=== PATIENT | male | born 1990 | race Caucasian/White ===

== ENCOUNTER 2023-04-15 08:55 | Emergency (ER) | payer MEDICAID, SELFPAY ==
[2023-04-15 09:11] VITALS: BP 140/98; PULSE 63; RESP 16; TEMP 36.8; O2SAT 98; BMI 30.6
--- NOTE | 2023-04-15 09:33 | ED_ITS ---
HPI - General Adult General Chief complaint: Neck Pain/Injury Stated complaint: NECK PAIN Time Seen by Provider: 04/15/23 09:32 Source: patient Mode of arrival: walk-in Limitations: no limitations History of Present Illness HPI narrative: Patient is a 32-year-old male who is presenting with acute on chronic left-sided neck, shoulder, cervical radiculopathy To both arms, left greater than right, and also right lower back pain with radiation of some pain into the right leg. This is acute on chronic. Patient has had these symptoms before. Patient has seen a center specialists in the past, approximately 23 years old and they would not do surgery because patient was so young. Patient stated he does not recall any type of heavy lifting twisting and turning at work on Thursday. 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 Thursday morning patient symptoms started. Patient has no headache. She has no neck pain, pain is more to bilateral trapezius muscles with radiation into the left arm to all 5 fingers. 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 No loss of urine or bowels and his pants. No dental pain nausea vomiting. No chest pain shortness of breath, no other acute complaints. . All systems are negative except as noted/marked. All systems reviewed and otherwise negative. . Nurses note and vital signs reviewed and patient is not hypoxic. General: The patient appears well and in no apparent distress. Patient is resting comfortably on cart. Patient is not toxic, lethargic, or listless Skin: Warm, dry, no pallor noted. There is no rash noted. No petechiae, purpura. Patient has multiple piercings and tattoos, no secondary signs of infection. Rash. Head: Normocephalic, atraumatic; Patient has no midline or paracervical tende rness to palpation. Full range of motion of cervical spinal no difficulty. Patient has multiple moderate tenderness to palpation to the bilateral upper trapezius muscles, left greater than right. Patient has symptoms of radiculopathy into his left hand. Patient has no cervical radiculopathy into his right hand. Eye: Normal conjunctiva, no drainage, EOMI. PERRL Ears, Nose, Mouth, and Throat: oral mucosa is moist. Nares patent. Mouth without vesicles. Cardiovascular: Regular Rate and Rhythm, no murmur, gallop, rub Respiratory: Patient is in no distress, no accessory muscle use, lungs are cl ear to auscultation, no wheezing, rales or rhonchi Back: non-tender, Patient has mild to moderate tenderness to palpation to the soft tissue to the right paralumbar area, no midline pain. No tenderness to piriformis muscle. Patient has negative straight leg raising test bilateral. No signs or symptoms of saddle anesthesia or cauda equina.no CVA tenderness bilaterally to percussion. No CT LS midline pain GI: soft, no tenderness to palpation, no masses appreciated. No rebound, guarding, or rigidity noted. No flank pain bilateral, No distention Musculoskeletal: Patient has full range of motion of all of the extremities, no motor, sensory, or focal neurological deficits Neurological: A&O x3, normal speech Psychiatric: Cooperative Related Data Previous Rx's Medication Instructions Recorded cyclobenzaprine 10 mg tablet 10 mg PO Q12H PRN muscle spasm #10 04/15/23 tabs methylprednisolone 4 mg tablets in 4 mg PO DAILY 7 days #21 ea 04/15/23 a dose pack (Medrol (Jean-Paul)) Allergies Allergy/AdvReac Type Severity Reaction Status Date / Time No Known Drug Allergies Allergy Verified 04/15/23 09:14 PFSH PFSH Social History Smoking status: Former smoker Exam Constitutional Vital Signs, click to edit/add: Last Vital Signs Temp 98.3 F 04/15/23 09:11 Pulse 63 04/15/23 09:11 Resp 16 04/15/23 09:11 BP 140/98 H 04/15/23 09:11 Pulse Ox 98 04/15/23 09:11 O2 Del Method Room Air 04/15/23 09:11 Course Vital Signs Vital signs: Vital Signs Temperature 98.3 F 04/15/23 09:11 Pulse Rate 63 04/15/23 09:11 Respiratory Rate 16 04/15/23 09:11 Blood Pressure 140/98 H 04/15/23 09:11 Pulse Oximetry 98 04/15/23 09:11 Oxygen Delivery Method Room Air 04/15/23 09:11 Temperature 98.3 F 04/15/23 09:11 Pulse Rate 63 04/15/23 09:11 Respiratory Rate 16 04/15/23 09:11 Blood Pressure 140/98 H 04/15/23 09:11 Pulse Oximetry 98 08/02/23 09:11 Oxygen Delivery Method Room Air 04/15/23 09:11 Medical Decision Making MDM Narrative Medical decision making narrative: Education was given ice, stretching. Patient will follow-up with PCP, chiropractor if needed. Patient had the follow-up with the spine surgeon again for reevaluation. Patient states the Flexeril has helped him in the past. The 1st few tablets may make him sleepy, but overall it does help and he is requesting that. Patient will be given a Medrol Dosepak as well. Patient will follow-up with PCP. Work note given. 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 Patient has no other questions at this time. Patient did not go to work today. Chief concern work note, also been treating the pain, he has not had the pain for years. Discharge Plan Discharge Chief Complaint: Neck Pain/Injury Clinical Impression: Cervical radiculopathy, Lumbar back pain with radiculopathy affecting left lower extremity, Strain of neck muscle Patient Disposition: Home, Self-Care Prescriptions / Home Meds: New cyclobenzaprine 10 mg tablet 10 mg PO Q12H PRN (Reason: muscle spasm) Qty: 10 0RF methylprednisolone [Medrol (Jean-Paul)] 4 mg tablets,dose pack 4 mg PO DAILY 7 Days Qty: 21 0RF Rx Instructions: as directed Instructions: Cervical Strain (ED), Lumbar Radiculopathy (ED), Cervical Radiculopathy (ED) Additional Instructions: Work note given, use ice 20 minutes on, 20 minutes off. Finish the Medrol Dosepak. Use Flexeril as needed since he views this in the past and has been affected. Alternate Tylenol and Motrin every 4 hours to help with pain. Follow-up with your PCP in follow-up with orthopedic spine surgeon or neurosurgeon Again for reevaluation if needed. Stand Alone Forms: Work/School Release, Portal Instructions Referrals: Physician,Non-Staff, MD [Primary Care Provider] - 1 week
[2023-04-15] MEDS: KETOROLAC TROMETHAMINE 30 MG/ML VIAL 60 MG IM (09:52)
[2023-04-15] MEDS: ORPHENADRINE 60 MG/ 2 ML VIAL IM (09:52)
[2023-04-15 10:08] VITALS: BP 141/98; PULSE 77; RESP 16; O2SAT 99
== END 2023-04-15 10:10 | disposition home or self-care (01) ==
PROVIDERS: Emergency Provider Emergency Medicine
DX: S16.1XXA Strain of muscle, fascia and tendon at neck level, initial encounter (principal); M54.12 Radiculopathy, cervical region; M54.16 Radiculopathy, lumbar region; M54.50 Low back pain, unspecified; Z87.891 Personal history of nicotine dependence; X58.XXXA Exposure to other specified factors, initial encounter
CPT/HCPCS: 96372; 99284

== ENCOUNTER 2023-08-25 17:30 | Emergency (ER) | payer SELFPAY ==
[2023-08-25 17:33] VITALS: BP 158/96; PULSE 97; RESP 18; TEMP 37.3; O2SAT 97; BMI 28.7
[2023-08-25 17:56] LABS: Influenza Virus A Antigen Negative; Influenza Virus B Antigen Negative; Internal Control Within Normal Limits; SARS-CoV-2 Ag NEGATIVE (NEGATIVE)
--- NOTE | 2023-08-25 17:56 | ED.URI1 ---
HPI - URI/Sore Throat General Chief Complaint: Upper Respiratory Infection Stated Complaint: body aches ear ache cough Time Seen by Provider: 08/25/23 17:35 Source: patient Limitations: no limitations History of Present Illness HPI Narrative: Patient is a 32-year-old male who presents to the emergency department for 2-day history of flulike illness. He states 2 days ago he developed diffuse bodyaches, intermittent fevers. He states the fever has improved, but the body aches have returned and he has now developed more nasal congestion, cough. He states he feels pressure in both of his ears. No medications taken prior to arrival today. He has had diarrhea but no vomiting. Related Data Previous Rx's Medication Instructions Recorded amoxicillin 500 mg capsule 500 mg PO TID 10 days #30 caps 08/25/23 mypecnqqntdxggr-rplwcinkzexnihb-YK 10 ml PO Q6H PRN cold symptoms 08/25/23 2 mg-30 mg-10 mg/5 mL oral syrup #200 mL (Bromfed DM) ondansetron 4 mg disintegrating 4 mg PO Q6H PRN nausea and 08/25/23 tablet vomiting #12 tabs Allergies Allergy/AdvReac Type Severity Reaction Status Date / Time No Known Drug Allergies Allergy Verified 08/25/23 17:33 Review of Systems ROS Constitutional Reports: fever and chills Ears, nose, mouth, and throat Reports: throat pain and nasal congestion Cardiovascular Denies: chest pain Respiratory Reports: cough; Denies: shortness of breath Gastrointestinal Reports: diarrhea; Denies: nausea or vomiting Genitourinary Denies: painful urination Musculoskeletal Denies: back pain Integumentary/Breast Denies: rash Neurological Reports: headache PFSH PFSH Social History Smoking status: Former smoker Exam Narrative Exam Narrative: Gen.: Awake, alert, in no distress Head: Normocephalic, atraumatic ENT: Moist mucous membranes, bilateral TMs are clear and fluid-filled. Bilateral tonsils are edematous with exudate. They are symmetric, uvula midline with airway open and patent. No trismus or drooling. No hoarse or muffled voice. Respiratory: No respiratory distress, lungs clear bilaterally Cardio: Regular rate and rhythm Extremities: Moves extremities equally Psych: Normal mood and affect Neuro: No focal neuro deficit Skin: Warm, dry, intact Constitutional Vital Signs, click to edit/add: Last Vital Signs Temp 99.2 F 08/25/23 17:33 Pulse 97 H 08/25/23 17:33 Resp 18 08/25/23 17:33 BP 158/96 H 08/25/23 17:33 Pulse Ox 97 08/25/23 17:33 O2 Del Method Room Air 08/25/23 17:33 Course Vital Signs Vital signs: Vital Signs Temperature 99.2 F 08/25/23 17:33 Pulse Rate 97 H 08/25/23 17:33 Respiratory Rate 18 08/25/23 17:33 Blood Pressure 158/96 H 08/25/23 17:33 Pulse Oximetry 97 08/25/23 17:33 Oxygen Delivery Method Room Air 08/25/23 17:33 Temperature 99.2 F 08/25/23 17:33 Pulse Rate 97 H 08/25/23 17:33 Respiratory Rate 18 08/25/23 17:33 Blood Pressure 158/96 H 08/25/23 17:33 Pulse Oximetry 97 08/25/23 17:33 Oxygen Delivery Method Room Air 08/25/23 17:33 MDM - URI/Sore Throat MDM Narrative Medical decision making narrative: Patient is negative for COVID and influenza. He is positive for strep. He will be started on antibiotics, Bromfed, Zofran for home. He is given Decadron in the ER. Vital signs within normal limits. Return to the ER if symptoms change or worsen Medical Records Attestation: I reviewed the patient's medical records. Lab Data Attestation: I reviewed the patient's lab results. Labs: Lab Results 08/25/23 08/25/23 Range/Units 17:40 17:50 SARS-CoV-2 (PCR) Negative (NEGATIVE) Influenza Type A Ag Negative Influenza Type B Ag Negative Streptococcus Screen Positive A Discharge Plan Discharge Chief Complaint: Upper Respiratory Infection Clinical Impression: Strep pharyngitis Patient Disposition: Home, Self-Care Time of Disposition Decision: 18:10 Condition: Good Prescriptions / Home Meds: New amoxicillin 500 mg capsule 500 mg PO TID 10 Days Qty: 30 0RF bhjiktxskzhqzkr-qadrvidsv-WL [Bromfed DM] 2-30-10 mg/5 mL syrup 10 ml PO Q6H PRN (Reason: cold symptoms) Qty: 200 0RF ondansetron 4 mg tablet,disintegrating 4 mg PO Q6H PRN (Reason: nausea and vomiting) Qty: 12 0RF Instructions: Strep Throat (ED) Stand Alone Forms: Portal Instructions Referrals: Physician,Non-Staff, MD [Primary Care Provider] - 1 week
[2023-08-25 18:07] LABS: Strep A Antigen Screen Positive
[2023-08-25 18:08] LABS: Internal Control Within Normal Limits
[2023-08-25] MEDS: DEXAMETHASONE SOD PHOS 10 MG/ML VIAL PO (18:20)
[2023-08-25 18:22] VITALS: BP 156/83; PULSE 78; RESP 18; O2SAT 98
[2023-08-26 15:42] LABS: SARS-CoV-2 NAA NOT DETECTED (NOT DETECTE)
== END 2023-08-25 18:23 | disposition home or self-care (01) ==
PROVIDERS: Physician Assistant; Emergency Provider Emergency Medicine
DX: J02.0 Streptococcal pharyngitis (principal); Z20.822 Contact with and (suspected) exposure to COVID-19; Z87.891 Personal history of nicotine dependence
CPT/HCPCS: 87635; 87804; 87811; 87880; 99283; J1100

== ENCOUNTER 2023-09-17 18:57 | Emergency (ER) | payer BC, SELFPAY ==
[2023-09-17 19:03] VITALS: BP 140/90; PULSE 91; RESP 16; TEMP 36.5; O2SAT 96; BMI 30.1
--- OUTSIDE RECORDS SUMMARY | 2023-09-17 19:04 | XMS_ITS | CCD ---
Author Name Unknown Address [address] [place] [id number] Organization [facility] Care Team Providers Care [facility] [employer] Name Role Phone Matt Mancera APRN, CNP Primary Care Provider MATT MATOS Primary Care Unavailable NE HANNA Attending Unavailable MIS, DR STEPHENS Attending Unavailable MISC, DR STEPHENS Consulting Unavailable MISC, DR STEPHENS Admitting Unavailable JIMMY Prakash Attending Provider Viv Campos Unavailable Tamar Prakash Unavailable DURGA Campos Attending Provider [phone] Tamar Prakash Attending Unavailable Tamar Prakash Admitting Unavailable Viv Campos Admitting Unavailable Viv Campos Attending Unavailable Allergies Allergy Classification Reported Allergen(s) Allergy Type Date of Onset Reaction(s) Facility (5 sources) [place] Propensity to adverse reactions Unknown [employer] Other Medications Current Medications Medication Drug Class(es) Dates Sig (Normalized) Sig (Original) buPROPion hydrochloride 100 mg oral tablet (1 source) Aminoketone Start: 07-01-2017 take 1 tablet by mouth twice daily buPROPion (WELLBUTRIN) 100 MG tablet Take 1 tablet by mouth 2 times daily 60 tablet 3 07/01/2017 Active cyclobenzaprine hydrochloride 10 mg oral tablet (1 source) Muscle Relaxant Start: 07-01-2017 take 1 tablet by mouth twice daily as needed for muscle spasms cyclobenzaprine (FLEXERIL) 10 MG tablet Take 1 tablet by mouth 2 times daily as needed for Muscle spasms 45 tablet 0 07/01/2017 Active ibuprofen 800 mg oral tablet (1 source) Nonsteroidal Anti-inflammatory Drug Start: 05-04-2017 take 1 tablet by mouth twice daily as needed for pain ibuprofen (ADVIL;MOTRIN) 800 MG tablet Indications: Sprain of right ankle, unspecified ligament, subsequent encounter Take 1 tablet by mouth 2 times daily as needed for Pain 60 tablet 0 05/04/2017 Active Prazosin (5 sources) alpha-Adrenergic Janeth Prazosin HCl Active Completed/Discontinued Medications Medication Drug Class(es) Dates Sig (Normalized) Sig (Original) amoxicillin 875 mg oral tablet (7 sources) Penicillin-class Antibacterial Start: 09-25-2022 take 1 tablet by mouth every twelve hours Amoxicillin 875 MG 1 tablet Orally every 12 hrs for 7 days Sep, Not-Taking Start: 07-28-2022 take 1 capsule by mi ut every eight hours Amoxicillin 500 MG 1 capsule Orally three times a day for 10 day(s) Jul, Not-Taking fluticasone propionate 0.05 mg/actuat metered dose nasal spray (2 sources) Corticosteroid Start: 09-25-2022 take 1 spray(s) nasal route once daily Fluticasone Propionate 50 MCG/ACT 1 spray in each nostril Nasally Once a day for 30 day(s) Sep, Not-Taking hydrocortisone 10 mg/ml / neomycin 3.5 mg/ml / polymyxin b 39149 unt/ml otic suspension (3 sources) Aminoglycoside Antibacterial, Polymyxin-class Antibacterial, Corticosteroid Start: 08-13-2022 Neomycin-Polymyx in-HC 3.5-05932-0 3 drops left ear Three times a day for 7 days Jul, Not-Taking lidocaine-EPINEPHrin e-tetracaine (LET) topical solution 3 mL syringe (1 source) Start: 01-21-2022 End: 01-21-2022 lidocaine-EPINEP Hrine-tetracaine (LET) topical solution 3 mL syringe naproxen sodium 550 mg oral tablet (5 sources) Nonsteroidal Anti-inflammatory Drug Start: 07-17-2022 take 1 tablet by mouth every twelve hours at mealtime as needed Naproxen Sodium 550 MG 1 tablet with food or milk as needed Orally every 12 hrs for 7 days Jul, Not-Taking Problems Active Problems Problem Classification Problem Date Documented Da te Episodic/Chronic Immunizations and screening for infectious disease (7 sources) Encounter for screening for other viral diseases; Translations: [Contact with and (suspected) exposure to other viral communicable diseases] Onset: 05-28-2020 Episodic Open wounds of head; neck; and trunk (1 source) Scalp laceration; Translations: [Laceration without foreign body of scalp, initial encounter] Episodic Other connective tissue disease (1 source) Pain in right hand Episodic Other ear and sense organ disorders (1 source) Unspecified acute noninfective otitis externa, left ear Episodic Other injuries and conditions due to external causes (1 source) Closed injury of head; Translations: [Unspecified injury of head, initial encounter] Episodic Other non-traumatic joint disorders (1 source) Pain in right knee Episodic Other upper respiratory infections (3 sources) Acute laryngitis; Translations: [Acute pharyngitis, unspecified] Onset: 06-06-2020 Episodic Otitis media and related conditions (1 source) Otitis media, unspecified, bilateral Episodic Unclassified (1 source) Pain in right hand; Translations: [Pain in right hand] Onset: 12-03-2022 Unclassified (1 source) Pain in right knee; Translations: [Pain in right knee] Onset: 07-17-2022 Past or Other Problems Problem Classification Problem Date Documented Da te Episodic/Chronic Headache; including migraine (1 source) Other headache syndrome; Translations: [OTHER HEADACHE SYNDROME] Onset: 06-06-2020 Episodic Other screening for suspected conditions (not mental disorders or infectious disease) (1 source) Patient encounter status; Translations: [Encounter for screening for disorder due to exposure to contaminants] Onset: 07-13-2015 Resolved: 06-10-2018 06-10-2018 Episodic Spondylosis; intervertebral disc disorders; other back problems (2 sources) Low back pain; Translations: [Lumbar back pain] Onset: 03-20-2015 03-20-2015 Episodic Results Test Name Value Interpretation Reference Range Facility XR hand RT min 3V*on 023 XR hand RT min 3V* [facility] [place] [address] [place] [address] XRay Report Signed Patient: Mich Rodriguez MR#: [id number] : 1990 Acct:[id number] Age/Sex: 32 / M ADM Date: 12/03/22 Loc: XDUCLY Room: Type: [facility] Attending Dr: Viv Campos LEAD CARGOMAN-C Copies to: DURGA Arango Ordering Provider: DURGA Arango Date of Service: 12/03/22 XR/XR hand RT min 3V*: RIGHT HAND SWELLING/PAIN RIGHT HAND - 3 views CLINICAL DATA: Right hand pain and swelling dorsally over the metacarpals for the past week. No known injury. COMPARISON: None AP, lateral and oblique views were obtained. There is no evidence of fracture or dislocation. No prominent hypertrophy or joint space narrowing is seen. Mild dorsal soft tissue swelling is present. XR/XR hand RT min 3V* IMPRESSION: NO ACUTE BONY FINDINGS. Impression dictated by: Christi Gray M.D.12/03/2022 12:25 PM Dictation Location: [facility] [employer] Transcribed By: [facility] 12/03/22 1225 Dictated By: Christi Gray MD 12/03/22 1223 Signed By: 12/03/22 1225 Normal [facility] XR hand RT min 3V* [facility] [employer] Other XR hand RT min 3V* [facility] [employer] Other XR hand RT min 3V* [address] [place] [address] [employer] Other XR hand RT min 3V* [place] [address] [employer] Other XR hand RT min 3V* XRay Report [employer] Other XR hand RT min 3V* Signed [employer] Other XR hand RT min 3V* Patient: Mich Rodriguez MR#: [id number] [employer] Other XR hand RT min 3V* [facility] [employer] Other XR hand RT min 3V* : 1990 Acct:[id number] [employer] Other XR hand RT min 3V* Age/Sex: 32 / M ADM Date: 12/03/22 [employer] Other XR hand RT min 3V* Loc: XDUCLY Room: Type: REG CLI [employer] Other XR hand RT min 3V* Attending Dr: Viv CALIXTO [employer] Other XR hand RT min 3V* Copies to: DURGA Arango [employer] Other XR hand RT min 3V* Ordering Provider: DURGA Arango [employer] Other XR hand RT min 3V* Date of Service: 12/03/22 [employer] Other XR hand RT min 3V* XR/XR hand RT min 3V*: RIGHT HAND SWELLING/PAIN [employer] Other XR hand RT min 3V* RIGHT HAND - 3 views [employer] Other XR hand RT min 3V* CLINICAL DATA: Right hand pain and swelling dorsally over the metacarpals for the past week. No [employer] Other XR hand RT min 3V* known injury. Nor [employer] Other XR hand RT min 3V* COMPARISON: None [employer] Other XR hand RT min 3V* AP, lateral and oblique views were obtained. There is no evidence of fracture or dislocation. No [employer] Other XR hand RT min 3V* prominent hypertrophy or joint space narrowing is seen. Mild dorsal soft tissue swelling is [employer] Other XR hand RT min 3V* present. [employer] Other XR hand RT min 3V* XR/XR hand RT min 3V* [employer] Other XR hand RT min 3V* IMPRESSION: [employer] Other XR hand RT min 3V* NO ACUTE BONY FINDINGS. [employer] Other XR hand RT min 3V* Impression dictated by: Christi Gray M.D.12/03/2022 12:25 PM [employer] Other XR hand RT min 3V* Dictation Location: [facility] [employer] Other XR hand RT min 3V* Transcribed By: PWS 12/03/22 1225 [place] [employer] Other XR hand RT min 3V* Dictated By: Christi Gray MD 12/03/22 1223 [employer] Other XR hand RT min 3V* Signed By: [employer] Other XR hand RT min 3V* 12/03/22 1225 [facility] [employer] Other COVID + FLU Quick Testingon 09-01-2022 SARS-CoV-2 (COVID-19) RNA ABILIO+probe Ql (Unsp spec) Negative [employer] Other COVID + FLU Quick Testing Negative [employer] Other XR knee RT 4V*on 07-17-2022 XR knee RT 4V* [facility] [place] [address] [place] [address] XRay Report Signed Patient: Mich Rodriguez MR#: [id number] : 1990 Acct:[id number] Age/Sex: 31 / M ADM Date: 07/17/22 Loc: XDUCLY Room: Type: [facility] Attending Dr: Tamar MARQUEZ Copies to: TAMAR PRAKASH Ordering Provider: TAMAR PRAKASH Date of Service: 07/17/22 XR/XR knee RT 4V*: Right anterior knee pain XR knee RT 4V* 07/17/2022 1:02 PM SIGNS AND SYMPTOMS: Right anterior knee pain PROTOCOL: Frontal, lateral, and oblique radiographs of the right knee COMPARISON: None FINDINGS: There is a linear radiopaque foreign body in the lateral soft tissues adjacent to the proximal fibula. The joint spaces are preserved. There is no fracture. No joint effusion. No soft tissue swelling. XR/XR knee RT 4V* IMPRESSION: No acute bony injury or significant degenerative change. There is a linear radiopaque foreign body in the lateral soft tissues adjacent to the proximal fibula. Impression dictated by: Brayan Mccormack M.D.07/17/2022 1:22 PM Dictation Location: [facility]--12 Transcribed By: [facility] 07/17/22 1322 Dictated By: Brayan Mccormack II, MD 07/17/22 1321 Signed By: 07/17/22 132 [facility] XR knee RT 4V* [facility] [employer] Other XR knee RT 4V* [facility] [employer] Other XR knee RT 4V* [address] [place] [address] [employer] Other XR knee RT 4V* [place] [address] No rt [employer] Other XR knee RT 4V* XRay Report [employer] Other XR knee RT 4V* Signed [employer] Other XR knee RT 4V* Patient: Mich Rodriguez MR#: [id number] [employer] Other XR knee RT 4V* 83 [employer] Other XR knee RT 4V* : 1990 Acct:[id number] [employer] Other XR knee RT 4V* Age/Sex: 31 / M ADM Date: 07/17/22 [employer] Other XR knee RT 4V* Loc: XDUCLY Room: Type: REG CLI [employer] Other XR knee RT 4V* Attending [facility]: [facility]ar [facility]rakash [facility] [employer] Other XR knee RT 4V* Copies to: TAMAR PRKAASH [facility] [employer] Other XR knee RT 4V* Ordering Provider: TAMAR PRAKASH [facility] [place] [employer] Other XR knee RT 4V* Date of Service: 07/17/22 [employer] Other XR knee RT 4V* XR/XR knee RT 4V*: Right anterior knee pain [employer] Other XR knee RT 4V* XR knee RT 4V* 07/17/2022 1:02 PM [employer] Other XR knee RT 4V* SIGNS AND SYMPTOMS: Right anterior knee pain [employer] Other XR knee RT 4V* PROTOCOL: Frontal, lateral, and oblique radiographs of the right knee [employer] Other XR knee RT 4V* COMPARISON: None [place] [employer] Other XR knee RT 4V* FINDINGS: [employer] Other XR knee RT 4V* There is a linear radiopaque foreign body in the lateral soft tissues adjacent to the proximal [employer] Other XR knee RT 4V* fibula. The joint spaces are preserved. There is no fracture. No joint effusion. No soft tissue [employer] Other XR knee RT 4V* swelling. [employer] Other XR knee RT 4V* XR/XR knee RT 4V* [employer] Other XR knee RT 4V* IMPRESSION: [employer] Other XR knee RT 4V* No acute bony injury or significant degenerative change. [employer] Other XR knee RT 4V* fibula. [employer] Other XR knee RT 4V* Impression dictated by: Brayan Mccormack M.D.07/17/2022 1:22 PM [employer] Other XR knee RT 4V* Dictation Location: [place] [address] [employer] Other XR knee RT 4V* Transcribed By: PWS 07/17/22 1322 [employer] Other XR knee RT 4V* Dictated By: Brayan Mccormack II, MD 07/17/22 1321 [employer] Other XR knee RT 4V* Signed By: [employer] Other XR knee RT 4V* 07/17/22 [address] [email or web address] [address] CERVICAL SPINE WO CONTRAS Ton 01-21-2022 CT CERVICAL SPINE WO CONTRAST EXAMINATION: CT OF THE CERVICAL SPINE WITHOUT CONTRAST; CT OF THE HEAD WITHOUT CONTRAST 01/21/2022 1:13 pm TECHNIQUE: CT of the cervical spine was performed without the administration of intravenous contrast. Multiplanar reformatted images are provided for review. Automated exposure control, iterative reconstruction, and/or weight based adjustment of the mA/kV was utilized to reduce the radiation dose to as low as reasonably achievable.; CT of the head was performed without the administration of intravenous contrast. Automated exposure control, iterative reconstruction, and/or weight based adjustment of the mA/kV was utilized to reduce the radiation dose to as low as reasonably achievable. 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 Area bandaged. Pt had several piercing. He did remove what he could for the exams. 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 Area bandaged. Pt had several piercing. He did remove what he could for the exams. FINDINGS: CT head: BRAIN/VENTRICLES: There is no acute intracranial hemorrhage, mass effect or midline shift. No abnormal extra-axial fluid collection. The parish-white differentiation is maintained without evidence of an acute infarct. There is no evidence of hydrocephalus. ORBITS: The visualized portion of the orbits demonstrate no acute abnormality. SINUSES: The visualized paranasal sinuses and mastoid air cells demonstrate no acute abnormality. SOFT TISSUES/SKULL: No acute abnormality of the visualized skull or soft tissues. CT CERVICAL SPINE: BONES/ALIGNMENT: There is no evidence of an acute cervical spine fracture. There is normal alignment of the cervical spine. DEGENERATIVE CHANGES: C4-C5 and C5-C6 anterior osteophytes. SOFT TISSUES: There is no prevertebral soft tissue swelling. IMPRESSION: No acute intracranial abnormality. No acute fracture or subluxation of cervical spine. Mild degenerative change C4-C5 and C5-C6. RECOMMENDATIONS: Unavailable Interpreted by: Clark Rhodes MD Signed by: Clark Rhodes MD 01/21/22 Final result Normal [facility] CT HEAD WO CONTRASTon 2021 CT HEAD WO CONTRAST EXAMINATION: CT OF THE CERVICAL SPINE WITHOUT CONTRAST; CT OF THE HEAD WITHOUT CONTRAST 01/21/2022 1:13 pm TECHNIQUE: CT of the cervical spine was performed without the administration of intravenous contrast. Multipl[employer] reformatted images are provided for review. Automated exposure control, iterative reconstruction, and/or weight based adjustment of the mA/kV was utilized to reduce the radiation dose to as low as reasonably achievable.; CT of the head was performed without the administration of intravenous contrast. Automated exposure control, iterative reconstruction, and/or weight based adjustment of the mA/kV was utilized to reduce the radiation dose to as low as reasonably achievable. 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 Area bandaged. Pt had several piercing. He did remove what he could for the exams. 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 Area bandaged. Pt had several piercing. He did remove what he could for the exams. FINDINGS: CT head: BRAIN/VENTRICLES: There is no acute intracranial hemorrhage, mass effect or midline shift. No abnormal extra-axial fluid collection. The parish-white differentiation is maintained without evidence of an acute infarct. There is no evidence of hydrocephalus. ORBITS: The visualized portion of the orbits demonstrate no acute abnormality. SINUSES: The visualized paranasal sinuses and mastoid air cells demonstrate no acute abnormality. SOFT TISSUES/SKULL: No acute abnormality of the visualized skull or soft tissues. CT CERVICAL SPINE: BONES/ALIGNMENT: There is no evidence of an acute cervical spine fracture. There is normal alignment of the cervical spine. DEGENERATIVE CHANGES: C4-C5 and C5-C6 anterior osteophytes. SOFT TISSUES: There is no prevertebral soft tissue swelling. IMPRESSION: No acute intracranial abnormality. No acute fracture or subluxation of cervical spine. Mild degenerative change C4-C5 and C5-C6. RECOMMENDATIONS: Unavailable Interpreted by: Clark Rhodes MD Signed by: Clark Rhodes MD 01/21/22 Final result Normal [facility] No Panel Informationon 01-21 No acute intracranial abnormality. No acute fracture or subluxation of cervical spine. Mild degenerative change C4-C5 and C5-C6. RECOMMENDATIONS: Unavailable [facility] RIS CONSOLIDATED EXAMINATION: CT OF THE CERVICAL SPINE WITHOUT CONTRAST; CT OF THE HEAD WITHOUT CONTRAST 01/21/2022 1:13 pm TECHNIQUE: CT of the cervical spine was performed without the administration of intravenous contrast. Multipl[employer]ar reformatted images are provided for review. Automated exposure control, iterative reconstruction, and/or weight based adjustment of the mA/kV was utilized to reduce the radiation dose to as low as reasonably achievable.; CT of the head was performed without the administration of intravenous contrast. Automated exposure control, iterative reconstruction, and/or weight based adjustment of the mA/kV was utilized to reduce the radiation dose to as low as reasonably achievable. 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 Area bandaged. Pt had several piercing. He did remove what he could for the exams. 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 Area bandaged. Pt had several piercing. He did remove what he could for the exams. FINDINGS: CT head: BRAIN/VENTRICLES: There is no acute intracranial hemorrhage, mass effect or midline shift. No abnormal extra-axial fluid collection. The parish-white differentiation is maintained without evidence of an acute infarct. There is no evidence of hydrocephalus. ORBITS: The visualized portion of the orbits demonstrate no acute abnormality. SINUSES: The visualized paranasal sinuses and mastoid air cells demonstrate no acute abnormality. SOFT TISSUES/SKULL: No acute abnormality of the visualized skull or soft tissues. CT CERVICAL SPINE: BONES/ALIGNMENT: There is no evidence of an acute cervical spine fracture. There is normal alignment of the cervical spine. DEGENERATIVE CHANGES: C4-C5 and C5-C6 anterior osteophytes. SOFT TISSUES: There is no prevertebral soft tissue swelling. [facility] Clark Zafar MD - 01/21/2022 EXAMINATION: CT OF THE CERVICAL SPINE WITHOUT CONTRAST; CT OF THE HEAD WITHOUT CONTRAST 01/21/2022 1:13 pm TECHNIQUE: CT of the cervical spine was performed without the administration of intravenous contrast. [employer] reformatted images are provided for review. Automated exposure control, iterative reconstruction, and/or weight based adjustment of the mA/kV was utilized to reduce the radiation dose to as low as reasonably achievable.; CT of the head was performed without the administration of intravenous contrast. Automated exposure control, iterative reconstruction, and/or weight based adjustment of the mA/kV was utilized to reduce the radiation dose to as low as reasonably achievable. 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 Area bandaged. Pt had several piercing. He did remove what he could for the exams. 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 Area bandaged. Pt had several piercing. He did remove what he could for the exams. FINDINGS: CT head: BRAIN/VENTRICLES: There is no acute intracranial hemorrhage, mass effect or midline shift. No abnormal extra-axial fluid collection. The parish-white differentiation is maintained without evidence of an acute infarct. There is no evidence of hydrocephalus. ORBITS: The visualized portion of the orbits demonstrate no acute abnormality. SINUSES: The visualized paranasal sinuses and mastoid air cells demonstrate no acute abnormality. SOFT TISSUES/SKULL: No acute abnormality of the visualized skull or soft tissues. CT CERVICAL SPINE: BONES/ALIGNMENT: There is no evidence of an acute cervical spine fracture. There is normal alignment of the cervical spine. DEGENERATIVE CHANGES: C4-C5 and C5-C6 anterior osteophytes. SOFT TISSUES: There is no prevertebral soft tissue swelling. IMPRESSION: No acute intracranial abnormality. No acute fracture or subluxation of cervical spine. Mild degenerative change C4-C5 and C5-C6. RECOMMENDATIONS: Unavailable [employer] Work Phone: Radiology Study observation (narrative) [employer] Phone: No Panel InformationOrdered By: Clark Rhodes on 01-21-2022 [employer] Phone: Vital Signs Date Time Vital Sign Value Performing Clinician Ibrahima austin 12-03-2022 12:35-0400 Body height 177.8 cm Viv Beth Other [employer] Other 12-03-2022 12:35-0400 Body mass index (BMI) [Ratio] 30.13 kg/m2 Viv Beth Other [employer] Other 12-03-2022 12:35-0400 Body temperature 100 [degF] Viv Randallmond Other [employer] Other 12-03-2022 12:35-0400 Body weight 95.26 kg Viv Randallmond Other [employer] Other 12-03-2022 12:35-0400 Diastolic blood pressure 89 mm[Hg] Viv Beth Other [employer] Other 12-03-2022 12:35-0400 Respiratory rate 18 /min Viv Beth Other [employer] Other 12-03-2022 12:35-0400 SaO2% (BldA) [Mass fraction] 96 % Viv Beth Other [employer] Other 12-03-2022 12:35-0400 Systolic blood pressure 151 mm[Hg] Viv Beth Other [employer] Other 09-01-2022 12:15-0500 Body height 177.8 cm Viv Beth Other [employer] Other 09-01-2022 12:15-0500 Body mass index (BMI) [Ratio] 30.13 kg/m2 Viv Beth Other [employer] Other 09-01-2022 12:15-0500 Body temperature 97.9 [degF] Viv Beth Other [employer] Other 09-01-2022 12:15-0500 Body weight 95.26 kg Viv Beth Other [employer] Other 09-01-2022 12:15-0500 Diastolic blood pressure 93 mm[Hg] Viv Beth Other [employer] Other 09-01-2022 12:15-0500 Respiratory rate 18 /min Viv Beth Other [employer] Other 09-01-2022 12:15-0500 SaO2% (BldA) [Mass fraction] 100 % Viv Beth Other [employer] Other 09-01-2022 12:15-0500 Systolic blood pressure 157 mm[Hg] Viv Beth Other [employer] Other 08-13-2022 11:35-0500 Body height 177.8 cm Viv Beth Other [employer] Other 08-13-2022 11:35-0500 Body mass index (BMI) [Ratio] 30.13 kg/m2 Viv Beth Other [employer] Other 08-13-2022 11:35-0500 Body temperature 98.1 [degF] Viv Beth Other [employer] Other 08-13-2022 11:35-0500 Body weight 95.26 kg Viv Beth Other [employer] Other 08-13-2022 11:35-0500 Diastolic blood pressure 89 mm[Hg] Viv Beth Other [employer] Other 08-13-2022 11:35-0500 Respiratory rate 16 /min Viv Beth Other [employer] Other 08-13-2022 11:35-0500 SaO2% (BldA) [Mass fraction] 99 % Viv Beth Other [employer] Other 08-13-2022 11:35-0500 Systolic blood pressure 143 mm[Hg] Viv Beth Other [employer] Other 07-28-2022 11:35-0500 Body height 177.8 cm Viv Beth Other [employer] Other 07-28-2022 11:35-0500 Body mass index (BMI) [Ratio] 30.13 kg/m2 Viv Beth Other [employer] Other 07-28-2022 11:35-0500 Body temperature 97.9 [degF] Viv Beth Other [employer] Other 07-28-2022 11:35-0500 Body weight 95.26 kg Viv Beth Other [employer] Other 07-28-2022 11:35-0500 Diastolic blood pressure 83 mm[Hg] Viv Beth Other [employer] Other 07-28-2022 11:35-0500 Respiratory rate 18 /min Viv Campos Other [employer] Other 07-28-2022 11:35-0500 SaO2% (BldA) [Mass fraction] 96 % Viv Campos Other [employer] Other 07-28-2022 11:35-0500 Systolic blood pressure 126 mm[Hg] Viv Campos Other [employer] Other 07-17-2022 14:40-0400 Body height 177.8 cm Tamar Prakash Other [employer] Other 07-17-2022 14:40-0400 Body mass index (BMI) [Ratio] 30.13 kg/m2 Tamar Prakash Other [employer] Other 07-17-2022 14:40-0400 Body temperature 98 [degF] Tamar Prakash Other [employer] Other 07-17-2022 14:40-0400 Body weight 95.26 kg Tamar Zelayaault Other [employer] Other 07-17-2022 14:40-0400 Diastolic blood pressure 81 mm[Hg] Tamar Zelayaault Other [employer] Other 07-17-2022 14:40-0400 Respiratory rate 18 /min Tamar Halyee Other [employer] Other 07-17-2022 14:40-0400 SaO2% (BldA) [Mass fraction] 98 % Tamar Prakash Other [employer] Other 07-17-2022 14:40-0400 Systolic blood pressure 143 mm[Hg] Tamar Prakash Other [employer] Other 01-21-2022 12:29-0400 Body height 177.8 cm Ne Hanna MD [facility] 01-21-2022 12:29-0400 Body mass index (BMI) [Ratio] 30.85 kg/m2 Ne Hanna MD [facility] 01-21-2022 12:29-0400 Body temperature 98.8 [degF] Ne Hanna MD [facility] 01-21-2022 12:29-0400 Body weight 97.52 kg Ne Hanna MD [facility] 01-21-2022 12:29-0400 Diastolic blood pressure 91 mm[Hg] Ne Hanna MD [facility] 01-21-2022 12:29-0400 Heart rate 82 /min Ne Hanna MD [facility] 01-21-2022 12:29-0400 Respiratory rate 18 /min Ne Hanna MD [facility] 01-21-2022 12:29-0400 SaO2% (BldA) [Mass fraction] 98 % Ne Hanna MD [facility] 01-21-2022 12:29-0400 Systolic blood pressure 155 mm[Hg] Ne Hanna MD [facility] Encounters Encounter Date Encounter Type Care Provider Facility Start: 12-03-2022 Office outpatient visit 15 minutes Viv Campos [facility] Start: 12-03-2022 End: 12-03-2022 ambulatory Viv Campos Facility:[facility] Start: 12-03-2022 End: 12-03-2022 ambulatory LEAD CARGOMAN-C Viv Campos Work Phone: [facility] Work Phone: Start: 12-03-2022 End: 12-03-2022 Patient encounter procedure LEAD CARGOMAN-C Viv Beth Work Phone: [facility] Work Phone: Start: 09-01-2022 End: 09-01-2022 ambulatory Viv Beth Other [employer] Other Start: 09-01-2022 Office outpatient visit 15 minutes Viv Beth [facility] Start: 08-13-2022 End: 08-13-2022 ambulatory Viv Beth Other [employer] Other Start: 08-13-2022 Office outpatient visit 15 minutes Viv Beth [facility] Start: 07-28-2022 End: 07-28-2022 ambulatory Viv Beth Other [employer] Other Start: 07-28-2022 Office outpatient visit 15 minutes Viv Beth [facility] Start: 07-17-2022 End: 07-17-2022 ambulatory Tamar Haylee Facility:[facility] Start: 07-17-2022 Office outpatient visit 15 minutes Tamar Haylee [facility] Start: 07-17-2022 End: 07-17-2022 ambulatory ASSOCIATE FINANCIAL ADVISOR-C Tamar Haylee Work Phone: [facility] Work Phone: Start: 07-17-2022 End: 07-17-2022 Patient encounter procedure ASSOCIATE FINANCIAL ADVISOR-C Tamar Haylee Work Phone: [facility] Start: 01-21-2022 End: 01-21-2022 Emergency department patient visit MATT MATOS [facility] Start: 01-21-2022 End: 01-21-2022 Emergency department patient visit Ne Hanna MD [facility] ED Comment on above: Closed head injury, initial encounter (Primary Dx); Laceration of scalp, initial encounter Start: 05-28-2020 End: 05-29-[address] DOCTOR CHAVARRIA Facility:[facility] Procedures Date Procedure Procedure Detail Performing Clinician Start: 12-03-2022 Plain X-ray of right hand LEAD CARGOMAN-C Viv Campos Work Phone: Start: 07-17-2022 X-ray of right knee ASSOCIATE FINANCIAL ADVISOR -C Tamar Prakash Work Phone: Start: 01-21-2022 Ct cervical spine w/ o contrast material Yoni A Romp PA-C Work Phone: Start: 01-21-2022 Ct head/brain w/o contrast material Yoni A Romp PA-C Work Phone: Plan of Treatment Date Care Activity Detail Author Start: 01-22-2032 DTaP/Tdap/Td vaccine (2 - Td or Tdap) DTaP/Tdap/Td vaccine (2 - Td or Tdap) [facility] Start: 05-15-2022 Influenza vaccination Flu vaccine (S anna marie Ended) [facility] Start: 2006 Hepatitis C screening Hepatitis C sc reen [facility] Start: 2003 HIV screening HIV screen [facility] Start: 2000 Depression Screen Depression Screen [facility] Start: 1993 COVID-19 Vaccine (1) COVID-19 Vaccin e (1) [facility] Start: 1989 Varicella vaccine (1 of 2 - 2-dose childhood series) Varicella vaccine (1 of 2 - 2-dose childhood series) [facility] Immunizations Immunization Date Immunization Notes Care Provider Fa cility 01-21-2022 tetanus toxoid, reduced diphtheria toxoid, and acellular pertussis vaccine, adsorbed Ne Hanna MD [facility] Work Phone: Payers Date Payer Category Payer Medicaid [id number] 2. [id number] 2022 Self-pay 2022 Unknown [id number] 2.1 [id number] 2022 Unknown [id number] 2022 Unknown [id number] 1.2.8 [id number] 2021 Unknown [id number] 1. [id number] 1988 Unknown [id number] [id number]. [id number] 1988 Unknown [id number] 1959 Unknown [id number] 1959 Unknown [id number] Unknown [id number] 2.16.8 [id number] Unknown [id number] 2.16.8 [id number] Social History Date Type Detail Facility Start: 03-31-2014 Tobacco smoking status [facility] Ex-smoker [facility] Start: 03-31-2014 Tobacco use and exposure Smokeless tobacco non-user [employer] Phone: Start: 01-21-2022 Alcohol intake Current non-dr edge inker uppers of alcohol (finding) [employer] Phone: Start: 01-21-2022 Alcohol intake [employer] Phone: Start: 03-31-2014 History SDOH Alcohol Comment 1x month [employer] Phone: Start: 1990 Sex Assigned At Not on file M [facility] Phone: Start: 01-11-2022 End: 01-21-2022 Exposure to SARS-CoV-2 (event) Not sure [employer] Phone: Start: 1988 Sex Assigned At Male F [facility] Sex Assigned At Sex Assigned At [place] [employer] Other Evaluation note 12-03-2022 Note Date & Type Note Facility 12-03-2022 Evaluation note Encounter Date Diagnosis Assessment Notes Nov, Right hand pain (ICD-10 - M79.641) Hand pain home care material was printed, Hand pain home care material was printed Wear the Maynor wrap for comfort and compression. Take 2 Aleve every morning and every night for the next 5 to 7 days. Follow-up with your family physician if no improvement in 5 to 7 days. [employer] Other Evaluation note 09-01-2022 Note Date & Type Note Facility 09-01-2022 Evaluation note Encounter Date Diagnosis Assessment Notes Aug, Contact with and (suspected) exposure to other viral communicable diseases (ICD-10 - Z20.828) Aug, Viral upper respiratory infection (ICD-10 - J06.9) Viral upper respiratory infection: adult home care material was printed Drink plenty fluids, get plenty of rest. Take Tylenol or Motrin as needed for aches pains or fevers. Follow-up with your family physician if no improvement in 2 to 3 days. You may return to work tomorrow [employer] Other Evaluation note 08-13-2022 Note Date & Type Note Facility 08-13-2022 Evaluation note Encounter Date Diagnosis Assessment Notes Jul, Acute otitis externa of left ear, unspecified type (ICD-10 - H60.502) Otitis externa home care material was printed Drink plenty fluids, get plenty of rest. Use eardrops as prescribed. Take Tylenol or Motrin as needed for aches pains or fevers. Follow-up with your family physician if no improvement in 2 to 3 days. [employer] Other Evaluation note 07-28-2022 Note Date & Type Note Facility 07-28-2022 Evaluation note Encounter Date Diagnosis Assessment Notes Jul, Bilateral otitis media, unspecified otitis media type (ICD-10 - H66.93) Middle ear infection: adult home care material was printed Drink plenty fluids, get plenty of rest. Take the amoxicillin as prescribed until gone. Take Tylenol or Motrin as needed for aches pains or fevers. Follow-up with your family physician if no improvement in 2 to 3 days [employer] Other Evaluation note 07-17-2022 Note Date & Type Note Facility 07-17-2022 Evaluation note Encounter Date Diagnosis Assessment Notes Jul, Right anterior knee pain (ICD-10 - M25.561) Use RICE therapy as discussed: Rest, Ice Compression, Elevate. Apply ice to affected area 3-4 times daily (Do not place ice source directly on skin, must cover with towel-like material). Take medication as directed. Rest and elevate sore extremity as much as possible. Do not take OTC medication pain relievers if prescription of medication given in office today. Contact office if no improvement of symptoms and we will help you get into a specialist. [employer] Other Hospital Discharge instructions 01-21-2022 InstructionsAttachments Note Date & Type Note Facility 01-21-2022 Hospital Discharg e instructions Yoni Lo PA-C - 01/21/2022 Please have person removing your sutures assess if you require any additional days of healing (sutures in) at the 7 day brayan, as initial injury was a scalp tissue loss and suturing required significant tension to close wound. Use triple-antibiotic ointment (ex. generic, Neosporin, Bacitracin) THINLY APPLIED while sutures are in place, use twice daily. If you have increased redness/swelling/pain or pus from wound then get re-evaluated for possible infection. Suture removal in 7 days with Family Doctor, Urgent Care. A Return to Emergency Dept for this will result in another Emergency Dept visit charge, this is not covered with original visit. The following attachments cannot be sent through Care Everywhere.Lacerations: Stitches (Armenian)documented in this encounter [employer] Phone: Evaluation note Note Date & Type Note Facility Evaluation note Diagnosis Closed head injury, initial encounter- Primary Laceration of scalp, initial encounter documented in this encounter [employer] Phone: Evaluation note Note Date & Type Note Facility Evaluation note No assessment information [facility] Work Phone: History general Narrative - Reported Note Date & Type Note Facility History general Narrative - Reported Type Medical History hypertension Medical History hypercholesterolemia Medical History acid reflux Surgical History shoulder surgery [employer] 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 Scheduled Active and Recently Administ ered Medications (unrecognized section and content) Medication Order 01/19/2022 01/20/2022 01/21/2022 [id number]-yeohwpbrns (LET) topical solution 3 mL syringe (COMPLETED) 3 mL, Topical, ONCE, On Thu01/21/22 at 1245, For 1 dose, Apply to laceration For Topical Use Only. 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 Relationship Specialty Start Date End Date Matt Matos, BOAT OUTFITTER - ENGRAVER BLOCK PCP - General 11/03/18 Team Status: Inactive Member Role Status Dates JIMMY Chandra Attending Provider Active Team Status: Inactive Member Role Status Dates VIRGIL PakC Attending Provider Active (unrecognized sect ion and content) No Status Records FoundNo Status Records FoundNo Status Records Found INFORMATION SOURCE (unrecogn ized section and content) DATE CREATED AUTHOR 01/22/2022 [facility] DATE CREATED AUTHOR AUTHOR'S ORGANIZ ATION 06/20/2022 [facility] DATE CREATED AUTHOR AUTHOR'S ORGANIZ ATION 01/03/2023 [facility] Goals (unrecognized section and content) Goals may be documented in a n alternate sectionNo InformationNo InformationNo InformationNo InformationGoals may be documented in an alternate sectionNo Information FOR RECORDS PERTAINING TO PATIENTS WHO ARE OR HAVE BEEN ENROLLED IN A CHEMICAL DEPENDENCY/SUBSTANCEABUSE PROGRAM, SOME INFORMATION MAY BE OMITTED. This clinical summary was aggregated from multiple sources. Caution should be exercised in using it in the provision of clinical care. This summary normalizes information from multiple sources, and as a consequence, information in this document may materially change the coding, format and clinical context of patient data. In addition, data may be omitted in some cases. CLINICAL DECISIONS SHOULD BE BASED ON THE PRIMARY CLINICAL RECORDS. [facility] [employer] [facility] provides no warranty or guarantee of the accuracy or completeness of information in this document.
--- NOTE | 2023-09-17 19:15 | ED.NAVMDI1 ---
HPI - Nausea/Vomiting/Diarrhea General Chief complaint: Nausea/Vomiting/Diarrhea Stated complaint: vomitting, fever Time Seen by Provider: 09/17/23 19:06 Source: patient Mode of arrival: walk-in Limitations: no limitations History of Present Illness HPI Narrative: This 33-year-old male presents for evaluation of one day of nausea vomiting. He states he has vomited 6 or 7 times today. He is not having any abdominal pain but states he has cramps before and after throwing up. He has not had any diarrhea. He has not had a fever but states he feels hot after vomiting. He denies any chest pain or shortness of breath. He denies any sick contacts. He had a sore throat earlier today but does not complain of a sore throat at this time. He states that approximately 2 weeks ago he did have strep throat. No medications or been taken prior to arrival. Related Data Allergies Allergy/AdvReac Type Severity Reaction Status Date / Time No Known Drug Allergies Allergy Verified 09/17/23 19:05 Review of Systems ROS Status of ROS 10 or more systems reviewed and unremarkable except as noted in history and below [facility] Social History Smoking status: Never smoker Exam Narrative Exam Narrative: Nurses note and vital signs reviewed and patient is not hypoxic. General: The patient appears well and in no apparent distress. Patient is resting comfortably on cart. No active vomiting Skin: Warm, dry, no pallor noted. There is no rash noted. Head: Normocephalic, atraumatic Eye: Normal conjunctiva, no drainage, EOMI. PERRL Ears, Nose, Mouth, and Throat: oral mucosa is moist. There is 3+ toonsillar hypertrophy without exudate. There is no swelling of the tongue, uvula or pharyngeal soft tissues Cardiovascular: Regular Rate and Rhythm S1S2, Pulses are brisk and equal bilaterally Respiratory: Patient is in no distress, no accessory muscle use, lungs are clear to auscultation, no wheezing, rales or rhonchi Back: non-tender, no CVA tenderness bilaterally to percussion. GI: Normal bowel sounds, no tenderness to palpation, no masses appreciated. No rebound, guarding, or rigidity noted. Musculoskeletal: The patient has no evidence of calf tenderness, no pitting edema, symmetrical pulses noted bilaterally Neurological: A&O x4, normal speech Psychiatric: Cooperative Constitutional Vital Signs, click to edit/add: Last Vital Signs Temp 97.7 F 09/17/23 19:03 Pulse 91 H 09/17/23 19:03 Resp 16 09/17/23 19:03 BP 140/90 09/17/23 19:03 Pulse Ox 96 09/17/23 19:03 O2 Del Method Room Air 09/17/23 19:03 Course Vital Signs Vital signs: Vital Signs Temperature 97.7 F 09/17/23 19:03 Pulse Rate 91 H 09/17/23 19:03 Respiratory Rate 16 09/17/23 19:03 Blood Pressure 140/90 09/17/23 19:03 Pulse Oximetry 96 09/17/23 19:03 Oxygen Delivery Method Room Air 09/17/23 19:03 Temperature 97.7 F 09/17/23 19:03 Pulse Rate 91 H 09/17/23 19:03 Respiratory Rate 16 09/17/23 19:03 Blood Pressure 140/90 09/17/23 19:03 Pulse Oximetry 96 09/17/23 19:03 Oxygen Delivery Method Room Air 09/17/23 19:03 MDM - Nausea/Vomiting/Diarrhea MDM Narrative Medical decision making narrative: 33-year-old male presents for evaluation of 6-7 episodes of vomiting today. He had a sore throat earlier today and tested positive for strep throat 2 weeks ago. He states he finished a course of amoxicillin. He has not had a fever. He has no abdominal pain. He has no chest pain or shortness of breath. He declined an IV. He was medicated with oral Zofran and has had no additional episodes of vomiting in emergency department. He tested negative for influenza and Covid 19 a positive for strep. After the Zofran when he was tolerating clear liquids he was medicated with 875 of Augmentin and will be discharged home with a 10 day course of Augmentin and Zofran to use as needed for ongoing nausea or vomiting. He was encouraged to follow a bland diet for the next several days and drink plenty of fluids. He will be given referral for Dr. Jain as this is his 2nd bout of strep throat in the recent past. Lab Data Labs: Lab Results 09/17/23 Range/Units 19:20 SARS-CoV-2 (PCR) Negative (NEGATIVE) Influenza Type A Ag Negative Influenza Type B Ag Negative Streptococcus Screen Positive A Discharge Plan Discharge Chief Complaint: Nausea/Vomiting/Diarrhea Clinical Impression: Gastroenteritis, Strep throat Patient Disposition: Home, Self-Care Time of Disposition Decision: 20:03 Condition: Good Instructions: Strep Throat (ED), Acute Nausea and Vomiting (ED) Stand Alone Forms: Portal Instructions Referrals: Celine Jain MD [Physician] - 1 week Physician,Non-Staff, [Primary Care Provider] - 1 week
[2023-09-17] MEDS: FAMOTIDINE 20 MG TABLET PO (19:23)
[2023-09-17] MEDS: ONDANSETRON 4 MG RAPDIS TABLET SL (19:23)
[2023-09-17 19:38] LABS: Influenza Virus A Antigen Negative; Influenza Virus B Antigen Negative; Internal Control Within Normal Limits; SARS-CoV-2 Ag NEGATIVE (NEGATIVE)
[2023-09-17 19:52] LABS: Internal Control Within Normal Limits; Strep A Antigen Screen Positive
[2023-09-17] MEDS: AMOXICILLIN/POTASSIUM CLAV 1 TAB TABLET PO (20:17)
[2023-09-17 20:21] VITALS: BP 130/80; PULSE 78; RESP 16; O2SAT 98
== END 2023-09-17 20:20 | disposition home or self-care (01) ==
PROVIDERS: Emergency Provider Emergency Medicine
DX: K52.9 Noninfective gastroenteritis and colitis, unspecified (principal); J02.0 Streptococcal pharyngitis; Z20.822 Contact with and (suspected) exposure to COVID-19
CPT/HCPCS: 87635; 87804; 87811; 87880; 99285; Q0162

== ENCOUNTER 2023-09-24 20:43 | Emergency (ER) | payer BC, SELFPAY ==
[2023-09-24 20:50] VITALS: BP 164/95; PULSE 96; RESP 18; TEMP 37.2; O2SAT 98; BMI 30.1
--- OUTSIDE RECORDS SUMMARY | 2023-09-24 20:50 | XMS_ITS | CCD ---
Author Name Unknown Address [address] [place] [address] Organization [employer] Care Team Providers Care Time Checker Name Role Phone Matt Mancera APRN, CNP Primary Care Provider MATT MATOS Primary Care Unavailable NE HANNA Attending Unavailable MIS, DR STEPHENS Attending Unavailable MISC, DR STEPHENS Consulting Unavailable MISC, DR STEPHENS Admitting Unavailable JIMMY Prakash Attending Provider Viv Campos Unavailable Tamar Prakash Unavailable DURGA Campos Attending Provider Tamar Prakash Attending Unavailable Tamar Prakash Admitting Unavailable Viv Campos Admitting Unavailable Viv Campos Attending Unavailable Allergies Allergy Classification Reported Allergen(s) Allergy Type Date of Onset Reaction(s) Facility (5 sources) [place] Propensity to adverse reactions Unknown [facility] Other Medications Current Medications Medication Drug Class(es) [...] Not-Taking Start: 07-28-2022 take 1 capsule by wa ut every eight hours Amoxicillin 500 MG [...] / neomycin 3.5 mg/ml / polymyxin b 26237 unt/ml otic suspension (3 sources) Aminoglycoside Antibacterial, Polymyxin-class Antibacterial, Corticosteroid Start: 08-13-2022 Neomycin-Polymyx in-HC [id number] 3 drops left ear Three times a [...] 3V*on 023 XR hand RT min 3V* [facility] Main [place] [address] [place] [address] XRay Report Signed Patient: Mcih Rodriguez MR#: [id number] : 1990 Acct:[id number] Age/Sex: 32 / M ADM Date: 12/03/22 Loc: XDUCLY Room: Type: [facility] Attending Dr: Viv Campos TELECOMMUNICATIONS LINE MECHANIC-C Copies to: DURGA Arango Ordering Provider: DURGA [...] Christi Gray M.D.12/03/2022 12:25 PM Dictation Location: [facility]--[employer] Transcribed By: [facility] 12/03/22 1225 Dictated By: Christi Gray MD 12/03/22 1223 Signed By: 12/03/22 1225 Normal [facility] XR hand RT min 3V* [facility] [employer] Other XR hand RT min 3V* [facility] Main [facility] [employer] Other XR hand RT min 3V* [address] [place] [address] [facility] Other XR hand RT min 3V* [place] [address] [facility] Other XR hand RT min 3V* XRay Report [facility] Other XR hand RT min 3V* Signed [facility] Other XR hand RT min 3V* Patient: Mich Rodriguez MR#: [id number] [facility] Other XR hand RT min 3V* [facility] Other XR hand RT min 3V* : 1990 Acct:[id number] [facility] Other XR hand RT min 3V* Age/Sex: 32 / M ADM Date: 12/03/22 [facility] Other XR hand RT min 3V* Loc: XDUCLY Room: Type: REG CLI [facility] Other XR hand RT min 3V* Attending Dr: Viv CALIXTO [facility] Other XR hand RT min 3V* Copies to: DURGA Arango [facility] Other XR hand RT min 3V* Ordering Provider: DURGA Arango [facility] Other XR hand RT min 3V* Date of Service: 12/03/22 [facility] Other XR hand RT min 3V* XR/XR hand RT min 3V*: RIGHT HAND SWELLING/PAIN [facility] Other XR hand RT min 3V* RIGHT HAND - 3 views [facility] Other XR hand RT min 3V* CLINICAL DATA: Right hand pain and swelling dorsally over the metacarpals for the past week. No [facility] Other XR hand RT min 3V* known injury. Nor [employer] Other XR hand RT min 3V* COMPARISON: None [facility] Other XR hand RT min 3V* AP, lateral and oblique views were obtained. There is no evidence of fracture or dislocation. No [facility] Other XR hand RT min 3V* prominent hypertrophy or joint space narrowing is seen. Mild dorsal soft tissue swelling is [facility] Other XR hand RT min 3V* present. [facility] Other XR hand RT min 3V* XR/XR hand RT min 3V* [facility] Other XR hand RT min 3V* IMPRESSION: [facility] Other XR hand RT min 3V* NO ACUTE BONY FINDINGS. [facility] Other XR hand RT min 3V* Impression dictated by: Christi Gray M.D.12/03/2022 12:25 PM [facility] Other XR hand RT min 3V* Dictation Location: [facility]--[facility] [employer] Other XR hand RT min 3V* Transcribed By: PWS 12/03/22 1225 [place] [employer] Other XR hand RT min 3V* Dictated By: Christi Gray MD 12/03/22 1223 [facility] Other XR hand RT min 3V* Signed By: [facility] Other XR hand RT min 3V* 12/03/22 1225 [facility] [employer] Other COVID + FLU Quick Testingon 09-01-2022 SARS-CoV-2 (COVID-19) RNA ABILIO+probe Ql (Unsp spec) Negative [facility] Other COVID + FLU Quick Testing Negative [facility] Other XR knee RT 4V*on 07-17-2022 XR knee RT 4V* [facility] Main [place] [address] [place] [address] XRay Report Signed Patient: Mich Rodriguez MR#: [id number] : 1990 Acct:[id number] Age/Sex: 31 / M ADM Date: 07/17/22 Loc: XDUCLY Room: Type[facility] Attending Dr: Tamar MARQUEZ Copies to: TAMAR [...] Brayan Mccormack M.D.07/17/2022 1:22 PM Dictation Location: [facility]--12 Transcribed By: [facility] 07/17/22 1322 Dictated By: Brayan Mccormack II, MD 07/17/22 1321 Signed By: 07/17/22 132 [facility] XR knee RT 4V* [facility] [employer] Other XR knee RT 4V* [facility] [employer] Other XR knee RT 4V* [address] [place] [address] [employer] Other XR knee RT 4V* [place] [address] No rt [employer] Other XR knee RT 4V* XRay Report [employer] Other XR knee RT 4V* Signed [email or web address] Other XR knee RT 4V* Patient: Mich Rodriguez MR#: [id number] [facility] Other XR knee RT 4V* 83 [email or web address] Other XR knee RT 4V* : 1990 Acct:[id number] [facility] Other XR knee RT 4V* Age/Sex: 31 / M ADM Date: 07/17/22 [facility] Other XR knee RT 4V* Loc: XDUCLY Room: Type: REG CLI [facility] Other XR knee RT 4V* Attending Dr: Tamar Prakash [facility] [employer] Other XR knee RT 4V* Copies to: TAMAR PRAKASH [facility] Other XR knee RT 4V* Ordering Provider: TAMAR PRAKASH [facility] [place] [employer] Other XR knee RT 4V* Date of Service: 07/17/22 [facility] Other XR knee RT 4V* XR/XR knee RT 4V*: Right anterior knee pain [facility] Other XR knee RT 4V* XR knee RT 4V* 07/17/2022 1:02 PM [facility] Other XR knee RT 4V* SIGNS AND SYMPTOMS: Right anterior knee pain [facility] Other XR knee RT 4V* PROTOCOL: Frontal, lateral, and oblique radiographs of the right knee [facility] Other XR knee RT 4V* COMPARISON: None [place] [employer] Other XR knee RT 4V* FINDINGS: [email or web address] Other XR knee RT 4V* There is a linear radiopaque foreign body in the lateral soft tissues adjacent to the proximal [facility] Other XR knee RT 4V* fibula. The joint spaces are preserved. There is no fracture. No joint effusion. No soft tissue [facility] Other XR knee RT 4V* swelling. [email or web address] Other XR knee RT 4V* XR/XR knee RT 4V* [facility] Other XR knee RT 4V* IMPRESSION: [employer] Other XR knee RT 4V* No acute bony injury or significant degenerative change. [facility] Other XR knee RT 4V* fibula. [email or web address] Other XR knee RT 4V* Impression dictated by: Brayan Mccormack M.D.07/17/2022 1:22 PM [facility] Other XR knee RT 4V* Dictation Location: [place] [address] [facility] Other XR knee RT 4V* Transcribed By: PWS 07/17/22 1322 [facility] Other XR knee RT 4V* Dictated By: Brayan Mccormack II, MD 07/17/22 1321 [facility] Other XR knee RT 4V* Signed By: [email or web address] Other XR knee RT 4V* 07/17/[address] [employer] [address] CERVICAL SPINE WO CONTRAS Ton [...] Clark Rhodes MD 01/21/22 Final result Normal [facility] CT HEAD WO CONTRASTon 2021 CT [...] Clark Rhodes MD 01/21/22 Final result Normal [facility] No Panel Informationon 01-21 No acute intracranial abnormality. No acute fracture or subluxation of cervical spine. Mild degenerative change C4-C5 and C5-C6. RECOMMENDATIONS: Unavailable [facility] RIS CONSOLIDATED EXAMINATION: CT OF THE CERVICAL [...] There is no prevertebral soft tissue swelling. [facility] Clark Zafar MD - 01/21/2022 EXAMINATION: CT [...] degenerative change C4-C5 and C5-C6. RECOMMENDATIONS: Unavailable [employer] Work Phone: Radiology Study observation (narrative) [employer] Phone: No Panel InformationOrdered By: Clark Rhodes on 01-21-2022 [employer] Phone: Vital Signs Date Time Vital Sign Value Performing Clinician Ibrahima austin 12-03-2022 12:35-0400 Body height 177.8 cm Viv Beth Other [facility] Other 12-03-2022 12:35-0400 Body mass index (BMI) [Ratio] 30.13 kg/m2 Viv Beth Other [facility] Other 12-03-2022 12:35-0400 Body temperature 100 [degF] Viv Randallmond Other [facility] Other 12-03-2022 12:35-0400 Body weight 95.26 kg Viv Randallmond Other [facility] Other 12-03-2022 12:35-0400 Diastolic blood pressure 89 mm[Hg] Viv Beth Other [facility] Other 12-03-2022 12:35-0400 Respiratory rate 18 /min Viv Beth Other [facility] Other 12-03-2022 12:35-0400 SaO2% (BldA) [Mass fraction] 96 % Viv Beth Other [facility] Other 12-03-2022 12:35-0400 Systolic blood pressure 151 mm[Hg] Viv Beth Other [facility] Other 09-01-2022 12:15-0500 Body height 177.8 cm Viv Beth Other [facility] Other 09-01-2022 12:15-0500 Body mass index (BMI) [Ratio] 30.13 kg/m2 Viv Beth Other [facility] Other 09-01-2022 12:15-0500 Body temperature 97.9 [degF] Viv Beth Other [facility] Other 09-01-2022 12:15-0500 Body weight 95.26 kg Viv Beth Other [facility] Other 09-01-2022 12:15-0500 Diastolic blood pressure 93 mm[Hg] Viv Beth Other [facility] Other 09-01-2022 12:15-0500 Respiratory rate 18 /min Viv Beth Other [facility] Other 09-01-2022 12:15-0500 SaO2% (BldA) [Mass fraction] 100 % Viv Beth Other [facility] Other 09-01-2022 12:15-0500 Systolic blood pressure 157 mm[Hg] Viv Beth Other [facility] Other 08-13-2022 11:35-0500 Body height 177.8 cm Viv Beth Other [facility] Other 08-13-2022 11:35-0500 Body mass index (BMI) [Ratio] 30.13 kg/m2 Viv Beth Other [facility] Other 08-13-2022 11:35-0500 Body temperature 98.1 [degF] Viv Beth Other [facility] Other 08-13-2022 11:35-0500 Body weight 95.26 kg Viv Beth Other [facility] Other 08-13-2022 11:35-0500 Diastolic blood pressure 89 mm[Hg] Viv Beth Other [facility] Other 08-13-2022 11:35-0500 Respiratory rate 16 /min Viv Beth Other [facility] Other 08-13-2022 11:35-0500 SaO2% (BldA) [Mass fraction] 99 % Viv Beth Other [facility] Other 08-13-2022 11:35-0500 Systolic blood pressure 143 mm[Hg] Viv Beth Other [facility] Other 07-28-2022 11:35-0500 Body height 177.8 cm Viv Beth Other [facility] Other 07-28-2022 11:35-0500 Body mass index (BMI) [Ratio] 30.13 kg/m2 Viv Beth Other [facility] Other 07-28-2022 11:35-0500 Body temperature 97.9 [degF] Viv Beth Other [facility] Other 07-28-2022 11:35-0500 Body weight 95.26 kg Viv Beth Other [facility] Other 07-28-2022 11:35-0500 Diastolic blood pressure 83 mm[Hg] Viv Beth Other [facility] Other 07-28-2022 11:35-0500 Respiratory rate 18 /min Viv Campos Other [facility] Other 07-28-2022 11:35-0500 SaO2% (BldA) [Mass fraction] 96 % Viv Campos Other [facility] Other 07-28-2022 11:35-0500 Systolic blood pressure 126 mm[Hg] Viv Campos Other [facility] Other 07-17-2022 14:40-0400 Body height 177.8 cm Tamar Prakash Other [facility] Other 07-17-2022 14:40-0400 Body mass index (BMI) [Ratio] 30.13 kg/m2 Tamar Prakash Other [facility] Other 07-17-2022 14:40-0400 Body temperature 98 [degF] Tamar Prakash Other [facility] Other 07-17-2022 14:40-0400 Body weight 95.26 kg Tamar Zelayaault Other [facility] Other 07-17-2022 14:40-0400 Diastolic blood pressure 81 mm[Hg] Tamar Zelayaault Other [facility] Other 07-17-2022 14:40-0400 Respiratory rate 18 /min Tamar Haylee Other [facility] Other 07-17-2022 14:40-0400 SaO2% (BldA) [Mass fraction] 98 % Tamar Prakash Other [facility] Other 07-17-2022 14:40-0400 Systolic blood pressure 143 mm[Hg] Tamar Prakash Other [facility] Other 01-21-2022 12:29-0400 Body height 177.8 cm Ne Hanna MD [facility] 01-21-2022 12:29-0400 Body mass index (BMI) [Ratio] 30.85 kg/m2 Ne Hanna MD [facility] 01-21-2022 12:29-0400 Body temperature 98.8 [degF] Ne Hanna MD [facility] 01-21-2022 12:29-0400 Body weight 97.52 kg Ne Hanna MD [facility] 01-21-2022 12:29-0400 Diastolic blood pressure 91 mm[Hg] Ne Hanna MD [facility] 01-21-2022 12:29-0400 Heart rate 82 /min Ne Hanna MD [facility] 01-21-2022 12:29-0400 Respiratory rate 18 /min Ne Hanna MD [facility] 01-21-2022 12:29-0400 SaO2% (BldA) [Mass fraction] 98 % Ne Hanna MD [facility] 01-21-2022 12:29-0400 Systolic blood pressure 155 mm[Hg] Ne Hanna MD [facility] Encounters Encounter Date Encounter Type Care Provider Facility Start: 12-03-2022 Office outpatient visit 15 minutes Viv Campos [facility] Start: 12-03-2022 End: 12-03-2022 ambulatory Viv Campos Facility:[facility] Start: 12-03-2022 End: 12-03-2022 ambulatory TELECOMMUNICATIONS LINE MECHANIC-C Viv Campos Work Phone: [facility] Work Phone: Start: 12-03-2022 End: 12-03-2022 Patient encounter procedure TELECOMMUNICATIONS LINE MECHANIC-C Viv Beth Work Phone: [facility] Work Phone: Start: 09-01-2022 End: 09-01-2022 ambulatory Viv Beth Other [facility] Other Start: 09-01-2022 Office outpatient visit 15 minutes Viv Beth [facility] Start: 08-13-2022 End: 08-13-2022 ambulatory Viv Beth Other [facility] Other Start: 08-13-2022 Office outpatient visit 15 minutes Viv Beth [facility] Start: 07-28-2022 End: 07-28-2022 ambulatory Viv Beth Other [facility] Other Start: 07-28-2022 Office outpatient visit 15 minutes Viv Beth [facility] Start: 07-17-2022 End: 07-17-2022 ambulatory Tamar Haylee Facility:[facility] Start: 07-17-2022 Office outpatient visit 15 minutes Tamar Haylee [facility] Start: 07-17-2022 End: 07-17-2022 ambulatory PUBLISHER ASSISTANT-C Tamar Haylee Work Phone: [facility] Work Phone: Start: 07-17-2022 End: 07-17-2022 Patient encounter procedure PUBLISHER ASSISTANT-C Tamar Haylee Work Phone: [facility] Start: 01-21-2022 End: 01-21-2022 Emergency department patient visit MATT MATOS [facility] Start: 01-21-2022 End: 01-21-2022 Emergency department patient visit Ne Hanna MD [facility] ED Comment on above: Closed head injury, initial encounter (Primary Dx); Laceration of scalp, initial encounter Start: 05-28-2020 End: 05-29-[address] DOCTOR CHAVARRIA Facility:[facility] Procedures Date Procedure Procedure Detail Performing Clinician Start: 12-03-2022 Plain X-ray of right hand TELECOMMUNICATIONS LINE MECHANIC-C Viv Campos Work Phone: Start: 07-17-2022 X-ray of right knee PUBLISHER ASSISTANT -C Tamar Prakash Work Phone: Start: 01-21-2022 Ct cervical spine w/ o contrast material Yoni A Romp PA-C Work Phone: Start: 01-21-2022 Ct head/brain w/o contrast material Yoni A Romp PA-C Work Phone: Plan of Treatment Date Care Activity Detail Author Start: 01-22-2032 DTaP/Tdap/Td vaccine (2 - Td or Tdap) DTaP/Tdap/Td vaccine (2 - Td or Tdap) [facility] Start: 05-15-2022 Influenza vaccination Flu vaccine (S anna marie Ended) [facility] Start: 2006 Hepatitis C screening Hepatitis C sc reen [facility] Start: 2003 HIV screening HIV screen [facility] Start: 2000 Depression Screen Depression Screen [facility] Start: 1993 COVID-19 Vaccine (1) COVID-19 Vaccin e (1) [facility] Start: 1989 Varicella vaccine (1 of 2 - 2-dose childhood series) Varicella vaccine (1 of 2 - 2-dose childhood series) [facility] Immunizations Immunization Date Immunization Notes Care Provider Fa cility 01-21-2022 tetanus toxoid, reduced diphtheria toxoid, and acellular pertussis vaccine, adsorbed Ne Hanna MD [facility] Work Phone: Payers Date Payer Category Payer Medicaid [id number] 2. [id number] 2022 Self-pay 2022 Unknown [id number] 2.1 [id number] 2022 Unknown [id number] 2022 Unknown [id number] 1.2.8 [id number] 2021 Unknown [id number] 1. [id number] 1988 Unknown [id number] 2.16. 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 [facility] Other Evaluation note 09-01-2022 Note Date & [...] days. You may return to work tomorrow [facility] Other Evaluation note 08-13-2022 Note Date & [...] no improvement in 2 to 3 days. [facility] Other Evaluation note 07-28-2022 Note Date & [...] no improvement in 2 to 3 days [facility] Other Evaluation note 07-17-2022 Note Date & [...] will help you get into a specialist. [facility] Other Hospital Discharge instructions 01-21-2022 InstructionsAttachments Note [...] cannot be sent through Care Everywhere.Lacerations: Stitches (Tajik)documented in this encounter [employer] Phone: Evaluation note Note Date & Type Note Facility Evaluation note Diagnosis Closed head injury, initial encounter- Primary Laceration of scalp, initial encounter documented in this encounter [employer] Phone: Evaluation note Note Date & Type Note Facility Evaluation note No assessment information [facility] Work Phone: History general Narrative - Reported Note Date & Type Note Facility History general Narrative - Reported Type Medical History hypertension Medical History hypercholesterolemia Medical History acid reflux Surgical History shoulder surgery [facility] Other Advance Directives No Advanced Directives Records FoundDocuments on File Type Date Recorded Patient Mental Health Coordinator Expl anation ACP-Advance Directive ACP-Power of Sanforizer Advance Directive Response Recorded Date/ Time Advance [...] and content) Medication Order 01/19/2022 01/20/2022 01/21/2022 [id number] (LET) topical solution 3 mL syringe (COMPLETED) 3 mL, Topical, ONCE, On Thu01/21/22 at 1245, For 1 dose, Apply to laceration For Topical Use Only. 1247 (Given - Provid er: Aileen Wong LPN - Comment: top of head) Care Teams (unrecognized sec tion and content) Time Checker Relationship Specialty Start Date End Date Matt Matos, PASTRY COOK - SENIOR CLINICAL DATA COORDINATOR PCP - General 11/03/18 Team Status: Inactive Member Role Status Dates JIMMY Chandra Attending Provider Active Team Status: Inactive Member Role Status Dates VIRGIL PakC Attending Provider Active (unrecognized sect ion and content) No Status Records FoundNo Status Records FoundNo Status Records Found INFORMATION SOURCE (unrecogn ized section and content) DATE CREATED AUTHOR 01/22/2022 [facility] DATE CREATED AUTHOR AUTHOR'S ORGANIZ ATION 06/20/2022 [facility] DATE CREATED AUTHOR AUTHOR'S ORGANIZ ATION 01/03/2023 [facility] Goals (unrecognized section and content) Goals may [...] BE BASED ON THE PRIMARY CLINICAL RECORDS. [facility] [employer] [facility]. provides no warranty or guarantee of the accuracy or completeness of information in this document.
--- NOTE | 2023-09-24 21:09 | CT_ITS ---
The [address] [address] Patient Name: DILCIA RODRIGUEZ MRN: [id number] date: 1990 Sex: M Assigned Patient Location: ER Current Patient Location: ER Accession/Order Number: [id number] Exam Date: 09/24/2023 21:17 Report Date: 09/24/2023 21:36 At the request of: ERIC NEGRETE Procedure: CT head/brain wo con CT HEAD WITHOUT CONTRAST. INDICATION: Headache. COMPARISON: None available for comparison TECHNIQUE: Axial CT head images from the skull base to the vertex without IV contrast were acquired. Coronal and sagittal reformats were also obtained. FINDINGS: EXTRA-AXIAL SPACE: Age-appropriate ventricles. No acute extra-axial collection. No extra-axial mass. No midline shift. CEREBRUM: No focal abnormality. No CT evidence of acute large territorial cortical infarct, hemorrhage or mass effect. CEREBELLUM: No focal abnormality. No CT evidence of acute infarct, hemorrhage or mass effect. BRAINSTEM: No focal abnormality. No CT evidence of acute infarct, hemorrhage or mass effect. EXTRACRANIAL STRUCTURES. The paranasal sinuses are clear. Mastoid air cells are clear. Orbits are unremarkable. No discrete pituitary mass. Intact calvarium. CT/CT head/brain wo con IMPRESSION: No acute intracranial abnormality. Electronically authenticated by: PADMINI BRAR Date: 09/24/2023 21:36
--- NOTE | 2023-09-24 21:12 | ED_ITS ---
HPI - General Adult General Chief complaint: Headache Stated complaint: migraine Time Seen by Provider: 09/24/23 20:44 Source: patient Mode of arrival: walk-in History of Present Illness HPI narrative: Patient is a 33-year-old male who presents to the emergency department for 3 to 4-day history of headache. He states he has had similar migraines in the past. He states he had surgery on his neck and subsequently occasionally gets heada ches that radiate from the temples to the bilateral occiput and into the paracervical muscles. He has had no fevers, chills, cough, congestion. He was seen in this emergency department for gastroenteritis type symptoms 5 days ago and states that those symptoms have improved significantly. He states he has had similar headaches in the past although he has started to notice occasional blurred vision. No peripheral paresthesias. He took Tylenol tension headache around 2 PM today without significant improvement Related Data Previous Rx's Medication Instructions Recorded ketorolac 10 mg tablet 10 mg PO TID PRN pain #10 tabs 09/24/23 orphenadrine citrate 100 mg 100 mg PO BID PRN muscle pain #14 09/24/23 tablet,extended release tabs Allergies Allergy/AdvReac Type Severity Reaction Status Date / Time No Known Drug Allergies Allergy Verified 09/17/23 19:05 Review of Systems ROS Constitutional Denies: fever or chills Ears, nose, mouth, and throat Reports: neck pain; Denies: throat pain or nasal congestion Cardiovascular Denies: chest pain Respiratory Denies: shortness of breath Gastrointestinal Denies: nausea or vomiting Genitourinary Denies: painful urination Musculoskeletal Reports: neck pain; Denies: back pain, extremity pain, extremity swelling or joint pain Integumentary/Breast Denies: rash Neurological Reports: headache; Denies: numbness in extremities, weakness in extremities or dizziness Endocrine Denies: excessive urination [facility] Social History Smoking status: Never smoker Exam Narrative Exam Narrative: Gen.: Awake, alert, in no distress Head: Normocephalic, atraumatic ENT: Moist mucous membranes; No nuchal rigidity, diffuse tenderness of the paraspinal muscles of the cervical spine Respiratory: No respiratory distress Extremities: Moves extremities equally Psych: Normal mood and affect Neuro: No focal neuro deficit Skin: Warm, dry, intact Constitutional Vital Signs, click to edit/add: Last Vital Signs Temp 98.9 F 09/24/23 20:50 Pulse 96 H 09/24/23 20:50 Resp 18 09/24/23 20:50 BP 164/95 H 09/24/23 20:50 Pulse Ox 98 09/24/23 20:50 O2 Del Method Room Air 09/24/23 20:50 Course Vital Signs Vital signs: Vital Signs Temperature 98.9 F 09/24/23 20:50 Pulse Rate 96 H 09/24/23 20:50 Respiratory Rate 18 09/24/23 20:50 Blood Pressure 164/95 H 09/24/23 20:50 Pulse Oximetry 98 09/24/23 20:50 Oxygen Delivery Method Room Air 09/24/23 20:50 Temperature 98.9 F 09/24/23 20:50 Pulse Rate 96 H 09/24/23 20:50 Respiratory Rate 18 09/24/23 20:50 Blood Pressure 164/95 H 09/24/23 20:50 Pulse Oximetry 98 09/24/23 20:50 Oxygen Delivery Method Room Air 09/24/23 20:50 Medical Decision Making MDM Narrative Medical decision making narrative: CT of the brain with no evidence of acute abnormality. Patient declined an IV and requested intramuscular injections instead. His exam is consistent with a tension headache, similar to previous headaches. He was given Toradol, Norflex, Reglan, Benadryl in the ER and will be discharged home with Norflex, Toradol for home. Follow-up with PCP and return to the ER if symptoms change or worsen. Medical Records Medical records reviewed: Yes I reviewed the patient's medical records Imaging Data CT scan - head: Attestation: I have reviewed the pertinent imaging results. Radiologist's impression: ITS Impressions Head CT 09/24/23 21:09 IMPRESSION: No acute intracranial abnormality. Electronically authenticated by: PADMINI BRAR Date: 09/24/2023 21:36 Discharge Plan Discharge Chief Complaint: Headache Clinical Impression: Migraine, Tension headache Patient Disposition: Home, Self-Care Time of Disposition Decision: 21:42 Condition: Good Prescriptions / Home Meds: New ketorolac 10 mg tablet 10 mg PO TID PRN (Reason: pain) Qty: 10 0RF orphenadrine citrate 100 mg tablet extended release 100 mg PO BID PRN (Reason: muscle pain) Qty: 14 0RF Instructions: Tension Headache (ED), Acute Headache (ED) Stand Alone Forms: Portal Instructions Referrals: Physician,Non-Staff, MD [Primary Care Provider] - 1 week Discharge Date/Time: 09/24/23 22:20
[2023-09-24] MEDS: METOCLOPRAMIDE HCL 10 MG/2 ML VIAL IM (21:37)
[2023-09-24] MEDS: DIPHENHYDRAMINE HCL 50 MG/ML (1ML) VIAL 25 MG IM (21:37)
[2023-09-24] MEDS: KETOROLAC TROMETHAMINE 60 MG/2 ML VIAL IM (21:38)
[2023-09-24] MEDS: ORPHENADRINE 60 MG/ 2 ML VIAL IM (21:38)
== END 2023-09-24 22:20 | disposition home or self-care (01) ==
PROVIDERS: Emergency Provider Emergency Medicine
DX: G43.909 Migraine, unspecified, not intractable, without status migrainosus (principal); G44.209 Tension-type headache, unspecified, not intractable
CPT/HCPCS: 70450; 96372; 99285; J1200; J1885; J2360; J2765

== ENCOUNTER 2023-10-19 17:34 | Emergency (ER) | payer BC, SELFPAY ==
[2023-10-19 17:37] VITALS: BP 154/84; PULSE 92; RESP 20; TEMP 36.6; O2SAT 95; BMI 30.1
--- OUTSIDE RECORDS SUMMARY | 2023-10-19 17:48 | XMS_ITS | CCD ---
Author Name Unknown Address [address] [place] [id number] Organization [employer] Care Team Providers Care Web Editor Name Role Phone Matt Mancera APRN, CNP [...] sources) [place] Propensity to adverse reactions Unknown [address] Other Medications Current Medications Medication Drug Class(es) [...] Not-Taking Start: 07-28-2022 take 1 capsule by nc ut every eight hours Amoxicillin 500 MG [...] / neomycin 3.5 mg/ml / polymyxin b 26950 unt/ml otic suspension (3 sources) Aminoglycoside Antibacterial, Polymyxin-class Antibacterial, Corticosteroid Start: 08-13-2022 Neomycin-Polymyx in-HC [id number] 3 drops left ear Three times a [...] 3V*on 023 XR hand RT min 3V* [facility] [place] [address] [place] [address] XRay Report Signed Patient: Mich Rodriguez MR#: [id number] : 1990 Acct:[id number] Age/Sex: 32 / M ADM Date: 12/03/22 Loc: XDUCLY Room: Type: [facility] Attending Dr: Viv Campos 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 Copies to: DURGA Arango Ordering Provider: DURGA [...] M.D.12/03/2022 12:25 PM Dictation Location: [facility]--[employer] Transcribed By: [facility] 12/03/22 1225 Dictated By: Christi Gray MD 12/03/22 1223 Signed By: 12/03/22 1225 Normal [facility] XR hand RT min 3V* [facility] [employer] Other XR hand RT min 3V* [facility] Main [facility] [employer] Other XR hand RT min 3V* [address] [place] [address] Other XR hand RT min 3V* [place] [address] Other XR hand RT min 3V* XRay Report [address] Other XR hand RT min 3V* Signed [address] Other XR hand RT min 3V* Patient: Mich Rodriguez MR#: [id number] [address] Other XR hand RT min 3V* [facility] [address] Other XR hand RT min 3V* : 1990 Acct:[id number] [address] Other XR hand RT min 3V* Age/Sex: 32 / M ADM Date: 12/03/[address] Other XR hand RT min 3V* Loc: XDUCLY Room: Type: REG CLI [address] Other XR hand RT min 3V* Attending Dr: Viv CALIXTO [address] Other XR hand RT min 3V* Copies to: DURGA Arango [address] Other XR hand RT min 3V* Ordering Provider: DURGA Arango [address] Other XR hand RT min 3V* Date of Service: 12/03/[address] Other XR hand RT min 3V* XR/XR hand RT min 3V*: RIGHT HAND SWELLING/PAIN [address] Other XR hand RT min 3V* RIGHT HAND - [address] Other XR hand RT min 3V* CLINICAL DATA: Right hand pain and swelling dorsally over the metacarpals for the past week. No [address] Other XR hand RT min 3V* known injury. Nor [employer] Other XR hand RT min 3V* COMPARISON: None [address] Other XR hand RT min 3V* AP, lateral and oblique views were obtained. There is no evidence of fracture or dislocation. No [address] Other XR hand RT min 3V* prominent hypertrophy or joint space narrowing is seen. Mild dorsal soft tissue swelling is [address] Other XR hand RT min 3V* present. [address] Other XR hand RT min 3V* XR/XR hand RT min 3V* [address] Other XR hand RT min 3V* IMPRESSION: [address] Other XR hand RT min 3V* NO ACUTE BONY FINDINGS. [address] Other XR hand RT min 3V* Impression dictated by: Christi Gray M.D.12/03/2022 12:[address] Other XR hand RT min 3V* Dictation Location: [facility]--10 [facility] [employer] Other XR hand RT min 3V* Transcribed By: PWS 12/03/22 1225 [place] [employer] Other XR hand RT min 3V* Dictated By: Christi Gray MD 12/03/[address] Other XR hand RT min 3V* Signed By: [address] Other XR hand RT min 3V* 12/03/22 1225 [facility] [employer] Other COVID + FLU Quick Testingon 09-01-2022 SARS-CoV-2 (COVID-19) RNA ABILIO+probe Ql (Unsp spec) Negative [address] Other COVID + FLU Quick Testing Negative [address] Other XR knee RT 4V*on 07-17-2022 XR knee RT 4V* [facility] [place] [address] [place] [address] XRay Report Signed Patient: Mich Rodriguez MR#: [id number] : 1990 Acct:[id number] Age/Sex: 31 / M ADM Date: 07/17/22 Loc: XDUCLY Room: Type: [facility] Attending Dr: Tamar MARQUEZ Copies [...] M.D.07/17/2022 1:22 PM Dictation Location: [facility]--12 Transcribed By: [facility] 07/17/22 1322 Dictated By: Brayan Mccormack II, MD 07/17/22 1321 Signed By: 07/17/[address] [facility] XR knee RT 4V* [facility] [employer] Other XR knee RT 4V* [facility] [employer] Other XR knee RT 4V* [address] [place] [address] [employer] Other XR knee RT 4V* [place] [address] No rt [employer] Other XR knee RT 4V* XRay Report [employer] Other XR knee RT 4V* Signed [employer] Other XR knee RT 4V* Patient: Mich Rodriguez MR#: [id number] [address] Other XR knee RT 4V* 83 [employer] Other XR knee RT 4V* : 1990 Acct:[id number] [address] Other XR knee RT 4V* Age/Sex: 31 / M ADM Date: 07/17/[address] Other XR knee RT 4V* Loc: XDUCLY Room: Type: REG CLI [address] Other XR knee RT 4V* Attending Dr[facility] [employer] Other XR knee RT 4V* Copies to: TAMAR PRAKASH [facility] [address] Other XR knee RT 4V* Ordering Provider: [facility]AR PRAKASH [facility] [place] [employer] Other XR knee RT 4V* Date of Service: 07/17/[address] Other XR knee RT 4V* XR/XR knee RT 4V*: Right anterior knee pain [address] Other XR knee RT 4V* XR knee RT 4V* 07/17/2022 1:[address] Other XR knee RT 4V* SIGNS AND SYMPTOMS: Right anterior knee pain [address] Other XR knee RT 4V* PROTOCOL: Frontal, lateral, and oblique radiographs of the right knee [address] Other XR knee RT 4V* COMPARISON: None [place] [employer] Other XR knee RT 4V* FINDINGS: [employer] Other XR knee RT 4V* There is a linear radiopaque foreign body in the lateral soft tissues adjacent to the proximal [address] Other XR knee RT 4V* fibula. The joint spaces are preserved. There is no fracture. No joint effusion. No soft tissue [address] Other XR knee RT 4V* swelling. [employer] Other XR knee RT 4V* XR/XR knee RT 4V* [address] Other XR knee RT 4V* IMPRESSION: [employer] Other XR knee RT 4V* No acute bony injury or significant degenerative change. [address] Other XR knee RT 4V* fibula. [employer] Other XR knee RT 4V* Impression dictated by: Brayan Mccormack M.D.07/17/2022 1:[address] Other XR knee RT 4V* Dictation Location: [place] [address] Other XR knee RT 4V* Transcribed By: PWS 07/17/[address] Other XR knee RT 4V* Dictated By: Brayan Mccormack II, MD 07/17/[address] Other XR knee RT 4V* Signed By: [employer] Other XR knee RT 4V* 07/17/[address] [place] [address] CERVICAL SPINE WO CONTRAS Ton [...] Clark Rhodes MD 01/21/22 Final result Normal [facility] CT HEAD WO CONTRASTon 2021 CT HEAD [...] Clark Rhodes MD 01/21/22 Final result Normal [facility] No Panel Informationon 01-21 No acute intracranial abnormality. No acute fracture or subluxation of cervical spine. Mild degenerative change C4-C5 and C5-C6. RECOMMENDATIONS: Unavailable [facility] RIS CONSOLIDATED EXAMINATION: CT OF THE [...] There is no prevertebral soft tissue swelling. [facility] Clark Zafar MD - 01/21/2022 EXAMINATION: [...] degenerative change C4-C5 and C5-C6. RECOMMENDATIONS: Unavailable [employer] Work Phone: Radiology Study observation (narrative) [employer] Phone: No Panel InformationOrdered By: Clark Rhodes on 01-21-2022 [employer] Phone: Vital Signs Date Time Vital Sign Value Performing Clinician Ibrahima austin 12-03-2022 12:35-0400 Body height 177.8 cm Viv Beth Other [address] Other 12-03-2022 12:35-0400 Body mass index (BMI) [Ratio] 30.13 kg/m2 Viv Beth Other [address] Other 12-03-2022 12:35-0400 Body temperature 100 [degF] Viv Randallmond Other [address] Other 12-03-2022 12:35-0400 Body weight 95.26 kg Viv Randallmond Other [address] Other 12-03-2022 12:35-0400 Diastolic blood pressure 89 mm[Hg] Viv Beth Other [address] Other 12-03-2022 12:35-0400 Respiratory rate 18 /min Viv Beth Other [address] Other 12-03-2022 12:35-0400 SaO2% (BldA) [Mass fraction] 96 % Viv Beth Other [address] Other 12-03-2022 12:35-0400 Systolic blood pressure 151 mm[Hg] Viv Beth Other [address] Other 09-01-2022 12:15-0500 Body height 177.8 cm Viv Beth Other [address] Other 09-01-2022 12:15-0500 Body mass index (BMI) [Ratio] 30.13 kg/m2 Viv Beth Other [address] Other 09-01-2022 12:15-0500 Body temperature 97.9 [degF] Viv Beth Other [address] Other 09-01-2022 12:15-0500 Body weight 95.26 kg Viv Beth Other [address] Other 09-01-2022 12:15-0500 Diastolic blood pressure 93 mm[Hg] Viv Beth Other [address] Other 09-01-2022 12:15-0500 Respiratory rate 18 /min Viv Beth Other [address] Other 09-01-2022 12:15-0500 SaO2% (BldA) [Mass fraction] 100 % Viv Beth Other [address] Other 09-01-2022 12:15-0500 Systolic blood pressure 157 mm[Hg] Viv Beth Other [address] Other 08-13-2022 11:35-0500 Body height 177.8 cm Viv Beth Other [address] Other 08-13-2022 11:35-0500 Body mass index (BMI) [Ratio] 30.13 kg/m2 Viv Beth Other [address] Other 08-13-2022 11:35-0500 Body temperature 98.1 [degF] Viv Beth Other [address] Other 08-13-2022 11:35-0500 Body weight 95.26 kg Viv Beth Other [address] Other 08-13-2022 11:35-0500 Diastolic blood pressure 89 mm[Hg] Viv Beth Other [address] Other 08-13-2022 11:35-0500 Respiratory rate 16 /min Viv Beth Other [address] Other 08-13-2022 11:35-0500 SaO2% (BldA) [Mass fraction] 99 % Viv Beth Other [address] Other 08-13-2022 11:35-0500 Systolic blood pressure 143 mm[Hg] Viv Beth Other [address] Other 07-28-2022 11:35-0500 Body height 177.8 cm Viv Beth Other [address] Other 07-28-2022 11:35-0500 Body mass index (BMI) [Ratio] 30.13 kg/m2 Viv Beth Other [address] Other 07-28-2022 11:35-0500 Body temperature 97.9 [degF] Viv Beth Other [address] Other 07-28-2022 11:35-0500 Body weight 95.26 kg Viv Beth Other [address] Other 07-28-2022 11:35-0500 Diastolic blood pressure 83 mm[Hg] Viv Beth Other [address] Other 07-28-2022 11:35-0500 Respiratory rate 18 /min Viv Campos Other [address] Other 07-28-2022 11:35-0500 SaO2% (BldA) [Mass fraction] 96 % Viv Campos Other [address] Other 07-28-2022 11:35-0500 Systolic blood pressure 126 mm[Hg] Viv Campos Other [address] Other 07-17-2022 14:40-0400 Body height 177.8 cm Tamar Prakash Other [address] Other 07-17-2022 14:40-0400 Body mass index (BMI) [Ratio] 30.13 kg/m2 Tamar Prakash Other [address] Other 07-17-2022 14:40-0400 Body temperature 98 [degF] Tamar Prakash Other [address] Other 07-17-2022 14:40-0400 Body weight 95.26 kg Tamar Zelayaault Other [address] Other 07-17-2022 14:40-0400 Diastolic blood pressure 81 mm[Hg] Tamar Zelayaault Other [address] Other 07-17-2022 14:40-0400 Respiratory rate 18 /min Tamar Haylee Other [address] Other 07-17-2022 14:40-0400 SaO2% (BldA) [Mass fraction] 98 % Tamar Prakash Other [address] Other 07-17-2022 14:40-0400 Systolic blood pressure 143 mm[Hg] Tamar Prakash Other [address] Other 01-21-2022 12:29-0400 Body height 177.8 cm Ne Hanna MD [facility] 01-21-2022 12:29-0400 Body mass index (BMI) [Ratio] 30.85 kg/m2 Ne Hanna MD [facility] 01-21-2022 12:29-0400 Body temperature 98.8 [degF] Ne Hanna MD [facility] 01-21-2022 12:29-0400 Body weight 97.52 kg Ne Hanna MD [facility] 01-21-2022 12:29-0400 Diastolic blood pressure 91 mm[Hg] Ne Hanna MD [facility] 01-21-2022 12:29-0400 Heart rate 82 /min Ne Hanna MD [facility] 01-21-2022 12:29-0400 Respiratory rate 18 /min Ne Hanna MD [facility] 01-21-2022 12:29-0400 SaO2% (BldA) [Mass fraction] 98 % Ne Hanna MD [facility] 01-21-2022 12:29-0400 Systolic blood pressure 155 mm[Hg] Ne Hanna MD [facility] Encounters Encounter Date Encounter Type Care Provider Facility Start: 12-03-2022 Office outpatient visit 15 minutes Viv Campos [facility] Start: 12-03-2022 End: 12-03-2022 ambulatory Viv Campos Facility:[facility] Start: 12-03-2022 End: 12-03-2022 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 Work Phone: Start: 09-01-2022 End: 09-01-2022 ambulatory Viv Beth Other [address] Other Start: 09-01-2022 Office outpatient visit 15 minutes Viv Beth [facility] Start: 08-13-2022 End: 08-13-2022 ambulatory Viv Beth Other [address] Other Start: 08-13-2022 Office outpatient visit 15 minutes Viv Beth [facility] Start: 07-28-2022 End: 07-28-2022 ambulatory Viv Beth Other [address] Other Start: 07-28-2022 Office outpatient visit 15 minutes Viv Beth [facility] Start: 07-17-2022 End: 07-17-2022 ambulatory Tamar Haylee Facility:[facility] Start: 07-17-2022 Office outpatient visit 15 minutes Tamar Haylee [facility] Start: 07-17-2022 End: 07-17-2022 ambulatory 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 Work Phone: Start: 07-17-2022 End: 07-17-2022 Patient encounter procedure 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 Start: 01-21-2022 End: 01-21-2022 Emergency department patient visit MATT MATOS [facility] Start: 01-21-2022 End: 01-21-2022 Emergency department patient visit Ne Hanna MD 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 Viv Campos Work Phone: Start: 07-17-2022 X-ray of right knee CHICKEN CUTTER -C Tamar Prakash Work Phone: Start: 01-21-2022 Ct cervical spine w/ o contrast material Yoni A Romp PA-C Work Phone: Start: 01-21-2022 Ct head/brain w/o contrast material Yoni A Romp PA-C Work Phone: Plan of Treatment Date Care Activity Detail Author Start: 01-22-2032 DTaP/Tdap/Td vaccine (2 - Td or Tdap) DTaP/Tdap/Td vaccine (2 - Td or Tdap) [facility] Start: 05-15-2022 Influenza vaccination Flu vaccine (S anna marie Ended) [facility] Start: 2006 Hepatitis C screening Hepatitis C sc reen [facility] Start: 2003 HIV screening HIV screen [facility] Start: 2000 Depression Screen Depression Screen [facility] Start: 1993 COVID-19 Vaccine (1) COVID-19 Vaccin e (1) [facility] Start: 1989 Varicella vaccine (1 of 2 - 2-dose childhood series) Varicella vaccine (1 of 2 - 2-dose childhood series) [facility] Immunizations Immunization Date Immunization Notes Care Provider Fa cility 01-21-2022 tetanus toxoid, reduced diphtheria toxoid, and acellular pertussis vaccine, adsorbed Ne Hanna MD [facility] Work Phone: Payers Date Payer Category Payer Medicaid [id number] 2. [id number] 2022 Self-pay 2022 Unknown [id number] 2.1 [id number] 2022 Unknown [id number] 2022 Unknown [id number] 1.2.8 [id number] 2021 Unknown [id number] 1. [id number] 1988 Unknown [id number] 2.16. 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 Other Evaluation note 09-01-2022 Note Date & [...] days. You may return to work tomorrow [address] Other Evaluation note 08-13-2022 Note Date & [...] no improvement in 2 to [address] Other Evaluation note 07-28-2022 Note Date & [...] no improvement in 2 to [address] Other Evaluation note 07-17-2022 Note Date & [...] will help you get into a specialist. [address] Other Hospital Discharge instructions 01-21-2022 InstructionsAttachments Note [...] cannot be sent through Care Everywhere.Lacerations: Stitches (Spanish)documented in this encounter [employer] Phone: Evaluation note Note Date & Type Note Facility Evaluation note Diagnosis Closed head injury, initial encounter- Primary Laceration of scalp, initial encounter documented in this encounter [employer] Phone: Evaluation note Note Date & Type Note Facility Evaluation note No assessment information [facility] Work Phone: History general Narrative - Reported Note Date & Type Note Facility History general Narrative - Reported Type Medical History hypertension Medical History hypercholesterolemia Medical History acid reflux Surgical History shoulder surgery [address] Other Advance Directives No Advanced Directives Records FoundDocuments on File Type Date Recorded 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 1247 (Given - Provid er: Aileen Wong LPN - Comment: top of head) Care Teams (unrecognized sec tion and content) Web Editor Relationship Specialty Start Date End Date Matt Matos, PROFESSOR OF EXERCISE SCIENCE - DOUBLE END TENONER OPERATOR PCP - General 11/03/18 Team Status: Inactive Member Role Status Dates JIMMY Chandra Attending Provider Active Team Status: Inactive Member Role Status Dates VIRIGL PakC Attending Provider Active (unrecognized sect ion and content) No Status Records FoundNo Status Records FoundNo Status Records Found INFORMATION SOURCE (unrecogn ized section and content) DATE CREATED AUTHOR 01/22/2022 [facility] DATE CREATED AUTHOR AUTHOR'S ORGANIZ ATION 06/20/2022 [facility] DATE CREATED AUTHOR AUTHOR'S ORGANIZ ATION 01/03/2023 [facility] Goals (unrecognized section and content) [...] BE BASED ON THE PRIMARY CLINICAL RECORDS. [facility]. provides no warranty or guarantee of the accuracy or completeness of information in this document.
--- NOTE | 2023-10-19 17:50 | ED.GENADUL1 ---
HPI - General Adult General Chief complaint: Headache Stated complaint: HEAD PAIN, NECK PAIN Time Seen by Provider: 10/19/23 17:44 Source: patient Mode of arrival: walk-in Limitations: no limitations History of Present Illness HPI narrative: 33-year-old male presents to the emergency department for pain in the back of his head and neck. This is an ongoing issue for him. He states he had some nerve damage shown by an EMG and he frequently gets these pains. No trauma fever or stiff neck. No localized weakness. He states the medications he got the last time he was here helped a great deal. The pain is moderate to severe and continuous Related Data Previous Rx's Medication Instructions Recorded ketorolac 10 mg tablet 10 mg PO TID PRN pain #10 tabs 09/24/23 orphenadrine citrate 100 mg 100 mg PO BID PRN muscle pain #14 09/24/23 tablet,extended release tabs Allergies Allergy/AdvReac Type Severity Reaction Status Date / Time No Known Drug Allergies Allergy Verified 09/17/23 19:05 Review of Systems ROS Narrative A ten point review of systems is negative except as noted above. PFSH PFSH Social History Smoking status: Former smoker Exam Narrative Exam Narrative: Nurses note and vital signs reviewed and patient is not hypoxic. General: The patient appears well and in no apparent distress. Patient is resting comfortably on cart. Skin: Warm, dry, no pallor noted. There is no rash noted. Head: Normocephalic, atraumatic; neck is supple, no nuchal rigidity, no masses. No erythema or rash Eye: Normal conjunctiva, no drainage Ears, Nose, Mouth, and Throat: oral mucosa is moist. Nares patent. Cardiovascular: Regular Rate and Rhythm Respiratory: Patient is in no distress, no accessory muscle use, lungs are clear to auscultation, no wheezing, rales or rhonchi Back: non-tender GI: Soft and nontender Musculoskeletal: The patient has no evidence of calf tenderness, no pitting edema, symmetrical pulses noted bilaterally Neurological: A&O, normal speech; upper and lower extremity strength 5 out of 5 and symmetric Psychiatric: Cooperative Constitutional Vital Signs, click to edit/add: Last Vital Signs Temp 97.9 F 10/19/23 17:37 Pulse 92 H 10/19/23 17:37 Resp 20 10/19/23 17:37 BP 154/84 H 10/19/23 17:37 Pulse Ox 95 10/19/23 17:37 O2 Del Method Room Air 10/19/23 17:37 Course Vital Signs Vital signs: Vital Signs Temperature 97.9 F 10/19/23 17:37 Pulse Rate 92 H 10/19/23 17:37 Respiratory Rate 20 10/19/23 17:37 Blood Pressure 154/84 H 10/19/23 17:37 Pulse Oximetry 95 10/19/23 17:37 Oxygen Delivery Method Room Air 10/19/23 17:37 Temperature 97.9 F 10/19/23 17:37 Pulse Rate 92 H 10/19/23 17:37 Respiratory Rate 10/19/23 17:37 Blood Pressure 154/84 H 10/19/23 17:37 Pulse Oximetry 95 10/19/23 17:37 Oxygen Delivery Method Room Air 10/19/23 17:37 Medical Decision Making MDM Narrative Medical decision making narrative: The patient was given IM Toradol, Benadryl, Norflex, and Reglan. He wants to be discharged home and he has a ride home. Treatment diagnosis and follow-up were discussed with the patient Differential Diagnosis Differential Diagnosis: Headache, tension headache, muscle strain Discharge Plan Discharge Chief Complaint: Headache Clinical Impression: Headache Patient Disposition: Home, Self-Care Time of Disposition Decision: 17:58 Condition: Good Mode of Transportation: Private Vehicle Prescriptions / Home Meds: No Action ketorolac 10 mg tablet 10 mg PO TID PRN (Reason: pain) Qty: 10 0RF orphenadrine citrate 100 mg tablet extended release 100 mg PO BID PRN (Reason: muscle pain) Qty: 14 0RF Instructions: Acute Headache (ED) Stand Alone Forms: Portal Instructions Referrals: Physician,Non-Staff, MD [Primary Care Provider] - 1 week
[2023-10-19] MEDS: METOCLOPRAMIDE HCL 10 MG/2 ML VIAL IM (17:56)
[2023-10-19] MEDS: DIPHENHYDRAMINE HCL 50 MG/ML (1ML) VIAL 25 MG IM (17:56)
[2023-10-19] MEDS: KETOROLAC TROMETHAMINE 60 MG/2 ML VIAL IM (17:56)
[2023-10-19] MEDS: ORPHENADRINE 60 MG/ 2 ML VIAL IM (17:58)
== END 2023-10-19 18:05 | disposition home or self-care (01) ==
PROVIDERS: Emergency Provider Emergency Medicine
DX: R51.9 Headache, unspecified (principal); Z87.891 Personal history of nicotine dependence
CPT/HCPCS: 96372; 99284; J1200; J1885; J2360; J2765

== ENCOUNTER 2023-12-04 20:01 | Emergency (ER) | payer BC, SELFPAY ==
[2023-12-04 20:07] VITALS: BP 185/100; PULSE 73; RESP 16; TEMP 36.8; O2SAT 96; BMI 30.1
--- OUTSIDE RECORDS SUMMARY | 2023-12-04 20:07 | XMS_ITS | CCD ---
Author Organization [facility] Care Team Providers Care Registered Midwife Name Role Phone Matt Mancera APRN, CNP Primary Care Provider MATT MATOS Primary Care Unavailable NE HANNA Attending Unavailable MIS, DR STEPHENS Attending Unavailable MISC, DR STEPHENS Consulting Unavailable MISC, DR STEPHENS Admitting Unavailable JIMMY Prakash Attending Provider Viv Campos Unavailable Tamar Prakash Unavailable DURGA Campos Attending Provider [phone] Tamar Prakash Attending Unavailable Tamar Prakash Admitting Unavailable Viv Campos Admitting Unavailable Viv Campos Attending Unavailable Johnna Caraballo Primary Care Provi sang JOHNNA BARROSO Attending Unavailable JOHNNA BARROSO Referring Unavailable JOHNNA BARROSO Primary Care Unavailable JOHNNA BARROSO Referring Unavailable JOHNNA BARROSO Primary Care Unavailable JOHNNA BARROSO Referring Unavailable JOHNNA BARROSO Primary Care Unavailable Allergies Allergy Classification Reported Allergen(s) Allergy Type Date of Onset Reaction(s) Facility (7 sources) [place]; Translations: [[place]] Propensity to adverse reactions 2 Unknown [facility] (5 sources) [place] Propensity to adverse reactions to drug 2 [facility] (7 sources) Orphenadrine; Translations: [ORPHENADRINE CITRATE] [facility] Current Medications Medication Drug Class(es) Dates Sig (Normalized) Sig (Original) amLODIPine 10 mg oral tablet (5 sources) Dihydropyridine Calcium Channel Janeth Start: 12-11-2022 take 1 tablet by mouth in the morning amLODIPine (NORVASC) 10 mg tablet Indications: Essential hypertension Take 1 tablet (10 mg total) by mouth in the morning. 90 tablet 1 12/11/2022 Active buPROPion hydrochloride 100 mg oral tablet (1 source) Aminoketone Start: 07-01-2017 take 1 tablet by mouth twice daily buPROPion (WELLBUTRIN) 100 MG tablet Take 1 tablet by mouth 2 times daily 60 tablet 3 07/01/2017 Active clobetasol propionate 0.0005 mg/mg topical ointment (6 sources) Corticosteroid Start: 05-13-2023 End: 11-16-2023 clobetasoL (TEMOVATE) 0.05 % ointment Indications: Infection of eczematous skin Apply 1 Application topically in the morning and 1 Application before bedtime. X 2 weeks then stop, may restart after 2 weeks if needed. 60 g 1 11/17/2023 Active cyclobenzaprine hydrochloride 10 mg oral tablet (7 sources) Muscle Relaxant Start: 02-25-2023 End: 11-02-2023 take 1 tablet by mouth every eight hours as needed for muscle spasms cyclobenzaprine (FLEXERIL) 10 mg tablet Indications: Lumbar back pain , Lumbar radiculopathy Take 1 tablet (10 mg total) by mouth every 8 (eight) hours as needed for muscle spasms. 60 tablet 2 11/02/2023 Active Start: 07-01-2017 take 1 tablet by marcy th twice daily as needed for muscle spasms cyclobenzaprine (FLEXERIL) 10 MG tablet Take 1 tablet by mouth 2 times daily as needed for Muscle spasms 45 tablet 0 07/01/2017 Active ibuprofen 600 mg oral tablet (6 sources) Nonsteroidal Anti-inflammatory Drug Start: 09-10-2022 take 1 tablet by mouth every six hours as needed for pain ibuprofen (MOTRIN) 600 mg tablet Take 1 tablet (600 mg total) by mouth every 6 (six) hours as needed for pain. 30 tablet 0 09/10/2022 Active Start: 05-04-2017 take 1 tablet by marcy th twice daily as needed for pain ibuprofen (ADVIL;MOTRIN) 800 MG tablet Indications: Sprain of right ankle, unspecified ligament, subsequent encounter Take 1 tablet by mouth 2 times daily as needed for Pain 60 tablet 0 05/04/2017 Active naproxen 500 mg oral tablet (10 sources) Nonsteroidal Anti-inflammatory Drug Start: 12-11-2022 take 1 tablet by mouth in the morning, then take 1 tablet by mouth at mealtime naproxen (NAPROSYN) 500 mg tablet Indications: Numbness and tingling in right hand Take 1 tablet (500 mg total) by mouth in the morning and 1 tablet (500 mg total) in the evening. Take with meals. 60 tablet 2 12/11/2022 Active Start: 07-17-2022 take 1 tablet by marcy every twelve hours at mealtime as needed Naproxen Sodium 550 MG 1 tablet with food or milk as needed Orally every 12 hrs for 7 days Jul, Not-Taking prazosin 1 mg oral capsule (10 sources) alpha-Adrenergic Janeth Start: 02-08-2023 take 1 capsule by mouth once daily prazosin (MINIPRESS) 1 mg capsule Indications: Essential hypertension , Psychophysiological insomnia TAKE 1 CAPSULE BY MOUTH NIGHTLY 90 capsule 1 02/08/2023 Active Prazosin HCl Act thompson ubrogepant 100 mg oral tablet (5 sources) Start: 12-11-2022 take 1 tablet by mouth once daily as needed ubrogepant (UBRELVY) 100 mg tablet Indications: Migraine without aura and with status migrainosus, not intractable Take 100 mg by mouth daily as needed (migraine). 12 tablet 1 12/11/2022 Active Completed/Discontinued Medications Medication Drug Class(es) Dates Sig (Normalized) Sig (Original) amoxicillin 875 mg oral tablet (7 sources) Penicillin-class Antibacterial Start: 09-25-2022 take 1 tablet by mouth every twelve hours Amoxicillin 875 MG 1 tablet Orally every 12 hrs for 7 days Sep, Not-Taking Start: 07-28-2022 take 1 capsule by mo [facility] every eight hours Amoxicillin 500 MG 1 [...] / neomycin 3.5 mg/ml / polymyxin b 61943 unt/ml otic suspension (3 sources) Aminoglycoside Antibacterial, Polymyxin-class Antibacterial, Corticosteroid Start: 08-13-2022 Neomycin-Polymyx in-HC 3.5-55166-9 3 drops left ear Three times a day for 7 days Jul, Not-Taking lidocaine-EPINEPHrin e-tetracaine (LET) topical solution 3 mL syringe (1 source) Start: 01-21-2022 End: 01-21-2022 lidocaine-EPINEP Hrine-tetracaine (LET) topical solution 3 mL syringe Problems Active Problems Problem Classification Problem Date Documented Date Episodic/Chronic Anxiety disorders (5 sources) Mixed anxiety and depressive disorder; Translations: [Anxiety disorder, unspecified] Onset: 12-12-2021 12-12-2021 Chronic Conduction disorders (10 sources) Left bundle branch block; Translations: [Left bundle-branch block, unspecified] Onset: 07-23-2020 07-23-2020 Chronic Disorders of lipid metabolism (5 sources) Hypercholesterolemia; Translations: [Pure hypercholesterolemia, unspecified] Onset: 04-04-2019 04-04-2019 Chronic Esophageal disorders (5 sources) Gastro-esophageal reflux disease with esophagitis; Translations: [Gastroesophageal reflux disease with esophagitis] Onset: 03-14-2019 03-14-2019 Chronic Essential hypertension (5 sources) Essential hypertension; Translations: [Essential (primary) hypertension] Onset: 03-14-2019 03-14-2019 Chronic Headache; including migraine (5 sources) Migraine without aura, not refractory ; Translations: [Migraine without aura, not intractable, with status migrainosus] Onset: 10-11-2019 10-11-2019 Chronic Immunizations and screening for infectious disease (7 sources) Encounter for screening for other viral diseases; Translations: [Contact with and (suspected) exposure to other viral communicable diseases] Onset: 05-28-2020 Episodic Lymphadenitis (8 sources) Inguinal lymphadenopathy; Translations: [Localized enlarged lymph nodes] Onset: 11-02-2023 11-02-2023 Episodic Miscellaneous mental health disorders (5 sources) Psychophysiologic insomnia; Translations: [Psychophysiologic insomnia] Onset: 12-12-2021 12-12-2021 Chronic Open wounds of head; neck; and trunk (1 source) Scalp laceration; Translations: [Laceration without foreign body of scalp, initial encounter] Episodic Other connective tissue disease (1 source) Pain in right hand Episodic Other ear and sense organ disorders (1 source) Unspecified acute noninfective otitis externa, left ear Episodic Other inflammatory condition of skin (5 sources) Psoriasis; Translations: [Psoriasis, unspecified] Onset: 10-02-2022 10-02-2022 Chronic Other injuries and conditions due to external causes (1 source) Closed injury of head; Translations: [Unspecified injury of head, initial encounter] Episodic Otitis media and related conditions (1 source) Otitis media, unspecified, bilateral Episodic Unclassified (1 source) Pain in right hand; Translations: [Pain in right hand] Onset: 12-03-2022 Unclassified (1 source) Pain in right knee; Translations: [Pain in right knee] Onset: 07-17-2022 Unclassified (1 source) Low back pain, unspecified; Translations: [Low back pain, unspecified] Onset: 11-27-2021 Past or Other Problems Problem Classification Problem Date Documented Da te Episodic/Chronic Headache; including migraine (6 sources) Other headache syndrome; Translations: [Headache disorder] Onset: 05-28-2020 Resolved: 11-06-2023 05-28-2020 Episodic Mood disorders (5 sources) Mood disorders Onset: 11-02-2023 11-02-2023 Nausea and vomiting (5 sources) Nausea and vomiting; Translations: [Nausea with vomiting, unspecified] Onset: 06-12-2020 06-12-2020 Episodic Nonspecific chest pain (5 sources) Chest discomfort; Translations: [Other chest pain] Onset: 07-02-2020 07-02-2020 Episodic Open wounds of extremities (5 sources) Laceration of right thumb; Translations: [Laceration without foreign body of right thumb without damage to nail, initial encounter] Onset: 04-04-2019 Resolved: 11-06-2023 04-20-2019 Episodic Other aftercare (5 sources) Removal of sutures done; Translations: [Encounter for removal of sutures] Onset: 01-30-2022 Resolved: 11-06-2023 01-30-2022 Episodic Other connective tissue disease (5 sources) Pain in right hand; Translations: [Pain in right hand] Onset: 12-21-2019 12-21-2019 Episodic Other disorders of stomach and duodenum (5 sources) Upset stomach; Translations: [Functional dyspepsia] Onset: 05-28-2020 Resolved: 10-02-2022 10-02-2022 Episodic Other ear and sense organ disorders (5 sources) Pain of ear structure; Translations: [Otalgia, left ear] Onset: 07-23-2020 07-23-2020 Episodic Other ear and sense organ disorders (5 sources) Ear sensations - finding; Translations: [Other specified disorders of ear, bilateral] Onset: 07-10-2021 07-10-2021 Episodic Other gastrointestinal disorders (5 sources) Functional diarrhea; Translations: [Functional diarrhea] Onset: 06-12-2020 06-12-2020 Episodic Other inflammatory condition of skin (6 sources) Infected eczema; Translations: [Infective dermatitis] Onset: 10-02-2022 10-02-2022 Episodic Other lower respiratory disease (5 sources) Snoring; Translations: [Snoring] Onset: 02-25-2022 02-25-2022 Episodic Other nervous system disorders (5 sources) Paresthesia of hand ; Translations: [Anesthesia of skin] Onset: 12-11-2022 12-11-2022 Episodic Other non-traumatic joint disorders (6 sources) Pain in right knee; Translations: [Pain in joint, lower leg] Onset: 12-12-2021 Episodic Other non-traumatic joint disorders (5 sources) Swelling of finger joint; Translations: [Effusion, right hand] Onset: 12-21-2019 Resolved: 11-06-2023 12-21-2019 Episodic Other non-traumatic joint disorders (5 sources) Chronic pain of left upper limb; Translations: [Pain in left shoulder] Onset: 07-02-2020 07-02-2020 Episodic Other screening for suspected conditions (not mental disorders or infectious disease) (6 sources) Patient encounter status; Translations: [Encounter for screening for disorder due to exposure to contaminants] Onset: 07-13-2015 Resolved: 06-10-2018 06-10-2018 Episodic Other upper respiratory infections (13 sources) Acute laryngitis; Translations: [Acute pharyngitis, unspecified] Onset: 05-28-2020 Resolved: 11-06-2023 Episodic Spondylosis; intervertebral disc disorders; other back problems (20 sources) Low back pain; Translations: [Lumbar back pain] Onset: 03-20-2015 03-20-2015 Episodic Results Test Name Value Interpretation Reference Range Facility Flow cytometry specialist re view Brayan (Unsp spec) [Interp]on 11-16-2023 FLOW CYTOMETRY TISSUE/FLUID, NON CSF/NON BAL SEE SEPARATE REPORT, REVIEWED BY PATHOLOGIST Normal [facility] IR BIOPSY LYMPH NODEon 11-15 IR BIOPSY LYMPH NODE IR BIOPSY LYMPH NODE History: Inguinal lymphadenopathy Exam/Technique: ULTRASOUND GUIDED INGUINAL LYMPH NODE BIOPSY An informed consent was obtained from the patient. The abnormal lymph nodes in the left groin, seen on the previous ultrasound of 11/03/2023 were redemonstrated. The usual sterile barrier technique and local anesthesia were employed. The skin was anesthetized, and deeper local anesthetic was instilled all around the largest abnormal lymph node, under direct ultrasound guidance with a sterile probe cover. 7 passes were then made through this lymph node with an 18-gauge core biopsy needle. These yielded 1 intact core of tissue in this fragments Compression was applied to the biopsy site for approximately 10 minutes. The procedure was well tolerated and without evidence of immediate complications. Specimens were placed in formalin , with some inflow cytometry media and sent for to pathology. IMPRESSION: Uneventful ultrasound-guided biopsy of the largest abnormal left inguinal lymph node. 5 Finalized by Delano Cruz MD on 11/16/2023 11:01 AM Normal [facility] Surgical Pathologyon 024 Surgical Pathology Normal [facility] Comment on above: Result Comment: [facility] [address] [place] [address] Surgical Pathology Consultation Patient Name:MICH RODRIGUEZ JR.:1990 (Age: 33)Gender:MTaken:4Reported:11/18/2023hysician(s):Johnna Barroso CNP ([phone])Copy To:Delano Cruz M.D. Rec. #:[id number]: #[id number] Final Pathologic Diagnosis Left groin lymph node, core biopsy: Portions of benign lymph node with mild reactive hyperplasia. No malignancy identified. Report Electronically Signed Out nxk/11/18/2023Ruben Jean MD Flow Cytometry-Surg/BM/NG Date Reported: 11/19/2023 Immunophenotypic analysis of the lymphoid cells demonstrates a mixed population of phenotypically unremarkable T-cells and polyclonal B-cells. No monoclonal lymphoid population is detected. Immunophenotyping antibodies tested: CD3, CD5, CD7, CD10, CD19, CD20, CD23, CD45, [place], and Lambda. Immunophenotyping Comment: Immunophenotyping has been used in this diagnostic evaluation. This test was developed and its performance characteristics determined by the [facility]. It has not been cleared or approved by the U.S. Food and Drug Administration. The FDA has determined that such clearance or approval is not necessary. This test is used for clinical purposes. It should not be regarded as investigational or for research. This laboratory is certified under the Clinical Laboratory Improvement Amendments of 1988 ( CLIA ) as qualified to perform high-complexity clinical testing. Electronically Signed Out Ruben Jean MD Interpretation performed at [facility], [address] [place] [address], License number: [id number]. Clinical History Lymphadenopathy, inguinal R59.0. Gross Description Received in formalin labeled LITTLE, left groin BX are [place], focally erythematous, delicate soft tissue fragments, 0.6 x 0.4 x 0.1 cm in aggregate. The specimen is filtered and entirely submitted in a single cassette. (1, ns, [id number], m1) JG A separate soft tissue core is received in RPMI media and sent to flow cytometry for analysis. [facility]/11/16/2023GR Specimen(s) Received Left groin lymph node Fee Codes(s): 1; 39599, 99214 US EXT NON-VASC LT LIMITEDon 11-05-2023 US EXT NON-VASC LT LIMITED US EXT NON-VASC LT LIMITED Limited nonvascular left lower extremity ultrasound on 11/03/2023 HISTORY: Left inguinal lymphadenopathy COMPARISON: None TECHNIQUE: Grayscale sonographic imaging of the left inguinal region was performed. FINDINGS: Sonographic images demonstrate multiple soft tissue masses. Masses are hypoechoic. The largest measures 2.7 x 1.0 x 2.3 cm and lacks a normal echogenic hilum. Additional hypoechoic lesion packing echogenic hilum measures 1.3 x 1.2 x 1.3 cm. The smallest of the findings is a 1.1 x 0.7 x 0.9 cm hypoechoic lesion with eccentric echogenic hilum. No additional solid or cystic mass. IMPRESSION: * Sonographically abnormal lymph nodes in the right inguinal region concerning for malignancy. Tissue sampling is recommended. 9 Finalized by Hi Stover MD on 11/05/2023 12:42 PM Normal [facility] XR hand RT min 3V*on 023 XR hand RT min 3V* [facility] Main [place] [address] [place] [address] XRay Report Signed Patient: Mich Rodriguez MR#: [id number] : 1990 Acct:[id number] Age/Sex: 32 / M ADM Date: 12/03/22 Loc: XDUCLY Room: Type: [facility] Attending Dr: Viv CALIXTO Copies to: DURGA Arango Ordering Provider: DURGA [...] Christi Gray M.D.12/03/2022 12:25 PM Dictation Location: RADIO-PC-10 Transcribed By: [facility] 12/03/22 1225 Dictated By: Christi Gray MD 12/03/22 1223 Signed By: 12/03/22 1225 Normal [facility] XR hand RT min 3V* [facility] [email or web address] Other XR hand RT min 3V* [facility] [email or web address] Other XR hand RT min 3V* [address] [place] [address] [email or web address] Other XR hand RT min 3V* [place] [address] [employer] Other XR hand RT min 3V* XRay Report [employer] Other XR hand RT min 3V* Signed [employer] Other XR hand RT min 3V* Patient: Mich Rodriguez MR#: [id number] [place] [employer] Other XR hand RT min 3V* 4283 [employer] Other XR hand RT min 3V* : 1990 Acct:[id number] [employer] Other XR hand RT min 3V* Age/Sex: 32 / M ADM Date: 12/03/22 [employer] Other XR hand RT min 3V* Loc: XDUCLY Room: Type: REG CLI [employer] Other XR hand RT min 3V* Attending Dr: Viv CALIXTO [employer] Other XR hand RT min 3V* Copies to: DURGA Arango [employer] Other XR hand RT min 3V* Ordering Provider: DURGA Arango [employer] Other XR hand RT min 3V* Date of Service: 12/03/22 [employer] Other XR hand RT min 3V* XR/XR hand RT min 3V*: RIGHT HAND SWELLING/PAIN [employer] Other XR hand RT min 3V* RIGHT HAND - 3 views [employer] Other XR hand RT min 3V* CLINICAL DATA: Right hand pain and swelling dorsally over the metacarpals for the past week. No [employer] Other XR hand RT min 3V* known injury. [facility] [employer] Other XR hand RT min 3V* COMPARISON: None [employer] Other XR hand RT min 3V* AP, lateral and oblique views were obtained. There is no evidence of fracture or dislocation. No [employer] Other XR hand RT min 3V* prominent hypertrophy or joint space narrowing is seen. Mild dorsal soft tissue swelling is [employer] Other XR hand RT min 3V* present. [employer] Other XR hand RT min 3V* XR/XR hand RT min 3V* [employer] Other XR hand RT min 3V* IMPRESSION: [employer] Other XR hand RT min 3V* NO ACUTE BONY FINDINGS. [employer] Other XR hand RT min 3V* Impression dictated by: Christi Gray M.D.12/03/2022 12:25 PM [employer] Other XR hand RT min 3V* Dictation Location: [place] [address] [employer] Other XR hand RT min 3V* Transcribed By: SARWAT 12/03/22 1225 [employer] Other XR hand RT min 3V* Dictated By: Christi Gray MD 12/03/22 1223 [facility] [email or web address] Other XR hand RT min 3V* Signed By: [place] [employer] Other XR hand RT min 3V* 12/03/22 1225 [facility] [email or web address] Other COVID + FLU Quick Testingon 09-01-2022 SARS-CoV-2 (COVID-19) RNA ABILIO+probe Ql (Unsp spec) Negative [facility] [email or web address] Other COVID + FLU Quick Testing Negative [facility] [email or web address] Other XR knee RT 4V*on 07-17-2022 XR knee RT 4V* [facility] Main [place] [address] [place] [address] XRay Report Signed Patient: Mich Rodriguez MR#: [id number] : 1990 Acct:[id number] Age/Sex: 31 / M ADM Date: 07/17/22 Loc: XDUCLY Room: Type: [facility] Attending Dr: Tamar MARQUEZ Copies to: TAMAR [...] Brayan Mccormack M.D.07/17/2022 1:22 PM Dictation Location: RADIO-PC-12 Transcribed By: SARWAT 07/17/22 1322 Dictated By: Brayan Mccormack II, MD 07/17/22 1321 Signed By: 07/17/22 1322 Normal [facility] XR knee RT 4V* [facility] [email or web address] Other XR knee RT 4V* [facility] Main [facility] [employer] Other XR knee RT 4V* [address] [place] [address] [employer] Other XR knee RT 4V* [place] [address] No rt [employer] Other XR knee RT 4V* XRay Report [employer] Other XR knee RT 4V* Signed [employer] Other XR knee RT 4V* Patient: Mich Rodriguez MR#: [id number] [place] [employer] Other XR knee RT 4V* 83 [employer] Other XR knee RT 4V* : 1990 Acct:[id number] [employer] Other XR knee RT 4V* Age/Sex: 31 / M ADM Date: 07/17/22 [employer] Other XR knee RT 4V* Loc: XDUCLY Room: Type: [facility] [employer] Other XR knee RT 4V* Attending Dr: Tamar MARQUEZ [employer] Other XR knee RT 4V* Copies to: TAMAR PRAKASH NON PROFIT DIRECTOR-C [employer] Other XR knee RT 4V* Ordering Provider: TAMAR PRAKASH [employer] Other XR knee RT 4V* Date of Service: 07/17/22 [employer] Other XR knee RT 4V* XR/XR knee RT 4V*: Right anterior knee pain [employer] Other XR knee RT 4V* XR knee RT 4V* 07/17/2022 1:02 PM [employer] Other XR knee RT 4V* SIGNS AND SYMPTOMS: Right anterior knee pain [employer] Other XR knee RT 4V* PROTOCOL: Frontal, lateral, and oblique radiographs of the right knee [employer] Other XR knee RT 4V* COMPARISON: None [facility] [employer] Other XR knee RT 4V* FINDINGS: [employer] Other XR knee RT 4V* There is a linear radiopaque foreign body in the lateral soft tissues adjacent to the proximal [employer] Other XR knee RT 4V* fibula. The joint spaces are preserved. There is no fracture. No joint effusion. No soft tissue [employer] Other XR knee RT 4V* swelling. [employer] Other XR knee RT 4V* XR/XR knee RT 4V* [employer] Other XR knee RT 4V* IMPRESSION: [employer] Other XR knee RT 4V* No acute bony injury or significant degenerative change. [employer] Other XR knee RT 4V* fibula. [employer] Other XR knee RT 4V* Impression dictated by: Brayan Mccormack M.D.07/17/2022 1:22 PM [employer] Other XR knee RT 4V* Dictation Location: [place] [address] [employer] Other XR knee RT 4V* Transcribed By: SARWAT 07/17/22 1322 [employer] Other XR knee RT 4V* Dictated By: Brayan Mccormack II, MD 07/17/22 1321 [employer] Other XR knee RT 4V* Signed By: Ramírez Haque [employer] Other XR knee RT 4V* 07/17/22 [address] [facility] [employer] Other CT CERVICAL SPINE WO CONTRAS Ton [...] not a suspected or confirmed emergency medical condition->Emergenc y Medical Condition (MA) Reason for Exam: C/o [...] not a suspected or confirmed emergency medical condition->Emergenc y Medical Condition (MA) Reason for Exam: C/o [...] Clark Rhodes MD 01/21/22 Final result Normal [facility] CT HEAD WO CONTRASTon 2021 CT HEAD [...] not a suspected or confirmed emergency medical condition->Emergenc y Medical Condition (MA) Reason for Exam: C/o [...] not a suspected or confirmed emergency medical condition->Emergenc y Medical Condition (MA) Reason for Exam: C/o [...] Clark Rhodes MD 01/21/22 Final result Normal [facility] No Panel Informationon 01-21 No acute intracranial abnormality. No acute fracture or subluxation of cervical spine. Mild degenerative change C4-C5 and C5-C6. RECOMMENDATIONS: Unavailable [facility] RIS CONSOLIDATED EXAMINATION: CT OF THE [...] not a suspected or confirmed emergency medical condition->Emergenc y Medical Condition (MA) Reason for Exam: C/o [...] not a suspected or confirmed emergency medical condition->Emergenc y Medical Condition (MA) Reason for Exam: C/o [...] There is no prevertebral soft tissue swelling. [facility] Clark Redding MD - 01/21/2022 EXAMINATION: CT OF THE [...] not a suspected or confirmed emergency medical condition->Emergenc y Medical Condition (MA) Reason for Exam: C/o [...] not a suspected or confirmed emergency medical condition->Emergenc y Medical Condition (MA) Reason for Exam: C/o [...] degenerative change C4-C5 and C5-C6. RECOMMENDATIONS: Unavailable [employer] Phone: Radiology Study observation (narrative) [employer] Phone: No Panel InformationOrdered By: Clark Rhodes on 01-21-2022 [employer] Phone: Vital Signs Date Time Vital Sign Value Performing Clinician Ibrahima austin 11-02-2023 10:59-0500 Body height 177.8 cm Johnna Barroso [email or web address] Work Phone: [employer] 11-02-2023 10:59-0500 Body mass index (BMI) [Ratio] 28.93 kg/m2 Johnna Barroso [email or web address] Work Phone: [employer] [facility] 11-02-2023 10:59-0500 Body temperature 98.6 [degF] Johnna Barroso PIPE BENDING MACHINE OPERATOR-PROCESS CAMERA OPERATOR Work Phone: [facility] [employer] [facility] 11-02-2023 10:59-0500 Body weight 91.44 kg Johnna Barroso PIPE BENDING MACHINE OPERATOR-PROCESS CAMERA OPERATOR Work Phone: [facility] 11-02-2023 10:59-0500 Diastolic blood pressure 88 mm[Hg] Johnna Barroso PIPE BENDING MACHINE OPERATOR-PROCESS CAMERA OPERATOR Work Phone: [facility] 11-02-2023 10:59-0500 Heart rate 81 /min Johnna Barroso PIPE BENDING MACHINE OPERATOR-PROCESS CAMERA OPERATOR [facility] Phone: [facility] 11-02-2023 10:59-0500 Respiratory rate 20 /min Johnna Soriasler PIPE BENDING MACHINE OPERATOR-PROCESS CAMERA OPERATOR Work Phone: [facility] 11-02-2023 10:59-0500 SaO2% (BldA) [Mass fraction] 98 % Johnna Barroso PIPE BENDING MACHINE OPERATOR-PROCESS CAMERA OPERATOR Work Phone: [facility] 11-02-2023 10:59-0500 Systolic blood pressure 146 mm[Hg] Johnna Barroso PIPE BENDING MACHINE OPERATOR-PROCESS CAMERA OPERATOR Work Phone[facility] 12-03-2022 12:35-0400 Body height 177.8 cm Viv Campos Other [employer] Other 12-03-2022 12:35-0400 Body mass index (BMI) [Ratio] 30.13 kg/m2 Viv Campos Other [employer] Other 12-03-2022 12:35-0400 Body temperature 100 [degF] Viv Campos Other [employer] Other 12-03-2022 12:35-0400 Body weight 95.26 kg Viv Beth Other [employer] Other 12-03-2022 12:35-0400 Diastolic blood pressure 89 mm[Hg] Viv Beth Other [employer] Other 12-03-2022 12:35-0400 Respiratory rate 18 /min Viv Beth Other [employer] Other 12-03-2022 12:35-0400 SaO2% (BldA) [Mass fraction] 96 % Viv Beth Other [employer] Other 12-03-2022 12:35-0400 Systolic blood pressure 151 mm[Hg] Viv Beth Other [employer] Other 09-01-2022 12:15-0500 Body height 177.8 cm Viv Beth Other [employer] Other 09-01-2022 12:15-0500 Body mass index (BMI) [Ratio] 30.13 kg/m2 Viv Beth Other [employer] Other 09-01-2022 12:15-0500 Body temperature 97.9 [degF] Viv Beth Other [employer] Other 09-01-2022 12:15-0500 Body weight 95.26 kg Viv Beth Other [employer] Other 09-01-2022 12:15-0500 Diastolic blood pressure 93 mm[Hg] Viv Beth Other [employer] Other 09-01-2022 12:15-0500 Respiratory rate 18 /min Viv Beth Other [employer] Other 09-01-2022 12:15-0500 SaO2% (BldA) [Mass fraction] 100 % Viv Beth Other [employer] Other 09-01-2022 12:15-0500 Systolic blood pressure 157 mm[Hg] Viv Beth Other [employer] Other 08-13-2022 11:35-0500 Body height 177.8 cm Viv Beth Other [employer] Other 08-13-2022 11:35-0500 Body mass index (BMI) [Ratio] 30.13 kg/m2 Viv Beth Other [employer] Other 08-13-2022 11:35-0500 Body temperature 98.1 [degF] Viv Beth Other [employer] Other 08-13-2022 11:35-0500 Body weight 95.26 kg Viv Beth Other [employer] Other 08-13-2022 11:35-0500 Diastolic blood pressure 89 mm[Hg] Viv Beth Other [employer] Other 08-13-2022 11:35-0500 Respiratory rate 16 /min Viv Beth Other [employer] Other 08-13-2022 11:35-0500 SaO2% (BldA) [Mass fraction] 99 % Viv Beth Other [employer] Other 08-13-2022 11:35-0500 Systolic blood pressure 143 mm[Hg] Viv Campos Other [employer] Other 07-28-2022 11:35-0500 Body height 177.8 cm Viv Randallmond Other [employer] Other 07-28-2022 11:35-0500 Body mass index (BMI) [Ratio] 30.13 kg/m2 Viv Randallmond Other [employer] Other 07-28-2022 11:35-0500 Body temperature 97.9 [degF] Viv Randallmond Other [employer] Other 07-28-2022 11:35-0500 Body weight 95.26 kg Viv Campos Other [employer] Other 07-28-2022 11:35-0500 Diastolic blood pressure 83 mm[Hg] Viv Randallmond Other [employer] Other 07-28-2022 11:35-0500 Respiratory rate 18 /min Viv Randallmond Other [employer] Other 07-28-2022 11:35-0500 SaO2% (BldA) [Mass fraction] 96 % Viv Campos Other [employer] Other 07-28-2022 11:35-0500 Systolic blood pressure 126 mm[Hg] Viv Beth Other [employer] Other 07-17-2022 14:40-0400 Body height 177.8 cm Tamar Prakash Other [employer] Other 07-17-2022 14:40-0400 Body mass index (BMI) [Ratio] 30.13 kg/m2 Tamar Prakash Other [employer] Other 07-17-2022 14:40-0400 Body temperature 98 [degF] Tamar Prakash Other [employer] Other 07-17-2022 14:40-0400 Body weight 95.26 kg Tamar Prakash Other [employer] Other 07-17-2022 14:40-0400 Diastolic blood pressure 81 mm[Hg] Tamar Prakash Other [employer] Other 07-17-2022 14:40-0400 Respiratory rate 18 /min Tamar Prakash Other [employer] Other 07-17-2022 14:40-0400 SaO2% (BldA) [Mass fraction] 98 % Tamar Prakash Other [employer] Other 07-17-2022 14:40-0400 Systolic blood pressure 143 mm[Hg] Tamar Prakash Other [employer] Other 01-21-2022 12:29-0400 Body height 177.8 cm Ne Hanna MD [facility] 01-21-2022 12:29-0400 Body mass index (BMI) [Ratio] 30.85 kg/m2 Ne Hanna MD [facility] 01-21-2022 12:29-0400 Body temperature 98.8 [degF] Ne Hanna MD [facility] 01-21-2022 12:29-0400 Body weight 97.52 kg Ne Hanna MD [facility] 01-21-2022 12:29-0400 Diastolic blood pressure 91 mm[Hg] Ne Hanna MD [facility] 01-21-2022 12:29-0400 Heart rate 82 /min Ne Hanna MD [facility] 01-21-2022 12:29-0400 Respiratory rate 18 /min Ne Hanna MD [facility] 01-21-2022 12:29-0400 SaO2% (BldA) [Mass fraction] 98 % Ne Hanna MD [facility] 01-21-2022 12:29-0400 Systolic blood pressure 155 mm[Hg] Ne Hanna MD [facility] Encounters Encounter Date Encounter Type Care Provider Facility Start: 11-24-2023 Telephone encounter Zulma Pagan MA [facility] Start: 11-16-2023 End: 11-17-2023 Refill Johnna Barroso PIPE BENDING MACHINE OPERATOR-PROCESS CAMERA OPERATOR Work Phone: [facility] Comment on above: Infection of eczemat ous skin Start: 11-06-2023 Orders Only Johnna martin PIPE BENDING MACHINE OPERATOR-PROCESS CAMERA OPERATOR Work Phone: [facility] Comment on above: Lymphadenopathy, ing uinal (Primary Dx) Start: 11-03-2023 End: 11-04-2023 ambulatory [facility] Start: 11-02-2023 End: 11-02-2023 ambulatory [facility] Start: 11-02-2023 End: 11-02-2023 Office outpatient visit 15 minutes Johnna Barroso PIPE BENDING MACHINE OPERATOR-PROCESS CAMERA OPERATOR [facility] Comment on above: Lymphadenopathy, ing uinal (Primary Dx); Lumbar back pain; Lumbar radiculopathy Start: 12-03-2022 Office outpatient vi sit 15 minutes Viv Campos [facility] Start: 12-03-2022 End: 12-03-2022 ambulatory Viv Campos Facility:[facility] Start: 12-03-2022 End: 12-03-2022 ambulatory SERVICE LIAISON REPRESENTATIVE-C Viv Campos Work Phone: [facility] Work Phone: Start: 12-03-2022 End: 12-03-2022 Patient encounter procedure SERVICE LIAISON REPRESENTATIVE-C Viv Beth Work Phone: [facility] Work Phone: Start: 09-01-2022 End: 09-01-2022 ambulatory Viv Beth Other [employer] Other Start: 09-01-2022 Office outpatient vi sit 15 minutes Viv Beth [facility] Start: 08-13-2022 End: 08-13-2022 ambulatory Viv Beth Other [employer] Other Start: 08-13-2022 Office outpatient vi sit 15 minutes Viv Beth [facility] Start: 07-28-2022 End: 07-28-2022 ambulatory Viv Beth Other [employer] Other Start: 07-28-2022 Office outpatient vi sit 15 minutes Viv Beth [facility] Start: 07-17-2022 End: 07-17-2022 ambulatory Tamar Haylee Facility:[facility] Start: 07-17-2022 Office outpatient vi sit 15 minutes Tamar Haylee [facility] Start: 07-17-2022 End: 07-17-2022 ambulatory NON PROFIT DIRECTOR-C Tamar Haylee Work Phone: [facility] Work Phone: Start: 07-17-2022 End: 07-17-2022 Patient encounter procedure NON PROFIT DIRECTOR-C Tamar Haylee Work Phone: [facility] Start: 01-21-2022 End: 01-21-2022 Emergency department patient visit MATT MATOS [facility] Start: 01-21-2022 End: 01-21-2022 Emergency department patient visit Ne Hanna MD [facility] Comment on above: Closed head injury, initial encounter (Primary Dx); Laceration of scalp, initial encounter Start: 05-28-2020 End: 05-29-[address] STEPHENS [facility] Facility: Procedures Date Procedure Procedure Detail Performing Clinician Start: 11-02-2023 Adult depression screening assessment Johnna Barroso PIPE BENDING MACHINE OPERATOR-PROCESS CAMERA OPERATOR Work Phone: Start: 12-03-2022 Plain X-ray of right hand SERVICE LIAISON REPRESENTATIVE-C Viv Campos Work Phone: Start: 07-17-2022 X-ray of right knee NON PROFIT DIRECTOR -C Tamarkevin Prakash Work Phone: Start: 01-21-2022 Ct cervical spine w/ o contrast material Yoni A Romp PA-C Work Phone: Start: 01-21-2022 Ct head/brain w/o contrast material Yoni A Romp PA-C Work Phone: Plan of Treatment Date Care Activity Detail Author Start: 01-22-2032 DTaP,Tdap and Td Vaccines (3 - Td or Tdap) DTaP,Tdap and Td Vaccines (3 - Td or Tdap) [facility] [employer] Start: 01-22-2032 DTaP/Tdap/Td vaccine (2 - Td or Tdap) DTaP/Tdap/Td vaccine (2 - Td or Tdap) [facility] Start: 11-02-2024 Adult BMI Screening Adult BMI Screen ing [facility] [employer] [facility] Start: 11-02-2024 Depression Screening Depression Scre ening [facility] Start: 11-02-2024 Tobacco Screening Tobacco Screening [facility] [employer] [facility] Start: 11-06-2023 End: 11-06-2024 US Guidance for core needle biopsy of Unspecified body region Ultrasound guidance intraoperative with Bx or Asp Imaging Routine Lymphadenopathy, inguinal Expected: 11/06/2023, Expires: 11/06/2024 [employer] Work Phone: Comment on above: Expected: 11/06/2023 , Expires: 11/06/2024 Start: 11-03-2023 Subsequent hospital visit by physician 11/03/2023 2:30 PM EST Hospital Encounter [facility] [address] [place] [address] [facility] Start: 11-02-2023 End: 11-02-2024 US Extremity - left limited Ultrasound extremity non vascular limited left Imaging Routine Lymphadenopathy, inguinal Expected: 11/02/2023, Expires: 11/02/2024 [facility] Work Phone: Comment on above: Expected: 11/02/2023 , Expires: 11/02/2024 Start: 05-15-2023 Influenza vaccination Influenza Vacc ine [facility] Start: 05-15-2022 Influenza vaccination Flu vacc ine (Season Ended) [facility] Start: 2006 Adult BMI Follow Up Plan Adult BMI Follow Up Plan [facility] Start: 2006 Hepatitis C screening Hepatitis C sc reen [facility] Start: 2003 HIV screening HIV screen [facility] Start: 2000 Depression Screen Depression Screen [facility] Start: 1993 COVID-19 Vaccine (1) COVID-19 Vaccin e (1) [facility] Start: 1989 Varicella vaccine (1 of 2 - 2-dose childhood series) Varicella vaccine (1 of 2 - 2-dose childhood series) [facility] Immunizations Immunization Date Immunization Notes Care Provider Avinash walsh 01-21-2022 tetanus toxoid, reduced diphtheria toxoid, and acellular pertussis vaccine, adsorbed Ne Hanna MD [facility] Work Phone: 04-04-2019 tetanus and diphtheria toxoids, adsorbed, preservative free, for adult use (2 Lf of tetanus toxoid and 2 Lf of diphtheria toxoid) Johnna Barroso PIPE BENDING MACHINE OPERATORUniversity of [place] Work Phone: [facility] 09-11-2014 influenza, seasonal, injectable, preservative free Johnna Barroso PIPE BENDING MACHINE [email or web address] CAMERA OPERATOR Work Phone: [facility] 09-11-2014 influenza virus vaccine, unspecified formulation Johnna Barroso PIPE BENDING MACHINE OPERATORUniversity of [place] Work Phone: [facility] NEGATED: Highlighted row has not occurred!11-27-2021 influenza, injectable, quadrivalent, preservative free Johnna Barroso PIPE BENDING MACHINE OPERATOR-PROCESS CAMERA OPERATOR Work Phone: [facility] Comment on above: Deferred: Patient de cision Payers Date Payer Category Payer Unknown BCBS [facility] HMO/PPO/TRUST [id number] 2023-Present [phone] [address] [place] [address] [id number] 2023 Unknown [id number] 2022 Medicaid [id number] 2022 Self-pay 2022 Unknown [id number] 2022 Unknown [id number] 2022 Unknown [id number] 2021 Unknown [id number] 1988 Unknown [id number] 1988 Unknown [id number] 1988 Unknown [id number] 1988 Unknown [id number] 1988 Unknown [id number] 1959 Unknown [id number] 1959 Unknown [id number] Unknown [id number] Unknown [id number] Social History Date Type Detail Facility Start: 03-31-2014 End: 08-20-2022 Tobacco smoking status [facility] Ex-smoker [employer] Start: 03-31-2014 Tobacco use and exposure Smoke less tobacco non-user [employer] Phone: Start: 01-21-2022 Alcohol intake 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 [employer] [facility] Start: 03-31-2014 History SDOH [facility] Start: [facility]: Start: 01-11-2022 End: 01-21-2022 Exposure to SARS-CoV-2 (event) Not sure [employer] Phone: Start: 1988 Sex Assigned At Male F [facility] Start: 11-26-2021 End: 11-02-2023 Sex Assigned At [facility] History of tobacco use Current smoker [facility] Start: 08-20-2022 Tobacco use and exposure Forme r smokeless tobacco user [facility] [employer] [facility] End: 02-12-2018 History of tobacco use Chews Tobacco [facility] Start: 11-02-2023 Alcohol intake Ex-drinker (finding) [facility] How often do you att end orthodoxy or adventism services? Patient declined [facility] Do you belong to any clubs or organizations such as orthodoxy groups, unions, fraternal or athletic groups, or school groups? Yes [facility] Are you now , , , , never or living with a partner? [facility] How often to you hav e a drink containing alcohol? 2-3 time sa week [facility] How many standard dr inks containing alcohol do you have on a typical day? 5 or 6 [facility] How often do you hav e 6 or more drinks on 1 occasion? Monthly [facility] Do you feel stress - tense, restless, nervous, or anxious, or unable to sleep at night because your mind is troubled all the time - these days [OSQ] Rather much [facility] Start: 03-14-2019 Education 21 [facility] Clinical Notes 01-21-2022 to 11-24-2023 Telephone Encounter - Zulma Archer CMA - 11/24/2023 8:50 AM EDTTelephone Encounter - Zulma Archer CMA - 11/24/2023 8:50 AM EDTTelephone Encounter - Zulma Archer CMA - 11/24/2023 8:50 AM EDT Note Date & Type Note Facility 11-24-2023 Miscellaneous Notes Formattin g of this note might be different from the original. ----- Message from SERGE Mitchell sent at 11/24/2023 4:52 AM EDT ----- Biopsy was negative for malignancy, although I do recommend follow up in 6-8 weeks for continued assessment ----- Message ----- From: Interface - Lab Results/Orders In Sent: 11/18/2023 4:33 PM EDT To: SERGE Mitchell Called patient, no answer unable to leave a message Patient called back into the office I did let him know his results documented in this encounter [facility] 11-24-2023 Telephone encount er Note ----- Message from SERGE Mitchell sent at 11/24/2023 4:52 AM EDT ----- Biopsy was negative for malignancy, although I do recommend follow up in 6-8 weeks for continued assessment ----- Message ----- From: Interface - Lab Results/Orders In Sent: 11/18/2023 4:33 PM EDT To: SERGE Mitchell [facility] 11-24-2023 Telephone encount er Note Called patient, no answer unable to leave a message [facility] 11-24-2023 Telephone encount er Note Patient called back into the office I did let him know his results [facility] 11-16-2023 Miscellaneous Notes Formattin g of this note might be different from the original. Patient presenting to front window requesting refill of Clobetasol 0.05% ointment. Pharmacy is [facility] in [place], [place]. documented in this encounter [facility] 11-16-2023 Telephone encount er Note Patient presenting to front window requesting refill of Clobetasol 0.05% ointment. Pharmacy is [facility] in [place], [place]. [facility] 11-06-2023 Miscellaneous Notes Formattin g of this note might be different from the original. ----- Message from SERGE Mitchell sent at 11/06/2023 9:38 AM EST ----- Please let pt know that ultrasound was abnormal, radiology is recommending a biopsy. I will put in order and hospital will call him ----- Message ----- From: Interface - Rad Results/Orders In 1 Sent: 11/05/2023 12:44 PM EST To: SERGE Mitchell Tried to call patient but no answer and could not leave a voicemail. Patient called back and I informed him. He stated understanding. documented in this encounter [facility] 11-06-2023 Telephone encount er Note ----- Message from SERGE Mitchell sent at 11/06/2023 9:38 AM EST ----- Please let pt know that ultrasound was abnormal, radiology is recommending a biopsy. I will put in order and hospital will call him ----- Message ----- From: Interface - Rad Results/Orders In 1 Sent: 11/05/2023 12:44 PM EST To: SERGE Mitchell [facility] 11-06-2023 Telephone encount er Note Tried to call patient but no answer and could not leave a voicemail. [facility] 11-06-2023 Telephone encount er Note Patient called back and I informed him. He stated understanding. [facility] 11-02-2023 History of Presen t illness Narrative Images from the original note were not included. Subjective CC: Mass between hips and groin Patient ID: Mich Rodriguez Jr. is a 33 y.o. male. HPI Mich Rodriguez Jr. Reports to the clinic today with his for a mass between his hips and groin. He reports it showed up 2 weeks ago. He describes the pain as pressure at rest, rating it a 2/10. He describes the pain when it is touched as a shooting sharp pain and rates it a 6/10 on the pain scale. He has not tried anything for treatment. He reports the area is not hot, red, or seemingly inflamed. He desires a refill of his Flexeril. He denies any other concerns at this time. The following portions of the patient's history were reviewed and updated as appropriate: allergies, current medications, past family history, past medical history, past social history, past surgical history, problem list, and medication reconciliation was completed including current medication and post discharge medication. Review of Systems Constitutional: Negative. BMI 28.93 HENT: Negative. Eyes: Negative. Respiratory: Negative. Cardiovascular: Negative. Gastrointestinal: Negative. Endocrine: Negative. Genitourinary: Negative. Musculoskeletal: Negative. Skin: Negative. Lump between left hip and groin Allergic/Immunologic: Negative. Neurological: Negative. Hematological: Positive for adenopathy. Between let hip and groin Pain rated a 2/10 at rest, 6/10 when touched Psychiatric/Behavioral: Negative. Objective Physical Exam Vitals and nursing note reviewed. Exam conducted with a millinery department manager present. Constitutional: Appearance: Normal appearance. HENT: Head: Normocephalic and atraumatic. Right Ear: Tympanic membrane, ear canal and external ear normal. Left Ear: Tympanic membrane, ear canal and external ear normal. Nose: Nose normal. Mouth/Throat: Mouth: Mucous membranes are moist. Pharynx: Oropharynx is clear. Eyes: Extraocular Movements: Extraocular movements intact. Conjunctiva/sclera: Conjunctivae normal. Pupils: Pupils are equal, round, and reactive to light. Cardiovascular: Rate and Rhythm: Normal rate and regular rhythm. Pulses: Normal pulses. Heart sounds: Normal heart sounds. Pulmonary: Effort: Pulmonary effort is normal. Breath sounds: Normal breath sounds. Abdominal: General: Abdomen is flat. Palpations: Abdomen is soft. Musculoskeletal: General: Normal range of motion. Cervical back: Normal range of motion and neck supple. Lymphadenopathy: Lower Body: Left inguinal adenopathy present. Skin: General: Skin is warm and dry. Capillary Refill: Capillary refill takes less than 2 seconds. Comments: Lump in between left hip Neurological: General: No focal deficit present. Mental Status: He is alert and oriented to person, place, and time. Psychiatric: Mood and Affect: Mood normal. Behavior: Behavior normal. Thought Content: Thought content normal. Judgment: Judgment normal. Assessment/Plan Mich Rodriguez Jr. Reports to the clinic today with his for a mass between his hips and groin. He reports it showed up 2 weeks ago. Describes the pain as pressure at rest, rating it a 2/10; Describes the pain when it is touched as a shooting sharp pain and rates it a 6/10 on the pain scale. He has not tried anything for treatment. Desires a refill of his Flexeril. 1.) Flexeril refill sent to patient pharmacy. 2.) Ultrasound of left inguinal region ordered. 3.) Follow-up as needed if symptoms worsen/do not improve. Diagnoses and all orders for this visit: Lymphadenopathy, inguinal - Ultrasound extremity non vascular limited left; Future Lumbar back pain - cyclobenzaprine (FLEXERIL) 10 mg tablet; Take 1 tablet (10 mg total) by mouth every 8 (eight) hours as needed for muscle spasms. Lumbar radiculopathy - cyclobenzaprine (FLEXERIL) 10 mg tablet; Take 1 tablet (10 mg total) by mouth every 8 (eight) hours as needed for muscle spasms. SERGE Mitchell 11/02/23 [id number] documented in this encounter [facility] 12-03-2022 Evaluation note Encounter Date Diagnosis Assessment [...] no improvement in 5 to 7 days. [employer] Other 12-19-2022 Evaluation note* Encounter Date Diagnosis Assessment Notes Treatment Notes Treatment Clinical Notes Aug, Contact with and (suspected) exposure [...] days. You may return to work tomorrow [employer] Other 11-30-2022 Evaluation note* Encounter Date Diagnosis Assessment Notes Treatment Notes Treatment Clinical Notes Jul, Acute otitis externa of left ear, unspecified type (ICD-10 - H60.502) Otitis externa home care material was printed Drink plenty fluids, get plenty of rest. Use eardrops as prescribed. Take Tylenol or Motrin as needed for aches pains or fevers. Follow-up with your family physician if no improvement in 2 to 3 days. [employer] Other 11-14-2022 Evaluation note* Encounter Date Diagnosis Assessment Notes Treatment Notes Treatment Clinical Notes Jul, Bilateral otitis media, unspecified otitis media type (ICD-10 - H66.93) Middle ear infection: adult home care material was printed Drink plenty fluids, get plenty of rest. Take the amoxicillin as prescribed until gone. Take Tylenol or Motrin as needed for aches pains or fevers. Follow-up with your family physician if no improvement in 2 to 3 days [employer] Other 11-03-2022 Evaluation note* Encounter Date Diagnosis Assessment Notes Treatment Notes Treatment Clinical Notes Jul, Right anterior knee pain (ICD-10 [...] will help you get into a specialist. [employer] Other 05-10-2022 Hospital Discharge instructions* Instructions* Yoni Lo PA-C - 01/21/2022 Please have [...] this is not covered with original visit. * Attachments The following attachments cannot be sent through Care Everywhere. * Lacerations: Stitches (Martiniquais) [facility]: [facility] note* Diagnosis Closed head injury, initial encounter- Primary Laceration of scalp, initial encounter documented in this encounter [facility] [employer] Phone: evaluation noteNo assessment information available [facility] Work Phone: Evaluation note* Diagnosis Lymphadenopathy, inguinal- Primary Lumbar back pain Lumbago Lumbar radiculopathy Thoracic or lumbosacral neuritis or radiculitis, unspecified [facility] Diagnosis Lymphadenopathy, inguinal- Primary [facility]* Diagnosis Infection of eczematous skin [facility] Narrative - Reported* Type Description Date Medical History hypertension Medical History hypercholesterolemia Medical History acid reflux Surgical History shoulder surgery [employer] Other Instructions* Attachments The following attachments cannot be sent through Care Everywhere. 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 1247 (Given - Provid er: Aileen Wong LPN - Comment: top of head) Care Teams (unrecognized sec tion and content) Registered Midwife Relationship Specialty Start Date End Date Matt Matos APRN - CNP PCP - General 11/03/18 Team Status: Inactive Member Role Status Dates JIMMY Chandra Attending Provider Active Team Status: Inactive Member Role Status Dates Viv Campos NP-C Attending Provider Active Registered Midwife Relationship Specialty Start Date End Date Johnna Barroso APRN-PROCESS CAMERA OPERATOR [address], [place] [address] PCP - General Family Medicine 11/27/21 Registered Midwife Relationship Specialty Start Date End Date Johnna Barroso APRN-PROCESS CAMERA OPERATOR [address], [place] [facility] [place] [address] PCP - General Family Medicine 11/27/21 Registered Midwife Relationship Specialty Start Date End Date Johnna Barroso APRN-CNP [address] [place] [address] PCP - General Family Medicine 11/27/21 Registered Midwife Relationship Specialty Start Date End Date Johnna Barroso APRN-CNP [address] [place] [address] PCP - General [facility] 11/27/21 (unrecognized sect ion and content) No Status Records FoundNo Status Records FoundNo Status Records FoundNo Status Records FoundNo Status Records Found INFORMATION SOURCE (unrecogn ized section and content) DATE CREATED AUTHOR 01/22/2022 [facility] DATE CREATED AUTHOR AUTHOR'S ORGANIZ ATION 06/20/2022 [facility] DATE CREATED AUTHOR AUTHOR'S ORGANIZ ATION 01/03/2023 [facility] DATE CREATED AUTHOR AUTHOR'S ORGANIZ ATION [facility] DATE CREATED AUTHOR AUTHOR'S ORGANIZ ATION 11/21/2023 [facility] Goals (unrecognized section and content) Goals may be documented in a n alternate sectionNo InformationNo InformationNo InformationNo InformationGoals may be documented in an alternate sectionNo InformationNot on filedocumented as of this encounterNot on filedocumented as of this encounterNot on filedocumented as of this encounterNot on filedocumented as of this encounterNot on filedocumented as of this encounter FOR RECORDS PERTAINING TO PATIENTS WHO ARE [...] BE BASED ON THE PRIMARY CLINICAL RECORDS. [facility] [employer] [facility]. provides no warranty or guarantee of the accuracy or completeness of information in this document.
--- NOTE | 2023-12-04 20:18 | ED_ITS ---
HPI - General Adult General Chief complaint: Headache Stated complaint: MIGRAINE Time Seen by Provider: 12/04/23 20:13 Source: patient Mode of arrival: walk-in Limitations: no limitations History of Present Illness HPI narrative: 33-year-old male presents for 2-day history of his usual migraine type headache. It is mostly in the back of his neck. He states he seen a neurologist before and he had studies done that showed some nerve damage and he states they want to do some nerve burning. He has been reluctant to have that done. No trauma fever or stiff neck and he has no motor weakness. The pain is moderate and continuous. Related Data Home Medications ?Medication ?Instructions ?Recorded ?Confirmed cyclobenzaprine 10 mg tablet 10 mg PO TID 12/04/23 12/04/23 Allergies Allergy/AdvReac Type Severity Reaction Status Date / Time No Known Drug Allergies Allergy Verified 09/17/23 19:05 Review of Systems ROS Narrative A ten point review of systems is negative except as noted above. PFSH PFSH Social History Smoking status: Former smoker Exam Narrative Exam Narrative: Nurses note and vital signs reviewed and patient is not hypoxic. General: The patient appears well and in no apparent distress. Patient is resting comfortably on cart. Skin: Warm, dry, no pallor noted. There is no rash noted. Head: Normocephalic, atraumatic, neck supple, no nuchal rigidity Eye: Normal conjunctiva, no drainage Ears, Nose, Mouth, and Throat: oral mucosa is moist. Nares patent. Cardiovascular: Regular Rate and Rhythm Respiratory: Patient is in no distress, no accessory muscle use, lungs are clear to auscultation, no wheezing, rales or rhonchi Back: non-tender GI: Soft and nontender Musculoskeletal: The patient has no evidence of calf tenderness, no pitting edema, symmetrical pulses noted bilaterally Neurological: A&O, normal speech; upper and lower extremity strength intact and symmetric Psychiatric: Cooperative Constitutional Vital Signs, click to edit/add: Last Vital Signs Temp 98.3 F 12/04/23 20:07 Pulse 73 12/04/23 20:07 Resp 16 12/04/23 20:07 BP 185/100 H 12/04/23 20:07 Pulse Ox 96 12/04/23 20:07 O2 Del Method Room Air 12/04/23 20:07 Course Vital Signs Vital signs: Vital Signs Temperature 98.3 F 12/04/23 20:07 Pulse Rate 73 12/04/23 20:07 Respiratory Rate 16 12/04/23 20:07 Blood Pressure 185/100 H 12/04/23 20:07 Pulse Oximetry 96 12/04/23 20:07 Oxygen Delivery Method Room Air 12/04/23 20:07 Temperature 98.3 F 12/04/23 20:07 Pulse Rate 73 12/04/23 20:07 Respiratory Rate 16 12/04/23 20:07 Blood Pressure 185/100 H 12/04/23 20:07 Pulse Oximetry 96 12/04/23 20:07 Oxygen Delivery Method Room Air 12/04/23 20:07 Medical Decision Making MDM Narrative Medical decision making narrative: He was given IM Toradol, Benadryl, Norflex, and Reglan which typically helps him and he is discharged home. Treatment diagnosis and follow-up were discussed with the patient. Differential Diagnosis Differential Diagnosis: Migraine headache, tension headache Discharge Plan Discharge Stand Alone Forms: Portal Instructions Chief Complaint: Headache Clinical Impression: Migraine Patient Disposition: Home, Self-Care Time of Disposition Decision: 20:18 Condition: Good Mode of Transportation: Private Vehicle Prescriptions / Home Meds: No Action cyclobenzaprine 10 mg tablet 10 mg PO TID Print Language: Trinidadian Instructions: Migraine Headache (ED) Referrals: Physician,Non-Staff, MD [Primary Care Provider] - 1 week
--- NOTE | 2023-12-04 20:21 | PC.NURSE ---
MIGRAINE SINCE THURSDAY, SIMILAR TO PREVIOUS EVENTS. PATIENT TAKES NO RX MIGRAINE MEDS, DID TRY TYLENOL WITH NO RELIEF. ALSO TRIED RX FLEXERIL WITH NO RELIEF. HE STATES THAT THE MEDS HE GOT LAST TIME HE WAS HERE FOR MIGRAINE HELPED
[2023-12-04] MEDS: KETOROLAC TROMETHAMINE 60 MG/2 ML VIAL IM (20:42)
[2023-12-04] MEDS: ORPHENADRINE 60 MG/ 2 ML VIAL IM (20:42)
[2023-12-04] MEDS: METOCLOPRAMIDE HCL 10 MG/2 ML VIAL IM (20:42)
[2023-12-04] MEDS: DIPHENHYDRAMINE HCL 50 MG/ML (1ML) VIAL 25 MG IM (20:42)
== END 2023-12-04 21:03 | disposition home or self-care (01) ==
PROVIDERS: Emergency Provider Emergency Medicine
DX: G43.909 Migraine, unspecified, not intractable, without status migrainosus (principal); Z87.891 Personal history of nicotine dependence; Z79.899 Other long term (current) drug therapy
CPT/HCPCS: 96372; 99284

== ENCOUNTER 2024-01-19 18:24 | Emergency (ER) | payer SELFPAY ==
[2024-01-19] VITALS (13 sets, daily range): BP systolic 135–161; BP diastolic 84–103; PULSE 91; TEMP 37; O2SAT 95–97; BMI 30.1
--- OUTSIDE RECORDS SUMMARY | 2024-01-19 18:38 | XMS_ITS | CCD ---
Author Organization [facility] Care Team Providers Care Hat Conditioner Name Role Phone Matt Mancera APRN, CNP [...] Propensity to adverse reactions to drug 2 [facility] (7 sources) Orphenadrine; Translations: [ORPHENADRINE CITRATE] [facility] Medic[facility] Current Medications Medication Drug Class(es) [...] Start: 07-28-2022 take 1 capsule by mo [facility] every eight hours Amoxicillin 500 MG 1 [...] / neomycin 3.5 mg/ml / polymyxin b 17239 unt/ml otic suspension (3 sources) Aminoglycoside Antibacterial, Polymyxin-class Antibacterial, Corticosteroid Start: 08-13-2022 Neomycin-Polymyx in-HC 3.5-42367-9 3 drops left ear Three times a [...] SEE SEPARATE REPORT, REVIEWED BY PATHOLOGIST Normal [facility] IR BIOPSY LYMPH NODEon 11-15 IR BIOPSY [...] Cruz MD on 11/16/2023 11:01 AM Normal [facility] Surgical Pathologyon 024 Surgical Pathology Normal [facility] Comment on above: Result Comment: [facility] [address] [place] [address] Surgical Pathology Consultation Patient Name:MICH RODRIGUEZ JR.:1990 (Age: 33)Gender:MTaken:4Reported:11/18/2023hysician(s):Johnna Barroso CNP ([phone])Copy To:Delano Cruz M.D. Rec. #:[id number]: #[id number] Final Pathologic Diagnosis Left groin lymph node, [...] CD5, CD7, CD10, CD19, CD20, CD23, CD45, [place], and Lambda. Immunophenotyping Comment: Immunophenotyping has been used in this diagnostic evaluation. This test was developed and its performance characteristics determined by the [facility] Department. It has not [...] Out Ruben Jean MD Interpretation performed at [facility], [address] [place] [address], License number: [id number]. Clinical History Lymphadenopathy, inguinal R59.0. Gross Description Received in formalin labeled LITTLE, left groin BX are [place], focally erythematous, delicate soft tissue fragments, 0.6 x 0.4 x 0.1 cm in aggregate. The specimen is filtered and entirely submitted in a single cassette. (1, ns, [id number], m1) JG A separate soft tissue core is received in RPMI media and sent to flow cytometry for analysis. [facility]/11/16/2023GR Specimen(s) Received Left groin lymph node Fee Codes(s): 1; 21026, 98969 US EXT NON-VASC LT LIMITEDon 11-05-2023 US [...] Stover MD on 11/05/2023 12:42 PM Normal [facility] XR hand RT min 3V*on 023 XR hand RT min 3V* [facility] [place] [address] [place] [address] XRay Report Signed Patient: Mich Rodriguez MR#: [id number] : 1990 Acct:[id number] Age/Sex: 32 / M ADM Date: 12/03/22 Loc: XDUCLY Room: Type: [facility] Attending Dr: Viv CALIXTO Copies to: DURGA [...] 12:25 PM Dictation Location: RADIO-PC-10 Transcribed By: [facility] 12/03/22 1225 Dictated By: Christi Gray MD 12/03/22 1223 Signed By: 12/03/22 1225 Normal [facility] XR hand RT min 3V* [facility] Other XR hand RT min 3V* [facility] 3[facility] Other XR hand RT min 3V* [address] [place] [address] [facility] 3D Other XR hand RT min 3V* [place] [address] [employer] Other XR hand RT min 3V* XRay Report [facility] Other XR hand RT min 3V* Signed [facility] Other XR hand RT min 3V* Patient: Mich Rodriguez MR#: [id number] [employer] Other XR hand RT min 3V* 4283 Lore Other XR hand RT min 3V* : 1990 Acct:[id number] [employer] Other XR hand RT min 3V* Age/Sex: 32 / M ADM Date: 12/03/22 [facility] Other XR hand RT min 3V* Loc: XDUCLY Room: Type: REG CLI [facility] Other XR hand RT min 3V* Attending Dr: Viv CALIXTO [facility] Other XR hand RT min 3V* Copies to: DURGA Arango Lore Other XR hand RT min 3V* Ordering Provider: DURGA Arango Lore Other XR hand RT min 3V* Date of Service: 12/03/22 [facility] Other XR hand RT min 3V* XR/XR hand RT min 3V*: RIGHT HAND SWELLING/PAIN [facility] Other XR hand RT min 3V* RIGHT HAND - 3 views [facility] Other XR hand RT min 3V* CLINICAL DATA: Right hand pain and swelling dorsally over the metacarpals for the past week. No [facility] Other XR hand RT min 3V* known injury. Nor [employer] Other XR hand RT min 3V* COMPARISON: None [facility]ore Other XR hand RT min 3V* AP, lateral and oblique views were obtained. There is no evidence of fracture or dislocation. No [facility] Other XR hand RT min 3V* prominent hypertrophy or joint space narrowing is seen. Mild dorsal soft tissue swelling is [facility] Other XR hand RT min 3V* present. [facility]ore Other XR hand RT min 3V* XR/XR hand RT min 3V* Lore Other XR hand RT min 3V* IMPRESSION: Lore Other XR hand RT min 3V* NO ACUTE BONY FINDINGS. [facility]ore Other XR hand RT min 3V* Impression dictated by: Christi Gray M.D.12/03/2022 12:25 PM Lore Other XR hand RT min 3V* Dictation Location: [place] [address] Lore Other XR hand RT min 3V* Transcribed By: SARWAT 12/03/22 1225 [facility] Other XR hand RT min 3V* Dictated By: Christi Gray MD 12/03/[address] [facility] 3D Other XR hand RT min 3V* Signed By: [place] [employer] Other XR hand RT min 3V* 12/03/22 1225 [facility] 3D Other COVID + FLU Quick Testingon 09-01-2022 SARS-CoV-2 (COVID-19) RNA ABILIO+probe Ql (Unsp spec) Negative [facility] 3D Other COVID + FLU Quick Testing Negative [facility] Other XR knee RT 4V*on 07-17-2022 XR knee RT 4V* [facility] [place] [address] [place] [address] XRay Report Signed Patient: Mich Rodriguez MR#: [id number] : 1990 Acct:[id number] Age/Sex: 31 / M ADM Date: 07/17/22 Loc: XDUCLY Room: Type: [facility] Attending Dr: Tamar MARQUEZ Copies to: [...] 07/17/22 1321 Signed By: 07/17/22 1322 Normal [facility] XR knee RT 4V* [facility] 3[facility] Other XR knee RT 4V* [facility] [employer] Other XR knee RT 4V* [address] [place] [address] [employer] Other XR knee RT 4V* [place] [address] No rt [employer] Other XR knee RT 4V* XRay Report [employer] Other XR knee RT 4V* Signed [employer] Other XR knee RT 4V* Patient: Mich Rodriguez MR#: [id number] [employer] Other XR knee RT 4V* 83 [employer] Other XR knee RT 4V* : 1990 Acct:[id number] L[employer] Other XR knee RT 4V* Age/Sex: 31 / M ADM Date: 07/17/22 Lore Other XR knee RT 4V* Loc: XDUCLY Room: Type: [facility] Lore Other XR knee RT 4V* Attending Dr: Tamar MARQUEZ Lore Other XR knee RT 4V* Copies to: TAMAR PRAKASH HAND SCUDDER-C Lore Other XR knee RT 4V* Ordering Provider: TAMAR PRAKASH Lore Other XR knee RT 4V* Date of Service: 07/17/22 Lore Other XR knee RT 4V* XR/XR knee RT 4V*: Right anterior knee pain L[employer] Other XR knee RT 4V* XR knee RT 4V* 07/17/2022 1:02 PM Lore Other XR knee RT 4V* SIGNS AND SYMPTOMS: Right anterior knee pain Lore Other XR knee RT 4V* PROTOCOL: Frontal, lateral, and oblique radiographs of the right knee [facility] Other XR knee RT 4V* COMPARISON: None [employer] Other XR knee RT 4V* FINDINGS: [employer] Other XR knee RT 4V* There is a linear radiopaque foreign body in the lateral soft tissues adjacent to the proximal [employer] Other XR knee RT 4V* fibula. The joint spaces are preserved. There is no fracture. No joint effusion. No soft tissue [employer] Other XR knee RT 4V* swelling. [employer] Other XR knee RT 4V* XR/XR knee RT 4V* Lore Other XR knee RT 4V* IMPRESSION: [employer] Other XR knee RT 4V* No acute bony injury or significant degenerative change. [facility] Other XR knee RT 4V* fibula. [employer] Other XR knee RT 4V* Impression dictated by: Brayan Mccormack M.D.07/17/2022 1:22 PM Lore Other XR knee RT 4V* Dictation Location: [place] [address] Lore Other XR knee RT 4V* Transcribed By: SARWAT 07/17/22 1322 [facility] Other XR knee RT 4V* Dictated By: Brayan Mccormack II, MD 07/17/22 1321 [employer] Other XR knee RT 4V* Signed By: Ramírez Haque [employer] Other XR knee RT 4V* 07/17/[address] CERVICAL SPINE WO CONTRAS Ton [...] MD 01/21/22 Final result Normal [facility] CT HEAD WO CONTRASTon 2021 CT [...] MD 01/21/22 Final result Normal [facility] No Panel Informationon 01-21 No acute intracranial abnormality. No acute fracture or subluxation of cervical spine. Mild degenerative change C4-C5 and C5-C6. RECOMMENDATIONS: Unavailable [facility] RIS CONSOLIDATED EXAMINATION: CT OF THE CERVICAL [...] There is no prevertebral soft tissue swelling. [facility] Clark Redding MD - 01/21/2022 EXAMINATION: CT [...] degenerative change C4-C5 and C5-C6. RECOMMENDATIONS: Unavailable [facility] Phone: Radiology Study observation (narrative) [facility] Phone: No Panel InformationOrdered By: Clark Rhodes on 01-21-2022 [facility] Phone: Vital Signs Date Time Vital Sign Value Performing Clinician Ibrahima austin 11-02-2023 10:59-0500 Body height 177.8 cm [facility] Work Phone: [id number] 11-02-2023 10:59-0500 Body mass index (BMI) [Ratio] 28.93 kg/m2 [facility] Work Phone: [employer] [facility] 11-02-2023 10:59-0500 Body temperature 98.6 [degF] Johnna Barroso CLINIC CHARGE NURSE-SYSTEM SPECIALIST Work Phone: [facility] 11-02-2023 10:59-0500 Body weight 91.44 kg Johnna Barroso CLINIC CHARGE NURSE-SYSTEM SPECIALIST Work Phone: [facility] 11-02-2023 10:59-0500 Diastolic blood pressure 88 mm[Hg] Johnna Barroso CLINIC CHARGE NURSE-SYSTEM SPECIALIST Work Phone: [facility] 11-02-2023 10:59-0500 Heart rate 81 /min Johnna Barroso CLINIC CHARGE NURSE-SYSTEM SPECIALIST Work Phone: [facility] 11-02-2023 10:59-0500 Respiratory rate 20 /min Johnna Soriasler CLINIC CHARGE NURSE-SYSTEM SPECIALIST Work Phone: [facility] 11-02-2023 10:59-0500 SaO2% (BldA) [Mass fraction] 98 % Johnna Barroso CLINIC CHARGE NURSE-SYSTEM SPECIALIST Work Phone: [facility] 11-02-2023 10:59-0500 Systolic blood pressure 146 mm[Hg] Johnna Barroso CLINIC CHARGE NURSE-SYSTEM SPECIALIST Work Phone: [facility] 12-03-2022 12:35-0400 Body height 177.8 cm Viv Campos Other [facility] Other 12-03-2022 12:35-0400 Body mass index (BMI) [Ratio] 30.13 kg/m2 Viv Campos Other [facility] Other 12-03-2022 12:35-0400 Body temperature 100 [degF] Viv Campos Other [facility] Other 12-03-2022 12:35-0400 Body weight 95.26 kg Viv Beth Other [facility] Other 12-03-2022 12:35-0400 Diastolic blood pressure 89 mm[Hg] Viv Beth Other L[facility] Other 12-03-2022 12:35-0400 Respiratory rate 18 /min Viv Beth Other [facility] Other 12-03-2022 12:35-0400 SaO2% (BldA) [Mass fraction] 96 % Viv Beth Other [facility] Other 12-03-2022 12:35-0400 Systolic blood pressure 151 mm[Hg] Viv Beth Other [facility] Other 09-01-2022 12:15-0500 Body height 177.8 cm Viv Beth Other [facility] Other 09-01-2022 12:15-0500 Body mass index (BMI) [Ratio] 30.13 kg/m2 Viv Beth Other [facility] Other 09-01-2022 12:15-0500 Body temperature 97.9 [degF] Viv Beth Other [facility] Other 09-01-2022 12:15-0500 Body weight 95.26 kg Viv Beth Other [facility] Other 09-01-2022 12:15-0500 Diastolic blood pressure 93 mm[Hg] Viv Beth Other [facility] Other 09-01-2022 12:15-0500 Respiratory rate 18 /min Viv Beth Other [facility] Other 09-01-2022 12:15-0500 SaO2% (BldA) [Mass fraction] 100 % Viv Beth Other [facility] Other 09-01-2022 12:15-0500 Systolic blood pressure 157 mm[Hg] Viv Beth Other [facility] Other 08-13-2022 11:35-0500 Body height 177.8 cm Viv Beth Other [facility] Other 08-13-2022 11:35-0500 Body mass index (BMI) [Ratio] 30.13 kg/m2 Viv Beth Other [facility] Other 08-13-2022 11:35-0500 Body temperature 98.1 [degF] Viv Beth Other [facility] Other 08-13-2022 11:35-0500 Body weight 95.26 kg Viv Beth Other [facility] Other 08-13-2022 11:35-0500 Diastolic blood pressure 89 mm[Hg] Viv Beth Other [facility] Other 08-13-2022 11:35-0500 Respiratory rate 16 /min Viv Beth Other [facility] Other 08-13-2022 11:35-0500 SaO2% (BldA) [Mass fraction] 99 % Viv Beth Other [facility] Other 08-13-2022 11:35-0500 Systolic blood pressure 143 mm[Hg] Viv Campos Other [facility] Other 07-28-2022 11:35-0500 Body height 177.8 cm Viv Randallmond Other L[facility] Other 07-28-2022 11:35-0500 Body mass index (BMI) [Ratio] 30.13 kg/m2 Viv Randallmond Other L[facility] Other 07-28-2022 11:35-0500 Body temperature 97.9 [degF] Viv Randallmond Other [facility] Other 07-28-2022 11:35-0500 Body weight 95.26 kg Viv Campos Other [facility] Other 07-28-2022 11:35-0500 Diastolic blood pressure 83 mm[Hg] Viv Randallmond Other Lore Other 07-28-2022 11:35-0500 Respiratory rate 18 /min Viv Randallmond Other Lore Other 07-28-2022 11:35-0500 SaO2% (BldA) [Mass fraction] 96 % Viv Campos Other [facility] Other 07-28-2022 11:35-0500 Systolic blood pressure 126 mm[Hg] Viv Beth Other [facility] Other 07-17-2022 14:40-0400 Body height 177.8 cm Tamar Prakash Other Lore Other 07-17-2022 14:40-0400 Body mass index (BMI) [Ratio] 30.13 kg/m2 Tamar Prakash Other L[facility] Other 07-17-2022 14:40-0400 Body temperature 98 [degF] Tamar Prakash Other Lore Other 07-17-2022 14:40-0400 Body weight 95.26 kg Tamar Prakash Other Lore Other 07-17-2022 14:40-0400 Diastolic blood pressure 81 mm[Hg] Tamar Prakash Other [facility] Other 07-17-2022 14:40-0400 Respiratory rate 18 /min Tamar Prakash Other [facility] Other 07-17-2022 14:40-0400 SaO2% (BldA) [Mass fraction] 98 % Tamar Prakash Other Lore Other 07-17-2022 14:40-0400 Systolic blood pressure 143 mm[Hg] Tamar Prakash Other Lore Other 01-21-2022 12:29-0400 Body height 177.8 cm Ne Hanna MD [facility] 01-21-2022 12:29-0400 Body mass index (BMI) [Ratio] 30.85 kg/m2 Ne Hanna MD [facility] 01-21-2022 12:29-0400 Body temperature 98.8 [degF] Ne Hanna MD [facility] 01-21-2022 12:29-0400 Body weight 97.52 kg Ne Hanna MD [facility] 01-21-2022 12:29-0400 Diastolic blood pressure 91 mm[Hg] Ne Hanna MD [facility] 01-21-2022 12:29-0400 Heart rate 82 /min Ne Hanna MD [facility] 01-21-2022 12:29-0400 Respiratory rate 18 /min Ne Hanna MD [facility] 01-21-2022 12:29-0400 SaO2% (BldA) [Mass fraction] 98 % Ne Hanna MD [facility] 01-21-2022 12:29-0400 Systolic blood pressure 155 mm[Hg] Ne Hanna MD [facility] Encounters Encounter Date Encounter Type Care Provider Facility Start: 11-24-2023 Telephone encounter Zulma Pagan MA [facility] Start: 11-16-2023 End: 11-17-2023 Refill Johnna Barroso CLINIC CHARGE NURSE-SYSTEM SPECIALIST Work Phone: [facility] Comment on above: Infection of eczemat ous skin Start: 11-06-2023 Orders Only Johnna martin CLINIC CHARGE NURSE-SYSTEM SPECIALIST Work Phone: [facility] Comment on above: Lymphadenopathy, ing uinal (Primary Dx) Start: 11-03-2023 End: 11-04-2023 ambulatory [facility] Start: 11-02-2023 End: 11-02-2023 ambulatory [facility] Start: 11-02-2023 End: 11-02-2023 Office outpatient visit 15 minutes Johnna Barroso CLINIC CHARGE NURSE-SYSTEM SPECIALIST Work Phone: [facility] Comment on above: Lymphadenopathy, ing uinal (Primary Dx); Lumbar back pain; Lumbar radiculopathy Start: 12-03-2022 Office outpatient vi sit 15 minutes Viv Campos [facility] Start: 12-03-2022 End: 12-03-2022 ambulatory Viv Campos Facility:[facility] Start: 12-03-2022 End: 12-03-2022 ambulatory [employer]BORNE AND AIR DELIVERY SPECIALIST-C Viv Campos Work Phone: [facility] Work Phone: Start: 12-03-2022 End: 12-03-2022 Patient encounter procedure AIRBORNE AND AIR DELIVERY SPECIALIST-C Viv Beth Work Phone: [facility] Work Phone: Start: 09-01-2022 End: 09-01-2022 ambulatory Viv Beth Other [facility] Other Start: 09-01-2022 Office outpatient vi sit 15 minutes Viv Beth [facility] Start: 08-13-2022 End: 08-13-2022 ambulatory Viv Beth Other [facility] Other Start: 08-13-2022 Office outpatient vi sit 15 minutes Viv Beth [facility] Start: 07-28-2022 End: 07-28-2022 ambulatory Viv Beth Other Lore Other Start: 07-28-2022 Office outpatient vi sit 15 minutes Viv Beth [facility] Start: 07-17-2022 End: 07-17-2022 ambulatory Tamar Haylee Facility:[facility] Start: 07-17-2022 Office outpatient vi sit 15 minutes Tamar Haylee [facility] Start: 07-17-2022 End: 07-17-2022 ambulatory HAND SCUDDER-C Tamar Haylee Work Phone: [facility] Work Phone: Start: 07-17-2022 End: 07-17-2022 Patient encounter procedure HAND SCUDDER-C Tamar Haylee Work Phone: [facility] Start: 01-21-2022 End: 01-21-2022 Emergency department patient visit MATT MATOS [facility] Start: 01-21-2022 End: 01-21-2022 Emergency department patient visit Ne Hanna MD [facility] ED Comment on above: Closed head injury, initial encounter (Primary Dx); Laceration of scalp, initial encounter Start: 05-28-2020 End: 05-29-[address] [facility] Facility: Procedures Date Procedure Procedure Detail Performing Clinician Start: 11-02-2023 Adult depression screening assessment Johnna Barroso CLINIC CHARGE NURSE-SYSTEM SPECIALIST Work Phone: Start: 12-03-2022 Plain X-ray of right hand [employer]BORNE [employer] AIR DELIVERY SPECIALIST-C Viv Campos Work Phone: Start: 07-17-2022 X-ray of right knee HAND SCUDDER -C Tamarkevin Prakash Work Phone: Start: 01-21-2022 Ct cervical spine w/ o contrast material Yoni A Romp PA-C Work Phone: Start: 01-21-2022 Ct head/brain w/o contrast material Yoni A Romp PA-C Work Phone: Plan of Treatment Date Care Activity Detail Author Start: 01-22-2032 DTaP,Tdap and Td Vaccines (3 - Td or Tdap) DTaP,Tdap and Td Vaccines (3 - Td or Tdap) [facility] Start: 01-22-2032 DTaP/Tdap/Td vaccine (2 - Td or Tdap) DTaP/Tdap/Td vaccine (2 - Td or Tdap) [facility] Start: 11-02-2024 Adult BMI Screening Adult BMI Screen ing [facility] Start: 11-02-2024 Depression Screening Depression Scre ening [facility] Start: 11-02-2024 Tobacco Screening Tobacco Screening [facility] Start: 11-06-2023 End: 11-06-2024 US Guidance for core needle biopsy of Unspecified body region Ultrasound guidance intraoperative with Bx or Asp Imaging Routine Lymphadenopathy, inguinal Expected: 11/06/2023, Expires: 11/06/2024 [employer] Work Phone: Comment on above: Expected: 11/06/2023 , Expires: 11/06/2024 Start: 11-03-2023 Subsequent hospital visit by physician 11/03/2023 2:30 PM EST Hospital Encounter [facility] [address] [place] [address] [facility] Start: 11-02-2023 End: 11-02-2024 US Extremity - left limited Ultrasound extremity non vascular limited left Imaging Routine Lymphadenopathy, inguinal Expected: 11/02/2023, Expires: 11/02/2024 [facility] Work Phone: Comment on above: Expected: 11/02/2023 , Expires: 11/02/2024 Start: 05-15-2023 Influenza vaccination Influenza Vacc ine [facility] Start: 05-15-2022 Influenza vaccination Flu vacc ine (Season Ended) [facility] Start: 2006 Adult BMI Follow Up Plan Adult BMI Follow Up Plan [facility] Start: 2006 Hepatitis C screening Hepatitis C sc reen [facility] Start: 2003 HIV screening HIV screen [facility] Start: 2000 Depression Screen Depression Screen [facility] Start: 1993 COVID-19 Vaccine (1) COVID-19 Vaccin e (1) [facility] Start: 1989 Varicella vaccine (1 of 2 - 2-dose childhood series) Varicella vaccine (1 of 2 - 2-dose childhood series) [facility] Immunizations Immunization Date Immunization Notes Care Provider Avinash walsh 01-21-2022 tetanus toxoid, reduced diphtheria toxoid, and acellular pertussis vaccine, adsorbed Ne Hanna MD [facility] Work Phone: 04-04-2019 tetanus and diphtheria toxoids, adsorbed, preservative free, for adult use (2 Lf of tetanus toxoid and 2 Lf of diphtheria toxoid) Johnna Barroso CLINIC CHARGE NURSEethority Work Phone: [facility] 09-11-2014 influenza, seasonal, injectable, preservative free Johnna Barroso CLINIC CHARGE NURSEManaltoSYSTEM SPECIALIST Work Phone: [facility] 09-11-2014 influenza virus vaccine, unspecified formulation Johnna Barroso CLINIC CHARGE NURSEethority Work Phone: [facility] NEGATED: Highlighted row has not occurred!11-27-2021 influenza, injectable, quadrivalent, preservative free Johnna Barroso CLINIC CHARGE NURSE-SYSTEM SPECIALIST Work Phone: [facility] Comment on above: Deferred: Patient de cision Payers Date Payer Category Payer Unknown BCBS [facility] HMO/PPO/TRUST [id number] 2023-Present [phone] [address] [place] [address] [id number] 2023 Unknown [id number] 2022 Medicaid [id number] 2022 Self-pay 2022 Unknown [id number] 2022 Unknown [id number] 2022 Unknown [id number] 2021 Unknown [id number] 1988 Unknown [id number] 1988 Unknown [id number] 1988 Unknown [id number] 1988 Unknown [id number] 1988 Unknown [id number] 1959 Unknown [id number] 1959 Unknown [id number] Unknown [id number] Unknown [id number] Social History Date Type Detail Facility Start: 03-31-2014 End: 08-20-2022 Tobacco smoking status NJIS Ex-smoker [facility] Start: 03-31-2014 Tobacco use and exposure Smoke less tobacco non-user [facility] Phone: Start: 01-21-2022 Alcohol intake Current non-dr 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 (finding) [facility] Phone: Start: 11-26-2021 End: 01-21-2022 Alcohol intake [facility] Start: 03-31-2014 History SDOH Alcohol [facility] Start: 1990 [facility] Start: 01-11-2022 End: 01-21-2022 Exposure to SARS-CoV-2 (event) Not sure [facility] Phone: Start: 1990 Sex Assigned At Male F [facility] Start: 11-26-2021 End: 11-02-2023 Sex Assigned At [facility] History of tobacco use Current smoker [facility] Start: 08-20-2022 Tobacco use and exposure Forme r smokeless tobacco user [facility] End: 02-12-2018 History of tobacco use Chews Tobacco [facility] Start: 11-02-2023 Alcohol intake Ex-drinker (finding) [facility] How often do you att end sabianist or tenriism services? Patient declined [facility] Do you belong to any clubs or organizations such as sabianist groups, unions, fraternal or athletic groups, or school groups? Yes [facility] Are you now , , , , never or living with a partner? [facility] How often to you hav e a drink containing alcohol? 2-3 time sa week [facility] How many standard dr inks containing alcohol do you have on a typical day? 5 or 6 [facility] How often do you hav e 6 or more drinks on 1 occasion? Monthly [facility] Do you feel stress - tense, restless, nervous, or anxious, or unable to sleep at night because your mind is troubled all the time - these days [OSQ] Rather much [facility] Start: 03-14-2019 Education 21 [facility] Clinical Notes 01-21-2022 to 11-24-2023 Telephone [...] know his results documented in this encounter [facility] 11-24-2023 Telephone encount er Note ----- Message from SERGE Mitchell sent at 11/24/2023 4:52 AM EDT ----- Biopsy was negative for malignancy, although I do recommend follow up in 6-8 weeks for continued assessment ----- Message ----- From: Interface - Lab Results/Orders In Sent: 11/18/2023 4:33 PM EDT To: SER[facility]-24-2023 Telephone encount er Note Called patient, no answer unable to leave a message [facility] 11-24-2023 Telephone encount er Note Patient called back into the office I did let him know his results [facility] 11-16-2023 Miscellaneous Notes Formattin g of this note might be different from the original. Patient presenting to front window requesting refill of Clobetasol 0.05% ointment. Pharmacy is [facility] in [place], [place]. documented in this encounter [facility] 11-16-2023 Telephone encount er Note Patient presenting to front window requesting refill of Clobetasol 0.05% ointment. Pharmacy is [facility] in [place], [place]. [facility] 11-06-2023 Miscellaneous Notes Formattin g of this [...] He stated understanding. documented in this encounter [facility] 11-06-2023 Telephone encount er Note ----- Message from SERGE Mitchell sent at 11/06/2023 9:38 AM EST ----- Please let pt know that ultrasound was abnormal, radiology is recommending a biopsy. I will put in order and hospital will call him ----- Message ----- From: Interface - Rad Results/Orders In 1 Sent: 11/05/2023 12:44 PM EST To: SERGE Mitchell [facility] 11-06-2023 Telephone encount er Note Tried to call patient but no answer and could not leave a voicemail. [facility] 11-06-2023 Telephone encount er Note Patient called back and I informed him. He stated understanding. [facility] 11-02-2023 History of Presen t illness [...] nursing note reviewed. Exam conducted with a glassware selector present. Constitutional: Appearance: Normal appearance. HENT: Head: [...] Mitchell 11/02/23 1153 documented in this encounter [email or web address] 12-03-2022 Evaluation note Encounter Date Diagnosis Assessment [...] no improvement in 5 to 7 days. [facility] 12-19-2022 Evaluation note* Encounter Date Diagnosis [...] days. You may return to work tomorrow [facility] 11-30-2022 Evaluation note* Encounter Date Diagnosis [...] no improvement in 2 to 3 days. [facility] 11-14-2022 Evaluation note* Encounter Date Diagnosis [...] no improvement in 2 to 3 days [facility] 11-03-2022 Evaluation note* Encounter Date Diagnosis [...] will help you get into a specialist. [facility] 05-10-2022 Hospital Discharge instructions* Instructions* Yoni [...] sent through Care Everywhere. * Lacerations: Stitches (Nepali) [facility]* Diagnosis Closed head injury, initial encounter- Primary Laceration of scalp, initial encounter documented in this encounter [facility] Phone: evaluation noteNo assessment information available [facility] Work Phone: Evaluation note* Diagnosis Lymphadenopathy, inguinal- Primary Lumbar back pain Lumbago Lumbar radiculopathy Thoracic or lumbosacral neuritis or radiculitis, unspecified [facility] Diagnosis Lymphadenopathy, inguinal- Primary [facility]* Diagnosis Infection of eczematous skin [facility] Narrative - Reported* Type Description Date Medical History hypertension Medical History hypercholesterolemia Medical History acid reflux Surgical History shoulder surgery [facility] Instructions* Attachments The following attachments cannot be sent through Care Everywhere. * Lymphadenitis (Nepali) [facility]ructionsNot on file documented in this encounterPro[facility] System[facility]ructionsNot on file documented in this encounterProShel[facility] HospitalInstructionsNot on [facility] Advance Directives Documents on File Type Date Recorded Patient Ragman Expl anation ACP-Advance Directive ACP-Power of Wet Process Assistant Head Miller Advance Directive Response Recorded Date/ Time Advance [...] and content) Medication Order 01/19/2022 01/20/2022 01/21/2022 [id number] (LET) topical solution 3 mL syringe (COMPLETED) 3 mL, Topical, ONCE, On Thu01/21/22 at 1245, For 1 dose, Apply to laceration For Topical Use Only. 1247 (Given - Provid er: Aileen Wong LPN - Comment: top of head) Care Teams (unrecognized sec tion and content) Hat Conditioner Relationship Specialty Start Date End Date Matt Matos APRN - CNP PCP - General 11/03/18 Team Status: Inactive Member Role Status Dates JIMMY Chandra Attending Provider Active Team Status: Inactive Member Role Status Dates Viv Campos NP-C Attending Provider Active Hat Conditioner Relationship Specialty Start Date End Date Johnna Barroso APRN-SYSTEM SPECIALIST [address] [place] [address] PCP - General Family Medicine 11/27/21 Hat Conditioner Relationship Specialty Start Date End Date Johnna Barroso APRN-SYSTEM SPECIALIST [address], [place] [address] PCP - General Family Medicine 11/27/21 Hat Conditioner Relationship Specialty Start Date End Date Johnna Barroso APRN-CNP [address], [place] [address] PCP - General Family Medicine 11/27/21 Hat Conditioner Relationship Specialty Start Date End Date Johnna Barroso APRN-CNP [address], [place] [address] PCP - General [facility] 11/27/21 (unrecognized sect ion and content) No Status Records FoundNo Status Records FoundNo Status Records FoundNo Status Records FoundNo Status Records Found INFORMATION SOURCE (unrecogn ized section and content) DATE CREATED AUTHOR 01/22/2022 [facility] DATE CREATED AUTHOR AUTHOR'S ORGANIZ ATION 06/20/2022 [facility] DATE CREATED AUTHOR AUTHOR'S ORGANIZ ATION 01/03/2023 [facility] DATE CREATED AUTHOR AUTHOR'S ORGANIZ ATION [facility]/03/2023 [facility] DATE CREATED AUTHOR AUTHOR'S ORGANIZ ATION 11/21/2023 [facility] Goals (unrecognized section and content) Goals may [...] BE BASED ON THE PRIMARY CLINICAL RECORDS. [facility] [employer] [facility]. provides no warranty or guarantee of the accuracy or completeness of information in this document.
--- NOTE | 2024-01-19 19:31 | CT_ITS ---
The [address] [address] Patient Name: DILCIA RODRIGUEZ MRN: [id number] date: 1990 Sex: M Assigned Patient Location: ER Current Patient Location: Accession/Order Number: [id number] Exam Date: 01/19/2024 20:02 Report Date: 01/19/2024 20:49 At the request of: ERIC NEGRETE Procedure: CT abdomen pelvis w con EXAM: CT abdomen pelvis w con CLINICAL INDICATION: Right upper quadrant pain COMPARISON: None . TECHNIQUE: After the injection of intravenous nonionic iodinated contrast, axial CT of the abdomen, and pelvis was performed from the top of the hemidiaphragms to the inferior osseous pelvis. 2D reformats were obtained. Automatic exposure control radiation dose reduction technology was utilized. FINDINGS: Visualized portion of the lung bases are unremarkable. Diffuse hepatic steatosis. The spleen, kidneys, adrenal glands and pancreas are within normal limits. Gallbladder is without calcified stones. No abdominal aortic aneurysm. No enlarged lymph nodes, free fluid, or free air. Diverticulosis coli without evidence for diverticulitis. Normal appendix. The bowel is without evidence of obstruction or adjacent inflammatory changes. Bladder unremarkable. Grossly no suspicious osseous lesions are identified. CT/CT abdomen pelvis w con IMPRESSION: 1. No significant acute abnormality identified in the abdomen or pelvis, as described above. Electronically authenticated by: KIA GILL Date: 01/19/2024 20:49
--- NOTE | 2024-01-19 19:33 | ED.GENADUL1 ---
HPI HPI - General Adult General Chief complaint: Abdominal Pain Stated complaint: Nausea/Vomiting/Diarrhea Time Seen by Provider: 01/19/24 19:27 Source: patient Mode of arrival: walk-in Limitations: no limitations History of Present Illness HPI narrative: Patient is a 33-year-old male who presents to the emergency department for 2-day history of right upper quadrant pain. Patient denies chest pain, shortness of breath, fevers, chills. Today he had nausea, 1 episode of vomiting and diarrhea. He denies any blood in his stool. He has had no previous abdominal surgeries. Pain is not worse with movement. He denies urinary symptoms. No flank or back pain. No medications taken prior to arrival. Related Data Home Medications ?Medication ?Instructions ?Recorded ?Confirmed No Known Home Medications 01/19/24 01/19/24 Previous Rx's ?Medication ?Instructions ?Recorded hyoscyamine sulfate 0.125 mg 0.125 mg PO Q6H PRN abdominal pain 01/19/24 tablet (Levsin) #12 tabs ondansetron 4 mg disintegrating 4 mg PO Q6H PRN nausea and 01/19/24 tablet vomiting #12 tabs Allergies Allergy/AdvReac Type Severity Reaction Status Date / Time tree nut Allergy Intermediate Rash Verified 01/19/24 18:35 Opioid HPI Opioid Management Most Recent Opioid Data: Last Pain Scale 4 01/19/24 18:41 Last ED Pain Assessment 01/19/24 20:18 Review of Systems ROS Constitutional Denies: fever or chills Ears, nose, mouth, and throat Denies: throat pain or nasal congestion Respiratory Denies: shortness of breath Gastrointestinal Reports: abdominal pain, nausea, vomiting and diarrhea Genitourinary Denies: painful urination Musculoskeletal Denies: back pain Integumentary/Breast Denies: rash Neurological Denies: headache PFSH PFSH Social History Smoking status: Former smoker Exam Narrative Exam Narrative: Gen.: Awake, alert, in no distress Head: Normocephalic, atraumatic ENT: Moist mucous membranes Respiratory: No respiratory distress, lungs clear bilaterally Cardio: Regular rate and rhythm Gastrointestinal: Abdomen is soft, nondistended and Tender to palpation in the right upper quadrant with no guarding or rebound Extremities: Moves extremities equally Psych: Normal mood and affect Neuro: No focal neuro deficit Skin: Warm, dry, intact Constitutional Vital Signs, click to edit/add: Last Vital Signs Temp 98.6 F 01/19/24 18:35 Pulse 91 H 01/19/24 18:35 Resp 16 01/19/24 18:35 BP 145/91 H 01/19/24 20:30 Pulse Ox 97 01/19/24 20:40 O2 Del Method Room Air 01/19/24 19:19 Course Vital Signs Vital signs: Vital Signs Temperature 98.6 F 01/19/24 18:35 Pulse Rate 91 H 01/19/24 18:35 Respiratory Rate 16 01/19/24 18:35 Blood Pressure 161/103 H 01/19/24 18:35 Pulse Oximetry 97 01/19/24 18:35 Oxygen Delivery Method Room Air 01/19/24 18:35 Temperature 98.6 F 01/19/24 18:35 Pulse Rate 91 H 01/19/24 18:35 Respiratory Rate 16 01/19/24 18:35 Blood Pressure 145/91 H 01/19/24 20:30 Pulse Oximetry 97 01/19/24 20:40 Oxygen Delivery Method Room Air 01/19/24 19:19 Medical Decision Making MDM Narrative Medical decision making narrative: Patient treated with IV fluids, Levsin, Zofran. He had no episodes of emesis or diarrhea in the ER. His lab studies are stable. He was noted to have mildly elevated blood sugar. He was instructed to have this rechecked with his PCP after the course of this illness. Lab studies are unremarkable otherwise, CT shows no evidence of acute process in the abdomen. Patient discharged with stable vital signs to follow-up with PCP. Return to the ER if symptoms change or worsen. Work note provided. Medical Records Medical records reviewed: Yes I reviewed the patient's medical records Lab Data Lab results reviewed: Yes I reviewed the patient's lab results Labs: Lab Results 01/19/24 01/19/24 Range/Units 19:40 19:57 WBC 8.2 (4.0-11.0) 10^3/uL RBC 5.34 (4.70-6.10) 10^6/uL Hgb 14.6 (14.0-18.0) g/dL Hct 44.1 (42.0-54.0) % MCV 82.6 (80.0-94.0) fL MCH 27.3 (25.9-34.0) pg MCHC 33.1 (29.9-35.2) g/dL RDW 12.4 (11.0-15.0) % Plt Count 236 (150-450) 10^3/uL MPV 10.0 (9.5-13.5) fL Neut % (Auto) 54.0 (43.0-75.0) % Lymph % (Auto) 32.2 (20.5-60.0) % [place] % (Auto) 9.6 (1.7-12.0) % Eos % (Auto) 3.6 (0.9-7.0) % Baso % (Auto) 0.4 (0.2-2.0) % Neut # (Auto) 4.4 (1.4-6.5) 10^3/uL Lymph # (Auto) 2.7 (1.2-3.8) 10^3/uL [place] # (Auto) 0.8 (0.3-0.8) 10^3/uL Eos # (Auto) 0.3 (0.0-0.7) 10^3/uL Baso # (Auto) 0.0 (0.0-0.1) 10^3/uL Abs Immat Gran (auto) 0.02 (0.00-0.03) 10^3/uL Imm/Tot Granulo (auto) 0.2 (0.0-0.5) % Sodium 138 (136-145) mmol/L Potassium 3.2 L (3.5-5.1) mmol/L Chloride 103 (98-107) mmol/L Carbon Dioxide 26.4 (21.0-32.0) mmol/L Anion Gap 11.8 BUN 12.0 (7.0-18.0) mg/dL Creatinine 0.89 (0.70-1.30) mg/dL Est GFR ( Amer) >60 (>=60) Est GFR (Non-Af Amer) >60 (>=60) BUN/Creatinine Ratio 13.5 Glucose 218 H (74-106) mg/dL Lactate 1.6 (0.4-2.0) mmol/L Calcium 8.8 (8.5-10.1) mg/dL Total Bilirubin 0.6 (0.2-1.0) mg/dL AST 15 (15-37) U/L ALT 38 (16-63) U/L Alkaline Phosphatase 80 (46-116) U/L Total Protein 7.2 (6.4-8.2) g/dL Albumin 3.4 (3.4-5.0) g/dL Globulin 3.8 g/dL Albumin/Globulin Ratio 0.9 Lipase 19.0 (16.0-77.0) U/L Urine Color Yellow (YELLOW) Urine Clarity Clear (CLEAR) Urine pH 6.0 (5.0-9.0) Ur Specific [place] 1.025 (1.005-1.025) Urine Protein Negative (NEG/TRACE) mg/dL Urine Glucose (UA) 500 A (NEGATIVE) mg/dL Urine Ketones Trace A (NEGATIVE) mg/dL Urine Occult Blood Negative (NEGATIVE) Urine Nitrite Negative (NEGATIVE) Urine Bilirubin Negative (NEGATIVE) Urine Urobilinogen 0.2 (0.2-1.0) EU/dL Ur Leukocyte Esterase Negative (NEGATIVE) Imaging Data CT scan - abdomen: Attestation: I have reviewed the pertinent imaging results. Radiologist's impression: ITS Impressions Abdomen/Pelvis CT 01/19/24 19:31 IMPRESSION: 1. No significant acute abnormality identified in the abdomen or pelvis, as described above. Electronically authenticated by: KIA GILL Date: 01/19/2024 20:49 Discharge Plan Discharge Stand Alone Forms: Portal Instructions Chief Complaint: Abdominal Pain Clinical Impression: Abdominal pain, vomiting, and diarrhea Patient Disposition: Home, Self-Care Time of Disposition Decision: 21:05 Condition: Good Prescriptions / Home Meds: New hyoscyamine sulfate [Levsin] 0.125 mg tablet 0.125 mg PO Q6H PRN (Reason: abdominal pain) Qty: 12 0RF ondansetron 4 mg tablet,disintegrating 4 mg PO Q6H PRN (Reason: nausea and vomiting) Qty: 12 0RF No Action No Known Home Medications Print Language: Estonian Instructions: Acute Nausea and Vomiting (ED), Acute Diarrhea (ED) Referrals: Physician,Non-Staff, MD [Primary Care Provider] - 1 week
[2024-01-19] MEDS: 0.9 % SODIUM CHLORIDE 1,000 ML 999 ML IV (19:44)
[2024-01-19] MEDS: HYOSCYAMINE SULFATE 0.125 MG TAB.SUBL SL (19:45)
[2024-01-19] MEDS: ONDANSETRON PF 4 MG/2 ML VIAL IV (19:45)
[2024-01-19] MEDS: KETOROLAC TROMETHAMINE 30 MG/ML VIAL IVP (19:45)
[2024-01-19 19:47] LABS: Basophils Percent Auto 0.4 % (0.2-2.0); Eosinophils Absolute Auto 0.3 10^3/uL (0.0-0.7); Eosinophils Percent Auto 3.6 % (0.9-7.0); Hematocrit 44.1 % (42.0-54.0); Hemoglobin 14.6 g/dL (14.0-18.0); Immature Granulocytes Abs Auto 0.02 10^3/uL (0.00-0.03); Immature Granulocytes Pct Auto 0.2 % (0.0-0.5); Lymphocytes Absolute Auto 2.7 10^3/uL (1.2-3.8); Lymphocytes Percent Auto 32.2 % (20.5-60.0); Mean Corpuscular HGB Conc 33.1 g/dL (29.9-35.2); Mean Corpuscular Hemoglobin 27.3 pg (25.9-34.0); Mean Corpuscular Volume 82.6 fL (80.0-94.0); Monocytes Absolute Auto 0.8 10^3/uL (0.3-0.8); Monocytes Percent Auto 9.6 % (1.7-12.0); Neutrophils Absolute Auto 4.4 10^3/uL (1.4-6.5); Platelet Count 236 10^3/uL (150-450); Red Blood Count 5.34 10^6/uL (4.70-6.10); Red Cell Distribution Width 12.4 % (11.0-15.0); White Blood Count 8.2 10^3/uL (4.0-11.0)
[2024-01-19 20:04] LABS: Alanine Aminotransferase 38 U/L (16-63); Albumin Globulin Ratio 0.9; Albumin Level 3.4 g/dL (3.4-5.0); Alkaline Phosphatase 80 U/L (46-116); Anion Gap 11.8; Aspartate Amino Transferase 15 U/L (15-37); BUN Creatinine Ratio 13.5; Bilirubin Total 0.6 mg/dL (0.2-1.0); Calcium 8.8 mg/dL (8.5-10.1); Carbon Dioxide 26.4 mmol/L (21.0-32.0); Chloride 103 mmol/L (98-107); Estimated GFR (African America >60 (>=60); Estimated GFR (Non-African Ame >60 (>=60); Globulin 3.8 g/dL; Glucose 218 mg/dL (74-106); Potassium 3.2 mmol/L (3.5-5.1); Sodium 138 mmol/L (136-145); Total Protein 7.2 g/dL (6.4-8.2)
[2024-01-19 20:07] LABS: Lactate/Lactic Acid 1.6 mmol/L (0.4-2.0)
[2024-01-19 20:13] LABS: Bilirubin Urine NEGATIVE (NEGATIVE); Blood Urine NEGATIVE (NEGATIVE); Clarity Urine CLEAR (CLEAR); Color Urine YELLOW (YELLOW); Glucose Urine UA 500 mg/dL (NEGATIVE); Ketones Urine TRACE mg/dL (NEGATIVE); Leukocyte Esterase Urine NEGATIVE (NEGATIVE); Nitrite Urine NEGATIVE (NEGATIVE); Protein Urine NEGATIVE (NEG/TRACE); Specific Gravity Urine 1.025 (1.005-1.025); Urobilinogen Urine 0.2 EU/dL (0.2-1.0)
[2024-01-19 20:15] LABS: Urine Microscopic Indicated NO
[2024-01-19] MEDS: POTASSIUM CHLORIDE 10 MEQ ER TABLET 40 MEQ PO (20:28)
== END 2024-01-19 21:17 | disposition home or self-care (01) ==
PROVIDERS: Physician Assistant; Emergency Provider Emergency Medicine
DX: R10.11 Right upper quadrant pain (principal); R19.7 Diarrhea, unspecified; R11.10 Vomiting, unspecified; Z87.891 Personal history of nicotine dependence
CPT/HCPCS: 36415; 74177; 80053; 81003; 83605; 83690; 85025; 96361; 96374; 96375; 99284; Q9967

== ENCOUNTER 2024-02-07 05:09 | Emergency (ER) | payer SELFPAY ==
[2024-02-07 05:13] VITALS: BP 160/88; PULSE 90; TEMP 36.9; O2SAT 98; BMI 29.0
--- OUTSIDE RECORDS SUMMARY | 2024-02-07 05:13 | XMS_ITS | CCD ---
Author Organization [facility] Care Team Providers Care Repeater Chief Name Role Phone Matt Mancera APRN, CNP Primary Care Provider MATT MATOS Primary Care Unavailable NE HANNA Attending Unavailable MISC, DR STEPHENS Attending Unavailable MISC, DR STEPHENS Consulting Unavailable MISC, DR STEPHENS Admitting Unavailable JIMMY Prakash Attending Provider Viv Campos Unavailable Tamar Prakash Unavailable MARY Campos-Latasha Nam Attending Provider Tamar Prakash Attending Unavailable Tamar Prakash Admitting Unavailable Viv Campos Admitting Unavailable Viv Campos Attending Unavailable Johnna Caraballo Primary Care Provi sang JOHNNA BARROSO Attending Unavailable JOHNNA BARROSO Referring Unavailable JOHNNA BARROSO Primary Care Unavailable JOHNNA BARROSO Referring Unavailable YAN BARROSOITH Kimberly Primary Care Unavailable JOHNNA BARROSO Referring Unavailable JOHNNA BARROSO Primary Care Unavailable Allergies Allergy Classification Reported Allergen(s) Allergy Type Date of Onset Reaction(s) Facility (7 sources) [place]; Translations: [[facility]] Propensity to adverse reactions 2 Unknown [facility] (5 sources) [place] Propensity to adverse reactions to drug 2 [facility] (7 sources) Orphenadrine; Translations: [ORPHENADRINE CITRATE] Drug Allergy 0 [facility] Medications Current Medications Medication Drug Class(es) [...] Start: 07-28-2022 take 1 capsule by mo [facility] every eight hours Amoxicillin 500 MG 1 [...] / neomycin 3.5 mg/ml / polymyxin b 58036 unt/ml otic suspension (3 sources) Aminoglycoside Antibacterial, Polymyxin-class Antibacterial, Corticosteroid Start: 08-13-2022 Neomycin-Polymyx in-HC 3.5-19783-6 3 drops left ear Three times a [...] SEE SEPARATE REPORT, REVIEWED BY PATHOLOGIST Normal [facility] IR BIOPSY LYMPH NODEon 11-15 IR BIOPSY [...] Cruz MD on 11/16/2023 11:01 AM Normal [facility] Surgical Pathologyon 024 Surgical Pathology Normal [facility] Comment on above: Result Comment: [facility] [employer] [facility] [address] [place] [address] Surgical Pathology Consultation Patient Name:MICH RODRIGUEZ JR.:1990 (Age: 33)Gender:MTaken:4Reported:11/18/2023hysician(s):Johnna Barroso CNP ([phone])Copy To:Delano Cruz M.D. Rec. #:[id number]: #[id number] Final Pathologic Diagnosis Left groin lymph node, [...] CD5, CD7, CD10, CD19, CD20, CD23, CD45, [place], and L[place]. Immunophenotyping Comment: Immunophenotyping has been used in this diagnostic evaluation. This test was developed and its performance characteristics determined by the [facility] Department. It has not been [...] Out Ruben Jean MD [place] [address], License number: [id number]. Clinical History Lymphadenopathy, inguinal R59.0. Gross Description Received in formalin labeled LITTLE, left groin BX are [place], focally erythematous, delicate soft tissue fragments, 0.6 x 0.4 x 0.1 cm in aggregate. The specimen is filtered and entirely submitted in a single cassette. (1, ns, [id number], m1) JG A separate soft tissue core is received in RPMI media and sent to flow cytometry for analysis. [facility]/11/16/2023GR Specimen(s) Received Left groin lymph node Fee Codes(s): 1; 55473, 23358 US EXT NON-VASC LT LIMITEDon 11-05-2023 US [...] Hi Stover MD on 11/05/2023 12:42 PM [facility] XR hand RT min 3V*on 023 XR hand RT min 3V* [facility] [place] [address] [place] [address] XRay Report Signed Patient: Mich Rodriguez MR#: [id number] : 1990 Acct:[id number] Age/Sex: 32 / M ADM Date: 12/03/22 Loc: XDUCLY Room: Type: [facility] Attending Dr: Viv CALIXTO Copies to: [...] Dictation Location: RADIO-PC-10 Transcribed By: [facility] 12/03/22 1225 Dictated By: Christi Gray MD 12/03/22 1223 Signed By: 12/03/22 1225 [facility] XR hand RT min 3V* [facility] [employer] Other XR hand RT min 3V* [facility] [employer] Other XR hand RT min 3V* [address] [place] [address] [employer] Other XR hand RT min 3V* [place] [address] [employer] Other XR hand RT min 3V* XRay Report [employer] Other XR hand RT min 3V* Signed [employer] Other XR hand RT min 3V* Patient: Mich Rodriguez MR#: [id number] [employer] Other XR hand RT min 3V* 4283 [employer] Other XR hand RT min 3V* : 1990 Acct:[id number] [employer] Other XR hand RT min 3V* Age/Sex: 32 / M ADM Date: 12/03/22 [employer] Other XR hand RT min 3V* Loc: XDUCLY Room: [facility] [employer] Other XR hand RT min 3V* Attending Dr: Viv CALIXTO [employer] Other XR hand RT min 3V* Copies to: DURGA Arango [employer] Other XR hand RT min 3V* Ordering Provider: DURGA Arango [employer] Other XR hand RT min 3V* Date of Service: 12/03/22 [employer] Other XR hand RT min 3V* XR/XR hand RT min 3V*: RIGHT HAND SWELLING/PAIN [employer] Other XR hand RT min 3V* RIGHT HAND - 3 views [employer] Other XR hand RT min 3V* CLINICAL DATA: Right hand pain and swelling dorsally over the metacarpals for the past week. No [employer] Other XR hand RT min 3V* known injury. [facility] Other XR hand RT min 3V* COMPARISON: None [employer] Other XR hand RT min 3V* AP, lateral and oblique views were obtained. There is no evidence of fracture or dislocation. No [employer] Other XR hand RT min 3V* prominent hypertrophy or joint space narrowing is seen. Mild dorsal soft tissue swelling is [employer] Other XR hand RT min 3V* present. [employer] Other XR hand RT min 3V* XR/XR hand RT min 3V* [employer] Other XR hand RT min 3V* IMPRESSION: [employer] Other XR hand RT min 3V* NO ACUTE BONY FINDINGS. [employer] Other XR hand RT min 3V* Impression dictated by: Christi Gray M.D.12/03/2022 12:25 PM [employer] Other XR hand RT min 3V* Dictation Location: [place] [address] [employer] Other XR hand RT min 3V* Transcribed By: SARWAT 12/03/22 1225 [employer] Other XR hand RT min 3V* Dictated By: Christi Gray MD 12/03/[address] [facility] [employer] Other XR hand RT min 3V* Signed By: [employer] Other XR hand RT min 3V* 12/03/22 1225 [facility] [employer] Other COVID + FLU Quick Testingon 09-01-2022 SARS-CoV-2 (COVID-19) RNA ABILIO+probe Ql (Unsp spec) Negative [facility] [employer] Other COVID + FLU Quick Testing Negative [facility] [employer] Other XR knee RT 4V*on 07-17-2022 XR knee RT 4V* [facility] [place] [address] [place] [address] XRay Report Signed Patient: Mich Rodriguez MR#: [id number] : 1990 Acct:[id number] Age/Sex: 31 / M ADM Date: 07/17/22 [facility]: [facility] Attending Dr: Tamar MARQUEZ Copies to: [...] Brayan Mccormack M.D.07/17/2022 1:22 PM Dictation Location: [place] [address] Transcribed By: SARWAT 07/17/22 1322 Dictated By: Brayan Mccormack II, MD 07/17/22 1321 Signed By: 07/17/22 1322 [facility] XR knee RT 4V* [facility] Other XR knee RT 4V* [facility] Other XR knee RT 4V* [address] [place] [address] [facility] Other XR knee RT 4V* [place] [address] [facility] Other XR knee RT 4V* XRay Report [employer] Other XR knee RT 4V* Signed [employer] Other XR knee RT 4V* Patient: Mich Rodriguez MR#: [id number] [employer] Other XR knee RT 4V* 83 [employer] Other XR knee RT 4V* : 1990 Acct:[id number] [employer] Other XR knee RT 4V* Age/Sex: 31 / M ADM Date: 07/17/22 [employer] Other XR knee RT 4V* Loc: XDUCLY Room: Type: [facility] CLI [employer] Other XR knee RT 4V* Attending Dr: Tamar MARQUEZ [employer] Other XR knee RT 4V* Copies to: TAMAR PRAKASH [employer] Other XR knee RT 4V* Ordering Provider: TAMAR PRAKASH [employer] Other XR knee RT 4V* Date of Service: 07/17/22 [employer] Other XR knee RT 4V* XR/XR knee RT 4V*: Right anterior knee pain [employer] Other XR knee RT 4V* XR knee RT 4V* 07/17/2022 1:02 PM [employer] Other XR knee RT 4V* SIGNS AND SYMPTOMS: Right anterior knee pain [employer] Other XR knee RT 4V* PROTOCOL: Frontal, lateral, and oblique radiographs of the right knee [employer] Other XR knee RT 4V* COMPARISON: None [employer] Other XR knee RT 4V* FINDINGS: [employer] Other XR knee RT 4V* There is a linear radiopaque foreign body in the lateral soft tissues adjacent to the proximal [employer] Other XR knee RT 4V* fibula. The joint spaces are preserved. There is no fracture. No joint effusion. No soft tissue [employer] Other XR knee RT 4V* swelling. [employer] Other XR knee RT 4V* XR/XR knee RT 4V* [employer] Other XR knee RT 4V* IMPRESSION: [employer] Other XR knee RT 4V* No acute bony injury or significant degenerative change. [employer] Other XR knee RT 4V* fibula. [employer] Other XR knee RT 4V* Impression dictated by: Brayan Mccormack M.D.07/17/2022 1:22 PM [employer] Other XR knee RT 4V* Dictation Location: [place] [address] [employer] Other XR knee RT 4V* Transcribed By: PWS 07/17/22 1322 [employer] Other XR knee RT 4V* Dictated By: Brayan Mccormack II, MD 07/17/22 1321 [employer] Other XR knee RT 4V* Signed By: [employer] Other XR knee RT 4V* 07/17/22 [address] [employer] [address] CERVICAL SPINE WO CONTRAS Ton [...] Clark Rhodes MD 01/21/22 Final result Normal [facility] CT HEAD WO CONTRASTon 2021 CT HEAD [...] Clark Rhodes MD 01/21/22 Final result Normal [facility] No Panel Informationon 01-21 No acute intracranial abnormality. No acute fracture or subluxation of cervical spine. Mild degenerative change C4-C5 and C5-C6. RECOMMENDATIONS: Unavailable [facility] RIS CONSOLIDATED EXAMINATION: CT OF THE CERVICAL [...] There is no prevertebral soft tissue swelling. [facility] Clark Redding MD - 01/21/2022 EXAMINATION: [...] degenerative change C4-C5 and C5-C6. RECOMMENDATIONS: Unavailable [employer] Phone: Radiology Study observation (narrative) [employer] Phone: No Panel InformationOrdered By: Clark Rhodes on 01-21-2022 [employer] Phone: Vital Signs Date Time Vital Sign Value Performing Clinician Ibrahima austin 11-02-2023 10:59-0500 Body height 177.8 cm Johnna Barroso APRNFusion Sheep Work Phone[facility] 11-02-2023 10:59-0500 Body mass index (BMI) [Ratio] 28.93 kg/m2 Johnna Barroso APRNFusion She[employer] [facility] 11-02-2023 10:59-0500 Body temperature 98.6 [degF] Johnna Barroso VICTIMS ADVOCATE CLERK/SPECIALIST-LICENSED PHYSICAL THERAPIST ASSISTANT Work Phone: [facility] [employer] 11-02-2023 10:59-0500 Body weight 91.44 kg Johnna Barroso VICTIMS ADVOCATE CLERK/SPECIALIST-LICENSED PHYSICAL THERAPIST ASSISTANT Work Phone: [facility] 11-02-2023 10:59-0500 Diastolic blood pressure 88 mm[Hg] Johnna Barroso VICTIMS ADVOCATE CLERK/SPECIALIST-LICENSED PHYSICAL THERAPIST ASSISTANT Work Phone: [facility] 11-02-2023 10:59-0500 Heart rate 81 /min Johnna Barroso VICTIMS ADVOCATE CLERK/SPECIALIST-LICENSED PHYSICAL THERAPIST ASSISTANT Work Phone: [facility] 11-02-2023 10:59-0500 Respiratory rate 20 /min Johnna Barroso VICTIMS ADVOCATE CLERK/SPECIALIST-LICENSED PHYSICAL THERAPIST ASSISTANT Work Phone: [facility] 11-02-2023 10:59-0500 SaO2% (BldA) [Mass fraction] 98 % Johnna Barroso VICTIMS ADVOCATE CLERK/SPECIALIST-LICENSED PHYSICAL THERAPIST ASSISTANT Work Phone: [facility] 11-02-2023 10:59-0500 Systolic blood pressure 146 mm[Hg] Johnna Barroso VICTIMS ADVOCATE CLERK/SPECIALIST-LICENSED PHYSICAL THERAPIST ASSISTANT Work Phone: [employer] 12-03-2022 12:35-0400 Body height 177.8 cm Viv Campos Other [employer] Other 12-03-2022 12:35-0400 Body mass index (BMI) [Ratio] 30.13 kg/m2 Viv Campos Other [employer] Other 12-03-2022 12:35-0400 Body temperature 100 [degF] Viv Campos Other [employer] Other 12-03-2022 12:35-0400 Body weight 95.26 kg Viv Randallmond Other [employer] Other 12-03-2022 12:35-0400 Diastolic blood pressure 89 mm[Hg] Viv Beth Other [employer] Other 12-03-2022 12:35-0400 Respiratory rate 18 /min Viv Beth Other [employer] Other 12-03-2022 12:35-0400 SaO2% (BldA) [Mass fraction] 96 % Viv Beth Other [employer] Other 12-03-2022 12:35-0400 Systolic blood pressure 151 mm[Hg] Viv Beth Other [employer] Other 09-01-2022 12:15-0500 Body height 177.8 cm Viv Randallmond Other [employer] Other 09-01-2022 12:15-0500 Body mass index (BMI) [Ratio] 30.13 kg/m2 Viv Beth Other [employer] Other 09-01-2022 12:15-0500 Body temperature 97.9 [degF] Viv Beth Other [employer] Other 09-01-2022 12:15-0500 Body weight 95.26 kg Viv Beth Other [employer] Other 09-01-2022 12:15-0500 Diastolic blood pressure 93 mm[Hg] Viv Beth Other [employer] Other 09-01-2022 12:15-0500 Respiratory rate 18 /min Viv Beth Other [employer] Other 09-01-2022 12:15-0500 SaO2% (BldA) [Mass fraction] 100 % Viv Beth Other [employer] Other 09-01-2022 12:15-0500 Systolic blood pressure 157 mm[Hg] Viv Beth Other [employer] Other 08-13-2022 11:35-0500 Body height 177.8 cm Viv Beth Other [employer] Other 08-13-2022 11:35-0500 Body mass index (BMI) [Ratio] 30.13 kg/m2 Viv Beth Other [employer] Other 08-13-2022 11:35-0500 Body temperature 98.1 [degF] Viv Beth Other [employer] Other 08-13-2022 11:35-0500 Body weight 95.26 kg Viv Beth Other [employer] Other 08-13-2022 11:35-0500 Diastolic blood pressure 89 mm[Hg] Viv Beth Other [employer] Other 08-13-2022 11:35-0500 Respiratory rate 16 /min Viv Beth Other [employer] Other 08-13-2022 11:35-0500 SaO2% (BldA) [Mass fraction] 99 % Viv Beth Other [employer] Other 08-13-2022 11:35-0500 Systolic blood pressure 143 mm[Hg] Viv Beth Other [employer] Other 07-28-2022 11:35-0500 Body height 177.8 cm Viv Beth Other [employer] Other 07-28-2022 11:35-0500 Body mass index (BMI) [Ratio] 30.13 kg/m2 Viv Beth Other [employer] Other 07-28-2022 11:35-0500 Body temperature 97.9 [degF] Viv Beth Other [employer] Other 07-28-2022 11:35-0500 Body weight 95.26 kg Viv Randallmond Other [employer] Other 07-28-2022 11:35-0500 Diastolic blood pressure 83 mm[Hg] Viv Beth Other [employer] Other 07-28-2022 11:35-0500 Respiratory rate 18 /min Viv Beth Other [employer] Other 07-28-2022 11:35-0500 SaO2% (BldA) [Mass fraction] 96 % Viv Beth Other [employer] Other 07-28-2022 11:35-0500 Systolic blood pressure 126 mm[Hg] Viv Beth Other [employer] Other 07-17-2022 14:40-0400 Body height 177.8 cm Tamar Prakash Other [employer] Other 07-17-2022 14:40-0400 Body mass index (BMI) [Ratio] 30.13 kg/m2 Tamar Prakash Other [employer] Other 07-17-2022 14:40-0400 Body temperature 98 [degF] Tamar Prakash Other [employer] Other 07-17-2022 14:40-0400 Body weight 95.26 kg Tamar Prakash Other [employer] Other 07-17-2022 14:40-0400 Diastolic blood pressure 81 mm[Hg] Tamar Prakash Other [employer] Other 07-17-2022 14:40-0400 Respiratory rate 18 /min Tamar Prakash Other [employer] Other 07-17-2022 14:40-0400 SaO2% (BldA) [Mass fraction] 98 % Tamar Prakash Other [employer] Other 07-17-2022 14:40-0400 Systolic blood pressure 143 mm[Hg] Tamar Prakash Other [employer] Other 01-21-2022 12:29-0400 Body height 177.8 cm Ne Hanna MD [facility] 01-21-2022 12:29-0400 Body mass index (BMI) [Ratio] 30.85 kg/m2 Ne Hanna MD [facility] 01-21-2022 12:29-0400 Body temperature 98.8 [degF] Ne Hanna MD [facility] 01-21-2022 12:29-0400 Body weight 97.52 kg Ne Hanna MD [facility] 01-21-2022 12:29-0400 Diastolic blood pressure 91 mm[Hg] Ne Hanna MD [facility] 01-21-2022 12:29-0400 Heart rate 82 /min Ne Hanna MD [facility] 01-21-2022 12:29-0400 Respiratory rate 18 /min Ne Hanna MD [facility] 01-21-2022 12:29-0400 SaO2% (BldA) [Mass fraction] 98 % Ne Hanna MD [facility] 01-21-2022 12:29-0400 Systolic blood pressure 155 mm[Hg] Ne Hanna MD [facility] Encounters Encounter Date Encounter Type Care Provider Facility Start: 11-24-2023 Telephone encounter Zulma Pagan MA [facility] Start: 11-16-2023 End: 11-17-2023 Refill Johnna Barroso VICTIMS ADVOCATE CLERK/SPECIALIST-LICENSED PHYSICAL THERAPIST ASSISTANT Work Phone: [facility] Comment on above: Infection of eczemat ous skin Start: 11-06-2023 Orders Only Johnna martin VICTIMS ADVOCATE CLERK/SPECIALIST-LICENSED PHYSICAL THERAPIST ASSISTANT Work Phone: [facility] Comment on above: Lymphadenopathy, ing uinal (Primary Dx) Start: 11-03-2023 End: 11-04-2023 [facility] Start: 11-02-2023 End: 11-02-2023 ambulatory [facility] Start: 11-02-2023 End: 11-02-2023 Office outpatient visit 15 minutes Johnna Barroso VICTIMS ADVOCATE CLERK/SPECIALIST-LICENSED PHYSICAL THERAPIST ASSISTANT Work Phone: [facility] Comment on above: Lymphadenopathy, ing uinal (Primary Dx); Lumbar back pain; Lumbar radiculopathy Start: 12-03-2022 Office outpatient vi sit 15 minutes [facility] Start: 12-03-2022 End: 12-03-2022 ambulatory Viv Campos Facility:[facility] Start: 12-03-2022 End: 12-03-2022 ambulatory MANAGER [employer] SAL[employer]-C Viv Campos Work Phone: [facility] Work Phone: Start: 12-03-2022 End: 12-03-2022 Patient encounter procedure MANAGER [employer] SALES-C Viv Beth Work Phone: [facility] Work Phone: Start: 09-01-2022 End: 09-01-2022 ambulatory Viv Beth Other [employer] Other Start: 09-01-2022 Office outpatient vi sit 15 minutes Viv Beth [facility] Start: 08-13-2022 End: 08-13-2022 ambulatory Viv Beth Other [employer] Other Start: 08-13-2022 Office outpatient vi sit 15 minutes Viv Beth [facility] Start: 07-28-2022 End: 07-28-2022 ambulatory Viv Beth Other [employer] Other Start: 07-28-2022 Office outpatient vi sit 15 minutes Viv Beth [facility] Start: 07-17-2022 End: 07-17-2022 ambulatory Tamar Haylee Facility:[facility] Start: 07-17-2022 Office outpatient vi sit 15 minutes Tamar Haylee [facility] Start: 07-17-2022 End: 07-17-2022 ambulatory WEB MARKETING MANAGER-C Tamar Haylee Work Phone: [facility] Work Phone: Start: 07-17-2022 End: 07-17-2022 Patient encounter procedure WEB MARKETING MANAGER-C Tamar Haylee Work Phone: [facility] Start: 01-21-2022 End: 01-21-2022 Emergency department patient visit MATT MATOS [facility] Start: 01-21-2022 End: 01-21-2022 Emergency department patient [facility] Comment on above: Closed head injury, initial encounter (Primary Dx); Laceration of scalp, initial encounter Start: 05-28-2020 End: 05-29-[address] DOCTOR PIZARRO Facility:[facility] Procedures Date Procedure Procedure Detail Performing Clinician Start: 11-02-2023 Adult depression screening assessment Johnna Wadeler VICTIMS ADVOCATE CLERK/SPECIALIST-LICENSED PHYSICAL THERAPIST ASSISTANT Work Phone: Start: 12-03-2022 Plain X-ray of right hand MANAGER [employer] SAL[employer]-C Viv Campos Work Phone: Start: 07-17-2022 X-ray of right knee WEB MARKETING MANAGER -C Tamar Prakash Work Phone: Start: 01-21-2022 Ct cervical spine w/ o contrast material Yoni A Romp PA-C Work Phone: Start: 01-21-2022 Ct head/brain w/o contrast material Yoni A Romp PA-C Work Phone: Plan of Treatment Date Care Activity Detail Author Start: 01-22-2032 DTaP,Tdap and Td Vaccines (3 - Td or Tdap) DTaP,Tdap and Td Vaccines (3 - Td or Tdap) [facility] Start: 01-22-2032 DTaP/Tdap/Td vaccine (2 - Td or Tdap) DTaP/Tdap/Td vaccine (2 - Td or Tdap) [facility] Start: 11-02-2024 Adult BMI Screening Adult BMI Screen ing [facility] Start: 11-02-2024 Depression Screening Depression Scre ening [facility] Start: 11-02-2024 Tobacco Screening Tobacco Screening [facility] Start: 11-06-2023 End: 11-06-2024 US Guidance for core needle biopsy of Unspecified body region Ultrasound guidance intraoperative with Bx or Asp Imaging Routine Lymphadenopathy, inguinal Expected: 11/06/2023, Expires: 11/06/2024 [facility]: Comment on above: Expected: 11/06/2023 , Expires: 11/06/2024 Start: 11-03-2023 Subsequent hospital visit by physician 11/03/2023 2:30 PM EST Hospital Encounter [facility] - Ul[facility]ound [address] [place] [address] [facility] Start: 11-02-2023 End: 11-02-2024 US Extremity - left limited Ultrasound extremity non vascular limited left Imaging Routine Lymphadenopathy, inguinal Expected: 11/02/2023, Expires: 11/02/2024 [facility] Work Phone: Comment on above: Expected: 11/02/2023 , Expires: 11/02/2024 Start: 05-15-2023 Influenza vaccination Influenza Vacc ine [facility] Start: 05-15-2022 Influenza vaccination Flu vacc ine (Season Ended) [facility] Start: 2006 Adult BMI Follow Up Plan Adult BMI Follow Up Plan [facility] Start: 2006 Hepatitis C screening Hepatitis C sc reen [facility] Start: 2003 HIV screening HIV screen [facility] Start: 2000 Depression Screen Depression Screen [facility] Start: 1993 COVID-19 Vaccine (1) COVID-19 Vaccin e (1) [facility] Start: 1989 Varicella vaccine (1 of 2 - 2-dose childhood series) Varicella vaccine (1 of 2 - 2-dose childhood series) [facility] Immunizations Immunization Date Immunization Notes Care Provider Fa cili 01-21-2022 tetanus toxoid, reduced diphtheria toxoid, and acellular pertussis vaccine, adsorbed Ne Hanna MD [facility] Work Phone: 04-04-2019 tetanus and diphtheria toxoids, adsorbed, preservative free, for adult use (2 Lf of tetanus toxoid and 2 Lf of diphtheria toxoid) Johnna Barroso VICTIMS ADVOCATE CLERK/SPE[employer]ISTFusion Sheep Work Phone: [facility] 09-11-2014 influenza, seasonal, injectable, preservative free Johnna Barroso VICTIMS ADVOCATE CLERK/[employer]ISTF[employer]ep Work Phone: [facility] 09-11-2014 influenza virus vaccine, unspecified formulation Johnna Barroso VICTIMS ADVOCATE CLERK/SPECIALIST-LICENSED PHYSICAL THERAPIST ASSISTANT Work Phone: [employer] NEGATED: Highlighted row has not occurred!11-27-2021 influenza, injectable, quadrivalent, preservative free Johnna Barroso VICTIMS ADVOCATE CLERK/SPECIALIST-LICENSED PHYSICAL THERAPIST ASSISTANT Work Phone: [employer] Comment on above: Deferred: Patient de cision Payers Date Payer Category Payer Unknown BCBS [facility] H[facility]/PPO/TRUST [id number] 2023-Present [phone] [address] [place] [address] [id number] 2023 Unknown [id number] 2022 Medicaid [id number] 2022 Self-pay 2022 Unknown [id number] 2022 Unknown [id number] 2022 Unknown [id number] 2021 Unknown [id number] 1988 Unknown [id number] 1988 Unknown [id number] 1988 Unknown [id number] 1990 Unknown [id number] 1990 Unknown [id number] 1959 Unknown [id number] 1959 Unknown [id number] Unknown [id number] Unknown [id number] Social History Date Type Detail Facility Start: 03-31-2014 End: 08-20-2022 Tobacco smoking status WIIS Ex-smoker [facility] Start: 03-31-2014 Tobacco use and exposure Smoke less tobacco non-user [employer] Phone: Start: 01-21-2022 Alcohol intake 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 Start: 03-31-2014 History SDOH Alcohol Comment 1x month [facility] Phone: Start: 1990 [facility] Start: 01-11-2022 End: 01-21-2022 Exposure to SARS-CoV-2 (event) Not sure [facility] Phone: Start: 1990 Sex Assigned At Male [facility] Start: 11-26-2021 End: 11-02-2023 Sex Assigned At [facility] History of tobacco use Current smoker [facility] Start: 08-20-2022 Tobacco use and exposure Forme r smokeless tobacco user [facility] End: 02-12-2018 History of tobacco use Chews Tobacco [facility] Start: 11-02-2023 Alcohol intake Ex-drinker (finding) [facility] How often do you att end latter-day or jainism services? Patient declined [facility] Do you belong to any clubs or organizations such as latter-day groups, unions, fraternal or athletic groups, or school groups? Yes [facility] Are you now , , , , never or living with a partner? [facility] How often to you hav e a drink containing alcohol? 2-3 time sa week [facility] How many standard dr inks containing alcohol do you have on a typical day? 5 or 6 [facility] How often do you hav e 6 or more drinks on 1 occasion? Monthly [facility] Do you feel stress - tense, restless, nervous, or anxious, or unable to sleep at night because your mind is troubled all the time - these days [OSQ] Rather much [facility] Start: 03-14-2019 Education 21 [facility] Clinical Notes 01-21-2022 to 11-24-2023 Telephone [...] know his results documented in this encounter [facility] 11-24-2023 Telephone encount er Note ----- Message from SERGE Mitchell sent at 11/24/2023 4:52 AM EDT ----- Biopsy was negative for malignancy, although I do recommend follow up in 6-8 weeks for continued assessment ----- Message ----- From: Interface - Lab Results/Orders In Sent: 11/18/2023 4:33 PM EDT To: SERGE Mitchell [facility] 11-24-2023 Telephone encount er Note Called patient, no answer unable to leave a message [facility] 11-24-2023 Telephone encount er Note Patient called back into the office I did let him know his results [facility] 11-16-2023 Miscellaneous Notes Formattin g of this note might be different from the original. Patient presenting to front window requesting refill of Clobetasol 0.05% ointment. Pharmacy is [facility] in [place], [place]. documented in this encounter [facility] 11-16-2023 Telephone encount er Note Patient presenting to front window requesting refill of Clobetasol 0.05% ointment. Pharmacy is [facility] in [place], [place]. [facility] 11-06-2023 Miscellaneous Notes Formattin g of this [...] He stated understanding. documented in this encounter [facility] 11-06-2023 Telephone encount er Note ----- Message from SERGE Mitchell sent at 11/06/2023 9:38 AM EST ----- Please let pt know that ultrasound was abnormal, radiology is recommending a biopsy. I will put in order and hospital will call him ----- Message ----- From: Interface - Rad Results/Orders In 1 Sent: 11/05/2023 12:44 PM EST To: SERGE Mitchell [facility] 11-06-2023 Telephone encount er Note Tried to call patient but no answer and could not leave a voicemail. [facility] 11-06-2023 Telephone encount er Note Patient called back and I informed him. He stated understanding. [facility] 11-02-2023 History of Presen t illness Narrative Images from the original note were not included. Subjective CC: Mass between hips and groin Patient ID: Mich Rodriguez Jr. is a 33 y.o. male. [facility] Mich Rodriguez Jr. Reports to the clinic [...] nursing note reviewed. Exam conducted with a dean of girls present. Constitutional: Appearance: Normal appearance. HENT: Head: [...] Mitchell 11/02/23 1153 documented in this encounter [employer] 12-03-2022 Evaluation note Encounter Date Diagnosis Assessment [...] no improvement in 5 to 7 days. [email or web address] Other 12-19-2022 Evaluation note* Encounter Date Diagnosis [...] days. You may return to work tomorrow [email or web address] Other 11-30-2022 Evaluation note* Encounter Date Diagnosis [...] no improvement in 2 to 3 days. [email or web address] Other 11-14-2022 Evaluation note* Encounter Date Diagnosis [...] no improvement in 2 to 3 days [email or web address] Other 11-03-2022 Evaluation note* Encounter Date Diagnosis [...] will help you get into a specialist. [email or web address] Other 05-10-2022 Hospital Discharge instructions* Instructions* Yoni [...] sent through Care Everywhere. * Lacerations: Stitches (German) [facility] note* Diagnosis Closed head injury, initial encounter- Primary Laceration of scalp, initial encounter documented in this encounter [facility] [employer] Phone: evaluation noteNo assessment information available [facility] Work Phone: Evaluation note* Diagnosis Lymphadenopathy, inguinal- Primary Lumbar back pain Lumbago Lumbar radiculopathy Thoracic or lumbosacral neuritis or radiculitis, unspecified [facility] this [facility]* Diagnosis Lymphadenopathy, inguinal- Primary [facility]* Diagnosis Infection of eczematous skin documented in this encounter [employer] general Narrative - Reported* Type Description Date Medical History hypertension Medical History hypercholesterolemia Medical History acid reflux Surgical History shoulder surgery [email or web address] Other Instructions* Attachments The following attachments cannot be sent through Care Everywhere. 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 1247 (Given - Provid er: Aileen Wong LPN - Comment: top of head) Care Teams (unrecognized sec tion and content) Repeater Chief Relationship Specialty Start Date End Date Matt Matos APRN - CNP PCP - General 11/03/18 Team Status: Inactive Member Role Status Dates JMIMY Chandra Attending Provider Active Team Status: Inactive Member Role Status Dates VIRGIL PakC Attending Provider Active Repeater Chief Relationship Specialty Start Date End Date Johnna Barroso APRN-LICENSED PHYSICAL THERAPIST ASSISTANT [address], [place] [facility] [place] [address] PCP - General Family Medicine 11/27/21 Repeater Chief Relationship Specialty Start Date End Date Johnna Barroso APRN-LICENSED PHYSICAL THERAPIST ASSISTANT [address], [place] [address] PCP - General Family Medicine 11/27/21 Repeater Chief Relationship Specialty Start Date End Date DominickJohnna camacho APRN-CNP [address] [place]iane, [place] [address] PCP - General Family Medicine 11/27/21 Repeater Chief Relationship Specialty Start Date End Date Johnna Barroso APRN-LICENSED PHYSICAL THERAPIST ASSISTANT [address], [place] [address] PCP - [facility] 11/27/21 (unrecognized sect ion and content) No Status Records FoundNo Status Records FoundNo Status Records FoundNo Status Records FoundNo Status Records Found INFORMATION SOURCE (unrecogn ized section and content) DATE CREATED AUTHOR 01/22/2022 [facility] DATE CREATED AUTHOR AUTHOR'S ORGANIZ ATION 06/20/2022 [facility] DATE CREATED AUTHOR AUTHOR'S ORGANIZ ATION 01/03/2023 [facility] DATE CREATED AUTHOR AUTHOR'S ORGANIZ ATION 11/03/2023 [facility] DATE CREATED AUTHOR AUTHOR'S ORGANIZ ATION 11/21/2023 [facility] Goals (unrecognized [...] BE BASED ON THE PRIMARY CLINICAL RECORDS. [facility]. provides no warranty or guarantee of the accuracy or completeness of information in this document.
--- NOTE | 2024-02-07 05:14 | XR_ITS ---
The [address] [address] Patient Name: DILCIA RODRIGUEZ MRN: [id number] date: 1990 Sex: M Assigned Patient Location: ED.MAIN Current Patient Location: Accession/Order Number: [id number] Exam Date: 02/07/2024 05:20 Report Date: 02/07/2024 05:56 At the request of: KRISH SMITH Procedure: XR wrist LT min 3V PROCEDURE: XR wrist LT min 3V HISTORY: INJURY COMPARISON: None. FINDINGS: BONES:No fracture, acute abnormality, or significant arthropathy. SOFT TISSUES:No visible soft tissue swelling. EFFUSION:None visible. OTHER: Negative. XR/XR wrist LT min 3V IMPRESSION: 1. No acute bone abnormality. Electronically authenticated by: ALBA JONES Date: 02/07/2024 05:56
--- NOTE | 2024-02-07 05:21 | ED_ITS ---
HPI HPI - Extremity Injury (Upper) General Chief Complaint: Extremity Injury, Upper Stated Complaint: Upper Injury Time Seen by Provider: 02/07/24 05:19 Source: patient Mode of arrival: walk-in Limitations: no limitations History of Present Illness HPI narrative: 33 male presents to the emergency department for left wrist pain. About 15 hours ago he accidentally hit that wrist on the dorsum with a 3 pound hammer while working on his car. He is right-handed. No other injury was sustained. The pain is moderate and worse when he moves it. Related Data Home Medications ?Medication ?Instructions ?Recorded ?Confirmed No Known Home Medications 01/19/24 01/19/24 Previous Rx's ?Medication ?Instructions ?Recorded hyoscyamine sulfate 0.125 mg 0.125 mg PO Q6H PRN abdominal pain 01/19/24 tablet (Levsin) #12 tabs ondansetron 4 mg disintegrating 4 mg PO Q6H PRN nausea and 01/19/24 tablet vomiting #12 tabs Allergies Allergy/AdvReac Type Severity Reaction Status Date / Time tree nut Allergy Intermediate Rash Verified 02/07/24 05:20 Opioid HPI Opioid Management Most Recent Pain and Opioid Data: Last Pain Scale 8 02/07/24 05:23 Last ED Pain Assessment 02/07/24 05:23 Review of Systems ROS Narrative A ten point review of systems is negative except as noted above. PFSH PFSH Social History Smoking status: Former smoker Exam Narrative Exam Narrative: Nurses note and vital signs reviewed and patient is not hypoxic. General: The patient appears well and in no apparent distress. Patient is resting comfortably on cart. Skin: Warm, dry, no pallor noted. There is no rash noted. Head: Normocephalic, atraumatic Eye: Normal conjunctiva, no drainage Ears, Nose, Mouth, and Throat: oral mucosa is moist. Nares patent. Cardiovascular: Regular Rate and Rhythm Respiratory: Patient is in no distress, no accessory muscle use, lungs are clear to auscultation, no wheezing, rales or rhonchi Back: non-tender GI: Soft and nontender Musculoskeletal: He has tenderness of the dorsum of his wrist. Skin intact. Fingers have good range of motion as does the wrist. Neurological: A&O, normal speech Psychiatric: Cooperative Constitutional Vital Signs, click to edit/add: Last Vital Signs Temp 98.5 F 02/07/24 05:13 Pulse 90 02/07/24 05:13 Resp 16 02/07/24 05:13 BP 160/88 H 02/07/24 05:13 Pulse Ox 98 02/07/24 05:13 O2 Del Method Room Air 02/07/24 05:13 Course Vital Signs Vital signs: Vital Signs Temperature 98.5 F 02/07/24 05:13 Pulse Rate 90 02/07/24 05:13 Respiratory Rate 16 02/07/24 05:13 Blood Pressure 160/88 H 02/07/24 05:13 Pulse Oximetry 98 02/07/24 05:13 Oxygen Delivery Method Room Air 02/07/24 05:13 Temperature 98.5 F 02/07/24 05:13 Pulse Rate 90 02/07/24 05:13 Respiratory Rate 16 02/07/24 05:13 Blood Pressure 160/88 H 02/07/24 05:13 Pulse Oximetry 98 02/07/24 05:13 Oxygen Delivery Method Room Air 02/07/24 05:13 MDM - Extremity Injury (Upper) [facility] Narrative Medical decision making narrative: X-ray of the wrist on my interpretation shows no acute findings. Velcro wrist splint applied, application checked by me and found to be appropriate, he is neurovascularly intact. My clinical impression is that he has a contusion. Treatment diagnosis and follow-up were discussed with the patient. Differential Diagnosis Differential diagnosis: Likely other (Wrist contusion, wrist fracture) Imaging Data Left wrist x-ray: Attestation: I personally reviewed and interpreted this imaging study as follows: My impression: No acute findings Discharge Plan Discharge Stand Alone Forms: Portal Instructions Chief Complaint: Extremity Injury, Upper Clinical Impression: Contusion of left wrist Patient Disposition: Home, Self-Care Time of Disposition Decision: 05:29 Condition: Good Mode of Transportation: Private Vehicle Prescriptions / Home Meds: No Action No Known Home Medications hyoscyamine sulfate [Levsin] 0.125 mg tablet 0.125 mg PO Q6H PRN (Reason: abdominal pain) Qty: 12 0RF ondansetron 4 mg tablet,disintegrating 4 mg PO Q6H PRN (Reason: nausea and vomiting) Qty: 12 0RF Print Language: Bhutanese Instructions: Contusion in Adults (ED) Referrals: Physician,Non-Staff, MD [Physician] - 1 week
== END 2024-02-07 05:45 | disposition home or self-care (01) ==
PROVIDERS: Emergency Provider Emergency Medicine; PCP Nurse Practitioner
DX: S60.212A Contusion of left wrist, initial encounter (principal); W22.8XXA Striking against or struck by other objects, initial encounter
CPT/HCPCS: 73110; 99283

== ENCOUNTER 2024-02-16 13:24 | Emergency (ER) | payer OTHER, SELFPAY ==
[2024-02-16 13:28] VITALS: BP 150/102; PULSE 84; TEMP 36.9; O2SAT 98; BMI 29.1
--- NOTE | 2024-02-16 13:33 | XR_ITS ---
The [address] [address] Patient Name: DILCIA RODRIGUEZ MRN: [id number] date: 1990 Sex: M Assigned Patient Location: ER Current Patient Location: ED.MAIN Accession/Order Number: [id number] Exam Date: 02/16/2024 14:10 Report Date: 02/16/2024 15:18 At the request of: ERIC NEGRETE Procedure: XR lumbar spine 2-3V EXAM: XR lumbar spine 2-3V HISTORY: Low back pain COMPARISON: 01/19/2024 TECHNIQUE: 2 views lumbar spine. FINDINGS: Bones: No radiographic evidence of fracture. Normal vertebral body heights. No aggressive appearing lesion. Alignment: No pathologic listhesis or scoliotic curvature. Degenerative findings: No radiographic evidence of degenerative findings. Additional findings: None. XR/XR lumbar spine 2-3V IMPRESSION: No acute bony abnormality. Electronically authenticated by: DIXIE LOVETT Date: 02/16/2024 15:18
--- NOTE | 2024-02-16 15:06 | ED.BACK1 ---
HPI HPI - Back Pain/Injury General Chief Complaint: Back Pain/Injury Stated Complaint: BACK PAIN Time Seen by Provider: 02/16/24 13:29 Source: patient Mode of arrival: walk-in History of Present Illness HPI Narrative: Patient is a 33-year-old male with a history of lumbar radiculopathy who presents to the emergency department for an increase in right low back pain after working on his car 2 days ago. He states he felt a pop in his right low back. He complains of pain over the paraspinal muscles of the right low back with no new or different paresthesia. He is ambulatory, drove himself to the ER and has no complaints of numbness to the medial thighs. No urinary or bowel incontinence. He denies any falls or direct injury to the back. No medications taken prior to arrival although he had a leftover Flexeril that he tried without improvement. Related Data Home Medications ?Medication ?Instructions ?Recorded ?Confirmed cyclobenzaprine 10 mg tablet 10 mg PO Q8H PRN muscle spasm 02/16/24 02/16/24 Previous Rx's ?Medication ?Instructions ?Recorded ketorolac 10 mg tablet 10 mg PO TID PRN pain #10 tabs 02/16/24 orphenadrine citrate 100 mg 100 mg PO BID PRN muscle pain #14 02/16/24 tablet,extended release tabs Allergies Allergy/AdvReac Type Severity Reaction Status Date / Time tree nut Allergy Intermediate Rash Verified 02/07/24 05:20 Opioid HPI Opioid Management Most Recent Opioid Data: Last Pain Scale 8 02/16/24 14:57 Review of Systems ROS Constitutional Denies: fever or chills Ears, nose, mouth, and throat Denies: throat pain or nasal congestion Respiratory Denies: shortness of breath Gastrointestinal Denies: nausea or vomiting Musculoskeletal Reports: back pain; Denies: neck pain, extremity pain or extremity swelling Neurological Reports: numbness in extremities; Denies: weakness in extremities Hematologic/Lymphatic Denies: easy bruising or easy bleeding PFSH PFSH Social History Smoking status: Former smoker Exam Narrative Exam Narrative: Gen.: Awake, alert, in no distress Head: Normocephalic, atraumatic ENT: Moist mucous membranes Respiratory: No respiratory distress, lungs clear bilaterally Cardio: Regular rate and rhythm Back: No bony point tenderness of the T-spine or L-spine with diffuse tenderness of the paraspinal muscles of the lumbar spine. No obvious deformity or step-off. Extremities: Moves extremities equally, no injuries noted; Patient with full range of motion to extend and flex his legs, normal hip flexion bilaterally. No decrease in sensation to the medial thighs. Normal dorsiflexion and plantarflexion. Psych: Normal mood and affect Neuro: No focal neuro deficit Skin: Warm, dry, intact Constitutional Vital Signs, click to edit/add: Last Vital Signs Temp 98.4 F 02/16/24 13:28 Pulse 84 02/16/24 13:28 Resp 18 02/16/24 13:28 BP 150/102 H 02/16/24 13:28 Pulse Ox 98 02/16/24 13:28 O2 Del Method Room Air 02/16/24 13:28 Course Vital Signs Vital signs: Vital Signs Temperature 98.4 F 02/16/24 13:28 Pulse Rate 84 02/16/24 13:28 Respiratory Rate 18 02/16/24 13:28 Blood Pressure 150/102 H 02/16/24 13:28 Pulse Oximetry 98 02/16/24 13:28 Oxygen Delivery Method Room Air 02/16/24 13:28 Temperature 98.4 F 02/16/24 13:28 Pulse Rate 84 02/16/24 13:28 Respiratory Rate 18 02/16/24 13:28 Blood Pressure 150/102 H 02/16/24 13:28 Pulse Oximetry 98 02/16/24 13:28 Oxygen Delivery Method Room Air 02/16/24 13:28 MDM - Back Pain/Injury MDM Narrative Medical decision making narrative: Patient with unremarkable lumbar spine x-rays, no bony point tenderness over the midline posterior cervical, thoracic or lumbar spine. He has no focal neurodeficits on exam. Exam is consistent with acute on chronic lumbar radiculopathy, lumbosacral strain. Patient placed on NSAIDs and muscle relaxants for home. He requests a work note for yesterday and today. Rest, ice, gentle stretching. Follow-up with PCP and return to the ER if symptoms change or worsen Medical Records Attestation: I reviewed the patient's medical records. Discharge Plan Discharge Stand Alone Forms: Portal Instructions Chief Complaint: Back Pain/Injury Clinical Impression: Lumbosacral strain Patient Disposition: Home, Self-Care Time of Disposition Decision: 15:03 Condition: Good Prescriptions / Home Meds: New ketorolac 10 mg tablet 10 mg PO TID PRN (Reason: pain) Qty: 10 0RF orphenadrine citrate 100 mg tablet extended release 100 mg PO BID PRN (Reason: muscle pain) Qty: 14 0RF No Action cyclobenzaprine 10 mg tablet 10 mg PO Q8H PRN (Reason: muscle spasm) Print Language: [place] Instructions: Low Back Strain (ED) Referrals: Johnna Barroso KEYBOARD ACTION ASSEMBLER [Primary Care Provider] - 1 week
[2024-02-16] MEDS: KETOROLAC TROMETHAMINE 10 MG TABLET PO (15:17)
[2024-02-16 15:18] VITALS: BP 163/78; PULSE 90; O2SAT 96
== END 2024-02-16 15:21 | disposition home or self-care (01) ==
PROVIDERS: Emergency Provider Emergency Medicine; PCP Nurse Practitioner
DX: S39.012A Strain of muscle, fascia and tendon of lower back, initial encounter (principal); X58.XXXA Exposure to other specified factors, initial encounter; Z87.891 Personal history of nicotine dependence
CPT/HCPCS: 72100; 99283

== ENCOUNTER 2024-04-01 20:58 | Emergency (ER) | payer SELFPAY ==
[2024-04-01 21:04] VITALS: BP 150/90; PULSE 78; TEMP 36.8; O2SAT 98; BMI 28.0
--- OUTSIDE RECORDS SUMMARY | 2024-04-01 21:10 | XMS_ITS | CCD ---
Author Organization [facility] Care Team Providers Care Casing Cleaner Name Role Phone Matt Mancera APRN, CNP Primary Care Provider MATT MATOS Primary Care Unavailable NE HANNA Attending Unavailable MISC, DR STEPHENS Attending Unavailable MISC, DR STEPHENS Consulting Unavailable MISC, DR STEPHENS Admitting Unavailable JIMMY Prakash Attending Provider Viv Campos Unavailable Tamar Prakash Unavailable DURGA Campos Attending Provider [phone] Tamar Prakash Attending Unavailable Tamar Prakash Admitting [...] Propensity to adverse reactions to drug 2 [facility] (7 sources) Orphenadrine; Translations: [ORPHENADRINE CITRATE] Drug Allergy 0 [facility] Medications Current Medications Medication Drug Class(es) [...] 07-28-2022 take 1 capsule by mo [facility] every eight hours Amoxicillin 500 MG 1 [...] / neomycin 3.5 mg/ml / polymyxin b 56451 unt/ml otic suspension (3 sources) Aminoglycoside Antibacterial, Polymyxin-class Antibacterial, Corticosteroid Start: 08-13-2022 Neomycin-Polymyx in-HC 3.5-13183-8 3 drops left ear Three times a [...] Translations: [Acute pharyngitis, unspecified] Onset: 05-28-2020 Resolved: 02-23-2024 Episodic Spondylosis; intervertebral disc disorders; other back problems (20 sources) Low back pain; Translations: [Lumbar back pain] Onset: 03-20-2015 03-20-2015 Episodic Results Test Name Value Interpretation Reference Range Facility Flow cytometry specialist re view Brayan (Unsp spec) [Interp]on 11-16-2023 FLOW CYTOMETRY TISSUE/FLUID, NON CSF/NON BAL SEE SEPARATE REPORT, REVIEWED BY PATHOLOGIST Normal [facility] IR BIOPSY LYMPH NODEon 11-15 IR [...] Cruz MD on 11/16/2023 11:01 AM Normal [facility] Surgical Pathologyon 024 Surgical Pathology Normal [facility] Comment on above: Result Comment: [facility] [employer] [facility] [address] [place] [address] Surgical Pathology Consultation Patient Name:MICH RODRIGUEZ JR.:1990 (Age: 33)Gender:MTaken:4Reported:11/18/2023hysician(s):Johnna Barroso CNP ([phone])Copy To:eDlano Cruz M.D. Rec. #:[id number]: #[id number] Final Pathologic Diagnosis Left groin lymph node, [...] CD5, CD7, CD10, CD19, CD20, CD23, CD45, [place], and Lambda. Immunophenotyping Comment: Immunophenotyping has been used in this diagnostic evaluation. This test was developed and its performance characteristics determined by the [employer] Department. It has not been [...] Out Ruben Jean MD Interpretation performed at [facility], [address] [place] [address], License number: [id number]. Clinical History Lymphadenopathy, inguinal R59.0. Gross Description Received in formalin labeled LITTLE, left groin BX are [place], focally erythematous, delicate soft tissue fragments, 0.6 x 0.4 x 0.1 cm in aggregate. The specimen is filtered and entirely submitted in a single cassette. (1, ns, [id number], m1) JG A separate soft tissue core is received in RPMI media and sent to flow cytometry for analysis. [facility]/11/16/2023 Specimen(s) Received Left groin lymph node Fee Codes(s): 1; 62661, 59266 US EXT NON-VASC LT LIMITEDon 11-05-2023 US [...] Hi Stover MD on 11/05/2023 12:[address] [facility] XR hand RT min 3V*on 023 XR hand RT min 3V* [facility] [place] [address] [place] [address] XRay Report Signed Patient: Mich Rodriguez MR#: [id number] : 1990 Acct:[id number] Age/Sex: 32 / M ADM Date: 12/03/22 [facility] Type: [facility] Attending Dr: Viv CALIXTO Copies to: [...] 12:25 PM Dictation Location: RADIO-PC-10 Transcribed By: SARWAT 12/03/22 1225 Dictated By: Christi Gray MD 12/03/22 1223 Signed By: 12/03/22 1225 Normal [facility] XR hand RT min 3V* [facility] [employer] Other XR hand RT min 3V* [facility] Other XR hand RT min 3V* [address] [place] [address] [employer] Other XR hand RT min 3V* [place] [address] [employer] Other XR hand RT min 3V* XRay Report [employer] Other XR hand RT min 3V* Signed [employer] Other XR hand RT min 3V* Patient: Mich Rodriguez MR#: [id number] [employer] Other XR hand RT min 3V* 4283 [employer] Other XR hand RT min 3V* : 1990 Acct:[id number] [employer] Other XR hand RT min 3V* Age/Sex: 32 / M ADM Date: 12/03/22 [employer] Other XR hand RT min 3V* Loc: X[facility]CLY Room: Type: REG [facility] [employer] Other XR hand RT min 3V* Attending Dr: Viv CALIXTO [employer] Other XR hand RT min 3V* Copies to: DURGA Arango [employer] Other XR hand RT min 3V* Ordering Provider: DURGA Arango [employer] Other XR hand RT min 3V* Date of Service: 12/03/22 [employer] Other XR hand RT min 3V* XR/XR hand RT min 3V*: RIGHT HAND SWELLING/PAIN [employer] Other XR hand RT min 3V* RIGHT HAND - 3 views [employer] Other XR hand RT min 3V* CLINICAL DATA: Right hand pain and swelling dorsally over the metacarpals for the past week. No [employer] Other XR hand RT min 3V* known injury. Nor [employer] Other XR hand RT min 3V* COMPARISON: None [employer] Other XR hand RT min 3V* AP, lateral and oblique views were obtained. There is no evidence of fracture or dislocation. No [employer] Other XR hand RT min 3V* prominent hypertrophy or joint space narrowing is seen. Mild dorsal soft tissue swelling is [employer] Other XR hand RT min 3V* present. [employer] Other XR hand RT min 3V* XR/XR hand RT min 3V* [employer] Other XR hand RT min 3V* IMPRESSION: [employer] Other XR hand RT min 3V* NO ACUTE BONY FINDINGS. [employer] Other XR hand RT min 3V* Impression dictated by: Christi Gray M.D.12/03/2022 12:25 PM [employer] Other XR hand RT min 3V* Dictation Location: [place] [address] [employer] Other XR hand RT min 3V* Transcribed By: SARWAT 12/03/22 1225 [employer] Other XR hand RT min 3V* Dictated By: Christi Gray MD 12/03/22 1223 [facility] Other XR hand RT min 3V* Signed By: [facility] Other XR hand RT min 3V* 12/03/[address] [facility] Other COVID + FLU Quick Testingon 09-01-2022 SARS-CoV-2 (COVID-19) RNA ABILIO+probe Ql (Unsp spec) Negative [facility] Other COVID + FLU Quick Testing Negative [facility] Other XR knee RT 4V*on 07-17-2022 XR knee RT 4V* [facility] [place] [address] [place] [address] XRay Report Signed Patient: Mich Rodriguez MR#: [id number] : 1990 Acct:[id number] Age/Sex: 31 / M ADM Date: 07/17/22 Loc: [facility] Room: Type: [facility] Attending Dr: Tamar MARUQEZ Copies to: TAMAR PRAKASH Ordering Provider: TAMAR [...] Brayan Mccormack M.D.07/17/2022 1:22 PM Dictation Location: [place] [address] Transcribed By: SARWAT 07/17/22 1322 Dictated By: Brayan Mccormack II, MD 07/17/22 1321 Signed By: 07/17/22 1322 Normal [facility] XR knee RT 4V* [facility] Other XR knee RT 4V* [facility] [employer] Other XR knee RT 4V* [address] [place] [address] [employer] Other XR knee RT 4V* [place] [address] No rt [employer] Other XR knee RT 4V* XRay Report [employer] Other XR knee RT 4V* Signed [employer] Other XR knee RT 4V* Patient: Mich Rodriguez MR#: [id number] [place] [employer] Other XR knee RT 4V* 83 [employer] Other XR knee RT 4V* : 1990 Acct:[id number] [employer] Other XR knee RT 4V* Age/Sex: 31 / M ADM Date: 07/17/22 [employer] Other XR knee RT 4V* Loc: X[facility]CLY Room: Type: [facility] [employer] Other XR knee RT 4V* Attending Dr: Tamar Prakash [facility] [employer] Other XR knee RT 4V* Copies to: TAMAR PRAKASH [facility] [employer] Other XR knee RT 4V* Ordering Provider: TAMAR PRAKASH WAFER FAB TECHNICIAN-C [employer] Other XR knee RT 4V* Date of Service: 07/17/22 [employer] Other XR knee RT 4V* XR/XR knee RT 4V*: Right anterior knee pain [employer] Other XR knee RT 4V* XR knee RT 4V* 07/17/2022 1:02 PM [employer] Other XR knee RT 4V* SIGNS AND SYMPTOMS: Right anterior knee pain [employer] Other XR knee RT 4V* PROTOCOL: Frontal, lateral, and oblique radiographs of the right knee [employer] Other XR knee RT 4V* COMPARISON: None [employer] Other XR knee RT 4V* FINDINGS: [employer] Other XR knee RT 4V* There is a linear radiopaque foreign body in the lateral soft tissues adjacent to the proximal [employer] Other XR knee RT 4V* fibula. The joint spaces are preserved. There is no fracture. No joint effusion. No soft tissue [employer] Other XR knee RT 4V* swelling. [employer] Other XR knee RT 4V* XR/XR knee RT 4V* [employer] Other XR knee RT 4V* IMPRESSION: [employer] Other XR knee RT 4V* No acute bony injury or significant degenerative change. [employer] Other XR knee RT 4V* fibula. [employer] Other XR knee RT 4V* Impression dictated by: Brayan Mccormack M.D.07/17/2022 1:22 PM [employer] Other XR knee RT 4V* Dictation Location: [place] [address] [employer] Other XR knee RT 4V* Transcribed By: SARWAT 07/17/22 1322 [employer] Other XR knee RT 4V* Dictated By: Brayan Mccormack II, MD 07/17/22 1321 [employer] Other XR knee RT 4V* Signed By: Ramírez allen [employer] Other XR knee RT 4V* 07/17/[address] [employer] [address] CERVICAL SPINE WO CONTRAS Ton [...] Clark Rhodes MD 01/21/22 Final result Normal [facility] CT HEAD WO CONTRASTon 2021 CT HEAD [...] Clark Rhodes MD 01/21/22 Final result Normal [facility] No Panel Informationon 01-21 No acute intracranial abnormality. No acute fracture or subluxation of cervical spine. Mild degenerative change C4-C5 and C5-C6. RECOMMENDATIONS: Unavailable [facility] RIS CONSOLIDATED EXAMINATION: CT OF THE [...] There is no prevertebral soft tissue swelling. [facility] Clark Zafar MD - 01/21/2022 EXAMINATION: CT [...] PROVIDED HISTORY: head injury, object fell from ' Decision Support Exception - unselect if not [...] degenerative change C4-C5 and C5-C6. RECOMMENDATIONS: Unavailable [facility] Phone: Radiology Study observation (narrative) [facility] Phone: No Panel InformationOrdered By: Clark Rhodes on 01-21-2022 [facility] Phone: Vital Signs Date Time Vital Sign Value Performing Clinician Faci norman 11-02-2023 10:59-0500 Body height 177.8 cm Johnna Barroso APRN-PULP HOUSE SUPERVISOR Work Phone: [facility] 11-02-2023 10:59-0500 Body mass index (BMI) [Ratio] 28.93 kg/m2 Johnna Barroso APRN-PULP HOUSE SUPERVISOR Work Phone: [facility] 11-02-2023 10:59-0500 Body temperature 98.6 [degF] Johnna Barroso WIRE TINNER-PULP HOUSE SUPERVISOR Work Phone: [facility] Richard Pauer - 3P [facility] 11-02-2023 10:59-0500 Body weight 91.44 kg Johnna Barroso WIRE TINNER-PULP HOUSE SUPERVISOR [facility] 11-02-2023 10:59-0500 Diastolic blood pressure 88 mm[Hg] Johnna Barroso WIRE TINNER-PULP HOUSE SUPERVISOR [facility] 11-02-2023 10:59-0500 Heart rate 81 /min Johnna Barroso WIRE TINNER-PULP HOUSE SUPERVISOR [facility] 11-02-2023 10:59-0500 Respiratory rate 20 /min Johnna Barroso WIRE TINNER-PULP HOUSE SUPERVISOR [facility] 11-02-2023 10:59-0500 SaO2% (BldA) [Mass fraction] 98 % Johnna Barroso WIRE TINNER-PULP HOUSE SUPERVISOR [facility] 11-02-2023 10:59-0500 Systolic blood pressure 146 mm[Hg] Johnna Barroso WIRE TINNER-PULP HOUSE SUPERVISOR [facility] 12-03-2022 12:35-0400 Body height 177.8 cm Viv Campos Other [employer] Other 12-03-2022 12:35-0400 Body mass index (BMI) [Ratio] 30.13 kg/m2 Viv Campos Other [employer] Other 12-03-2022 12:35-0400 Body temperature 100 [degF] Viv Campos Other [employer] Other 12-03-2022 12:35-0400 Body weight 95.26 kg Viv Beth Other [employer] Other 12-03-2022 12:35-0400 Diastolic blood pressure 89 mm[Hg] Viv Beth Other [employer] Other 12-03-2022 12:35-0400 Respiratory rate 18 /min Viv Beth Other [employer] Other 12-03-2022 12:35-0400 SaO2% (BldA) [Mass fraction] 96 % Viv Beth Other [employer] Other 12-03-2022 12:35-0400 Systolic blood pressure 151 mm[Hg] Viv Beth Other [employer] Other 09-01-2022 12:15-0500 Body height 177.8 cm Viv Beth Other [employer] Other 09-01-2022 12:15-0500 Body mass index (BMI) [Ratio] 30.13 kg/m2 Viv Beth Other [employer] Other 09-01-2022 12:15-0500 Body temperature 97.9 [degF] Viv Beth Other [employer] Other 09-01-2022 12:15-0500 Body weight 95.26 kg Viv Beth Other [employer] Other 09-01-2022 12:15-0500 Diastolic blood pressure 93 mm[Hg] Viv Beth Other [employer] Other 09-01-2022 12:15-0500 Respiratory rate 18 /min Viv Beth Other [employer] Other 09-01-2022 12:15-0500 SaO2% (BldA) [Mass fraction] 100 % Viv Beth Other [employer] Other 09-01-2022 12:15-0500 Systolic blood pressure 157 mm[Hg] Viv Beth Other [employer] Other 08-13-2022 11:35-0500 Body height 177.8 cm Viv Beth Other [employer] Other 08-13-2022 11:35-0500 Body mass index (BMI) [Ratio] 30.13 kg/m2 Viv Beth Other [employer] Other 08-13-2022 11:35-0500 Body temperature 98.1 [degF] Viv Beth Other [employer] Other 08-13-2022 11:35-0500 Body weight 95.26 kg Viv Beth Other [employer] Other 08-13-2022 11:35-0500 Diastolic blood pressure 89 mm[Hg] Viv Beth Other [employer] Other 08-13-2022 11:35-0500 Respiratory rate 16 /min Viv Beth Other [employer] Other 08-13-2022 11:35-0500 SaO2% (BldA) [Mass fraction] 99 % Viv Beth Other [employer] Other 08-13-2022 11:35-0500 Systolic blood pressure 143 mm[Hg] Viv Campos Other [employer] Other 07-28-2022 11:35-0500 Body height 177.8 cm Viv Campos Other [employer] Other 07-28-2022 11:35-0500 Body mass index (BMI) [Ratio] 30.13 kg/m2 Viv Randallmond Other [employer] Other 07-28-2022 11:35-0500 Body temperature 97.9 [degF] Viv Campos Other [employer] Other 07-28-2022 11:35-0500 Body weight 95.26 kg Viv Campos Other [employer] Other 07-28-2022 11:35-0500 Diastolic blood pressure 83 mm[Hg] Viv Campos Other [employer] Other 07-28-2022 11:35-0500 Respiratory rate 18 /min Viv Campos Other [employer] Other 07-28-2022 11:35-0500 SaO2% (BldA) [Mass fraction] 96 % Viv Campos Other [employer] Other 07-28-2022 11:35-0500 Systolic blood pressure 126 mm[Hg] Viv Beth Other [employer] Other 07-17-2022 14:40-0400 Body height 177.8 cm Tamar Prakash Other [employer] Other 07-17-2022 14:40-0400 Body mass index (BMI) [Ratio] 30.13 kg/m2 Tamar Prakash Other [employer] Other 07-17-2022 14:40-0400 Body temperature 98 [degF] Tamar Prakash Other [employer] Other 07-17-2022 14:40-0400 Body weight 95.26 kg Tamar Prakash Other [employer] Other 07-17-2022 14:40-0400 Diastolic blood pressure 81 mm[Hg] Tamar Prakash Other [employer] Other 07-17-2022 14:40-0400 Respiratory rate 18 /min Tamar Prakash Other [employer] Other 07-17-2022 14:40-0400 SaO2% (BldA) [Mass fraction] 98 % Tamar Prakash Other [employer] Other 07-17-2022 14:40-0400 Systolic blood pressure 143 mm[Hg] Tamar Prakash Other [employer] Other 01-21-2022 12:29-0400 Body height 177.8 cm Ne Hanna MD [facility] 01-21-2022 12:29-0400 Body mass index (BMI) [Ratio] 30.85 kg/m2 Ne Hanna MD [facility] 01-21-2022 12:29-0400 Body temperature 98.8 [degF] Ne Hanna MD [facility] 01-21-2022 12:29-0400 Body weight 97.52 kg Ne Hanna MD [facility] 01-21-2022 12:29-0400 Diastolic blood pressure 91 mm[Hg] Ne Hanna MD [facility] 01-21-2022 12:29-0400 Heart rate 82 /min Ne Hanna MD [facility] 01-21-2022 12:29-0400 Respiratory rate 18 /min Ne Hanna MD [facility] 01-21-2022 12:29-0400 SaO2% (BldA) [Mass fraction] 98 % Ne Hanna MD [facility] 01-21-2022 12:29-0400 Systolic blood pressure 155 mm[Hg] Ne Hanna MD [facility] Encounters Encounter Date Encounter Type Care Provider Facility Start: 11-24-2023 Telephone encounter Zulma Pagan MA [facility] Start: 11-16-2023 End: 11-17-2023 Refill Johnna Barroso WIRE TINNER-PULP HOUSE SUPERVISOR Work Phone: [facility] Comment on above: Infection of eczemat ous skin Start: 11-06-2023 Orders Only Johnna martin WIRE TINNER-PULP HOUSE SUPERVISOR Work Phone: [facility] Comment on above: Lymphadenopathy, ing uinal (Primary Dx) Start: 11-03-2023 End: 11-04-2023 ambulatory [facility] Start: 11-02-2023 End: 11-02-2023 ambulatory [facility] Start: 11-02-2023 End: 11-02-2023 Office outpatient visit 15 minutes Johnna Barroso WIRE TINNER-PULP HOUSE SUPERVISOR Work Phone: [facility] Comment on above: Lymphadenopathy, ing uinal (Primary Dx); Lumbar back pain; Lumbar radiculopathy Start: 12-03-2022 Office outpatient vi sit 15 minutes Viv Campos [facility] Start: 12-03-2022 End: 12-03-2022 ambulatory Viv Campos Facility:[facility] Start: 12-03-2022 End: 12-03-2022 ambulatory ORE PUNCHER-C Viv Campos Work Phone: [facility] Work Phone: Start: 12-03-2022 End: 12-03-2022 Patient encounter procedure ORE PUNCHER-C Viv Beth Work Phone: [facility] Work Phone: Start: 09-01-2022 End: 09-01-2022 ambulatory Viv Beth Other [employer] Other Start: 09-01-2022 Office outpatient vi sit 15 minutes Viv Beth [facility] Start: 08-13-2022 End: 08-13-2022 ambulatory Viv Beth Other [employer] Other Start: 08-13-2022 Office outpatient vi sit 15 minutes Viv Beth [facility] Start: 07-28-2022 End: 07-28-2022 ambulatory Viv Beth Other [employer] Other Start: 07-28-2022 Office outpatient vi sit 15 minutes Viv Beth [facility] Start: 07-17-2022 End: 07-17-2022 ambulatory Tamar Haylee Facility:[facility] Start: 07-17-2022 Office outpatient vi sit 15 minutes Tamar Haylee [facility] Start: 07-17-2022 End: 07-17-2022 ambulatory WAFER FAB TECHNICIAN-C Tamar Haylee Work Phone: [facility] Work Phone: Start: 07-17-2022 End: 07-17-2022 Patient encounter procedure WAFER FAB TECHNICIAN-C Tamar Haylee Work Phone: [facility] Start: 01-21-2022 End: 01-21-2022 Emergency department patient visit MATT MATOS [facility] Start: 01-21-2022 End: 01-21-2022 Emergency department patient visit Ne Hanna MD [facility] Comment on above: Closed head injury, initial encounter (Primary Dx); Laceration of scalp, initial encounter Start: 05-28-2020 End: 05-29-[address] STEPHENS [facility] Facility: Procedures Date Procedure Procedure Detail Performing Clinician Start: 11-02-2023 Adult depression screening assessment Johnna Soriasler WIRE TINNER-PULP HOUSE SUPERVISOR Work Phone: Start: 12-03-2022 Plain X-ray of right hand ORE PUNCHER-C Viv Campos Work Phone: Start: 07-17-2022 X-ray of right knee WAFER FAB TECHNICIAN -C Tamar Zelayaault Work Phone: Start: 01-21-2022 Ct cervical spine w/ o contrast material Yoni A Romp PA-C Work Phone: Start: 01-21-2022 Ct head/brain w/o contrast material Yoni A Romp PA-C Work Phone: Plan of Treatment Date Care Activity Detail Author Start: 01-22-2032 DTaP,Tdap and Td Vaccines (3 - Td or Tdap) DTaP,Tdap and Td Vaccines (3 - Td or Tdap) [facility] Start: 01-22-2032 DTaP/Tdap/Td vaccine (2 - Td or Tdap) DTaP/Tdap/Td vaccine (2 - Td or Tdap) [facility] Start: 11-02-2024 Adult BMI Screening Adult BMI Screen ing [facility] Start: 11-02-2024 Depression Screening Depression Scre ening [facility] Start: 11-02-2024 Tobacco Screening Tobacco Screening [facility] Start: 11-06-2023 End: 11-06-2024 US Guidance for core needle biopsy of Unspecified body region Ultrasound guidance intraoperative with Bx or Asp Imaging Routine Lymphadenopathy, inguinal Expected: 11/06/2023, Expires: 11/06/2024 [facility] Work Phone: Comment on above: Expected: 11/06/2023 , Expires: 11/06/2024 Start: 11-03-2023 Subsequent hospital visit by physician 11/03/2023 2:30 PM EST Hospital Encounter [facility] [address] [place] [id number] [facility] Start: 11-02-2023 End: 11-02-2024 US Extremity - left limited Ultrasound extremity non vascular limited left Imaging Routine Lymphadenopathy, inguinal Expected: 11/02/2023, Expires: 11/02/2024 [facility] Work Phone: Comment on above: Expected: 11/02/2023 , Expires: 11/02/2024 Start: 05-15-2023 Influenza vaccination Influenza Vacc ine [facility] Start: 05-15-2022 Influenza vaccination Flu vacc ine (Season Ended) [facility] Start: 2006 Adult BMI Follow Up Plan Adult BMI Follow Up Plan [facility] Start: 2006 Hepatitis C screening Hepatitis C sc reen [facility] Start: 2003 HIV screening HIV screen [facility] Start: 2000 Depression Screen Depression Screen [facility] Start: 1993 COVID-19 Vaccine (1) COVID-19 Vaccin e (1) [facility] Start: 1989 Varicella vaccine (1 of 2 - 2-dose childhood series) Varicella vaccine (1 of 2 - 2-dose childhood series) [facility] Immunizations Immunization Date Immunization Notes Care Provider Avinash walsh 01-21-2022 tetanus toxoid, reduced diphtheria toxoid, and acellular pertussis vaccine, adsorbed Ne Hanna MD [facility] Work Phone: 04-04-2019 tetanus and diphtheria toxoids, adsorbed, preservative free, for adult use (2 Lf of tetanus toxoid and 2 Lf of diphtheria toxoid) Johnna Barroso WIRE TINNERStepsss Work Phone: [facility] 09-11-2014 influenza, seasonal, injectable, preservative free Johnna Barroso [employer] TINNERStepsss Work Phone: [facility] 09-11-2014 influenza virus vaccine, unspecified formulation Johnna Barroso W[employer] TINNERStepsss Work Phone: [facility] NEGATED: Highlighted row has not occurred!11-27-2021 influenza, injectable, quadrivalent, preservative free Johnna Barroso WIRE TINNER-PULP HOUSE SUPERVISOR Work Phone: [facility] Comment on above: Deferred: Patient de cision Payers Date Payer Category Payer Unknown BCBS [facility] HMO/PPO/TRUST [id number] 2023-Present [phone] [place] [address] [id number] 2023 Unknown [id number] 2022 Medicaid [id number] 2022 Self-pay 2022 Unknown [id number] 2022 Unknown [id number] 2022 Unknown [id number] 2021 Unknown [id number] 1988 Unknown [id number] 1988 Unknown [id number] 1988 Unknown [id number] 1988 Unknown [id number] 1988 Unknown [id number] 1959 Unknown [id number] 1959 Unknown [id number] Unknown [id number] Unknown [id number] Social History Date Type Detail Facility Start: 03-31-2014 End: 08-20-2022 Tobacco smoking status [facility]IS Ex-smoker [facility] Start: 03-31-2014 Tobacco use and exposure Smoke less tobacco non-user [facility] Phone: Start: 01-21-2022 Alcohol intake Current 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-dr 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 of alcohol (finding) [facility] Phone: Start: 11-26-2021 End: 01-21-2022 Alcohol intake [facility] Start: 03-31-2014 History SDOH [facility] Start: 1990 [facility] Start: 01-11-2022 End: 01-21-2022 Exposure to SARS-CoV-2 (event) Not sure [facility] Phone: Start: 1990 Sex Assigned At Male F [facility] Start: 11-26-2021 End: 11-02-2023 Sex Assigned At [facility] History of tobacco use [facility] Start: 08-20-2022 Tobacco use and exposure Forme r smokeless tobacco user [facility] End: 02-12-2018 History of tobacco use Chews Tobacco [facility] Start: 11-02-2023 Alcohol intake Ex-drinker (finding) [facility] How often do you att end yazidi or taoist services? Patient declined [facility] Do you belong to any clubs or organizations such as yazidi groups, unions, fraternal or athletic groups, or school groups? Yes [facility] Are you now , , , , never or living with a partner? [facility] How often to you hav e a drink containing alcohol? 2-3 time sa week [facility] How many standard dr inks containing alcohol do you have on a typical day? 5 or 6 [facility] How often do you hav e 6 or more drinks on 1 occasion? Monthly [facility] Do you feel stress - tense, restless, nervous, or anxious, or unable to sleep at night because your mind is troubled all the time - these days [OSQ] Rather much [facility] Start: 03-14-2019 Education 21 [facility] Clinical Notes 01-21-2022 to 11-24-2023 Telephone [...] know his results documented in this encounter [facility] 11-24-2023 Telephone encount er Note ----- Message from SERGE Mitchell sent at 11/24/2023 4:52 AM EDT ----- Biopsy was negative for malignancy, although I do recommend follow up in 6-8 weeks for continued assessment ----- Message ----- From: Interface - Lab Results/Orders In Sent: 11/18/2023 4:33 PM EDT To: [facility] 11-24-2023 Telephone encount er Note Called patient, no answer unable to leave a message [facility]23 Telephone encount er Note Patient called back into the office I did let him know his results [facility] 11-16-2023 Miscellaneous Notes Formattin g of this note might be different from the original. Patient presenting to front window requesting refill of Clobetasol 0.05% ointment. Pharmacy is [facility] in [place], [place]. documented in this encounter [facility]-16-2023 Telephone encount er Note Patient presenting to front window requesting refill of Clobetasol 0.05% ointment. Pharmacy is [facility] in [place], [place]. [facility] 11-06-2023 Miscellaneous Notes Formattin g of this [...] He stated understanding. documented in this encounter [facility] Richard Pauer - 3P [facility] 11-06-2023 Telephone encount er Note ----- Message from SERGE Mitchell sent at 11/06/2023 9:38 AM EST ----- Please let pt know that ultrasound was abnormal, radiology is recommending a biopsy. I will put in order and hospital will call him ----- Message ----- From: Interface - Rad Results/Orders In 1 Sent: 11/05/2023 12:44 PM EST To: SERGE Mitchell [facility] 11-06-2023 Telephone encount er Note Tried to call patient but no answer and could not leave a voicemail. [facility] Richard Pauer - 3P [facility] 11-06-2023 Telephone encount er Note Patient called back and I informed him. He stated understanding. [facility] 11-02-2023 History of Presen t illness [...] nursing note reviewed. Exam conducted with a tax collection coordinator present. Constitutional: Appearance: Normal appearance. HENT: Head: [...] Mitchell 11/02/23 1153 documented in this encounter [facility] 12-03-2022 Evaluation note Encounter Date Diagnosis Assessment [...] no improvement in 5 to 7 days. [facility] Other 12-19-2022 Evaluation note* Encounter Date Diagnosis [...] days. You may return to work tomorrow [facility] Other 11-30-2022 Evaluation note* Encounter Date Diagnosis [...] no improvement in 2 to 3 days. [facility] Other 11-14-2022 Evaluation note* Encounter Date Diagnosis [...] no improvement in 2 to 3 days [facility] Other 11-03-2022 Evaluation note* Encounter Date Diagnosis [...] will help you get into a specialist. [facility] Other 05-10-2022 Hospital Discharge instructions* Instructions* Yoni [...] sent through Care Everywhere. * Lacerations: Stitches (Thai) [facility] note* Diagnosis Closed head injury, initial encounter- Primary Laceration of scalp, initial encounter documented in this encounter [facility] [employer] Phone: evaluation noteNo assessment information available [facility] Work Phone: Evaluation note* Diagnosis Lymphadenopathy, inguinal- Primary Lumbar back pain Lumbago Lumbar radiculopathy Thoracic or lumbosacral neuritis or radiculitis, unspecified [facility]* Diagnosis Lymphadenopathy, inguinal- Primary [facility]* Diagnosis Infection of eczematous skin [facility] SystemHistory general Narrative - Reported* Type Description Date Medical History hypertension Medical History hypercholesterolemia Medical History acid reflux Surgical History shoulder surgery [facility] Other Instructions* Attachments The following attachments cannot be sent through Care Everywhere. 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 1247 (Given - Provid er: Aileen Wong LPN - Comment: top of head) Care Teams (unrecognized sec tion and content) Casing Cleaner Relationship Specialty Start Date End Date Matt Matos APRN - CNP PCP - General 11/03/18 Team Status: Inactive Member Role Status Dates JIMMY Chandra Attending Provider Active Team Status: Inactive Member Role Status Dates VIRGIL PakC Attending Provider Active Casing Cleaner Relationship Specialty Start Date End Date Johnna Barroso APRN-PIERRE [address], [place] [address] PCP - General Family Medicine 11/27/21 Casing Cleaner Relationship Specialty Start Date End Date Johnna Barroso APRN-PULP HOUSE SUPERVISOR [address], [place] [address] PCP - General Family Medicine 11/27/21 Casing Cleaner Relationship Specialty Start Date End Date DharmeshJohnna arshad KimberlySERGE [address], [place] [address] PCP - General Family Medicine 11/27/21 Casing Cleaner Relationship Specialty Start Date End Date DharmeshJohnna camacho APRN-CNP [address], [place] [address] PCP - General Family [facility] 11/27/21 (unrecognized sect ion and content) No Status Records FoundNo Status Records FoundNo Status Records FoundNo Status Records FoundNo Status Records Found INFORMATION SOURCE (unrecogn ized section and content) DATE CREATED AUTHOR 01/22/2022 [facility] DATE CREATED AUTHOR AUTHOR'S ORGANIZ ATION 06/20/2022 [facility] DATE CREATED AUTHOR AUTHOR'S ORGANIZ ATION 01/03/2023 [facility] DATE CREATED AUTHOR AUTHOR'S ORGANIZ ATION 11/03/2023 [facility] DATE CREATED AUTHOR AUTHOR'S ORGANIZ ATION 11/21/2023 [facility] Goals (unrecognized section and content) Goals may [...] BE BASED ON THE PRIMARY CLINICAL RECORDS. [facility] [employer] [facility]. provides no warranty or guarantee of the accuracy or completeness of information in this document.
--- NOTE | 2024-04-01 21:23 | ED_ITS ---
HPI HPI - General Adult General Chief complaint: Headache Stated complaint: HEADACHE Time Seen by Provider: 04/01/24 21:18 Source: patient Mode of arrival: walk-in Limitations: no limitations History of Present Illness HPI narrative: patient presents complaining of migraine headache. States typically will experience migraine once per month. Tries to sleep them off. Headache started today and is not resolving. No fever. Neck is sore as in the past. no ext. numbness or weakness. No nausea or vomiting. same headache as in the past Related Data Home Medications ?Medication ?Instructions ?Recorded ?Confirmed cyclobenzaprine 10 mg tablet 10 mg PO Q8H PRN muscle spasm 02/16/24 02/16/24 Previous Rx's ?Medication ?Instructions ?Recorded ketorolac 10 mg tablet 10 mg PO TID PRN pain #10 tabs 02/16/24 orphenadrine citrate 100 mg 100 mg PO BID PRN muscle pain #14 02/16/24 tablet,extended release tabs Allergies Allergy/AdvReac Type Severity Reaction Status Date / Time tree nut Allergy Intermediate Rash Verified 04/01/24 21:07 Opioid HPI Opioid Management Most Recent Opioid Data: Last Pain Scale 4 04/01/24 22:11 Review of Systems ROS Status of ROS 10 or more systems reviewed and unremark able except as noted in history and below PFSH PFS Social History Smoking status: Former smoker Exam Constitutional Vital Signs, click to edit/add: Last Vital Signs Temp 98.3 F 04/01/24 21:04 Pulse 80 04/01/24 22:15 Resp 18 04/01/24 22:15 BP 156/97 H 04/01/24 22:15 Pulse Ox 94 L 04/01/24 22:15 O2 Del Method Room Air 04/01/24 22:15 Common normals: no apparent distress, average body habitus, oriented x3, no limitations, healthy appearing, alert and well nourished [facility] Common normals: normocephalic and head/scalp atraumatic Eye Common normals: EOMs intact bilaterally, conjunctivae normal and no scleral icterus Respiratory Common normals: normal respiratory effort, no retractions, no use of accessory muscles and clear to auscultation bilaterally Cardio Common normals: regular rate, regular rhythm, S1 normal heart sound and S2 normal heart sound GI Common normals: Normal to inspection, nondistended, normoactive bowel sounds present, soft to palpation and non-tender Extremity Common normals: normal to inspection and full ROM Neuro Common normals: oriented x3, CN's II-XII intact bilaterally, moves all extremities and no focal motor deficits Psych Appearance: grossly normal Course Vital Signs Vital signs: Vital Signs Temperature 98.3 F 04/01/24 21:04 Pulse Rate 78 04/01/24 21:04 Respiratory Rate 16 04/01/24 21:04 Blood Pressure 150/90 H 04/01/24 21:04 Pulse Oximetry 98 04/01/24 21:04 Oxygen Delivery Method Room Air 04/01/24 21:04 Temperature 98.3 F 04/01/24 21:04 Pulse Rate 80 04/01/24 22:15 Respiratory Rate 18 04/01/24 22:15 Blood Pressure 156/97 H 04/01/24 22:15 Pulse Oximetry 94 L 04/01/24 22:15 Oxygen Delivery Method Room Air 04/01/24 22:15 Medical Decision Making MDM Narrative Medical decision making narrative: patient presents with his typical migraine. medicated in the department with R eglan, Toradol, norflex and benadryl. Is now feeling better and requesting to be discharged Discharge Plan Discharge Stand Alone Forms: Portal Instructions Chief Complaint: Headache Clinical Impression: Migraine Patient Disposition: Home, Self-Care Condition: Good Mode of Transportation: Private Vehicle Prescriptions / Home Meds: No Action cyclobenzaprine 10 mg tablet 10 mg PO Q8H PRN (Reason: muscle spasm) ketorolac 10 mg tablet 10 mg PO TID PRN (Reason: pain) Qty: 10 0RF orphenadrine citrate 100 mg tablet extended release 100 mg PO BID PRN (Reason: muscle pain) Qty: 14 0RF Print Language: Spanish Instructions: Migraine Headache (ED) Referrals: Johnna Barroso NP [Primary Care Provider] - 1 week Discharge Date/Time: 04/01/24 22:18
[2024-04-01] MEDS: METOCLOPRAMIDE HCL 10 MG TABLET PO (21:41)
[2024-04-01] MEDS: KETOROLAC TROMETHAMINE 60 MG/2 ML VIAL IM (21:41)
[2024-04-01] MEDS: ORPHENADRINE 60 MG/ 2 ML VIAL IM (21:42)
[2024-04-01] MEDS: DIPHENHYDRAMINE HCL 50 MG/ML VIAL IM (21:42)
[2024-04-01 22:15] VITALS: BP 156/97; PULSE 80; O2SAT 94
== END 2024-04-01 22:18 | disposition home or self-care (01) ==
PROVIDERS: Emergency Provider Internal Medicine; PCP Nurse Practitioner
DX: G43.909 Migraine, unspecified, not intractable, without status migrainosus (principal); Z87.891 Personal history of nicotine dependence
CPT/HCPCS: 96372; 99284; J1200; J1885; J2360

== ENCOUNTER 2024-04-12 15:54 | Emergency (ER) | payer SELFPAY ==
[2024-04-12 16:01] VITALS: BP 149/109; PULSE 70; TEMP 36.7; O2SAT 96; BMI 29.3
--- OUTSIDE RECORDS SUMMARY | 2024-04-12 16:03 | XMS_ITS | CCD ---
Author Organization [facility] Care Team Providers Care Clinical Laboratory Aide Name Role Phone Matt Mancera APRN, CNP [...] Campos Admitting Unavailable Viv Campos Attending Unavailable Johnan Caraballo Primary Care Provi sang JOHNNA BARROSO [...] Propensity to adverse reactions to drug 2 [facility] (7 sources) Orphenadrine; Translations: [ORPHENADRINE CITRATE] Drug Allergy 0 [facility] Medications Current Medications Medication [...] Start: 07-28-2022 take 1 capsule by mo [facility] every eight hours Amoxicillin 500 MG [...] / neomycin 3.5 mg/ml / polymyxin b 83229 unt/ml otic suspension (3 sources) Aminoglycoside Antibacterial, Polymyxin-class Antibacterial, Corticosteroid Start: 08-13-2022 Neomycin-Polymyx in-HC 3.5-54229-3 3 drops left ear Three times a [...] SEE SEPARATE REPORT, REVIEWED BY PATHOLOGIST Normal [facility] IR BIOPSY LYMPH NODEon 11-15 IR [...] Cruz MD on 11/16/2023 11:01 AM Normal [facility] Surgical Pathologyon 024 Surgical Pathology Normal [facility] Comment on above: Result Comment: [facility] [address] [place] [address] Surgical Pathology Consultation Patient Name:MICH RODRIGUEZ JR.:1990 (Age: 33)Gender:MTaken:4Reported:11/18/2023hysician(s):Johnna Barroso CNP ([phone])Copy To:Delano Cruz M.D. Rec. #:[id number]: #[id number] Final Pathologic Diagnosis Left groin lymph node, [...] CD5, CD7, CD10, CD19, CD20, CD23, CD45, [place], and Lambda. Immunophenotyping Comment: Immunophenotyping has been used in this diagnostic evaluation. This test was developed and its performance characteristics determined by the [facility] [facility] Department. It has not [...] Out Ruben Jean MD Interpretation performed at [facility], [address] [place] [address], License number: [id number]. Clinical History Lymphadenopathy, inguinal R59.0. Gross Description Received in formalin labeled LITTLE, left groin BX are parish-tur[place], focally erythematous, delicate soft tissue fragments, 0.6 x 0.4 x 0.1 cm in aggregate. The specimen is filtered and entirely submitted in a single cassette. (1, ns, [id number], m1) JG A separate soft tissue core is received in RPMI media and sent to flow cytometry for analysis. [facility]/11/16/2023 Specimen(s) Received Left groin lymph node Fee Codes(s): 1; 79334, 46562 US EXT NON-VASC LT LIMITEDon 11-05-2023 US [...] Hi Stover MD on 11/05/2023 12:42 PM [facility] XR hand RT min 3V*on 023 XR hand RT min 3V* [facility] Main [place] [address] [place] [address] XRay Report Signed Patient: Mich Rodriguez MR#: [id number] : 1990 Acct:[id number] Age/Sex: 32 / M ADM Date: 12/03/22 [facility] Attending Dr: Viv CALIXTO Copies to: DURGA [...] 12/03/22 1223 Signed By: 12/03/22 1225 Normal [facility] XR hand RT min 3V* [facility] [employer] Other XR hand RT min 3V* [facility] [employer] Other XR hand RT min 3V* [address] [place] [address] [employer] Other XR hand RT min 3V* [place] [address] [employer] Other XR hand RT min 3V* XRay Report [employer] Other XR hand RT min 3V* Signed [employer] Other XR hand RT min 3V* Patient: Mich Rodriguez MR#: [id number] [employer] Other XR hand RT min 3V* 4283 [employer] Other XR hand RT min 3V* : 1990 Acct:[id number] [employer] Other XR hand RT min 3V* Age/Sex: 32 / M ADM Date: 12/03/22 [employer] Other XR hand RT min 3V* Loc: XDUCLY Room: Type: REG CLI [employer] Other XR hand RT min 3V* Attending Dr: Viv CALIXTO [employer] Other XR hand RT min 3V* Copies to: DURGA Arango [employer] Other XR hand RT min 3V* Ordering Provider: DURGA Arango [employer] Other XR hand RT min 3V* Date of Service: 12/03/22 [employer] Other XR hand RT min 3V* XR/XR hand RT min 3V*: RIGHT HAND SWELLING/PAIN [employer] Other XR hand RT min 3V* RIGHT HAND - 3 views [employer] Other XR hand RT min 3V* CLINICAL DATA: Right hand pain and swelling dorsally over the metacarpals for the past week. No [employer] Other XR hand RT min 3V* known injury. Nor [employer] Other XR hand RT min 3V* COMPARISON: None [employer] Other XR hand RT min 3V* AP, lateral and oblique views were obtained. There is no evidence of fracture or dislocation. No [employer] Other XR hand RT min 3V* prominent hypertrophy or joint space narrowing is seen. Mild dorsal soft tissue swelling is [employer] Other XR hand RT min 3V* present. [employer] Other XR hand RT min 3V* XR/XR hand RT min 3V* [employer] Other XR hand RT min 3V* IMPRESSION: [employer] Other XR hand RT min 3V* NO ACUTE BONY FINDINGS. [employer] Other XR hand RT min 3V* Impression dictated by: Christi Gray M.D.12/03/2022 12:25 PM [employer] Other XR hand RT min 3V* Dictation Location: [place] [address] [employer] Other XR hand RT min 3V* Transcribed By: SARWAT 12/03/22 1225 [employer] Other XR hand RT min 3V* Dictated By: Christi Gray MD 12/03/22 1223 [facility] [employer] Other XR hand RT min 3V* Signed By: [facility] [employer] Other XR hand RT min 3V* 12/03/22 1225 [facility] [employer] Other COVID + FLU Quick Testingon 09-01-2022 SARS-CoV-2 (COVID-19) RNA ABILIO+probe Ql (Unsp spec) Negative [facility] [employer] Other COVID + FLU Quick Testing Negative [facility] [employer] Other XR knee RT 4V*on 07-17-2022 XR knee RT 4V* [facility] Main [place] [address] [place] [address] XRay Report Signed Patient: Mich Rodriguez MR#: [id number] : 1990 Acct:[id number] Age/Sex: 31 / M ADM Date: 07/17/22 Loc: XDUCLY Room: Type: [facility] Attending Dr: Tamar MARQUEZ Copies to: [...] Brayan Mccormack M.D.07/17/2022 1:22 PM Dictation Location: [place] [address] Transcribed By: SARWAT 07/17/22 1322 Dictated By: Brayan Mccormack II, MD 07/17/22 1321 Signed By: 07/17/22 1322 Normal [facility] XR knee RT 4V* [facility] [employer] Other XR knee RT 4V* [facility] [employer] Other XR knee RT 4V* [address] [place] [address] [employer] Other XR knee RT 4V* [place] [address] No rt [employer] Other XR knee RT 4V* XRay Report [employer] Other XR knee RT 4V* Signed [employer] Other XR knee RT 4V* Patient: Mich Rodriguez MR#: [id number] [place] [employer] Other XR knee RT 4V* 83 [employer] Other XR knee RT 4V* : 1990 Acct:[id number] [employer] Other XR knee RT 4V* Age/Sex: 31 / M ADM Date: 07/17/22 [employer] Other XR knee RT 4V* Loc: X[facility]CLY Room: Type: [facility] [employer] Other XR knee RT 4V* [facility]ash [facility] [employer] Other XR knee RT 4V* Copies to: TAMAR PRAKASH [facility] [employer] Other XR knee RT 4V* Ordering Provider: TAMAR PRAKASH ELECTRONIC PAGINATION SYSTEM OPERATOR-C [employer] Other XR knee RT 4V* Date of Service: 07/17/22 [employer] Other XR knee RT 4V* XR/XR knee RT 4V*: Right anterior knee pain [employer] Other XR knee RT 4V* XR knee RT 4V* 07/17/2022 1:02 PM [employer] Other XR knee RT 4V* SIGNS AND SYMPTOMS: Right anterior knee pain [employer] Other XR knee RT 4V* PROTOCOL: Frontal, lateral, and oblique radiographs of the right knee [employer] Other XR knee RT 4V* COMPARISON: None [employer] Other XR knee RT 4V* FINDINGS: [employer] Other XR knee RT 4V* There is a linear radiopaque foreign body in the lateral soft tissues adjacent to the proximal [employer] Other XR knee RT 4V* fibula. The joint spaces are preserved. There is no fracture. No joint effusion. No soft tissue [employer] Other XR knee RT 4V* swelling. [employer] Other XR knee RT 4V* XR/XR knee RT 4V* [employer] Other XR knee RT 4V* IMPRESSION: [employer] Other XR knee RT 4V* No acute bony injury or significant degenerative change. [employer] Other XR knee RT 4V* fibula. [employer] Other XR knee RT 4V* Impression dictated by: Brayan Mccormack M.D.07/17/2022 1:22 PM [employer] Other XR knee RT 4V* Dictation Location: [place] [address] [employer] Other XR knee RT 4V* Transcribed By: SARWAT 07/17/22 1322 [employer] Other XR knee RT 4V* Dictated By: Brayan Mccormack II, MD 07/17/22 1321 [employer] Other XR knee RT 4V* Signed By: Ramírez allen [employer] Other XR knee RT 4V* 07/17/[address] [employer] [address] CERVICAL SPINE WO CONTRAS Ton [...] Clark Rhodes MD 01/21/22 Final result Normal [facility] CT HEAD WO CONTRASTon 2021 CT [...] C4-C5 and C5-C6. RECOMMENDATIONS: Unavailable Interpreted by: Calrk Rhodes MD Signed by: Clark Rhodes MD 01/21/22 Final result Normal [facility] No Panel Informationon 01-21 No acute intracranial abnormality. No acute fracture or subluxation of cervical spine. Mild degenerative change C4-C5 and C5-C6. RECOMMENDATIONS: Unavailable [facility] RIS CONSOLIDATED [...] There is no prevertebral soft tissue swelling. [facility] Clark Zafar MD - 01/21/2022 EXAMINATION: CT [...] degenerative change C4-C5 and C5-C6. RECOMMENDATIONS: Unavailable [employer] Phone: Radiology Study observation (narrative) [facility] Phone: No Panel InformationOrdered By: Clark Rhodes on 01-21-2022 [employer] Phone: Vital Signs Date Time Vital Sign Value Performing Clinician [facility]i [facility] 11-02-2023 10:59-0500 Body height 177.8 cm Johnna Barroso APRN-LINE PATROLLER Work Phone: [employer] 11-02-2023 10:59-0500 Body mass index (BMI) [Ratio] 28.93 kg/m2 Johnna Barroso APRN-LINE PATROLLER Work Phone: [employer] 11-02-2023 10:59-0500 Body temperature 98.6 [degF] Johnna Barroso FOOD SERVICE STEWARD-LINE PATROLLER Work Phone: [facility] 11-02-2023 10:59-0500 Body weight 91.44 kg Johnna Barroso FOOD SERVICE STEWARD-LINE PATROLLER [facility] Phone[facility] 11-02-2023 10:59-0500 Diastolic blood pressure 88 mm[Hg] Johnna Barroso FOOD SERVICE STEWARD-LINE PATROLLER [facility] 11-02-2023 10:59-0500 Heart rate 81 /min Johnna Barroso FOOD SERVICE STEWARD-LINE PATROLLER [facility] 11-02-2023 10:59-0500 Respiratory rate 20 /min Johnna Barroso FOOD SERVICE STEWARD-LINE PATROLLER Work Phone[facility] 11-02-2023 10:59-0500 SaO2% (BldA) [Mass fraction] 98 % Johnna Barroso FOOD SERVICE STEWARD-LINE PATROLLER Work Phone: [facility] 11-02-2023 10:59-0500 Systolic blood pressure 146 mm[Hg] Johnna Barroso FOOD SERVICE STEWARD-LINE PATROLLER Work Phone: [facility] 12-03-2022 12:35-0400 Body height 177.8 cm Viv Campos Other [employer] Other 12-03-2022 12:35-0400 Body mass index (BMI) [Ratio] 30.13 kg/m2 Viv Campos Other [employer] Other 12-03-2022 12:35-0400 Body temperature 100 [degF] Viv Campos Other [employer] Other 12-03-2022 12:35-0400 Body weight 95.26 kg Viv Beth Other [employer] Other 12-03-2022 12:35-0400 Diastolic blood pressure 89 mm[Hg] Viv Beth Other [employer] Other 12-03-2022 12:35-0400 Respiratory rate 18 /min Viv Beth Other [employer] Other 12-03-2022 12:35-0400 SaO2% (BldA) [Mass fraction] 96 % Viv Beth Other [employer] Other 12-03-2022 12:35-0400 Systolic blood pressure 151 mm[Hg] Viv Beth Other [employer] Other 09-01-2022 12:15-0500 Body height 177.8 cm Viv Beth Other [employer] Other 09-01-2022 12:15-0500 Body mass index (BMI) [Ratio] 30.13 kg/m2 Viv Beth Other [employer] Other 09-01-2022 12:15-0500 Body temperature 97.9 [degF] Viv Beth Other [employer] Other 09-01-2022 12:15-0500 Body weight 95.26 kg Viv Beth Other [employer] Other 09-01-2022 12:15-0500 Diastolic blood pressure 93 mm[Hg] Viv Beth Other [employer] Other 09-01-2022 12:15-0500 Respiratory rate 18 /min Viv Beth Other [employer] Other 09-01-2022 12:15-0500 SaO2% (BldA) [Mass fraction] 100 % Viv Beth Other [employer] Other 09-01-2022 12:15-0500 Systolic blood pressure 157 mm[Hg] Viv Beth Other [employer] Other 08-13-2022 11:35-0500 Body height 177.8 cm Viv Beth Other [employer] Other 08-13-2022 11:35-0500 Body mass index (BMI) [Ratio] 30.13 kg/m2 Viv Beth Other [employer] Other 08-13-2022 11:35-0500 Body temperature 98.1 [degF] Viv Beth Other [employer] Other 08-13-2022 11:35-0500 Body weight 95.26 kg Viv Beth Other [employer] Other 08-13-2022 11:35-0500 Diastolic blood pressure 89 mm[Hg] Viv Beth Other [employer] Other 08-13-2022 11:35-0500 Respiratory rate 16 /min Viv Beth Other [employer] Other 08-13-2022 11:35-0500 SaO2% (BldA) [Mass fraction] 99 % Viv Beth Other [employer] Other 08-13-2022 11:35-0500 Systolic blood pressure 143 mm[Hg] Viv Campos Other [employer] Other 07-28-2022 11:35-0500 Body height 177.8 cm Viv Campos Other [employer] Other 07-28-2022 11:35-0500 Body mass index (BMI) [Ratio] 30.13 kg/m2 Viv Randallmond Other [employer] Other 07-28-2022 11:35-0500 Body temperature 97.9 [degF] Viv Campos Other [employer] Other 07-28-2022 11:35-0500 Body weight 95.26 kg Viv Campos Other [employer] Other 07-28-2022 11:35-0500 Diastolic blood pressure 83 mm[Hg] Viv Campos Other [employer] Other 07-28-2022 11:35-0500 Respiratory rate 18 /min Viv Campos Other [employer] Other 07-28-2022 11:35-0500 SaO2% (BldA) [Mass fraction] 96 % Viv Campos Other [employer] Other 07-28-2022 11:35-0500 Systolic blood pressure 126 mm[Hg] Viv Beth Other [employer] Other 07-17-2022 14:40-0400 Body height 177.8 cm Tamar Prakash Other [employer] Other 07-17-2022 14:40-0400 Body mass index (BMI) [Ratio] 30.13 kg/m2 Tamar Prakash Other [employer] Other 07-17-2022 14:40-0400 Body temperature 98 [degF] Tamar Prakash Other [employer] Other 07-17-2022 14:40-0400 Body weight 95.26 kg Tamar Prakash Other [employer] Other 07-17-2022 14:40-0400 Diastolic blood pressure 81 mm[Hg] Tamar Prakash Other [employer] Other 07-17-2022 14:40-0400 Respiratory rate 18 /min Tamar Prakash Other [employer] Other 07-17-2022 14:40-0400 SaO2% (BldA) [Mass fraction] 98 % Tamar Prakash Other [employer] Other 07-17-2022 14:40-0400 Systolic blood pressure 143 mm[Hg] Tamar Prakash Other [employer] Other 01-21-2022 12:29-0400 Body height 177.8 cm Ne Hanna MD [facility] 01-21-2022 12:29-0400 Body mass index (BMI) [Ratio] 30.85 kg/m2 Ne Hanna MD [facility] 01-21-2022 12:29-0400 Body temperature 98.8 [degF] Ne Hanna MD [facility] 01-21-2022 12:29-0400 Body weight 97.52 kg Ne Hanna MD [facility] 01-21-2022 12:29-0400 Diastolic blood pressure 91 mm[Hg] [...] Start: 11-16-2023 End: 11-17-2023 Refill Johnna Barroso FOOD SERVICE STEWARD-LINE PATROLLER Work Phone: [facility] Comment on above: Infection of eczemat ous skin Start: 11-06-2023 Orders Only Johnna martin FOOD SERVICE STEWARD-LINE PATROLLER Work Phone: [facility] Comment on above: Lymphadenopathy, ing uinal (Primary Dx) Start: 11-03-2023 End: 11-04-2023 ambulatory [facility] Start: 11-02-2023 End: 11-02-2023 ambulatory [facility] Start: 11-02-2023 End: 11-02-2023 Office outpatient visit 15 minutes Johnna Barroso FOOD SERVICE STEWARD-LINE PATROLLER Work Phone: [facility] Comment on above: Lymphadenopathy, ing uinal (Primary Dx); Lumbar back pain; Lumbar radiculopathy Start: 12-03-2022 Office outpatient vi sit 15 minutes Viv Campos [facility] Start: 12-03-2022 End: 12-03-2022 ambulatory Viv Campos Facility:[facility] Start: 12-03-2022 End: 12-03-2022 ambulatory IT PROJECT COORDINATOR-C Viv Campos Work Phone: [facility] Work Phone: Start: 12-03-2022 End: 12-03-2022 Patient encounter procedure IT PROJECT COORDINATOR-C Viv Beth Work Phone: [facility] Work Phone: Start: 09-01-2022 End: 09-01-2022 ambulatory Viv Beth Other [employer] Other Start: 09-01-2022 Office outpatient vi sit 15 minutes Viv Beth [facility] Start: 08-13-2022 End: 08-13-2022 ambulatory Viv Beth Other [employer] Other Start: 08-13-2022 Office outpatient vi sit 15 minutes Viv Beth [facility] Start: 07-28-2022 End: 07-28-2022 ambulatory Viv Beth Other [employer] Other Start: 07-28-2022 Office outpatient vi sit 15 minutes Viv Beth [facility] Start: 07-17-2022 End: 07-17-2022 ambulatory Tamar Haylee Facility:[facility] Start: 07-17-2022 Office outpatient vi sit 15 minutes Tamar Haylee [facility] Start: 07-17-2022 End: 07-17-2022 ambulatory ELECTRONIC PAGINATION SYSTEM OPERATOR-C Tamar Haylee Work Phone: [facility] Work Phone: Start: 07-17-2022 End: 07-17-2022 Patient encounter procedure ELECTRONIC PAGINATION SYSTEM OPERATOR-C Tamar Haylee Work Phone: [facility] Start: 01-21-2022 End: 01-21-2022 Emergency department patient visit MATT MATOS [facility] Start: 01-21-2022 End: 01-21-2022 Emergency department patient visit Ne Hanna [facility] Comment on above: Closed head injury, initial encounter (Primary Dx); Laceration of scalp, initial encounter Start: 05-28-2020 End: 05-29-[address] [facility] Facility: Procedures Date Procedure Procedure Detail Performing Clinician Start: 11-02-2023 Adult depression screening assessment Johnna Soriasler FOOD SERVICE STEWARD-LINE PATROLLER Work Phone: Start: 12-03-2022 Plain X-ray of right hand IT PROJECT COORDINATOR-C Viv Campos Work Phone: Start: 07-17-2022 X-ray of right knee ELECTRONIC PAGINATION SYSTEM OPERATOR -C Tamar Zelayaault Work Phone: Start: 01-21-2022 Ct cervical spine w/ o contrast material Yoni A Romp PA-C Work Phone: Start: 01-21-2022 Ct head/brain w/o contrast material Yoni A Romp PA-C Work Phone: Plan of Treatment Date Care Activity Detail Author Start: 01-22-2032 DTaP,Tdap and Td Vaccines (3 - Td or Tdap) DTaP,Tdap and Td Vaccines (3 - Td or Tdap) [facility] Start: 01-22-2032 DTaP/Tdap/Td vaccine (2 - Td or Tdap) DTaP/Tdap/Td vaccine (2 - Td or Tdap) [facility] Start: 11-02-2024 Adult BMI Screening Adult BMI Screen ing [facility] Start: 11-02-2024 Depression Screening Depression Scre ening [facility] Start: 11-02-2024 Tobacco Screening Tobacco Screening [facility] Start: 11-06-2023 End: 11-06-2024 US Guidance for core needle biopsy of Unspecified body region Ultrasound guidance intraoperative with Bx or Asp Imaging Routine Lymphadenopathy, inguinal Expected: 11/06/2023, Expires: 11/06/2024 [facility] Work Phone: Comment on above: Expected: 11/06/2023 , Expires: 11/06/2024 Start: 11-03-2023 Subsequent hospital visit by physician 11/03/2023 2:30 PM EST Hospital Encounter [facility] [address] [place] [id number] [facility] Start: 11-02-2023 End: 11-02-2024 US Extremity - left limited Ultrasound extremity non vascular limited left Imaging Routine Lymphadenopathy, inguinal Expected: 11/02/2023, Expires: 11/02/2024 [facility] Work Phone: Comment on above: Expected: 11/02/2023 , Expires: 11/02/2024 Start: 05-15-2023 Influenza vaccination Influenza Vacc ine [facility] Start: 05-15-2022 Influenza vaccination Flu vacc ine (Season Ended) [facility] Start: 2006 Adult BMI Follow Up Plan Adult BMI Follow Up Plan [facility] Start: 2006 Hepatitis C screening Hepatitis C sc reen [facility] Start: 2003 HIV screening HIV screen [facility] Start: 2000 Depression Screen Depression Screen [facility] [...] Ne Hanna MD [facility] Work Phone: 04-04-2019 tetanus and diphtheria toxoids, adsorbed, preservative free, for adult use (2 Lf of tetanus toxoid and 2 Lf of diphtheria toxoid) Johnna Barroso FOOD SERVICE STEWARDVidiowiki Work Phone: [facility] 09-11-2014 influenza, seasonal, injectable, preservative free Johnna Barroso [employer] SERVICE [employer]ARD[employer]owiki Work Phone: [facility] 09-11-2014 influenza virus vaccine, unspecified formulation Johnna Barroso FOOD SERVICE [employer]ARD[employer]owiki Work Phone: [facility] NEGATED: Highlighted row has not occurred!11-27-2021 influenza, injectable, quadrivalent, preservative free Johnna Barroso FOOD SERVICE STEWARD-LINE PATROLLER Work Phone: [facility] Comment on above: Deferred: Patient de cision Payers Date Payer Category Payer Unknown [facility] HMO/PPO/TRUST [id number] 2023-Present [phone] [address] [place] [address] [id number] 2023 Unknown [id number] 2022 Medicaid [id number] 2022 Self-pay 2022 Unknown [id number] 2022 Unknown [id number] 2022 Unknown [id number] 2021 Unknown [id number] 1988 Unknown [id number] 1988 Unknown [id number] 1988 Unknown [id number] 1988 Unknown [id number] 1988 Unknown [id number] 1959 Unknown [id number] 1959 Unknown [id number] Unknown [id number] Unknown [id number] Social History Date Type Detail Facility Start: 03-31-2014 End: 08-20-2022 Tobacco smoking status NHIS Ex-smoker [facility] Start: 03-31-2014 Tobacco use and exposure Smoke less tobacco non-user [employer] Phone: Start: 01-21-2022 Alcohol intake Current non-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 Start: 08-20-2022 Tobacco use and exposure Forme r smokeless tobacco user [facility] End: 02-12-2018 History of tobacco use Chews Tobacco [facility] Start: 11-02-2023 Alcohol intake Ex-drinker (finding) [facility] How often do you att end restorationism or congregational services? Patient declined [facility] Do you belong to any clubs or organizations such as restorationism groups, unions, fraternal or athletic groups, or school groups? Yes [facility] Are you now , , , , never or living with a partner? [facility] How often to you hav e a drink containing alcohol? 2-3 time sa week [facility] How many standard dr inks containing alcohol do you have on a typical day? 5 or 6 [facility] How often do you hav e 6 or more drinks on 1 occasion? Monthly [facility] Do you feel stress - tense, restless, nervous, or anxious, or unable to sleep at night because your mind is troubled all the time - these days [OSQ] Rather much [facility] Start: 03-14-2019 Education 21 [facility] Clinical Notes 01-21-2022 to 11-24-2023 Telephone [...] know his results documented in this encounter [facility] 11-24-2023 Telephone encount er Note ----- Message from SERGE Mitchell sent at 11/24/2023 4:52 AM EDT ----- Biopsy was negative for malignancy, although I do recommend follow up in 6-8 weeks for continued assessment ----- Message ----- From: Interface - Lab Results/Orders In Sent: 11/18/2023 4:33 PM EDT To: SERGE Mitchell [facility] 11-24-2023 Telephone encount er Note Called patient, no answer unable to leave a message [facility] 11-24-2023 Telephone encount er Note Patient called back into the office I did let him know his results [facility] 11-16-2023 Miscellaneous Notes Formattin g of this note might be different from the original. Patient presenting to front window requesting refill of Clobetasol 0.05% ointment. Pharmacy is [facility] in [place], [place]. documented in this encounter [facility] 11-16-2023 Telephone encount er Note Patient presenting to front window requesting refill of Clobetasol 0.05% ointment. Pharmacy is [facility] in [place], [place]. [facility] 11-06-2023 Miscellaneous Notes Formattin g of this [...] He stated understanding. documented in this encounter [facility] 11-06-2023 Telephone encount er Note ----- Message from SERGE Mitchell sent at 11/06/2023 9:38 AM EST ----- Please let pt know that ultrasound was abnormal, radiology is recommending a biopsy. I will put in order and hospital will call him ----- Message ----- From: Interface - Rad Results/Orders In 1 Sent: 11/05/2023 12:44 PM EST To: SERGE Mitchell [facility] 11-06-2023 Telephone encount er Note Tried to call patient but no answer and could not leave a voicemail. [facility] 11-06-2023 Telephone encount er Note Patient called back and I informed him. He stated understanding. [facility] 11-02-2023 History of Presen t illness [...] nursing note reviewed. Exam conducted with a nutrition internship present. Constitutional: Appearance: Normal appearance. HENT: Head: [...] Mitchell 11/02/23 1153 documented in this encounter [facility] 12-03-2022 Evaluation note Encounter Date Diagnosis Assessment [...] no improvement in 5 to 7 days. [facility] 12-19-2022 Evaluation note* Encounter Date Diagnosis [...] days. You may return to work tomorrow [facility] 11-30-2022 Evaluation note* Encounter Date Diagnosis [...] no improvement in 2 to 3 days. [facility] 11-14-2022 Evaluation note* Encounter Date Diagnosis [...] no improvement in 2 to 3 days [facility] 11-03-2022 Evaluation note* Encounter Date Diagnosis [...] will help you get into a specialist. [facility] 05-10-2022 Hospital Discharge instructions* Instructions* Yoni [...] * Lacerations: Stitches (Thai) [facility]* Diagnosis Closed head injury, initial encounter- Primary Laceration of scalp, initial encounter documented in this encounter [facility] Phone: evaluation noteNo assessment information available [facility] Work Phone: Evaluation note* Diagnosis Lymphadenopathy, inguinal- Primary Lumbar back pain Lumbago Lumbar radiculopathy Thoracic or lumbosacral neuritis or radiculitis, unspecified [facility] Diagnosis Lymphadenopathy, inguinal- Primary documented in this encounter [facility] Diagnosis Infection of eczematous skin documented in this encounter [facility] general Narrative - Reported* Type Description Date Medical History hypertension Medical History hypercholesterolemia Medical History acid reflux Surgical History shoulder surgery [facility] Other Instructions* Attachments The following attachments cannot be sent through Care Everywhere. 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 1247 (Given - Provid er: Aileen Wong LPN - Comment: top of head) Care Teams (unrecognized sec tion and content) Clinical Laboratory Aide Relationship Specialty Start Date End Date Matt Matos APRN - CNP PCP - General 11/03/18 Team Status: Inactive Member Role Status Dates JIMMY Chandra Attending Provider Active Team Status: Inactive Member Role Status Dates VIRGIL PakC Attending Provider Active Clinical Laboratory Aide Relationship Specialty Start Date End Date Johnna Barroso APRN-PIERRE [address], [place] [address] PCP - General Family Medicine 11/27/21 Clinical Laboratory Aide Relationship Specialty Start Date End Date Johnna Barroso APRN-LINE PATROLLER [address], [place] [address] PCP - General Family Medicine 11/27/21 Clinical Laboratory Aide Relationship Specialty Start Date End Date DharmeshJohnna arshad KimberlySERGE [address], [place] [address] PCP - General Family Medicine 11/27/21 Clinical Laboratory Aide Relationship Specialty Start Date End Date DharmeshJohnna camacho APRN-CNP [address], [place] [address] PCP - General Family [facility] 11/27/21 (unrecognized sect ion and content) No Status Records FoundNo Status Records FoundNo Status Records FoundNo Status Records FoundNo Status Records Found INFORMATION SOURCE (unrecogn ized section and content) DATE CREATED AUTHOR 01/22/2022 [facility] DATE CREATED AUTHOR AUTHOR'S ORGANIZ ATION 06/20/2022 [facility] DATE CREATED AUTHOR AUTHOR'S ORGANIZ ATION 01/03/2023 [facility] DATE CREATED AUTHOR AUTHOR'S ORGANIZ ATION 11/03/2023 [facility] DATE CREATED AUTHOR AUTHOR'S ORGANIZ ATION 11/21/2023 [facility] Goals (unrecognized section and content) Goals [...] BE BASED ON THE PRIMARY CLINICAL RECORDS. [facility]. provides no warranty or guarantee of the accuracy or completeness of information in this document.
--- NOTE | 2024-04-12 16:30 | ED_ITS ---
HPI - Ear Problem General Chief complaint: Ear Stated complaint: EARACHE Time Seen by Provider: 04/12/24 16:23 Source: patient Mode of arrival: walk-in Limitations: no limitations History of Present Illness HPI Narrative: 33-year-old male presents with chief complaint of right ear pain. He states he has had ear pain is worsening over the last 2 to 3 days. He has no external ear pain or pain behind the ear. Denies fevers or chills. He states he was taking leftover antibiotic but he continues to have pain. Denies any other ailment. Denies recent swimming. Related Data Home Medications ?Medication ?Instructions ?Recorded ?Confirmed cyclobenzaprine 10 mg tablet 10 mg PO Q8H PRN muscle spasm 02/16/24 02/16/24 Previous Rx's ?Medication ?Instructions ?Recorded ketorolac 10 mg tablet 10 mg PO TID PRN pain #10 tabs 02/16/24 orphenadrine citrate 100 mg 100 mg PO BID PRN muscle pain #14 02/16/24 tablet,extended release tabs amoxicillin 500 mg-potassium 1 tab PO BID #20 tabs 04/12/24 clavulanate 125 mg tablet (Augmentin) Allergies Allergy/AdvReac Type Severity Reaction Status Date / Time tree nut Allergy Intermediate Rash Verified 04/12/24 16:05 Review of Systems ROS Narrative All Systems are negative except as noted/marked.All systems reviewed and otherwise negative [facility] Social History Smoking status: Former smoker Exam Narrative Exam Narrative: Nurses note and vital signs reviewed and patient is not hypoxic. General: The patient appears well and in no apparent distress. Patient is resting comfortably on cart. Skin: Warm, dry, no pallor noted. There is no rash noted. Head: Normocephalic, atraumatic Eye: Normal conjunctiva, no drainage, EOMI. PERRL Ears, Nose, Mouth, and Throat: oral mucosa is moist. Nares patent. Mouth without vesicles. Ear canals patent. Tm's show mild erythema. pt has mild tenderness with manipulation of jaw as well consistent with TMJ Musculoskeletal: The patient has no evidence of calf tenderness, no pitting edema, symmetrical pulses noted bilaterally Neurological: A&O x4, normal speech Psychiatric: Cooperative Constitutional Vital Signs, click to edit/add: Last Vital Signs Temp 98.1 F 04/12/24 16:01 Pulse 70 04/12/24 16:01 Resp 18 04/12/24 16:01 BP 149/109 H 04/12/24 16:01 Pulse Ox 96 04/12/24 16:01 O2 Del Method Room Air 04/12/24 16:01 Course Vital Signs Vital signs: Vital Signs Temperature 98.1 F 04/12/24 16:01 Pulse Rate 70 04/12/24 16:01 Respiratory Rate 18 04/12/24 16:01 Blood Pressure 149/109 H 04/12/24 16:01 Pulse Oximetry 96 04/12/24 16:01 Oxygen Delivery Method Room Air 04/12/24 16:01 Temperature 98.1 F 04/12/24 16:01 Pulse Rate 70 04/12/24 16:01 Respiratory Rate 18 04/12/24 16:01 Blood Pressure 149/109 H 04/12/24 16:01 Pulse Oximetry 96 04/12/24 16:01 Oxygen Delivery Method Room Air 04/12/24 16:01 Medical Decision Making [facility] Narrative Medical decision making narrative: 33-year-old male who presented with emergency room chief complaint of right ear pain mild erythema noted to on the right no significant examination conclusion on the left for ear pain. He does have pain with manipulation of the jaw consistent with probable TMJ. Patient be discharged home with a prescription for antibiotics to continue and told use Aleve daily warm heat compress to the jaw. Follow-up with primary care physician or dentist. Patient agrees with plan of care peer Differential Diagnosis Differential Diagnosis: Otitis media, otitis externa, TMJ Medical Records Medical records reviewed: Yes I reviewed the patient's medical records Lab Data Lab results reviewed: Yes I reviewed the patient's lab results Discharge Plan Discharge Stand Alone Forms: Portal Instructions Chief Complaint: Ear Clinical Impression: Otitis media, TMJ arthralgia Patient Disposition: Home, Self-Care Time of Disposition Decision: 16:29 Condition: Good Prescriptions / Home Meds: New amoxicillin-pot clavulanate [Augmentin] 500-125 mg tablet 1 tab PO BID Qty: 20 0RF No Action cyclobenzaprine 10 mg tablet 10 mg PO Q8H PRN (Reason: muscle spasm) ketorolac 10 mg tablet 10 mg PO TID PRN (Reason: pain) Qty: 10 0RF orphenadrine citrate 100 mg tablet extended release 100 mg PO BID PRN (Reason: muscle pain) Qty: 14 0RF Print Language: Serbian Instructions: Ear Infection (ED) Referrals: Johnna Barroso REGISTERED MIDWIFE [Primary Care Provider] - 1 week
== END 2024-04-12 16:52 | disposition home or self-care (01) ==
PROVIDERS: Emergency Provider Emergency Medicine Emergency Medical Services; PCP Nurse Practitioner
DX: H66.91 Otitis media, unspecified, right ear (principal); M26.629 Arthralgia of temporomandibular joint, unspecified side; Z87.891 Personal history of nicotine dependence
CPT/HCPCS: 99283

== ENCOUNTER 2024-04-30 20:19 | Emergency (ER) | payer SELFPAY ==
--- OUTSIDE RECORDS SUMMARY | 2024-04-30 20:24 | XMS_ITS | CCD ---
Author Organization [facility] Care Team Providers Care Retail Operations Manager Name Role Phone Matt Mancera APRN, CNP Primary Care Provider MATT MATOS Primary Care Unavailable NE HANNA Attending Unavailable MISC, DR STEPHENS Attending Unavailable MISC, DR STEPHENS Consulting Unavailable MISC, DR STEPHENS Admitting Unavailable JIMMY Prakash Attending Provider Viv Campos Unavailable Tamar Prakash Unavailable DURGA Campos Attending Provider [phone] Tamar Prakash Attending Unavailable Tamar Prakash Admitting [...] Propensity to adverse reactions to drug 2 [facility] (7 sources) Orphenadrine; Translations: [ORPHENADRINE CITRATE] Drug Allergy 0 [facility] Medications Current Medications Medication Drug [...] / neomycin 3.5 mg/ml / polymyxin b 70507 unt/ml otic suspension (3 sources) Aminoglycoside Antibacterial, Polymyxin-class Antibacterial, Corticosteroid Start: 08-13-2022 Neomycin-Polymyx in-HC 3.5-62973-1 3 drops left ear Three times a [...] SEE SEPARATE REPORT, REVIEWED BY PATHOLOGIST Normal [facility] IR BIOPSY LYMPH NODEon 11-15 IR [...] Cruz MD on 11/16/2023 11:01 AM Normal [facility] Surgical Pathologyon 024 Surgical Pathology Normal [facility] Comment on above: Result Comment: [facility] [address] [place] [address] Surgical Pathology Consultation Patient Name:MICH RODRIGUEZ JR.:1990 (Age: 33)Gender:MTaken:4Reported:11/18/2023hysician(s):Johnna Barroso CNP ([phone])Copy To:Delano Cruz M.D. Rec. #:[id number]: #[id number] Final Pathologic Diagnosis Left groin lymph node, [...] CD5, CD7, CD10, CD19, CD20, CD23, CD45, [place], and Lambda. Immunophenotyping Comment: Immunophenotyping has been used in this diagnostic evaluation. This test was developed and its performance characteristics determined by the [facility] Department. It has not been [...] Out Ruben Jean MD Interpretation performed at [facility], [address] [place] [address], License number: [id number]. Clinical History Lymphadenopathy, inguinal R59.0. Gross Description Received in formalin labeled LITTLE, left groin BX are parish-tur[place], focally erythematous, delicate soft tissue fragments, 0.6 x 0.4 x 0.1 cm in aggregate. The specimen is filtered and entirely submitted in a single cassette. (1, ns, [id number], m1) JG A separate soft tissue core is received in RPMI media and sent to flow cytometry for analysis. [facility] [place]/11/16/2023 Specimen(s) Received Left groin lymph node Fee Codes(s): 1; 51811, 71216 US EXT NON-VASC LT LIMITEDon 11-05-2023 US [...] Hi Stover MD on 11/05/2023 12:42 PM [facility] XR hand RT min 3V*on 023 XR hand RT min 3V* [facility] [place] [address] [place] [address] XRay Report Signed Patient: Mich Rodriguez MR#: [id number] : 1990 Acct:[id number] Age/Sex: 32 / M ADM Date: 12/03/22 [facility] Type: [facility] Attending Dr: Viv CALIXTO Copies to: DURGA [...] 12/03/22 1223 Signed By: 12/03/22 1225 Normal [facility] XR hand RT min 3V* [facility] Other XR hand RT min 3V* [facility] Other XR hand RT min 3V* [address] [place] [address] [facility] Other XR hand RT min 3V* [place] [address] [facility] Other XR hand RT min 3V* XRay Report [facility] Other XR hand RT min 3V* Signed [facility] Other XR hand RT min 3V* Patient: Mich Rodriguez MR#: [id number] [facility] Other XR hand RT min 3V* 4283 [facility] Other XR hand RT min 3V* : 1990 Acct:[id number] [facility] Other XR hand RT min 3V* Age/Sex: 32 / M ADM Date: 12/03/22 [facility] Other XR hand RT min 3V* Loc: [facility] Room: Type: REG CLI [facility] Other XR hand RT min 3V* Attending Dr: Viv CALIXTO [facility] Other XR hand RT min 3V* Copies to: DURGA Arango [facility] Other XR hand RT min 3V* Ordering Provider: DURGA Arango [facility] Other XR hand RT min 3V* Date of Service: 12/03/22 [facility] Other XR hand RT min 3V* XR/XR hand RT min 3V*: RIGHT HAND SWELLING/PAIN [facility] Other XR hand RT min 3V* RIGHT HAND - 3 views [facility] Other XR hand RT min 3V* CLINICAL DATA: Right hand pain and swelling dorsally over the metacarpals for the past week. No [facility] Other XR hand RT min 3V* known injury. Nor [facility] Other XR hand RT min 3V* COMPARISON: None [facility] Other XR hand RT min 3V* AP, lateral and oblique views were obtained. There is no evidence of fracture or dislocation. No [facility] Other XR hand RT min 3V* prominent hypertrophy or joint space narrowing is seen. Mild dorsal soft tissue swelling is [facility] Other XR hand RT min 3V* present. [facility] Other XR hand RT min 3V* XR/XR hand RT min 3V* [facility] Other XR hand RT min 3V* IMPRESSION: [facility] Other XR hand RT min 3V* NO ACUTE BONY FINDINGS. [facility] Other XR hand RT min 3V* Impression dictated by: Christi Gray M.D.12/03/2022 12:25 PM [facility] Other XR hand RT min 3V* Dictation Location: [place] [address] [facility] Other XR hand RT min 3V* Transcribed By: SARWAT 12/03/22 1225 [facility] Other XR hand RT min 3V* Dictated By: Christi Gray MD 12/03/22 1223 [facility] Other XR hand RT min 3V* Signed By: [facility] Other XR hand RT min 3V* 12/03/22 1225 [facility] Other COVID + FLU Quick Testingon 09-01-2022 SARS-CoV-2 (COVID-19) RNA ABILIO+probe Ql (Unsp spec) Negative [facility] Other COVID + FLU Quick Testing Negative [facility] Other XR knee RT 4V*on 07-17-2022 XR knee RT 4V* [facility] [place] [address] [place] [address] XRay Report Signed Patient: Mich Rodriguez MR#: [id number] : 1990 Acct:[id number] Age/Sex: 31 / M ADM Date: 07/17/22 Loc: [facility] Room: Type: [facility] Attending Dr: Tamar MARQUEZ Copies to: TAMAR [...] Brayan Mccormack M.D.07/17/2022 1:22 PM Dictation Location: [place] [address] Transcribed By: SARWAT 07/17/22 1322 Dictated By: Brayan Mccormack II, MD 07/17/22 1321 Signed By: 07/17/22 1322 Normal [facility] XR knee RT 4V* [facility] Other XR knee RT 4V* [facility] [employer] Other XR knee RT 4V* [address] [place] [address] [employer] Other XR knee RT 4V* [place] [address] No rt [facility] Other XR knee RT 4V* XRay Report [facility] Other XR knee RT 4V* Signed [employer] Other XR knee RT 4V* Patient: Mich Rodriguez MR#: [id number] [place] [employer] Other XR knee RT 4V* 83 [employer] Other XR knee RT 4V* : 1990 Acct:[id number] [facility] Other XR knee RT 4V* Age/Sex: 31 / M ADM Date: 07/17/22 [facility] Other XR knee RT 4V* Loc: [facility] Room: Type: [facility] Other XR knee RT 4V* Attending Dr: Tamar Prakash [facility] Other XR knee RT 4V* Copies to: TAMAR PRAKASH [facility] Other XR knee RT 4V* Ordering Provider: TAMAR PRAKASH BARREL BURNER-C [facility] Other XR knee RT 4V* Date of Service: 07/17/22 [facility] Other XR knee RT 4V* XR/XR knee RT 4V*: Right anterior knee pain [facility] Other XR knee RT 4V* XR knee RT 4V* 07/17/2022 1:02 PM [facility] Other XR knee RT 4V* SIGNS AND SYMPTOMS: Right anterior knee pain [facility] Other XR knee RT 4V* PROTOCOL: Frontal, lateral, and oblique radiographs of the right knee [facility] Other XR knee RT 4V* COMPARISON: None [facility] Other XR knee RT 4V* FINDINGS: [employer] Other XR knee RT 4V* There is a linear radiopaque foreign body in the lateral soft tissues adjacent to the proximal [facility] Other XR knee RT 4V* fibula. The joint spaces are preserved. There is no fracture. No joint effusion. No soft tissue [facility] Other XR knee RT 4V* swelling. [employer] Other XR knee RT 4V* XR/XR knee RT 4V* [facility] Other XR knee RT 4V* IMPRESSION: [employer] Other XR knee RT 4V* No acute bony injury or significant degenerative change. [facility] Other XR knee RT 4V* fibula. [employer] Other XR knee RT 4V* Impression dictated by: Brayan Mccormack M.D.07/17/2022 1:22 PM [facility] Other XR knee RT 4V* Dictation Location: [place] [address] [facility] Other XR knee RT 4V* Transcribed By: SARWAT 07/17/22 1322 [facility] Other XR knee RT 4V* Dictated By: Brayan Mccormack II, MD 07/17/22 1321 [facility] Other XR knee RT 4V* Signed By: Ramírez allen [facility] Other XR knee RT 4V* 07/17/[address] [facility] [address] CERVICAL SPINE WO CONTRAS Ton [...] Clark Rhodes MD 01/21/22 Final result Normal [facility] CT HEAD WO CONTRASTon 2021 CT HEAD [...] Clark Rhodes MD 01/21/22 Final result Normal [facility] No Panel Informationon 01-21 No acute intracranial abnormality. No acute fracture or subluxation of cervical spine. Mild degenerative change C4-C5 and C5-C6. RECOMMENDATIONS: Unavailable [facility] RIS CONSOLIDATED EXAMINATION: CT OF THE [...] There is no prevertebral soft tissue swelling. [facility] Clark Zafar MD - 01/21/2022 EXAMINATION: [...] degenerative change C4-C5 and C5-C6. RECOMMENDATIONS: Unavailable [employer] Phone: Radiology Study observation (narrative) [employer] Phone: No Panel InformationOrdered By: Clark Rhodes on 01-21-2022 [employer] Phone: Vital Signs Date Time Vital Sign Value Performing Clinician [facility]i [facility] 11-02-2023 10:59-0500 Body height 177.8 cm Johnna Barroso APRN-THERMAL SURFACING MACHINE OPERATOR Work Phone: [employer] 11-02-2023 10:59-0500 Body mass index (BMI) [Ratio] 28.93 kg/m2 Johnna Barroso APRN-THERMAL SURFACING MACHINE OPERATOR Work Phone: [employer] 11-02-2023 10:59-0500 Body temperature 98.6 [degF] Johnna Barroso PLASTICS HEAT WELDER-THERMAL SURFACING MACHINE OPERATOR Work Phone: [facility] 11-02-2023 10:59-0500 Body weight 91.44 kg Johnna Barroso PLASTICS HEAT WELDER-THERMAL SURFACING MACHINE OPERATOR [facility] 11-02-2023 10:59-0500 Diastolic blood pressure 88 mm[Hg] Johnna Barroso PLASTICS HEAT WELDER-THERMAL SURFACING MACHINE OPERATOR [facility] 11-02-2023 10:59-0500 Heart rate 81 /min Johnna Barroso PLASTICS HEAT WELDER-THERMAL SURFACING MACHINE OPERATOR [facility] 11-02-2023 10:59-0500 Respiratory rate 20 /min Johnna Barroso PLASTICS HEAT WELDER-THERMAL SURFACING MACHINE OPERATOR [facility] 11-02-2023 10:59-0500 SaO2% (BldA) [Mass fraction] 98 % Johnna Barroso PLASTICS HEAT WELDER-THERMAL SURFACING MACHINE OPERATOR [facility] 11-02-2023 10:59-0500 Systolic blood pressure 146 mm[Hg] Johnna Barroso PLASTICS HEAT WELDER-THERMAL SURFACING MACHINE OPERATOR Work [facility] 12-03-2022 12:35-0400 Body height 177.8 cm Viv Campos Other [facility] Other 12-03-2022 12:35-0400 Body mass index (BMI) [Ratio] 30.13 kg/m2 Viv Campos Other [facility] Other 12-03-2022 12:35-0400 Body temperature 100 [degF] Viv Campos Other [facility] Other 12-03-2022 12:35-0400 Body weight 95.26 kg Viv Beth Other [facility] Other 12-03-2022 12:35-0400 Diastolic blood pressure 89 mm[Hg] Viv Beth Other [facility] Other 12-03-2022 12:35-0400 Respiratory rate 18 /min Viv Beth Other [facility] Other 12-03-2022 12:35-0400 SaO2% (BldA) [Mass fraction] 96 % Viv Beth Other [facility] Other 12-03-2022 12:35-0400 Systolic blood pressure 151 mm[Hg] Viv Beth Other [facility] Other 09-01-2022 12:15-0500 Body height 177.8 cm Viv Beth Other [facility] Other 09-01-2022 12:15-0500 Body mass index (BMI) [Ratio] 30.13 kg/m2 Viv Beth Other [facility] Other 09-01-2022 12:15-0500 Body temperature 97.9 [degF] Viv Beth Other [facility] Other 09-01-2022 12:15-0500 Body weight 95.26 kg Viv Beth Other [facility] Other 09-01-2022 12:15-0500 Diastolic blood pressure 93 mm[Hg] Viv Beth Other [facility] Other 09-01-2022 12:15-0500 Respiratory rate 18 /min Viv Beth Other [facility] Other 09-01-2022 12:15-0500 SaO2% (BldA) [Mass fraction] 100 % Viv Beth Other [facility] Other 09-01-2022 12:15-0500 Systolic blood pressure 157 mm[Hg] Viv Beth Other [facility] Other 08-13-2022 11:35-0500 Body height 177.8 cm Viv Beth Other [facility] Other 08-13-2022 11:35-0500 Body mass index (BMI) [Ratio] 30.13 kg/m2 Viv Beth Other [facility] Other 08-13-2022 11:35-0500 Body temperature 98.1 [degF] Viv Beth Other [facility] Other 08-13-2022 11:35-0500 Body weight 95.26 kg Viv Beth Other [facility] Other 08-13-2022 11:35-0500 Diastolic blood pressure 89 mm[Hg] Viv Beth Other [facility] Other 08-13-2022 11:35-0500 Respiratory rate 16 /min Viv Beth Other [facility] Other 08-13-2022 11:35-0500 SaO2% (BldA) [Mass fraction] 99 % Viv Beth Other [facility] Other 08-13-2022 11:35-0500 Systolic blood pressure 143 mm[Hg] Viv Campos Other [facility] Other 07-28-2022 11:35-0500 Body height 177.8 cm Viv Campos Other [facility] Other 07-28-2022 11:35-0500 Body mass index (BMI) [Ratio] 30.13 kg/m2 Viv Randallmond Other [facility] Other 07-28-2022 11:35-0500 Body temperature 97.9 [degF] Viv Campos Other [facility] Other 07-28-2022 11:35-0500 Body weight 95.26 kg Viv Campos Other [facility] Other 07-28-2022 11:35-0500 Diastolic blood pressure 83 mm[Hg] Viv Campos Other [facility] Other 07-28-2022 11:35-0500 Respiratory rate 18 /min Viv Campos Other [facility] Other 07-28-2022 11:35-0500 SaO2% (BldA) [Mass fraction] 96 % Viv Campos Other [facility] Other 07-28-2022 11:35-0500 Systolic blood pressure 126 mm[Hg] Viv Beth Other [facility] Other 07-17-2022 14:40-0400 Body height 177.8 cm Tamar Prakash Other [facility] Other 07-17-2022 14:40-0400 Body mass index (BMI) [Ratio] 30.13 kg/m2 Tamar Prakash Other [facility] Other 07-17-2022 14:40-0400 Body temperature 98 [degF] Tamar Prakash Other [facility] Other 07-17-2022 14:40-0400 Body weight 95.26 kg Tamar Prakash Other [facility] Other 07-17-2022 14:40-0400 Diastolic blood pressure 81 mm[Hg] Tamar Prakash Other [facility] Other 07-17-2022 14:40-0400 Respiratory rate 18 /min Tamar Prakash Other [facility] Other 07-17-2022 14:40-0400 SaO2% (BldA) [Mass fraction] 98 % Tamar Prakash Other [facility] Other 07-17-2022 14:40-0400 Systolic blood pressure 143 mm[Hg] Tamar Prakash Other [facility] Other 01-21-2022 12:29-0400 Body height 177.8 cm Ne Hanna MD [facility] 01-21-2022 12:29-0400 Body mass index (BMI) [Ratio] 30.85 kg/m2 Ne Hanna MD [place] 01-21-2022 12:29-0400 Body temperature 98.8 [degF] Ne Hanna MD [facility] 01-21-2022 12:29-0400 Body weight 97.52 kg Ne Hanna MD [place] 01-21-2022 12:29-0400 Diastolic blood pressure 91 mm[Hg] Ne Hanna MD [facility] 01-21-2022 12:29-0400 Heart rate 82 /min Ne Hanna MD [facility] 01-21-2022 12:29-0400 Respiratory rate 18 /min Ne Hanna MD [facility] 01-21-2022 12:29-0400 SaO2% (BldA) [Mass fraction] 98 % Ne Hanna MD [facility] 01-21-2022 12:29-0400 Systolic blood pressure 155 mm[Hg] Ne Hanna MD [facility] Encounters Encounter Date Encounter Type Care Provider Facility Start: 11-24-2023 Telephone encounter Zulma Pagan MA [facility] Start: 11-16-2023 End: 11-17-2023 Refill Johnna Barroso PLASTICS HEAT WELDER-THERMAL SURFACING MACHINE OPERATOR Work Phone: [facility] Comment on above: Infection of eczemat ous skin Start: 11-06-2023 Orders Only Johnna martin PLASTICS HEAT WELDER-THERMAL SURFACING MACHINE OPERATOR Work Phone: [facility] Comment on above: Lymphadenopathy, ing uinal (Primary Dx) Start: 11-03-2023 End: 11-04-2023 ambulatory [facility] Start: 11-02-2023 End: 11-02-2023 ambulatory [facility] Start: 11-02-2023 End: 11-02-2023 Office outpatient visit 15 minutes Johnna Barroso PLASTICS HEAT WELDER-THERMAL SURFACING MACHINE OPERATOR Work Phone: [facility] Comment on above: Lymphadenopathy, ing uinal (Primary Dx); Lumbar back pain; Lumbar radiculopathy Start: 12-03-2022 Office outpatient vi sit 15 minutes Viv Campos [facility] Start: 12-03-2022 End: 12-03-2022 ambulatory Viv Campos Facility:[facility] Start: 12-03-2022 End: 12-03-2022 ambulatory SKI MOLDER-C Viv Campos Work Phone: [facility] Work Phone: Start: 12-03-2022 End: 12-03-2022 Patient encounter procedure SKI MOLDER-C Viv Beth Work Phone: [facility] Work Phone: Start: 09-01-2022 End: 09-01-2022 ambulatory Viv Beth Other [facility] Other Start: 09-01-2022 Office outpatient vi sit 15 minutes Viv Beth [facility] Start: 08-13-2022 End: 08-13-2022 ambulatory Viv Beth Other [facility] Other Start: 08-13-2022 Office outpatient vi sit 15 minutes Viv Beth [facility] Start: 07-28-2022 End: 07-28-2022 ambulatory Viv Beth Other [facility] Other Start: 07-28-2022 Office outpatient vi sit 15 minutes Viv Beth [facility] Start: 07-17-2022 End: 07-17-2022 ambulatory Tamar Haylee Facility:[facility] Start: 07-17-2022 Office outpatient vi sit 15 minutes Tamar Haylee [facility] Start: 07-17-2022 End: 07-17-2022 ambulatory BARREL BURNER-C Tamar Haylee Work Phone: [facility] Work Phone: Start: 07-17-2022 End: 07-17-2022 Patient encounter procedure BARREL BURNER-C Tamar Haylee Work Phone: [facility] Start: 01-21-2022 End: 01-21-2022 Emergency department patient visit MATT MATOS [facility] Start: 01-21-2022 End: 01-21-2022 Emergency department patient visit [facility] Comment on above: Closed head injury, initial encounter (Primary Dx); Laceration of scalp, initial encounter Start: 05-28-2020 End: 05-29-[address] STEPHENS [facility] Facility: Procedures Date Procedure Procedure Detail Performing Clinician Start: 11-02-2023 Adult depression screening assessment Johnna Soriasler PLASTICS HEAT WELDER-THERMAL SURFACING MACHINE OPERATOR Work Phone: Start: 12-03-2022 Plain X-ray of right hand SKI MOLDER-C Viv Campos Work Phone: Start: 07-17-2022 X-ray of right knee BARREL BURNER -C Tamar Zelayaault Work Phone: Start: 01-21-2022 Ct cervical spine w/ o contrast material Yoni A Romp PA-C Work Phone: Start: 01-21-2022 Ct head/brain w/o contrast material Yoni A Romp PA-C Work Phone: Plan of Treatment Date Care Activity Detail Author Start: 01-22-2032 DTaP,Tdap and Td Vaccines (3 - Td or Tdap) DTaP,Tdap and Td Vaccines (3 - Td or Tdap) [facility] Start: 01-22-2032 DTaP/Tdap/Td vaccine (2 - Td or Tdap) DTaP/Tdap/Td vaccine (2 - Td or Tdap) [facility] Start: 11-02-2024 Adult BMI Screening Adult BMI Screen ing [facility] Start: 11-02-2024 Depression Screening Depression Scre ening [facility] Start: 11-02-2024 Tobacco Screening Tobacco Screening [facility] Start: 11-06-2023 End: 11-06-2024 US Guidance for core needle biopsy of Unspecified body region Ultrasound guidance intraoperative with Bx or Asp Imaging Routine Lymphadenopathy, inguinal Expected: 11/06/2023, Expires: 11/06/2024 [facility] Work Phone: Comment on above: Expected: 11/06/2023 , Expires: 11/06/2024 Start: 11-03-2023 Subsequent hospital visit by physician 11/03/2023 2:30 PM EST Hospital Encounter [facility] - Ultrasound [address] [place] [id number] [facility] - [facility]trasound Start: 11-02-2023 End: 11-02-2024 US Extremity - left limited Ultrasound extremity non vascular limited left Imaging Routine Lymphadenopathy, inguinal Expected: 11/02/2023, Expires: 11/02/2024 [facility] Work Phone: Comment on above: Expected: 11/02/2023 , Expires: 11/02/2024 Start: 05-15-2023 Influenza vaccination Influenza Vacc ine [facility] Start: 05-15-2022 Influenza vaccination Flu vacc ine (Season Ended) [facility] Start: 2006 Adult BMI Follow Up Plan Adult BMI Follow Up Plan [facility] Start: 2006 Hepatitis C screening Hepatitis C sc reen [facility] Start: 2003 HIV screening HIV screen [facility] Start: 2000 Depression Screen Depression Screen [facility] Start: 1993 COVID-19 Vaccine (1) COVID-19 Vaccin e (1) [facility] Start: 1989 Varicella vaccine (1 of 2 - 2-dose childhood series) Varicella vaccine (1 of 2 - 2-dose childhood series) [facility] Immunizations Immunization Date Immunization Notes Care Provider Avinash walsh 01-21-2022 tetanus toxoid, reduced diphtheria toxoid, and acellular pertussis vaccine, adsorbed Ne Hanna MD [facility] Work Phone: 04-04-2019 tetanus and diphtheria toxoids, adsorbed, preservative free, for adult use (2 Lf of tetanus toxoid and 2 Lf of diphtheria toxoid) Johnna Barroso [employer] Work Phone: [facility] 09-11-2014 influenza, seasonal, injectable, preservative free Johnna Barroso [employer] Work Phone: [facility] 09-11-2014 influenza virus vaccine, unspecified formulation Johnna Barroso [employer] Work Phone: [facility] NEGATED: Highlighted row has not occurred!11-27-2021 influenza, injectable, quadrivalent, preservative free Johnna Barroso PLASTICS HEAT WELDER-THERMAL SURFACING MACHINE OPERATOR Work Phone: [facility] Comment on above: Deferred: Patient de cision Payers Date Payer Category Payer Unknown BCBS [facility] HMO/PPO/TRUST [id number] 2023-Present [phone] [address] [place] [address] [id number] 2023 Unknown [id number] 2022 Medicaid [id number] 2022 Self-pay 2022 Unknown [id number] 2022 Unknown [id number] 2022 Unknown [id number] 2021 Unknown [id number] 1988 Unknown [id number] 1988 Unknown [id number] 1990 Unknown [id number] 1988 Unknown [id number] 1988 Unknown [id number] 1959 Unknown [id number] 1961 Unknown [id number] Unknown [id number] Unknown [id number] Social History Date Type Detail Facility Start: 03-31-2014 End: 08-20-2022 Tobacco smoking status NHIS Ex-smoker [facility] Start: 03-31-2014 Tobacco use and exposure Smoke less tobacco non-user [employer] Phone: Start: 01-21-2022 Alcohol intake 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 (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) [employer] Phone: Start: 11-26-2021 End: 01-21-2022 Alcohol intake [facility] Start: 03-31-2014 History SDOH [facility] Start: 1990 [facility]igned [facility] file [facility] Start: 01-11-2022 End: 01-21-2022 Exposure to SARS-CoV-2 (event) Not sure [employer] Phone: Start: 1990 Sex Assigned At Male F [facility] Start: 11-26-2021 End: 11-02-2023 Sex Assigned At [facility] History of tobacco use Current smoker [facility] Start: 08-20-2022 Tobacco use and exposure Forme r smokeless tobacco user [facility] End: 02-12-2018 History of tobacco use Chews Tobacco [facility] Start: 11-02-2023 Alcohol intake Ex-drinker (finding) [facility] How often do you att end muslim or orthodox services? Patient declined [facility] Do you belong to any clubs or organizations such as muslim groups, unions, fraternal or athletic groups, or school groups? Yes [facility] Are you now , , , , never or living with a partner? [facility] How often to you hav e a drink containing alcohol? 2-3 time sa week [facility] How many standard dr inks containing alcohol do you have on a typical day? 5 or 6 [facility] How often do you hav e 6 or more drinks on 1 occasion? Monthly [facility] Do you feel stress - tense, restless, nervous, or anxious, or unable to sleep at night because your mind is troubled all the time - these days [OSQ] Rather much [facility] Start: 03-14-2019 Education 21 [facility] Clinical Notes 01-21-2022 to 11-24-2023 Telephone [...] know his results documented in this encounter [facility] 11-24-2023 Telephone encount er Note ----- Message from SERGE Mitchell sent at 11/24/2023 4:52 AM EDT ----- Biopsy was negative for malignancy, although I do recommend follow up in 6-8 weeks for continued assessment ----- Message ----- From: Interface - Lab Results/Orders In Sent: 11/18/2023 4:33 PM EDT [facility]: [facility] 11-24-2023 Telephone encount er Note Called patient, no answer unable to leave a message [facility]23 Telephone encount er Note Patient called back into the office I did let him know his results [facility] 11-16-2023 Miscellaneous Notes Formattin g of this note might be different from the original. Patient presenting to front window requesting refill of Clobetasol 0.05% ointment. Pharmacy is [facility] in [place], [place]. documented [facility] this encounter [facility]23 Telephone encount er Note Patient presenting to front window requesting refill of Clobetasol 0.05% ointment. Pharmacy is [facility] in [place], [place]. [facility] 11-06-2023 Miscellaneous Notes Formattin g of this [...] He stated understanding. documented in this encounter [facility] 11-06-2023 Telephone encount er Note ----- Message from SERGE Mitchell sent at 11/06/2023 9:38 AM EST ----- Please let pt know that ultrasound was abnormal, radiology is recommending a biopsy. I will put in order and hospital will call him ----- Message ----- From: Interface - Rad Results/Orders In 1 Sent: 11/05/2023 12:44 PM EST To: SERGE Mitchell [facility] 11-06-2023 Telephone encount er Note Tried to call patient but no answer and could not leave a voicemail. [facility] 11-06-2023 Telephone encount er Note Patient called back and I informed him. He stated understanding. [facility] 11-02-2023 History of Presen t illness [...] nursing note reviewed. Exam conducted with a contract preparer present. Constitutional: Appearance: Normal appearance. HENT: Head: [...] Mitchell 11/02/23 1153 documented in this encounter [employer] 12-03-2022 Evaluation note Encounter Date Diagnosis Assessment [...] no improvement in 5 to 7 days. [facility] Other 12-19-2022 Evaluation note* Encounter Date Diagnosis [...] days. You may return to work tomorrow [facility] Other 11-30-2022 Evaluation note* Encounter Date Diagnosis [...] no improvement in 2 to 3 days. [facility] Other 11-14-2022 Evaluation note* Encounter Date Diagnosis [...] no improvement in 2 to 3 days [facility] Other 11-03-2022 Evaluation note* Encounter Date Diagnosis [...] will help you get into a specialist. [facility] Other 05-10-2022 Hospital Discharge instructions* Instructions* Yoni [...] sent through Care Everywhere. * Lacerations: Stitches (Irish) [facility]* Diagnosis Closed head injury, initial encounter- Primary Laceration of scalp, initial encounter documented in this encounter [facility] [employer] Phone: evaluation noteNo assessment information available [facility] Work Phone: Evaluation note* Diagnosis Lymphadenopathy, inguinal- Primary Lumbar back pain Lumbago Lumbar radiculopathy Thoracic or lumbosacral neuritis or radiculitis, unspecified [facility] Diagnosis Lymphadenopathy, inguinal- Primary [facility] Diagnosis Infection of eczematous skin [facility] Narrative - Reported* Type Description Date Medical History hypertension Medical History hypercholesterolemia Medical History acid reflux Surgical History shoulder surgery [facility] Other Instructions* Attachments The following attachments cannot be sent through Care Everywhere. * Lymphadenitis (Irish) [facility] System[facility]ructionsNot on file documented in [facility] System[facility]ructionsNot on file documented [facility] Advance Directives Documents on File Type Date Recorded Patient [employer] Expl anation ACP-Advance Directive ACP-Power of Concrete Hopper Operator Advance Directive Response Recorded Date/ Time [...] and content) Medication Order 01/19/2022 01/20/2022 01/21/2022 [id number] (LET) topical solution 3 mL syringe (COMPLETED) 3 mL, Topical, ONCE, On Thu01/21/22 at 1245, For 1 dose, Apply to laceration For Topical Use Only. 1247 (Given - Provid er: Aileen Wong LPN - Comment: top of head) Care Teams (unrecognized sec tion and content) Retail Operations Manager Relationship Specialty Start Date End Date Matt Matos APRN - CNP PCP - General 11/03/18 Team Status: Inactive Member Role Status Dates JIMMY Chandra Attending Provider Active Team Status: Inactive Member Role Status Dates VIRGIL PakC Attending Provider Active Retail Operations Manager Relationship Specialty Start Date End Date Johnna Barroso APRN-PIERRE [address], [place] [address] PCP - General Family Medicine 11/27/21 Retail Operations Manager Relationship Specialty Start Date End Date Johnna Barroso APRN-THERMAL SURFACING MACHINE OPERATOR [address], [place] [address] PCP - General Family Medicine 11/27/21 Retail Operations Manager Relationship Specialty Start Date End Date DharmeshJohnna arshad KimberlySERGE [address], [place] [address] PCP - General Family Medicine 11/27/21 Retail Operations Manager Relationship Specialty Start Date End Date DharmeshJohnna camacho APRN-CNP [address], [place] [address] PCP - General Family [facility] 11/27/21 (unrecognized sect ion and content) No Status Records FoundNo Status Records FoundNo Status Records FoundNo Status Records FoundNo Status Records Found INFORMATION SOURCE (unrecogn ized section and content) DATE CREATED AUTHOR 01/22/2022 [facility] DATE CREATED AUTHOR AUTHOR'S ORGANIZ ATION 06/20/2022 [facility] DATE CREATED AUTHOR AUTHOR'S ORGANIZ ATION 01/03/2023 [facility] DATE CREATED AUTHOR AUTHOR'S ORGANIZ ATION 11/03/2023 [facility] DATE CREATED AUTHOR AUTHOR'S ORGANIZ ATION 11/21/2023 [facility] Goals (unrecognized section and content) Goals [...] BE BASED ON THE PRIMARY CLINICAL RECORDS. [facility]. provides no warranty or guarantee of the accuracy or completeness of information in this document.
[2024-04-30 20:38] VITALS: BP 155/114; PULSE 96; TEMP 36.9; O2SAT 97; BMI 28.8
--- NOTE | 2024-04-30 20:47 | ED_ITS ---
Documented by User: MANE Canales 04/30/24 21:20 HPI HPI - General Adult General Chief complaint: Headache Stated complaint: MIGRAINE Time Seen by Provider: 04/30/24 20:35 Source: patient Mode of arrival: walk-in Limitations: no limitations History of Present Illness HPI narrative: Patient is a 33-year-old male who presents to the emergency department for headache worsening throughout the day today. He has a history of similar headaches. 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 He does have pain in the sides of the neck with radiation to the bilateral temples. He states his vision does get blurry and all of the symptoms are typical of his regular migraines. He denies any loss of vision, double vision, fevers or upper respiratory symptoms. He denies any new numbness or tingling to the extremities. He denies any trauma or falls. No medications taken prior to arrival Related Data Home Medications ?Medication ?Instructions ?Recorded ?Confirmed cyclobenzaprine 10 mg tablet 10 mg PO Q8H PRN muscle spasm 02/16/24 02/16/24 Previous Rx's ?Medication ?Instructions ?Recorded ketorolac 10 mg tablet 10 mg PO TID PRN pain #10 tabs 02/16/24 orphenadrine citrate 100 mg 100 mg PO BID PRN muscle pain #14 02/16/24 tablet,extended release tabs amoxicillin 500 mg-potassium 1 tab PO BID #20 tabs 04/12/24 clavulanate 125 mg tablet (Augmentin) Allergies Allergy/AdvReac Type Severity Reaction Status Date / Time tree nut Allergy Intermediate Rash Verified 04/30/24 20:42 Opioid HPI Opioid Management Most Recent Opioid Data: Last Pain Scale 7 04/30/24 20:46 Last ED Pain Assessment 04/30/24 20:46 Review of Systems ROS Constitutional Denies: fever or chills Eyes Reports: blurry vision Ears, nose, mouth, and throat Reports: neck pain; Denies: throat pain or nasal congestion Cardiovascular Denies: chest pain Respiratory Denies: shortness of breath or cough Gastrointestinal Denies: nausea or vomiting Musculoskeletal Reports: neck pain; Denies: back pain, extremity pain, extremity swelling or limited range of motion Integumentary/Breast Denies: rash Neurological Reports: headache; Denies: numbness in extremities or weakness in extremities Hematologic/Lymphatic Denies: easy bruising or easy bleeding PFSH [facility] Social History Smoking status: Former smoker Exam Narrative Exam Narrative: Gen.: Awake, alert, in no distress, sitting upright, speaking easily Head: Normocephalic, atraumatic ENT: Moist mucous membranes, no nuchal rigidity with diffuse minimal tenderness of the paraspinal muscles of the cervical spine. Pain with range of motion to lateral agcv-tq-[id number] motion. 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 Psych: Normal mood and affect Neuro: No focal neuro deficit Skin: Warm, dry, intact Constitutional Vital Signs, click to edit/add: Last Vital Signs Temp 98.5 F 04/30/24 20:38 Pulse 96 H 04/30/24 20:38 Resp 16 04/30/24 20:38 BP 150/93 H 04/30/24 21:21 Pulse Ox 97 04/30/24 20:38 O2 Del Method Room Air 04/30/24 20:38 Course Vital Signs Vital signs: Vital Signs Temperature 98.5 F 04/30/24 20:38 Pulse Rate 96 H 04/30/24 20:38 Respiratory Rate 16 04/30/24 20:38 Blood Pressure 155/114 H 04/30/24 20:38 Pulse Oximetry 97 04/30/24 20:38 Oxygen Delivery Method Room Air 04/30/24 20:38 Temperature 98.5 F 04/30/24 20:38 Pulse Rate 96 H 04/30/24 20:38 Respiratory Rate 16 04/30/24 20:38 Blood Pressure 150/93 H 04/30/24 21:21 Pulse Oximetry 97 04/30/24 20:38 Oxygen Delivery Method Room Air 04/30/24 20:38 Medical Decision Making [facility] Narrative Medical decision making narrative: 2119: Patient requested intramuscular injections over IV and medications. Norflex is unavailable so the patient was treated with Ativan as intramuscular Valium is apparently also unavailable. He was given Toradol, Reglan, Benadryl, Ativan intramuscular in the ER. Reevaluation pending by attending physician, case is turned over at this time Medical Records Medical records reviewed: Yes I reviewed the patient's medical records Discharge Plan Discharge Stand Alone Forms: Portal Instructions Chief Complaint: Headache Clinical Impression: Migraine, Tension headache Patient Disposition: Home, Self-Care Time of Disposition Decision: 21:25 Condition: Good Mode of Transportation: Private Vehicle Prescriptions / Home Meds: No Action amoxicillin-pot clavulanate [Augmentin] 500-125 mg tablet 1 tab PO BID Qty: 20 0RF cyclobenzaprine 10 mg tablet 10 mg PO Q8H PRN (Reason: muscle spasm) ketorolac 10 mg tablet 10 mg PO TID PRN (Reason: pain) Qty: 10 0RF orphenadrine citrate 100 mg tablet extended release 100 mg PO BID PRN (Reason: muscle pain) Qty: 14 0RF Print Language: Maltese Instructions: Migraine Headache (ED), Tension Headache (ED) Referrals: Johnna Barroso DOUBLE HEAD MACHINE OPERATOR [Primary Care Provider] - 1 week Documented by User: Kaz Duran MD 04/30/24 21:26 HPI HPI - General Adult General Chief complaint: Headache Stated complaint: MIGRAINE Time Seen by Provider: 04/30/24 20:35 Related Data Home Medications ?Medication ?Instructions ?Recorded ?Confirmed cyclobenzaprine 10 mg tablet 10 mg PO Q8H PRN muscle spasm 02/16/24 02/16/24 Previous Rx's ?Medication ?Instructions ?Recorded ketorolac 10 mg tablet 10 mg PO TID PRN pain #10 tabs 02/16/24 orphenadrine citrate 100 mg 100 mg PO BID PRN muscle pain #14 02/16/24 tablet,extended release tabs amoxicillin 500 mg-potassium 1 tab PO BID #20 tabs 04/12/24 clavulanate 125 mg tablet (Augmentin) Allergies Allergy/AdvReac Type Severity Reaction Status Date / Time tree nut Allergy Intermediate Rash Verified 04/30/24 20:42 Opioid HPI Opioid Management Most Recent Opioid Data: Last Pain Scale 7 04/30/24 20:46 Last ED Pain Assessment 04/30/24 20:46 PFSH PFSH Social History Smoking status: Former smoker Exam Constitutional Vital Signs, click to edit/add: Last Vital Signs Temp 98.5 F 04/30/24 20:38 Pulse 96 H 04/30/24 20:38 Resp 16 04/30/24 20:38 BP 150/93 H 04/30/24 21:21 Pulse Ox 97 04/30/24 20:38 O2 Del Method Room Air 04/30/24 20:38 Course Vital Signs Vital signs: Vital Signs Temperature 98.5 F 04/30/24 20:38 Pulse Rate 96 H 04/30/24 20:38 Respiratory Rate 16 04/30/24 20:38 Blood Pressure 155/114 H 04/30/24 20:38 Pulse Oximetry 97 04/30/24 20:38 Oxygen Delivery Method Room Air 04/30/24 20:38 Temperature 98.5 F 04/30/24 20:38 Pulse Rate 96 H 04/30/24 20:38 Respiratory Rate 16 04/30/24 20:38 Blood Pressure 150/93 H 04/30/24 21:21 Pulse Oximetry 97 04/30/24 20:38 Oxygen Delivery Method Room Air 04/30/24 20:38 Medical Decision Making MDM Narrative Medical decision making narrative: 2119: Patient requested intramuscular injections over IV and medications. Norflex is unavailable so the patient was treated with Ativan as intramuscular Valium is apparently also unavailable. He was given Toradol, Reglan, Benadryl, Ativan intramuscular in the ER. Reevaluation pending by attending physician, case is turned over at this time. JK 9:30pm the improved and blood pressure is improved and she is able to be discharged home. Differential Diagnosis Differential Diagnosis: Migraine headache, tension head Discharge Plan Discharge Stand Alone Forms: Portal Instructions Chief Complaint: Headache Clinical Impression: Migraine, Tension headache Patient Disposition: Home, Self-Care Time of Disposition Decision: 21:25 Condition: Good Mode of Transportation: Private Vehicle Prescriptions / Home Meds: No Action amoxicillin-pot clavulanate [Augmentin] 500-125 mg tablet 1 tab PO BID Qty: 20 0RF cyclobenzaprine 10 mg tablet 10 mg PO Q8H PRN (Reason: muscle spasm) ketorolac 10 mg tablet 10 mg PO TID PRN (Reason: pain) Qty: 10 0RF orphenadrine citrate 100 mg tablet extended release 100 mg PO BID PRN (Reason: muscle pain) Qty: 14 0RF Print Language: Maltese Instructions: Migraine Headache (ED), Tension Headache (ED) Referrals: Johnna Barroso DOUBLE HEAD MACHINE OPERATOR [Primary Care Provider] - 1 week
[2024-04-30] MEDS: METOCLOPRAMIDE HCL 10 MG/2 ML VIAL IM (20:54)
[2024-04-30] MEDS: LORAZEPAM 2 MG/ML VIAL 1 MG IM (20:54)
[2024-04-30] MEDS: KETOROLAC TROMETHAMINE 60 MG/2 ML VIAL IM (20:54)
[2024-04-30] MEDS: DIPHENHYDRAMINE HCL 50 MG/ML VIAL 25 MG IM (20:55)
[2024-04-30 21:21] VITALS: BP 150/93
== END 2024-04-30 21:53 | disposition home or self-care (01) ==
PROVIDERS: Emergency Provider Emergency Medicine; PCP Nurse Practitioner
DX: G43.909 Migraine, unspecified, not intractable, without status migrainosus (principal); G44.209 Tension-type headache, unspecified, not intractable; Z87.891 Personal history of nicotine dependence
CPT/HCPCS: 96372; 99284; J1200; J1885; J2060; J2765

== ENCOUNTER 2024-05-02 18:06 | Emergency (ER) | payer SELFPAY ==
[2024-05-02 18:10] VITALS: BP 183/98; PULSE 95; TEMP 36.9; O2SAT 99; BMI 28.8
--- OUTSIDE RECORDS SUMMARY | 2024-05-02 18:17 | XMS_ITS | CCD ---
Author Organization [facility] Care Team Providers Care [place] Name Role Phone Matt Mancera APRN, CNP Primary Care Provider MATT MATOS Primary Care Unavailable NE HANNA Attending Unavailable MISC, DR STEPHENS Attending Unavailable MISC, DR STEPHENS Consulting Unavailable MISC, DR STEPHENS Admitting Unavailable JIMMY Prakash Attending Provider [phone] Viv Campos Unavailable Tamar Prakash Unavailable DURGA Campos Attending Provider [phone] Tamar Prakash Attending Unavailable Tamar Prakash Admitting [...] Propensity to adverse reactions to drug 2 [facility] (7 sources) Orphenadrine; Translations: [ORPHENADRINE CITRATE] Drug Allergy 0 [facility] Medications Current Medications Medication Drug [...] Start: 07-28-2022 take 1 capsule by mo [facility] every eight hours Amoxicillin 500 MG 1 [...] / neomycin 3.5 mg/ml / polymyxin b 71988 unt/ml otic suspension (3 sources) Aminoglycoside Antibacterial, Polymyxin-class Antibacterial, Corticosteroid Start: 08-13-2022 Neomycin-Polymyx in-HC 3.5-62542-5 3 drops left ear Three times a [...] REPORT, REVIEWED BY PATHOLOGIST Normal [facility] IR BIOPSY LYMPH NODEon 11-15 IR [...] on 11/16/2023 11:01 AM Normal [facility] Surgical Pathologyon 024 Surgical Pathology Normal [facility] Comment on above: Result Comment: [facility] [address] [place] [address] Surgical Pathology Consultation Patient Name:MICH RODRIGUEZ JR.:1990 (Age: 33)Gender:MTaken:4Reported:11/18/2023hysician(s):Johnna Barroso CNP ([phone])Copy To:Delano Cruz M.D. Rec. #:[id number]: #[id number] Final Pathologic Diagnosis Left groin lymph node, [...] CD5, CD7, CD10, CD19, CD20, CD23, CD45, [place], and Lambda. Immunophenotyping Comment: Immunophenotyping has been used in this diagnostic evaluation. This test was developed and its performance characteristics determined by the [facility] Department. It has not been [...] Out Ruben Jean MD Interpretation performed at [facility], [address] [place] [address], License number: [id number]. Clinical History Lymphadenopathy, inguinal R59.0. Gross Description Received in formalin labeled LITTLE, left groin BX are [place], focally erythematous, delicate soft tissue fragments, 0.6 x 0.4 x 0.1 cm in aggregate. The specimen is filtered and entirely submitted in a single cassette. (1, ns, [id number], m1) JG A separate soft tissue core is received in RPMI media and sent to flow cytometry for analysis. [facility]/11/16/2023 Specimen(s) Received Left groin lymph node Fee Codes(s): 1; 90756, 69387 US EXT NON-VASC LT LIMITEDon 11-05-2023 US [...] Hi Stover MD on 11/05/2023 12:42 PM [facility] XR hand RT min 3V*on 023 XR hand RT min 3V* [facility] Main [place] [address] [place] [address] XRay Report Signed Patient: Mich Rodriguez MR#: [id number] : 1990 Acct:[id number] Age/Sex: 32 / M ADM Date: 12/03/22 [facility] Room: Type: [facility] Attending Dr: Viv CALIXTO Copies to: DURGA [...] 12/03/22 1223 Signed By: 12/03/22 1225 Normal [facility] XR hand RT min 3V* [facility] [employer] Other XR hand RT min 3V* [facility] [employer] Other XR hand RT min 3V* [address] [place] [address] [employer] Other XR hand RT min 3V* [place] [address] [employer] Other XR hand RT min 3V* XRay Report [employer] Other XR hand RT min 3V* Signed [employer] Other XR hand RT min 3V* Patient: Mich Rodriguez MR#: [id number] [employer] Other XR hand RT min 3V* 4283 [employer] Other XR hand RT min 3V* : 1990 Acct:[id number] [employer] Other XR hand RT min 3V* Age/Sex: 32 / M ADM Date: 12/03/22 [employer] Other XR hand RT min 3V* Loc: XDUCLY Room: Type: REG CLI [employer] Other XR hand RT min 3V* Attending Dr: Viv CALIXTO [employer] Other XR hand RT min 3V* Copies to: DURGA Arango [employer] Other XR hand RT min 3V* Ordering Provider: DURGA Arango [employer] Other XR hand RT min 3V* Date of Service: 12/03/22 [employer] Other XR hand RT min 3V* XR/XR hand RT min 3V*: RIGHT HAND SWELLING/PAIN [employer] Other XR hand RT min 3V* RIGHT HAND - 3 views [employer] Other XR hand RT min 3V* CLINICAL DATA: Right hand pain and swelling dorsally over the metacarpals for the past week. No [facility] Other XR hand RT min 3V* known injury. Nor [employer] Other XR hand RT min 3V* COMPARISON: None [employer] Other XR hand RT min 3V* AP, lateral and oblique views were obtained. There is no evidence of fracture or dislocation. No [employer] Other XR hand RT min 3V* prominent hypertrophy or joint space narrowing is seen. Mild dorsal soft tissue swelling is [employer] Other XR hand RT min 3V* present. [facility] Other XR hand RT min 3V* XR/XR hand RT min 3V* [employer] Other XR hand RT min 3V* IMPRESSION: [facility] Other XR hand RT min 3V* NO ACUTE BONY FINDINGS. [facility] Other XR hand RT min 3V* Impression dictated by: Christi Gray M.D.12/03/2022 12:25 PM [employer] Other XR hand RT min 3V* Dictation Location: [place] [address] [employer] Other XR hand RT min 3V* Transcribed By: SARWAT 12/03/22 1225 [employer] Other XR hand RT min 3V* Dictated By: Christi Gray MD 12/03/22 1223 [facility] [employer] Other XR hand RT min 3V* Signed By: [facility] [employer] Other XR hand RT min 3V* 12/03/22 1225 [facility] [employer] Other COVID + FLU Quick Testingon 09-01-2022 SARS-CoV-2 (COVID-19) RNA ABILIO+probe Ql (Unsp spec) Negative [facility] [employer] Other COVID + FLU Quick Testing Negative [facility] [employer] Other XR knee RT 4V*on 07-17-2022 XR knee RT 4V* [facility] [place] [address] [place] [address] XRay Report Signed Patient: Mich Rodriguez MR#: [id number] : 1990 Acct:[id number] Age/Sex: 31 / M ADM Date: 07/17/22 Loc: [facility]CL[facility] Room: Type: [facility] Attending Dr: Tamar MARQUEZ Copies to: TAMAR [...] Brayan Mccormack M.D.07/17/2022 1:22 PM Dictation Location: [place] [address] Transcribed By: SARWAT 07/17/22 1322 Dictated By: Brayan Mccormack II, MD 07/17/22 1321 Signed By: 07/17/22 1322 Normal [facility] XR knee RT 4V* [facility] [employer] Other XR knee RT 4V* [facility] [employer] Other XR knee RT 4V* [address] [place] [address] [employer] Other XR knee RT 4V* [place] [address] No rt [employer] Other XR knee RT 4V* XRay Report [employer] Other XR knee RT 4V* Signed [employer] Other XR knee RT 4V* Patient: Mich Rodriguez MR#: [id number] [place] [employer] Other XR knee RT 4V* 83 [employer] Other XR knee RT 4V* : 1990 Acct:[id number] [employer] Other XR knee RT 4V* Age/Sex: 31 / M ADM Date: 07/17/22 [employer] Other XR knee RT 4V* Loc: XDUCLY Room: Type: [facility] [employer] Other XR knee RT 4V* Attending Dr: [facility]rakash [facility] Other XR knee RT 4V* Copies to: TAMAR PRAKASH [facility] Other XR knee RT 4V* Ordering Provider: TAMAR PRAKASH BAKERY MACHINE MECHANIC-C [employer] Other XR knee RT 4V* Date of Service: 07/17/22 [employer] Other XR knee RT 4V* XR/XR knee RT 4V*: Right anterior knee pain [employer] Other XR knee RT 4V* XR knee RT 4V* 07/17/2022 1:02 PM [employer] Other XR knee RT 4V* SIGNS AND SYMPTOMS: Right anterior knee pain [employer] Other XR knee RT 4V* PROTOCOL: Frontal, lateral, and oblique radiographs of the right knee [employer] Other XR knee RT 4V* COMPARISON: None [employer] Other XR knee RT 4V* FINDINGS: [employer] Other XR knee RT 4V* There is a linear radiopaque foreign body in the lateral soft tissues adjacent to the proximal [employer] Other XR knee RT 4V* fibula. The joint spaces are preserved. There is no fracture. No joint effusion. No soft tissue [employer] Other XR knee RT 4V* swelling. [employer] Other XR knee RT 4V* XR/XR knee RT 4V* [employer] Other XR knee RT 4V* IMPRESSION: [employer] Other XR knee RT 4V* No acute bony injury or significant degenerative change. [employer] Other XR knee RT 4V* fibula. [employer] Other XR knee RT 4V* Impression dictated by: Brayan Mccormack M.D.07/17/2022 1:22 PM [employer] Other XR knee RT 4V* Dictation Location: [place] [address] [employer] Other XR knee RT 4V* Transcribed By: SARWAT 07/17/22 1322 [employer] Other XR knee RT 4V* Dictated By: Brayan Mccormack II, MD 07/17/22 1321 [employer] Other XR knee RT 4V* Signed By: Ramírez allen [employer] Other XR knee RT 4V* 07/17/[address] CERVICAL SPINE WO CONTRAS Ton [...] Clark Rhodes MD 01/21/22 Final result Normal [facility] CT HEAD WO CONTRASTon 2021 CT [...] Clark Rhodes MD 01/21/22 Final result Normal [facility] No Panel Informationon 01-21 No acute [...] degenerative change C4-C5 and C5-C6. RECOMMENDATIONS: Unavailable [employer] Phone: Radiology Study observation (narrative) [employer] Phone: No Panel InformationOrdered By: Clark Rhodes on 01-21-2022 [employer] Phone: Vital Signs Date Time Vital Sign Value Performing Clinician Faci [facility] 11-02-2023 10:59-0500 Body height 177.8 cm Johnna Barroso APRN-DIRECTOR [employer] Work Phone: [facility] 11-02-2023 10:59-0500 Body mass index (BMI) [Ratio] 28.93 kg/m2 Johnna Barroso APRN-DIRECTOR [employer] Work Phone: [facility] 11-02-2023 10:59-0500 Body temperature 98.6 [degF] Johnna Barroso [employer] ATTENDANT-DIRECTOR [employer] Work Phone: [facility] 11-02-2023 10:59-0500 Body weight 91.44 kg Johnna Barroso [employer] ATTENDANT-DIRECTOR [employer] [facility] 11-02-2023 10:59-0500 Diastolic blood pressure 88 mm[Hg] Johnna Barroso A[employer] ATTENDANT-DIRECTOR [employer]PAR[employer] Work Phone: [facility] 11-02-2023 10:59-0500 Heart rate 81 /min Johnna Barroso [employer] ATTENDANT-DIRECTOR [employer] Work Phone: [facility] 11-02-2023 10:59-0500 Respiratory rate 20 /min Johnna Barroso [employer] ATTENDANT-DIRECTOR [employer] Work Phone: [facility] 11-02-2023 10:59-0500 SaO2% (BldA) [Mass fraction] 98 % Johnna Barroso [employer] ATTENDANT-DIRECTOR [employer] Work Phone: [facility] 11-02-2023 10:59-0500 Systolic blood pressure 146 mm[Hg] Johnna Barroso [employer] ATTENDANT-DIRECTOR [employer] Work Phone: [facility] [place] 12-03-2022 12:35-0400 Body height 177.8 cm Viv Campos Other [employer] Other 12-03-2022 12:35-0400 Body mass index (BMI) [Ratio] 30.13 kg/m2 Viv Campos Other [employer] Other 12-03-2022 12:35-0400 Body temperature 100 [degF] Viv Campos Other [employer] Other 12-03-2022 12:35-0400 Body weight 95.26 kg Viv Beth Other [employer] Other 12-03-2022 12:35-0400 Diastolic blood pressure 89 mm[Hg] Viv Beth Other [employer] Other 12-03-2022 12:35-0400 Respiratory rate 18 /min Viv Beth Other [employer] Other 12-03-2022 12:35-0400 SaO2% (BldA) [Mass fraction] 96 % Viv Beth Other [employer] Other 12-03-2022 12:35-0400 Systolic blood pressure 151 mm[Hg] Viv Beth Other [employer] Other 09-01-2022 12:15-0500 Body height 177.8 cm Viv Beth Other [employer] Other 09-01-2022 12:15-0500 Body mass index (BMI) [Ratio] 30.13 kg/m2 Viv Beth Other [employer] Other 09-01-2022 12:15-0500 Body temperature 97.9 [degF] Viv Beth Other [employer] Other 09-01-2022 12:15-0500 Body weight 95.26 kg Viv Beth Other [employer] Other 09-01-2022 12:15-0500 Diastolic blood pressure 93 mm[Hg] Viv Beth Other [employer] Other 09-01-2022 12:15-0500 Respiratory rate 18 /min Viv Beth Other [employer] Other 09-01-2022 12:15-0500 SaO2% (BldA) [Mass fraction] 100 % Viv Beth Other [employer] Other 09-01-2022 12:15-0500 Systolic blood pressure 157 mm[Hg] Viv Beth Other [employer] Other 08-13-2022 11:35-0500 Body height 177.8 cm Viv Beth Other [employer] Other 08-13-2022 11:35-0500 Body mass index (BMI) [Ratio] 30.13 kg/m2 Viv Beth Other [employer] Other 08-13-2022 11:35-0500 Body temperature 98.1 [degF] Viv Beth Other [employer] Other 08-13-2022 11:35-0500 Body weight 95.26 kg Viv Beth Other [employer] Other 08-13-2022 11:35-0500 Diastolic blood pressure 89 mm[Hg] Viv Beth Other [employer] Other 08-13-2022 11:35-0500 Respiratory rate 16 /min Viv Beth Other [employer] Other 08-13-2022 11:35-0500 SaO2% (BldA) [Mass fraction] 99 % Viv Beth Other [employer] Other 08-13-2022 11:35-0500 Systolic blood pressure 143 mm[Hg] Viv Campos Other [employer] Other 07-28-2022 11:35-0500 Body height 177.8 cm Viv Campos Other [employer] Other 07-28-2022 11:35-0500 Body mass index (BMI) [Ratio] 30.13 kg/m2 Viv Randallmond Other [employer] Other 07-28-2022 11:35-0500 Body temperature 97.9 [degF] Viv Campos Other [employer] Other 07-28-2022 11:35-0500 Body weight 95.26 kg Viv Campos Other [employer] Other 07-28-2022 11:35-0500 Diastolic blood pressure 83 mm[Hg] Viv Campos Other [employer] Other 07-28-2022 11:35-0500 Respiratory rate 18 /min Viv Campos Other [employer] Other 07-28-2022 11:35-0500 SaO2% (BldA) [Mass fraction] 96 % Viv Campos Other [employer] Other 07-28-2022 11:35-0500 Systolic blood pressure 126 mm[Hg] Viv Beth Other [employer] Other 07-17-2022 14:40-0400 Body height 177.8 cm Tamar Prakash Other [employer] Other 07-17-2022 14:40-0400 Body mass index (BMI) [Ratio] 30.13 kg/m2 Tamar Prakash Other [employer] Other 07-17-2022 14:40-0400 Body temperature 98 [degF] Tamar Prakash Other [employer] Other 07-17-2022 14:40-0400 Body weight 95.26 kg Tamar Prakash Other [employer] Other 07-17-2022 14:40-0400 Diastolic blood pressure 81 mm[Hg] Tamar Prakash Other [employer] Other 07-17-2022 14:40-0400 Respiratory rate 18 /min Tamar Prakash Other [employer] Other 07-17-2022 14:40-0400 SaO2% (BldA) [Mass fraction] 98 % Tamar Prakash Other [employer] Other 07-17-2022 14:40-0400 Systolic blood pressure 143 mm[Hg] Tamar Prakash Other [employer] Other 01-21-2022 12:29-0400 Body height 177.8 cm Ne Hanna MD [facility] 01-21-2022 12:29-0400 Body mass index (BMI) [Ratio] 30.85 kg/m2 Ne Hanna MD [facility] 01-21-2022 12:29-0400 Body temperature 98.8 [degF] Ne Hanna MD [facility] 01-21-2022 12:29-0400 Body weight 97.52 kg Ne Hanna MD [facility] 01-21-2022 12:29-0400 Diastolic blood pressure 91 mm[Hg] Ne Hanna MD [facility] 01-21-2022 12:29-0400 Heart rate 82 /min Ne Hanna MD [facility] 01-21-2022 12:29-0400 Respiratory rate 18 /min Ne Hanna MD [facility] 01-21-2022 12:29-0400 SaO2% (BldA) [Mass fraction] 98 % Ne Hanna MD [facility] 01-21-2022 12:29-0400 Systolic blood pressure 155 mm[Hg] Ne Hanna MD [facility] Encounters Encounter Date Encounter Type Care Provider Facility Start: 11-24-2023 Telephone encounter Zulma Pagan MA [facility] Start: 11-16-2023 End: 11-17-2023 Refill Johnna Barroso [employer] ATTENDANT-DIRECTOR [employer] Work Phone: [facility] Comment on above: Infection of eczemat ous skin Start: 11-06-2023 Orders Only Johnna martin [employer] ATTENDANT-DIRECTOR [employer] Work Phone: [facility] Comment on above: Lymphadenopathy, ing uinal (Primary Dx) Start: 11-03-2023 End: 11-04-2023 ambulatory [facility] Start: 11-02-2023 End: 11-02-2023 ambulatory [facility] Start: 11-02-2023 End: 11-02-2023 Office outpatient visit 15 minutes Johnna Barroso [employer] ATTENDANT-DIRECTOR [employer] Work Phone: [facility] Comment on above: Lymphadenopathy, ing uinal (Primary Dx); Lumbar back pain; Lumbar radiculopathy Start: 12-03-2022 Office outpatient vi sit 15 minutes Viv Campos [facility] Start: 12-03-2022 End: 12-03-2022 ambulatory Viv Campos Facility:[facility] Start: 12-03-2022 End: 12-03-2022 ambulatory STRIP CATCHER-C Viv Campos Work Phone: [facility] Work Phone: Start: 12-03-2022 End: 12-03-2022 Patient encounter procedure STRIP CATCHER-C Viv Beth Work Phone: [facility] Work Phone: Start: 09-01-2022 End: 09-01-2022 ambulatory Viv Beth Other [facility] Other Start: 09-01-2022 Office outpatient vi sit 15 minutes Viv Beth [facility] Start: 08-13-2022 End: 08-13-2022 ambulatory Viv Beth Other [facility] Other Start: 08-13-2022 Office outpatient vi sit 15 minutes Viv Beth [facility] Start: 07-28-2022 End: 07-28-2022 ambulatory Viv Beth Other [facility] Other Start: 07-28-2022 Office outpatient vi sit 15 minutes Viv Beth [facility] Start: 07-17-2022 End: 07-17-2022 ambulatory Tamar Haylee Facility:[facility] Start: 07-17-2022 Office outpatient vi sit 15 minutes Tamar Haylee [facility] Start: 07-17-2022 End: 07-17-2022 ambulatory BAKERY MACHINE MECHANIC-C Tamar Haylee Work Phone: [facility] Work Phone: Start: 07-17-2022 End: 07-17-2022 Patient encounter procedure BAKERY MACHINE MECHANIC-C Tamar Haylee Work Phone: [facility] Start: 01-21-2022 End: 01-21-2022 Emergency department patient visit MATT MATOS [facility] Start: 01-21-2022 End: 01-21-2022 Emergency department patient visit Ne Hanna [facility] Comment on above: Closed head injury, initial encounter (Primary Dx); Laceration of scalp, initial encounter Start: 05-28-2020 End: 05-29-[address] [facility]PHENS [facility] Facility: Procedures Date Procedure Procedure Detail Performing Clinician Start: 11-02-2023 Adult depression screening assessment Johnna Soriasler [employer] ATTENDANT-DIRECTOR [employer] Work Phone: Start: 12-03-2022 Plain X-ray of right hand STRIP CATCHER-C Viv Campos Work Phone: Start: 07-17-2022 X-ray of right knee BAKERY MACHINE MECHANIC -C Tamar Zelayaault Work Phone: Start: 01-21-2022 Ct cervical spine w/ o contrast material Yoni A Romp PA-C Work Phone: Start: 01-21-2022 Ct head/brain w/o contrast material Yoni A Romp PA-C Work Phone: Plan of Treatment Date Care Activity Detail Author Start: 01-22-2032 DTaP,Tdap and Td Vaccines (3 - Td or Tdap) DTaP,Tdap and Td Vaccines (3 - Td or Tdap) [facility] Start: 01-22-2032 DTaP/Tdap/Td vaccine (2 - Td or Tdap) DTaP/Tdap/Td vaccine (2 - Td or Tdap) [facility] Start: 11-02-2024 Adult BMI Screening Adult BMI Screen ing [facility] Start: 11-02-2024 Depression Screening Depression Scre ening [facility] Start: 11-02-2024 Tobacco Screening Tobacco Screening [facility] Start: 11-06-2023 End: 11-06-2024 US Guidance for core needle biopsy of Unspecified body region Ultrasound guidance intraoperative with Bx or Asp Imaging Routine Lymphadenopathy, inguinal Expected: 11/06/2023, Expires: 11/06/2024 [facility] Work Phone: Comment on above: Expected: 11/06/2023 , Expires: 11/06/2024 Start: 11-03-2023 Subsequent hospital visit by physician 11/03/2023 2:30 PM EST Hospital Encounter [facility] - Ultrasound [address] [place] [id number] [facility] - Ultrasound Start: 11-02-2023 End: 11-02-2024 US Extremity - left limited Ultrasound extremity non vascular limited left Imaging Routine Lymphadenopathy, inguinal Expected: 11/02/2023, Expires: 11/02/2024 [facility] Work Phone: Comment on above: Expected: 11/02/2023 , Expires: 11/02/2024 Start: 05-15-2023 Influenza vaccination Influenza Vacc ine [facility] Start: 05-15-2022 Influenza vaccination Flu vacc ine (Season Ended) [facility] Start: 2006 Adult BMI Follow Up Plan Adult BMI Follow Up Plan [facility] Start: 2006 Hepatitis C screening Hepatitis C sc reen [facility] Start: 2003 HIV screening HIV screen [facility] Start: 2000 Depression Screen Depression Screen [facility] Start: 1993 COVID-19 Vaccine (1) COVID-19 Vaccin e (1) [facility] Start: 1989 Varicella vaccine (1 of 2 - 2-dose childhood series) Varicella vaccine (1 of 2 - 2-dose childhood series) [facility] Immunizations Immunization Date Immunization Notes Care Provider Avinash walsh 01-21-2022 tetanus toxoid, reduced diphtheria toxoid, and acellular pertussis vaccine, adsorbed Ne Hanna MD [facility] Work Phone: 04-04-2019 tetanus and diphtheria toxoids, adsorbed, preservative free, for adult use (2 Lf of tetanus toxoid and 2 Lf of diphtheria toxoid) Johnna Barroso [employer]ARIUM TANK ATTENDANTParagon [employer] Work Phone: [facility] 09-11-2014 influenza, seasonal, injectable, preservative free Johnna Barroso [employer]QUARIUM TANK ATTENDANTParagon [employer] Work Phone: [facility] 09-11-2014 influenza virus vaccine, unspecified formulation Johnna Barroso [employer]QUARIUM TANK ATTENDANTPar[employer] Work Phone: [facility] NEGATED: Highlighted row has not occurred!11-27-2021 influenza, injectable, quadrivalent, preservative free Johnna Barroso [employer] ATTENDANT-DIRECTOR [employer] Work Phone: [facility] Comment on above: Deferred: Patient de cision Payers Date Payer Category Payer Unknown BCBS [facility] HMO/PPO/TRUST [id number] 2023-Present [phone] [address] [place] [address] [id number] 2023 Unknown [id number] 2022 Medicaid [id number] 2022 Self-pay 2022 Unknown [id number] 2022 Unknown [id number] 2022 Unknown [id number] 2021 Unknown [id number] 1988 Unknown [id number] 1988 Unknown [id number] 1988 Unknown [id number] 1988 Unknown [id number] 1988 Unknown [id number] 1959 Unknown [id number] 1959 Unknown [id number] Unknown [id number] Unknown [id number] Social History Date Type Detail Facility Start: 03-31-2014 End: 08-20-2022 Tobacco smoking status NHIS Ex-smoker [facility] Start: 03-31-2014 Tobacco use and exposure Smoke less tobacco non-user [employer] Phone: Start: 01-21-2022 Alcohol intake Current non-dr dipper and baker of alcohol (finding) [employer] Phone: Start: 11-26-2021 End: 01-21-2022 Alcohol intake [facility] [employer] [facility] Start: 03-31-2014 History SDOH Alcohol Comment [facility]x [facility] Start: 1990 Sex Assigned At Not on file [facility]: Start: 01-11-2022 End: 01-21-2022 Exposure to SARS-CoV-2 (event) Not sure [employer] Phone: Start: 1990 Sex Assigned At Male F [facility] Start: 11-26-2021 End: 11-02-2023 Sex Assigned At [facility] History of tobacco use [facility] Start: 08-20-2022 Tobacco use and exposure Forme r smokeless tobacco user [facility] End: 02-12-2018 History of tobacco use Chews Tobacco [facility] Start: 11-02-2023 Alcohol intake Ex-drinker (finding) [facility] How often do you att end nondenominational or jainism services? Patient declined [facility] Do you belong to any clubs or organizations such as nondenominational groups, unions, fraternal or athletic groups, or school groups? Yes [facility] Are you now , , , , never or living with a partner? [facility] How often to you hav e a drink containing alcohol? 2-3 time sa week [facility] How many standard dr inks containing alcohol do you have on a typical day? 5 or 6 [facility] How often do you hav e 6 or more drinks on 1 occasion? Monthly [facility] Do you feel stress - tense, restless, nervous, or anxious, or unable to sleep at night because your mind is troubled all the time - these days [OSQ] Rather much [facility] Start: 03-14-2019 Education 21 [facility] Clinical Notes 01-21-2022 to 11-24-2023 Telephone [...] know his results documented in this encounter [facility] 11-24-2023 Telephone encount er Note ----- Message from SERGE Mitchell sent at 11/24/2023 4:52 AM EDT ----- Biopsy was negative for malignancy, although I do recommend follow up in 6-8 weeks for continued assessment ----- Message ----- From: Interface - Lab Results/Orders In Sent: 11/18/2023 4:33 PM EDT To: SERGE [facility] 11-24-2023 Telephone encount er Note Called patient, no answer unable to leave a message [facility]-24-2023 Telephone encount er Note Patient called back into the office I did let him know his results [facility] 11-16-2023 Miscellaneous Notes Formattin g of this note might be different from the original. Patient presenting to front window requesting refill of Clobetasol 0.05% ointment. Pharmacy is [facility] in [place], [place]. documented in this encounter [facility]-16-2023 Telephone encount er Note Patient presenting to front window requesting refill of Clobetasol 0.05% ointment. Pharmacy is [facility] in [place], [place]. [facility] 11-06-2023 Miscellaneous Notes Formattin g of this [...] He stated understanding. documented in this encounter [facility] 11-06-2023 Telephone encount er Note ----- Message from SERGE Mitchell sent at 11/06/2023 9:38 AM EST ----- Please let pt know that ultrasound was abnormal, radiology is recommending a biopsy. I will put in order and hospital will call him ----- Message ----- From: Interface - Rad Results/Orders In 1 Sent: 11/05/2023 12:44 PM EST To: SERGE Mitchell [facility] 11-06-2023 Telephone encount er Note Tried to call patient but no answer and could not leave a voicemail. [facility] 11-06-2023 Telephone encount er Note Patient called back and I informed him. He stated understanding. [facility] 11-02-2023 History of Presen t illness [...] nursing note reviewed. 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 Constitutional: Appearance: Normal appearance. HENT: Head: [...] Mitchell 11/02/23 1153 documented in this encounter [facility] 12-03-2022 Evaluation note Encounter Date Diagnosis Assessment [...] no improvement in 5 to 7 days. [facility] Other 12-19-2022 Evaluation note* Encounter Date Diagnosis [...] days. You may return to work tomorrow [facility] Other 11-30-2022 Evaluation note* Encounter Date Diagnosis [...] no improvement in 2 to 3 days. [facility] Other 11-14-2022 Evaluation note* Encounter Date Diagnosis [...] no improvement in 2 to 3 days [facility] Other 11-03-2022 Evaluation note* Encounter Date Diagnosis [...] will help you get into a specialist. [facility] Other 05-10-2022 Hospital Discharge instructions* Instructions* Yoni [...] sent through Care Everywhere. * Lacerations: Stitches (Kyrgyz) [facility] Phone: evaluation note* Diagnosis Closed head injury, initial encounter- Primary Laceration of scalp, initial encounter documented in this encounter [facility] Phone: evaluation noteNo assessment information available [facility] Work Phone: Evaluation note* Diagnosis Lymphadenopathy, inguinal- Primary Lumbar back pain Lumbago Lumbar radiculopathy Thoracic or lumbosacral neuritis or radiculitis, unspecified documented in this encounter [facility]* Diagnosis Lymphadenopathy, inguinal- Primary [facility]* Diagnosis Infection of eczematous skin documented in this encounter [facility] System[facility] general Narrative - Reported* Type Description Date Medical History hypertension Medical History hypercholesterolemia Medical History acid reflux Surgical History shoulder surgery [facility] Other Instructions* Attachments The following attachments cannot be sent through Care Everywhere. * Lymphadenitis (Kyrgyz) [facility] this [facility] SystemInstructionsNot on file documented in this encounterProMer[facility] Health St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 1247 (Given - Provid er: Aileen Wong LPN - Comment: top of head) Care Teams (unrecognized sec tion and content) Jackaroo Relationship Specialty Start Date End Date Matt Matos APRN - CNP PCP - General 11/03/18 Team Status: Inactive Member Role Status Dates JIMMY Chandra Attending Provider Active Team Status: Inactive Member Role Status Dates VIRGIL PakC Attending Provider Active [facility]aroo Relationship Specialty Start Date End Date Johnna Barroso APRN-PIERRE [address], [place] [address] PCP - General Family Medicine 11/27/21 Jackaroo Relationship Specialty Start Date End Date Johnna Barroso APRN-DIRECTOR APPAREL [address], [place] [address] PCP - General Family Medicine 11/27/21 Jackaroo Relationship Specialty Start Date End Date DharmeshJohnna arshad KimberlySERGE [address], [place] [address] PCP - General Family Medicine 11/27/21 Jackaroo Relationship Specialty Start Date End Date DharmeshJohnna camacho APRN-CNP [address], [place] [address] PCP - General Family [facility] 11/27/21 (unrecognized sect ion and content) No Status Records FoundNo Status Records FoundNo Status Records FoundNo Status Records FoundNo Status Records Found INFORMATION SOURCE (unrecogn ized section and content) DATE CREATED AUTHOR 01/22/2022 [facility] DATE CREATED AUTHOR AUTHOR'S ORGANIZ ATION 06/20/2022 [facility] DATE CREATED AUTHOR AUTHOR'S ORGANIZ ATION 01/03/2023 [facility] DATE CREATED AUTHOR AUTHOR'S ORGANIZ ATION 11/03/2023 [facility] DATE CREATED AUTHOR AUTHOR'S ORGANIZ ATION 11/21/2023 [facility] Goals (unrecognized section and content) [...] ON THE PRIMARY CLINICAL RECORDS. [facility]. provides no warranty or guarantee of the accuracy or completeness of information in this document.
[2024-05-02 19:19] VITALS: BP 165/89
--- NOTE | 2024-05-02 19:48 | ED_ITS ---
HPI HPI - General Adult General Chief complaint: Headache Stated complaint: Headache Time Seen by Provider: 05/02/24 19:43 Source: patient Mode of arrival: walk-in Limitations: no limitations History of Present Illness HPI narrative: Patient is a 33-year-old male who returns to the emergency department for headache that worsened today. He was seen in this emergency department 2 days ago for the same symptoms. He received intramuscular injections and documentation states that the patient was feeling better although he states today that he was not feeling any better when he left the hospital. He was not discharged with any prescriptions. He states he took Tylenol today. He states the headache is worse today. He continues to have intermittent blurred vision. 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 He denies any new symptoms that are different today, he states the headache is just worse than it was. He reports feeling nauseous with no vomiting. No fevers or upper respiratory symptoms. He denies any new paresthesias. Related Data Home Medications ?Medication ?Instructions ?Recorded ?Confirmed cyclobenzaprine 10 mg tablet 10 mg PO Q8H PRN muscle spasm 02/16/24 02/16/24 Previous Rx's ?Medication ?Instructions ?Recorded ketorolac 10 mg tablet 10 mg PO TID PRN pain #10 tabs 02/16/24 orphenadrine citrate 100 mg 100 mg PO BID PRN muscle pain #14 02/16/24 tablet,extended release tabs amoxicillin 500 mg-potassium 1 tab PO BID #20 tabs 04/12/24 clavulanate 125 mg tablet (Augmentin) ketorolac 10 mg tablet 10 mg PO TID PRN pain #10 tabs 05/02/24 methocarbamol 750 mg tablet 750 mg PO TID PRN pain #20 tabs 05/02/24 metoclopramide HCl 10 mg tablet 10 mg PO Q6H PRN nausea and 05/02/24 (Reglan) vomiting #12 tabs Allergies Allergy/AdvReac Type Severity Reaction Status Date / Time tree nut Allergy Intermediate Rash Verified 04/30/24 20:42 Opioid HPI Opioid Management Most Recent Opioid Data: Last Pain Scale 6 05/02/24 20:30 Last ED Pain Assessment 04/30/24 20:46 Review of Systems ROS Constitutional Denies: fever or chills Ears, nose, mouth, and throat Reports: neck pain; Denies: throat pain or nasal congestion Cardiovascular Denies: chest pain Respiratory Denies: shortness of breath or cough Gastrointestinal Reports: nausea; Denies: vomiting Musculoskeletal Reports: neck pain; Denies: back pain or extremity pain Integumentary/Breast Denies: rash Neurological Reports: headache; Denies: numbness in extremities, weakness in extremities or dizziness Hematologic/Lymphatic Denies: easy bruising or easy bleeding PFSH PFSH Social History Smoking status: Former smoker Exam Narrative Exam Narrative: Gen.: Awake, alert, in no distress; sitting comfortably in no distress Head: Normocephalic, atraumatic ENT: Moist mucous membranes, no nuchal rigidity Respiratory: No respiratory distress Extremities: Moves extremities equally, no injuries noted Psych: Normal mood and affect Neuro: No focal neuro deficit; alert and oriented Skin: Warm, dry, intact Constitutional Vital Signs, click to edit/add: Last Vital Signs Temp 98.5 F 05/02/24 18:10 Pulse 87 05/02/24 20:34 Resp 16 05/02/24 20:34 BP 160/101 H 05/02/24 20:34 Pulse Ox 99 05/02/24 20:34 O2 Del Method Room Air 05/02/24 18:10 Course Vital Signs Vital signs: Vital Signs Temperature 98.5 F 05/02/24 18:10 Pulse Rate 95 H 05/02/24 18:10 Respiratory Rate 18 05/02/24 18:10 Blood Pressure 183/98 H 05/02/24 18:10 Pulse Oximetry 99 05/02/24 18:10 Oxygen Delivery Method Room Air 05/02/24 18:10 Temperature 98.5 F 05/02/24 18:10 Pulse Rate 87 05/02/24 20:34 Respiratory Rate 16 05/02/24 20:34 Blood Pressure 160/101 H 05/02/24 20:34 Pulse Oximetry 99 05/02/24 20:34 Oxygen Delivery Method Room Air 05/02/24 18:10 Medical Decision Making MDM Narrative Medical decision making narrative: CT of the head and cervical spine are unremarkable, laboratory studies reviewed and noted within normal limits. Patient with no focal medical complaints. He was reassessed by attending physician after medication administration. Patient states he feels much better, he was sleeping on attending physician entering the room. His blood pressure was rechecked prior to discharge. He is discharged home with prescriptions for Reglan, Toradol, Robaxin. Follow-up with PCP and return to the emergency department if symptoms change or worsen SHARED APC VISIT, PHYSICIAN ATTESTATION: [id number] I performed a substantive part of the MDM during the patient?s E/M visit. I personally evaluated and examined the patient. I personally made or approved the documented management plan and acknowledge its risk of complications. Medical Records Medical records reviewed: Yes I reviewed the patient's medical records Lab Data Lab results reviewed: Yes I reviewed the patient's lab results Labs: Lab Results 05/02/24 Range/Units 19:54 WBC 8.5 (4.0-11.0) 10^3/uL RBC 5.64 (4.70-6.10) 10^6/uL Hgb 15.8 (14.0-18.0) g/dL Hct 47.2 (42.0-54.0) % MCV 83.7 (80.0-94.0) fL MCH 28.0 (25.9-34.0) pg MCHC 33.5 (29.9-35.2) g/dL RDW 12.2 (11.0-15.0) % Plt Count 293 (150-450) 10^3/uL MPV 10.6 (9.5-13.5) fL Neut % (Auto) 58.8 (43.0-75.0) % Lymph % (Auto) 30.7 (20.5-60.0) % Kerr % (Auto) 7.0 (1.7-12.0) % Eos % (Auto) 2.4 (0.9-7.0) % Baso % (Auto) 0.6 (0.2-2.0) % Neut # (Auto) 5.0 (1.4-6.5) 10^3/uL Lymph # (Auto) 2.6 (1.2-3.8) 10^3/uL Kerr # (Auto) 0.6 (0.3-0.8) 10^3/uL Eos # (Auto) 0.2 (0.0-0.7) 10^3/uL Baso # (Auto) 0.1 (0.0-0.1) 10^3/uL Abs Immat Gran (auto) 0.04 H (0.00-0.03) 10^3/uL Imm/Tot Granulo (auto) 0.5 (0.0-0.5) % ESR 23 H (<=15) mm/hr Sodium 137 (136-145) mmol/L Potassium 3.8 (3.5-5.1) mmol/L Chloride 99 (98-107) mmol/L Carbon Dioxide 32.0 (21.0-32.0) mmol/L Anion Gap 9.8 BUN 13.0 (7.0-18.0) mg/dL Creatinine 0.84 (0.70-1.30) mg/dL Est GFR ( Amer) >60 (>=60) Est GFR (Non-Af Amer) >60 (>=60) BUN/Creatinine Ratio 15.5 Glucose 233 H (74-106) mg/dL Calcium 9.6 (8.5-10.1) mg/dL Total Bilirubin 0.4 (0.2-1.0) mg/dL AST 28 (15-37) U/L ALT 67 H (16-63) U/L Alkaline Phosphatase 84 (46-116) U/L C-Reactive Protein <0.50 (<=0.50) mg/dL Total Protein 7.6 (6.4-8.2) g/dL Albumin 3.8 (3.4-5.0) g/dL Globulin 3.8 g/dL Albumin/Globulin Ratio 1.[address] scan - head: Attestation: I have reviewed the pertinent imaging results. Radiologist's impression: ITS Impressions Head CT 05/02/24 19:48 IMPRESSION: 1. No evidence of acute intracranial hemorrhage or mass effect. 2. No acute fracture or subluxation in the cervical spine. Electronically authenticated by: MARILYNN MANTILLA Date: 05/02/2024 21:[address] 05/02/24 19:49 IMPRESSION: 1. No evidence of acute intracranial hemorrhage or mass effect. 2. No acute fracture or subluxation in the cervical spine. Electronically authenticated by: MARILYNN MANTILLA Date: 05/02/2024 21:12 Discharge Plan Discharge Stand Alone Forms: Portal Instructions Chief Complaint: Headache Clinical Impression: Headache Patient Disposition: Home, Self-Care Time of Disposition Decision: 21:27 Condition: Good Prescriptions / Home Meds: New ketorolac 10 mg tablet 10 mg PO TID PRN (Reason: pain) Qty: 10 0RF methocarbamol 750 mg tablet 750 mg PO TID PRN (Reason: pain) Qty: 20 0RF metoclopramide HCl [Reglan] 10 mg tablet 10 mg PO Q6H PRN (Reason: nausea and vomiting) Qty: 12 0RF No Action amoxicillin-pot clavulanate [Augmentin] 500-125 mg tablet 1 tab PO BID Qty: 20 0RF cyclobenzaprine 10 mg tablet 10 mg PO Q8H PRN (Reason: muscle spasm) ketorolac 10 mg tablet 10 mg PO TID PRN (Reason: pain) Qty: 10 0RF orphenadrine citrate 100 mg tablet extended release 100 mg PO BID PRN (Reason: muscle pain) Qty: 14 0RF Print Language: Bulgarian Instructions: Acute Headache (ED) Referrals: Johnna Barroso PRODUCT MANAGEMENT ANALYST [Primary Care Provider] - 1 week
--- NOTE | 2024-05-02 19:48 | CT_ITS ---
The [address] [address] Patient Name: DILCIA RODRIGUEZ MRN: [id number] date: 1990 Sex: M Assigned Patient Location: ER Current Patient Location: ER Accession/Order Number: [id number] Exam Date: 05/02/2024 20:06 Report Date: 05/02/2024 21:12 At the request of: ERIC NEGRETE Procedure: CT head/brain wo con CT head/brain wo con, CT cervical spine wo con HISTORY: Trauma TECHNIQUE: CT of the head and cervical spine performed without contrast. Coronal and sagittal images were generated and reviewed. Automated exposure control was utilized. COMPARISON: 09/24/2023 FINDINGS: CT HEAD: Brain and CSF spaces: There is no evidence of acute intracranial hemorrhage of mass effect. The ventricles and basal cisterns are patent. The brain parenchymal volume is within normal limits. There is no significant hemispheric white matter disease. Orbits and mastoid air cells: The orbits and mastoid air cells are unremarkable. Paranasal sinuses: The paranasal sinuses are unremarkable. Calvarium: There is no evidence of acute calvarial fracture. Soft tissues of the scalp: The extracranial soft tissues are unremarkable. FINDINGS: CT CERVICAL SPINE: Osseous structures:There is no evidence of acute fracture or subluxation in the cervical spine.Mild degenerative changes. Soft tissue structures:There is no mass or abnormal fluid collection in the soft tissues of the neck. CT/CT head/brain wo con IMPRESSION: 1. No evidence of acute intracranial hemorrhage or mass effect. 2. No acute fracture or subluxation in the cervical spine. Electronically authenticated by: MARILYNN MANTILLA Date: 05/02/2024 21:12
--- NOTE | 2024-05-02 19:49 | CT_ITS ---
The [address] [address] Patient Name: DILCIA RODRIGUEZ MRN: [id number] date: 1990 Sex: M Assigned Patient Location: ER Current Patient Location: ER Accession/Order Number: [id number] Exam Date: 05/02/2024 20:06 Report Date: 05/02/2024 21:12 At the request of: ERIC NEGRETE Procedure: CT cervical spine wo con CT head/brain wo con, CT cervical spine wo con HISTORY: Trauma TECHNIQUE: CT of the head and cervical spine performed without contrast. Coronal and sagittal images were generated and reviewed. Automated exposure control was utilized. COMPARISON: 09/24/2023 FINDINGS: CT HEAD: Brain and CSF spaces: There is no evidence of acute intracranial hemorrhage of mass effect. The ventricles and basal cisterns are patent. The brain parenchymal volume is within normal limits. There is no significant hemispheric white matter disease. Orbits and mastoid air cells: The orbits and mastoid air cells are unremarkable. Paranasal sinuses: The paranasal sinuses are unremarkable. Calvarium: There is no evidence of acute calvarial fracture. Soft tissues of the scalp: The extracranial soft tissues are unremarkable. FINDINGS: CT CERVICAL SPINE: Osseous structures:There is no evidence of acute fracture or subluxation in the cervical spine.Mild degenerative changes. Soft tissue structures:There is no mass or abnormal fluid collection in the soft tissues of the neck. CT/CT cervical spine wo con IMPRESSION: 1. No evidence of acute intracranial hemorrhage or mass effect. 2. No acute fracture or subluxation in the cervical spine. Electronically authenticated by: MARILYNN MANTILLA Date: 05/02/2024 21:12
[2024-05-02 20:03] LABS: Basophils Absolute Auto 0.1 10^3/uL (0.0-0.1); Basophils Percent Auto 0.6 % (0.2-2.0); Eosinophils Absolute Auto 0.2 10^3/uL (0.0-0.7); Eosinophils Percent Auto 2.4 % (0.9-7.0); Hematocrit 47.2 % (42.0-54.0); Hemoglobin 15.8 g/dL (14.0-18.0); Immature Granulocytes Abs Auto 0.04 10^3/uL (0.00-0.03); Immature Granulocytes Pct Auto 0.5 % (0.0-0.5); Lymphocytes Absolute Auto 2.6 10^3/uL (1.2-3.8); Lymphocytes Percent Auto 30.7 % (20.5-60.0); Mean Corpuscular HGB Conc 33.5 g/dL (29.9-35.2); Mean Corpuscular Volume 83.7 fL (80.0-94.0); Mean Platelet Volume 10.6 fL (9.5-13.5); Monocytes Absolute Auto 0.6 10^3/uL (0.3-0.8); Neutrophils Percent Auto 58.8 % (43.0-75.0); Platelet Count 293 10^3/uL (150-450); Red Blood Count 5.64 10^6/uL (4.70-6.10); Red Cell Distribution Width 12.2 % (11.0-15.0); White Blood Count 8.5 10^3/uL (4.0-11.0)
[2024-05-02 20:09] LABS: Erythrocyte Sedimentation Rate 23 mm/hr (<=15)
[2024-05-02 20:19] LABS: Alanine Aminotransferase 67 U/L (16-63); Albumin Level 3.8 g/dL (3.4-5.0); Alkaline Phosphatase 84 U/L (46-116); Anion Gap 9.8; Aspartate Amino Transferase 28 U/L (15-37); BUN Creatinine Ratio 15.5; Bilirubin Total 0.4 mg/dL (0.2-1.0); C Reactive Protein <0.50 mg/dL (<=0.50); Calcium 9.6 mg/dL (8.5-10.1); Chloride 99 mmol/L (98-107); Estimated GFR (African America >60 (>=60); Estimated GFR (Non-African Ame >60 (>=60); Globulin 3.8 g/dL; Glucose 233 mg/dL (74-106); Potassium 3.8 mmol/L (3.5-5.1); Sodium 137 mmol/L (136-145); Total Protein 7.6 g/dL (6.4-8.2)
[2024-05-02] MEDS: METHYLPREDNISOLONE SOD SUCC PF 125 MG/2 ML VIAL IVP (20:28)
[2024-05-02] MEDS: DIPHENHYDRAMINE HCL 50 MG/ML VIAL 25 MG IV (20:28)
[2024-05-02] MEDS: 0.9 % SODIUM CHLORIDE 1,000 ML 999 ML IV (20:28)
[2024-05-02] MEDS: KETOROLAC TROMETHAMINE 30 MG/ML VIAL IVP (20:30)
[2024-05-02] MEDS: METOCLOPRAMIDE HCL 10 MG/2 ML VIAL IVP (20:30)
[2024-05-02 20:34] VITALS: BP 160/101; PULSE 87; O2SAT 99
[2024-05-02 21:50] VITALS: BP 148/93; PULSE 78; O2SAT 98
== END 2024-05-02 21:52 | disposition home or self-care (01) ==
PROVIDERS: Physician Assistant; Emergency Provider Emergency Medicine; PCP Nurse Practitioner
DX: R51.9 Headache, unspecified (principal); Z87.891 Personal history of nicotine dependence
CPT/HCPCS: 36415; 70450; 72125; 80053; 85025; 85652; 86140; 96374; 96375; 99285; J1200; J1885; J2765; J2919

== ENCOUNTER 2024-06-18 17:57 | Emergency (ER) | payer SELFPAY ==
[2024-06-18] VITALS (15 sets, daily range): BP systolic 147–178; BP diastolic 93–108; PULSE 63–78; TEMP 36.6; O2SAT 95–98; BMI 30.1
--- NOTE | 2024-06-18 18:12 | XR_ITS ---
The [address] [address] Patient Name: DILCIA RODRIGUEZ MRN: [id number] date: 1990 Sex: M Assigned Patient Location: ED.MAIN Current Patient Location: ER Accession/Order Number: [id number] Exam Date: 06/18/2024 18:20 Report Date: 06/18/2024 19:18 At the request of: SAMUEL DEUTSCH Procedure: XR chest 2V EXAM: XR chest 2V HISTORY: pain COMPARISON: 07/11/2016 TECHNIQUE: Upright PA and lateral chest x-ray FINDINGS: The heart is not enlarged and the vasculature is not distended. No acute infiltrate, effusion or pneumothorax is identified. The osseous structures are grossly intact. XR/XR chest 2V IMPRESSION: No acute infiltrate or evidence of cardiac decompensation. The overall appearance of the chest is essentially unchanged. Electronically authenticated by: SEAN KWOK Date: 06/18/2024 19:18
--- NOTE | 2024-06-18 18:12 | ECG_ITS ---
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
--- OUTSIDE RECORDS SUMMARY | 2024-06-18 18:20 | XMS_ITS | CCD ---
Author Organization [facility] Care Team Providers Care Set Decorator Name Role Phone Matt Mancera APRN, CNP Primary Care Provider MATT MATOS Primary Care Unavailable NE HANNA Attending Unavailable MISC, DR STEPHENS Attending Unavailable MISC, DR STEPHENS Consulting Unavailable MISC, DR STEPHENS Admitting Unavailable JIMMY Prakash Attending Provider Viv Campos Unavailable Tamar Prakash Unavailable DURGA Campos Attending Provider [phone] Tamar Prakash Attending Unavailable Tamar Prakash Admitting [...] Propensity to adverse reactions to drug 2 [facility] (7 sources) Orphenadrine; Translations: [ORPHENADRINE CITRATE] Drug Allergy 0 [facility] Medications Current Medications Medication Drug [...] Start: 07-28-2022 take 1 capsule by mo [facility] every eight hours Amoxicillin 500 [...] / neomycin 3.5 mg/ml / polymyxin b 69467 unt/ml otic suspension (3 sources) Aminoglycoside Antibacterial, Polymyxin-class Antibacterial, Corticosteroid Start: 08-13-2022 Neomycin-Polymyx in-HC 3.5-20123-0 3 drops left ear Three times a [...] SEE SEPARATE REPORT, REVIEWED BY PATHOLOGIST Normal [facility] IR BIOPSY LYMPH NODEon 11-15 IR BIOPSY [...] Cruz MD on 11/16/2023 11:01 AM Normal [facility] Surgical Pathologyon 024 Surgical Pathology Normal [facility] Comment on above: Result Comment: [facility] [employer] [facility] [address] [place] [address] Surgical Pathology Consultation Patient Name:MICH RODRIGUEZ JR.:1990 (Age: 33)Gender:MTaken:4Reported:11/18/2023hysician(s):Johnna Barroso CNP ([phone])Copy To:Delano Cruz M.D. Rec. #:[id number]: #[id number] Final Pathologic Diagnosis Left groin lymph node, [...] CD5, CD7, CD10, CD19, CD20, CD23, CD45, [place], and Lambda. Immunophenotyping Comment: Immunophenotyping has been used in this diagnostic evaluation. This test was developed and its performance characteristics determined by the [facility] Department. It has not been [...] Out Ruben Jean MD Interpretation performed at [employer], [address] [place] [address], License number: [id number]. Clinical History Lymphadenopathy, inguinal R59.0. Gross Description Received in formalin labeled LITTLE, left groin BX are [place], focally erythematous, delicate soft tissue fragments, 0.6 x 0.4 x 0.1 cm in aggregate. The specimen is filtered and entirely submitted in a single cassette. (1, ns, [id number], m1) JG A separate soft tissue core is received in RPMI media and sent to flow cytometry for analysis. [facility]/11/16/2023 Specimen(s) Received Left groin lymph node Fee Codes(s): 1; 60065, 43052 US EXT NON-VASC LT LIMITEDon 11-05-2023 US [...] Hi Stover MD on 11/05/2023 12:42 PM [facility] XR hand RT min 3V*on 023 XR hand RT min 3V* [facility] [address] [place] [address] XRay Report Signed Patient: Mich Rodriguez MR#: [id number] : 1990 Acct:[id number] Age/Sex: 32 / M ADM Date: 12/03/22 [facility]: Type: [facility] Attending Dr: Viv CALIXTO Copies to: DURGA [...] 12/03/22 1223 Signed By: 12/03/22 1225 Normal [facility] XR hand RT min 3V* [facility] [employer] Other XR hand RT min 3V* [facility] bright [employer] Other XR hand RT min 3V* [address] [place] [address] bright box Other XR hand RT min 3V* [place] [address] [employer] Other XR hand RT min 3V* XRay Report [employer] Other XR hand RT min 3V* Signed [employer] Other XR hand RT min 3V* Patient: Mich Rodriguez MR#: [id number] [employer] Other XR hand RT min 3V* 4283 [employer] Other XR hand RT min 3V* : 1990 Acct:[id number] [employer] Other XR hand RT min 3V* Age/Sex: 32 / M ADM Date: 12/03/22 [employer] Other XR hand RT min 3V* Loc: XDUCLY Room: Type: REG CLI [employer] Other XR hand RT min 3V* Attending Dr: Viv CALIXTO [employer] Other XR hand RT min 3V* Copies to: DURGA Arango [employer] Other XR hand RT min 3V* Ordering Provider: DURGA Arango [employer] Other XR hand RT min 3V* Date of Service: 12/03/22 [employer] Other XR hand RT min 3V* XR/XR hand RT min 3V*: RIGHT HAND SWELLING/PAIN [employer] Other XR hand RT min 3V* RIGHT HAND - 3 views [employer] Other XR hand RT min 3V* CLINICAL DATA: Right hand pain and swelling dorsally over the metacarpals for the past week. No [employer] Other XR hand RT min 3V* known injury. Nor [employer] Other XR hand RT min 3V* COMPARISON: None [employer] Other XR hand RT min 3V* AP, lateral and oblique views were obtained. There is no evidence of fracture or dislocation. No [employer] Other XR hand RT min 3V* prominent hypertrophy or joint space narrowing is seen. Mild dorsal soft tissue swelling is [employer] Other XR hand RT min 3V* present. [employer] Other XR hand RT min 3V* XR/XR hand RT min 3V* [employer] Other XR hand RT min 3V* IMPRESSION: [employer] Other XR hand RT min 3V* NO ACUTE BONY FINDINGS. [employer] Other XR hand RT min 3V* Impression dictated by: Christi Gray M.D.12/03/2022 12:25 PM [employer] Other XR hand RT min 3V* Dictation Location: [place] [address] [employer] Other XR hand RT min 3V* Transcribed By: SARWAT 12/03/22 1225 [employer] Other XR hand RT min 3V* Dictated By: Christi Gray MD 12/03/22 1223 [facility] bright [employer] Other XR hand RT min 3V* Signed By: [facility] bright [employer] Other XR hand RT min 3V* 12/03/22 1225 [facility] bright box Other COVID + FLU Quick Testingon 09-01-2022 SARS-CoV-2 (COVID-19) RNA ABILIO+probe Ql (Unsp spec) Negative [facility] [employer] Other COVID + FLU Quick Testing Negative [facility] [employer] Other XR knee RT 4V*on 07-17-2022 XR knee RT 4V* [facility] [address] [place] [address] XRay Report Signed Patient: Mich Rodriguez MR#: [id number] : 1990 Acct:[id number] Age/Sex: 31 / M ADM Date: 07/17/22 Loc: XDUCLY Room: Type: [facility] Attending Dr: Tamar MARQUEZ Copies to: TAMAR [...] Brayan Mccormack M.D.07/17/2022 1:22 PM Dictation Location: [place] [address] Transcribed By: SARWAT 07/17/22 1322 Dictated By: Brayan Mccormack II, MD 07/17/22 1321 Signed By: 07/17/22 1322 Normal [facility] XR knee RT 4V* [facility] [employer] Other XR knee RT 4V* [facility] [employer] Other XR knee RT 4V* [address] [place] [address] [employer] Other XR knee RT 4V* [place] [address] No rt [employer] Other XR knee RT 4V* XRay Report [employer] Other XR knee RT 4V* Signed [employer] Other XR knee RT 4V* Patient: Mich Rodriguez MR#: [id number] Aragon [employer] Other XR knee RT 4V* 83 [employer] Other XR knee RT 4V* : 1990 Acct:[id number] [employer] Other XR knee RT 4V* Age/Sex: 31 / M ADM Date: 07/17/22 [employer] Other XR knee RT 4V* Loc: XDUCLY Room: Type: [facility] [employer] Other XR knee RT 4V* Attending Dr: Tamar Prakash [facility] [employer] Other XR knee RT 4V* Copies to: TAMAR PRAKASH [facility] [employer] Other XR knee RT 4V* Ordering Provider: TAMAR PRAKASH CIVIL LITIGATION ATTORNEY-C [employer] Other XR knee RT 4V* Date of Service: 07/17/22 [employer] Other XR knee RT 4V* XR/XR knee RT 4V*: Right anterior knee pain [employer] Other XR knee RT 4V* XR knee RT 4V* 07/17/2022 1:02 PM [employer] Other XR knee RT 4V* SIGNS AND SYMPTOMS: Right anterior knee pain [employer] Other XR knee RT 4V* PROTOCOL: Frontal, lateral, and oblique radiographs of the right knee [employer] Other XR knee RT 4V* COMPARISON: None [employer] Other XR knee RT 4V* FINDINGS: [employer] Other XR knee RT 4V* There is a linear radiopaque foreign body in the lateral soft tissues adjacent to the proximal [employer] Other XR knee RT 4V* fibula. The joint spaces are preserved. There is no fracture. No joint effusion. No soft tissue [employer] Other XR knee RT 4V* swelling. [employer] Other XR knee RT 4V* XR/XR knee RT 4V* [employer] Other XR knee RT 4V* IMPRESSION: [employer] Other XR knee RT 4V* No acute bony injury or significant degenerative change. [employer] Other XR knee RT 4V* fibula. [employer] Other XR knee RT 4V* Impression dictated by: Brayan Mccormack M.D.07/17/2022 1:22 PM [employer] Other XR knee RT 4V* Dictation Location: [place] [address] [employer] Other XR knee RT 4V* Transcribed By: SARWAT 07/17/22 1322 [employer] Other XR knee RT 4V* Dictated By: Brayan Mccormack II, MD 07/17/22 1321 [employer] Other XR knee RT 4V* Signed By: Ramírez allen [employer] Other XR knee RT 4V* 07/17/22 [email or web address] CERVICAL SPINE WO CONTRAS Ton [...] Clark Rhodes MD 01/21/22 Final result Normal [facility] CT HEAD WO CONTRASTon 2021 CT HEAD [...] Clark Rhodes MD 01/21/22 Final result Normal [facility] No Panel Informationon 01-21 No acute intracranial abnormality. No acute fracture or subluxation of cervical spine. Mild degenerative change C4-C5 and C5-C6. RECOMMENDATIONS: Unavailable [facility] RIS CONSOLIDATED EXAMINATION: CT OF THE [...] There is no prevertebral soft tissue swelling. [facility] Clark Zafar MD - 01/21/2022 EXAMINATION: [...] degenerative change C4-C5 and C5-C6. RECOMMENDATIONS: Unavailable [employer] Phone: Radiology Study observation (narrative) [employer] Phone: No Panel InformationOrdered By: Clark Rhodes on 01-21-2022 [employer] Phone: Vital Signs Date Time Vital Sign Value Performing Clinician Faci norman 11-02-2023 10:59-0500 Body height 177.8 cm Johnna Barroso APRN-CHILD WELFARE DIRECTOR Work Phone: [employer] 11-02-2023 10:59-0500 Body mass index (BMI) [Ratio] 28.93 kg/m2 Johnna Barroso APRN-CHILD WELFARE DIRECTOR Work Phone: [employer] 11-02-2023 10:59-0500 Body temperature 98.6 [degF] Johnna Barroso SENIOR CLINICAL RESEARCH SCIENTIST-CHILD WELFARE DIRECTOR Work Phone: [facility] [employer] [facility] 11-02-2023 10:59-0500 Body weight 91.44 kg Johnna Barroso SENIOR CLINICAL RESEARCH SCIENTIST-CHILD WELFARE DIRECTOR [facility] Phone[facility] 11-02-2023 10:59-0500 Diastolic blood pressure 88 mm[Hg] Johnna Barroso SENIOR CLINICAL RESEARCH SCIENTIST-CHILD WELFARE DIRECTOR Work Phone: [facility] 11-02-2023 10:59-0500 Heart rate 81 /min Johnna Barroso SENIOR CLINICAL RESEARCH SCIENTIST-CHILD WELFARE DIRECTOR Work Phone: [facility] 11-02-2023 10:59-0500 Respiratory rate 20 /min Johnna Barroso SENIOR CLINICAL RESEARCH SCIENTIST-CHILD WELFARE DIRECTOR Work Phone: [facility] 11-02-2023 10:59-0500 SaO2% (BldA) [Mass fraction] 98 % Johnna Barroso SENIOR CLINICAL RESEARCH SCIENTIST-CHILD WELFARE DIRECTOR Work Phone: [facility] 11-02-2023 10:59-0500 Systolic blood pressure 146 mm[Hg] Johnna Barroso SENIOR CLINICAL RESEARCH SCIENTIST-CHILD WELFARE DIRECTOR Work Phone: [facility] 12-03-2022 12:35-0400 Body height 177.8 cm Viv Campos Other [employer] Other 12-03-2022 12:35-0400 Body mass index (BMI) [Ratio] 30.13 kg/m2 Viv Campos Other [employer] Other 12-03-2022 12:35-0400 Body temperature 100 [degF] Viv Campos Other [employer] Other 12-03-2022 12:35-0400 Body weight 95.26 kg Viv Ebth Other [employer] Other 12-03-2022 12:35-0400 Diastolic blood pressure 89 mm[Hg] Viv Beth Other [employer] Other 12-03-2022 12:35-0400 Respiratory rate 18 /min Viv Beth Other [employer] Other 12-03-2022 12:35-0400 SaO2% (BldA) [Mass fraction] 96 % Viv Beth Other [employer] Other 12-03-2022 12:35-0400 Systolic blood pressure 151 mm[Hg] Viv Beth Other [employer] Other 09-01-2022 12:15-0500 Body height 177.8 cm Viv Beth Other [employer] Other 09-01-2022 12:15-0500 Body mass index (BMI) [Ratio] 30.13 kg/m2 Viv Beth Other [employer] Other 09-01-2022 12:15-0500 Body temperature 97.9 [degF] Viv Beth Other [employer] Other 09-01-2022 12:15-0500 Body weight 95.26 kg Viv Beth Other [employer] Other 09-01-2022 12:15-0500 Diastolic blood pressure 93 mm[Hg] Viv Beth Other [employer] Other 09-01-2022 12:15-0500 Respiratory rate 18 /min Viv Beth Other [employer] Other 09-01-2022 12:15-0500 SaO2% (BldA) [Mass fraction] 100 % Viv Beth Other [employer] Other 09-01-2022 12:15-0500 Systolic blood pressure 157 mm[Hg] Viv Beth Other [employer] Other 08-13-2022 11:35-0500 Body height 177.8 cm Viv Beth Other [employer] Other 08-13-2022 11:35-0500 Body mass index (BMI) [Ratio] 30.13 kg/m2 Viv Beth Other [employer] Other 08-13-2022 11:35-0500 Body temperature 98.1 [degF] Viv Beth Other [employer] Other 08-13-2022 11:35-0500 Body weight 95.26 kg Viv Beth Other [employer] Other 08-13-2022 11:35-0500 Diastolic blood pressure 89 mm[Hg] Viv Beth Other [employer] Other 08-13-2022 11:35-0500 Respiratory rate 16 /min Viv Beth Other [employer] Other 08-13-2022 11:35-0500 SaO2% (BldA) [Mass fraction] 99 % Viv Beth Other [employer] Other 08-13-2022 11:35-0500 Systolic blood pressure 143 mm[Hg] Viv Campos Other [employer] Other 07-28-2022 11:35-0500 Body height 177.8 cm Viv Campos Other [employer] Other 07-28-2022 11:35-0500 Body mass index (BMI) [Ratio] 30.13 kg/m2 Viv Randallmond Other [employer] Other 07-28-2022 11:35-0500 Body temperature 97.9 [degF] Viv Campos Other [employer] Other 07-28-2022 11:35-0500 Body weight 95.26 kg Viv Campos Other [employer] Other 07-28-2022 11:35-0500 Diastolic blood pressure 83 mm[Hg] Viv Campos Other [employer] Other 07-28-2022 11:35-0500 Respiratory rate 18 /min Viv Campos Other [employer] Other 07-28-2022 11:35-0500 SaO2% (BldA) [Mass fraction] 96 % Viv Campos Other [employer] Other 07-28-2022 11:35-0500 Systolic blood pressure 126 mm[Hg] Viv Beth Other [employer] Other 07-17-2022 14:40-0400 Body height 177.8 cm Tamar Prakash Other [employer] Other 07-17-2022 14:40-0400 Body mass index (BMI) [Ratio] 30.13 kg/m2 Tamar Prakash Other [employer] Other 07-17-2022 14:40-0400 Body temperature 98 [degF] Tamar Prakash Other [employer] Other 07-17-2022 14:40-0400 Body weight 95.26 kg Tamar Prakash Other [employer] Other 07-17-2022 14:40-0400 Diastolic blood pressure 81 mm[Hg] Tamar Prakash Other [employer] Other 07-17-2022 14:40-0400 Respiratory rate 18 /min Tamar Prakash Other [employer] Other 07-17-2022 14:40-0400 SaO2% (BldA) [Mass fraction] 98 % Tamar Prakash Other [employer] Other 07-17-2022 14:40-0400 Systolic blood pressure 143 mm[Hg] Tamar Prakash Other [employer] Other 01-21-2022 12:29-0400 Body height 177.8 cm Ne Hanna MD [employer] 01-21-2022 12:29-0400 Body mass index (BMI) [Ratio] 30.85 kg/m2 Ne Hanna MD [employer] 01-21-2022 12:29-0400 Body temperature 98.8 [degF] Ne Hanna MD [employer] 01-21-2022 12:29-0400 Body weight 97.52 kg Ne Hanna MD [employer] 01-21-2022 12:29-0400 Diastolic blood pressure 91 mm[Hg] Ne Hanna MD [facility] 01-21-2022 12:29-0400 Heart rate 82 /min Ne Hanna MD [facility] 01-21-2022 12:29-0400 Respiratory rate 18 /min Ne Hanna MD [facility] 01-21-2022 12:29-0400 SaO2% (BldA) [Mass fraction] 98 % Ne Hanna MD [facility] 01-21-2022 12:29-0400 Systolic blood pressure 155 mm[Hg] Ne Hanna MD [facility] Encounters Encounter Date Encounter Type Care Provider Facility Start: 11-24-2023 Telephone encounter Zulma Pagan MA [facility] Start: 11-16-2023 End: 11-17-2023 Refill Johnna Barroso SENIOR CLINICAL RESEARCH SCIENTIST-CHILD WELFARE DIRECTOR Work Phone: [facility] Comment on above: Infection of eczemat ous skin Start: 11-06-2023 Orders Only Johnna martin SENIOR CLINICAL RESEARCH SCIENTIST-CHILD WELFARE DIRECTOR Work Phone: [facility] Comment on above: Lymphadenopathy, ing uinal (Primary Dx) Start: 11-03-2023 End: 11-04-2023 ambulatory [facility] Start: 11-02-2023 End: 11-02-2023 ambulatory [facility] Start: 11-02-2023 End: 11-02-2023 Office outpatient visit 15 minutes Johnna Barroso SENIOR CLINICAL RESEARCH SCIENTIST-CHILD WELFARE DIRECTOR Work Phone: [facility] Comment on above: Lymphadenopathy, ing uinal (Primary Dx); Lumbar back pain; Lumbar radiculopathy Start: 12-03-2022 Office outpatient vi sit 15 minutes Viv Campos [facility] Start: 12-03-2022 End: 12-03-2022 ambulatory Viv Campos Facility:[facility] Start: 12-03-2022 End: 12-03-2022 ambulatory BASIN OPERATOR-C Viv Campos Work Phone: [facility] Work Phone: Start: 12-03-2022 End: 12-03-2022 Patient encounter procedure BASIN OPERATOR-C Viv Beth Work Phone: [facility] Work Phone: Start: 09-01-2022 End: 09-01-2022 ambulatory Viv Beth Other [employer] Other Start: 09-01-2022 Office outpatient vi sit 15 minutes Viv Beth [facility] Start: 08-13-2022 End: 08-13-2022 ambulatory Viv Beth Other [employer] Other Start: 08-13-2022 Office outpatient vi sit 15 minutes Viv Beth [facility] Start: 07-28-2022 End: 07-28-2022 ambulatory Viv Beth Other [employer] Other Start: 07-28-2022 Office outpatient vi sit 15 minutes Viv Beth [facility] Start: 07-17-2022 End: 07-17-2022 ambulatory Tamar Haylee Facility:[facility] Start: 07-17-2022 Office outpatient vi sit 15 minutes Tamar Haylee [facility] Start: 07-17-2022 End: 07-17-2022 ambulatory CIVIL LITIGATION ATTORNEY-C Tamar Haylee Work Phone: [facility] Work Phone: Start: 07-17-2022 End: 07-17-2022 Patient encounter procedure CIVIL LITIGATION ATTORNEY-C Tamar Haylee Work Phone: [facility] Start: 01-21-2022 End: 01-21-2022 Emergency department patient visit MATT MATOS [facility] Start: 01-21-2022 End: 01-21-2022 Emergency department patient visit [facility] Comment on above: Closed head injury, initial encounter (Primary Dx); Laceration of scalp, initial encounter Start: 05-28-2020 End: 05-29-[address] STEPHENS [facility] Facility: Procedures Date Procedure Procedure Detail Performing Clinician Start: 11-02-2023 Adult depression screening assessment Johnna Soriasler SENIOR CLINICAL RESEARCH SCIENTIST-CHILD WELFARE DIRECTOR Work Phone: Start: 12-03-2022 Plain X-ray of right hand BASIN OPERATOR-C Viv Campos Work Phone: Start: 07-17-2022 X-ray of right knee CIVIL LITIGATION ATTORNEY -C Tamar Zelayaault Work Phone: Start: 01-21-2022 Ct cervical spine w/ o contrast material Yoni A Romp PA-C Work Phone: Start: 01-21-2022 Ct head/brain w/o contrast material Yoni A Romp PA-C Work Phone: Plan of Treatment Date Care Activity Detail Author Start: 01-22-2032 DTaP,Tdap and Td Vaccines (3 - Td or Tdap) DTaP,Tdap and Td Vaccines (3 - Td or Tdap) [facility] Start: 01-22-2032 DTaP/Tdap/Td vaccine (2 - Td or Tdap) DTaP/Tdap/Td vaccine (2 - Td or Tdap) [facility] Start: 11-02-2024 Adult BMI Screening Adult BMI Screen ing [facility] Start: 11-02-2024 Depression Screening Depression Scre ening [facility] Start: 11-02-2024 Tobacco Screening Tobacco Screening [facility] Start: 11-06-2023 End: 11-06-2024 US Guidance for core needle biopsy of Unspecified body region Ultrasound guidance intraoperative with Bx or Asp Imaging Routine Lymphadenopathy, inguinal Expected: 11/06/2023, Expires: 11/06/[address] [facility] Work Phone: Comment on above: Expected: 11/06/2023 , Expires: 11/06/2024 Start: 11-03-2023 Subsequent hospital visit by physician 11/03/2023 2:30 PM EST Hospital Encounter [facility] [address] [place] [id number] [facility] Start: 11-02-2023 End: 11-02-2024 US Extremity - left limited Ultrasound extremity non vascular limited left Imaging Routine Lymphadenopathy, inguinal Expected: 11/02/2023, Expires: 11/02/[address] [facility] Work Phone: Comment on above: Expected: 11/02/2023 , Expires: 11/02/2024 Start: 05-15-2023 Influenza vaccination Influenza Vacc ine [facility] Start: 05-15-2022 Influenza vaccination Flu vacc ine (Season Ended) [facility] Start: 2006 Adult BMI Follow Up Plan Adult BMI Follow Up Plan [facility] Start: 2006 Hepatitis C screening Hepatitis C sc reen [facility] Start: 2003 HIV screening HIV screen [facility] Start: 2000 Depression Screen Depression Screen [facility] Start: 1993 COVID-19 Vaccine (1) COVID-19 Vaccin e (1) [facility] Start: 1989 Varicella vaccine (1 of 2 - 2-dose childhood series) Varicella vaccine (1 of 2 - 2-dose childhood series) [facility] Immunizations Immunization Date Immunization Notes Care Provider Avinash walsh 01-21-2022 tetanus toxoid, reduced diphtheria toxoid, and acellular pertussis vaccine, adsorbed Ne Hanna MD [facility] Work Phone: 04-04-2019 tetanus and diphtheria toxoids, adsorbed, preservative free, for adult use (2 Lf of tetanus toxoid and 2 Lf of diphtheria toxoid) Johnna Barroso SENIOR CLINICAL RESEARCH SCIENTISTCambridge Mobile Telematics Work Phone: [facility] 09-11-2014 influenza, seasonal, injectable, preservative free Johnna Barroso SENIOR CLINICAL RESEARCH SCIENTISTCambridge [employer] Work Phone: [facility] 09-11-2014 influenza virus vaccine, unspecified formulation Johnna Barroso SENIOR CLINICAL RESEARCH SCIENTISTCambridge [employer] Work Phone: [facility] NEGATED: Highlighted row has not occurred!11-27-2021 influenza, injectable, quadrivalent, preservative free Johnna Barroso SENIOR CLINICAL RESEARCH SCIENTIST-CHILD WELFARE DIRECTOR Work Phone: [facility] Comment on above: Deferred: Patient de cision Payers Date Payer Category Payer Unknown BCBS [facility] HMO/PPO/TRUST [id number] 2023-Present [phone] [address] [place] [address] [id number] 2023 Unknown [id number] 2022 Medicaid [id number] 2022 Self-pay 2022 Unknown [id number] 2022 Unknown [id number] 2022 Unknown [id number] 2021 Unknown [id number] 1988 Unknown [id number] 1988 Unknown [id number] 1988 Unknown [id number] 1988 Unknown [id number] 1988 Unknown [id number] 1959 Unknown [id number] 1959 Unknown [id number] Unknown [id number] Unknown [id number] Social History Date Type Detail Facility Start: 03-31-2014 End: 08-20-2022 Tobacco smoking status NHIS Ex-smoker [employer] Start: 03-31-2014 Tobacco use and exposure Smoke less tobacco non-user [employer] Phone: Start: 01-21-2022 Alcohol intake 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 [employer] [facility] Start: 03-31-2014 History SDOH Alcohol [facility] Start: 1990 [facility]: Start: 01-11-2022 End: 01-21-2022 Exposure to SARS-CoV-2 (event) Not sure [employer] Phone: Start: 1990 Sex Assigned At Male F [facility] Start: 11-26-2021 End: 11-02-2023 Sex Assigned At [facility] History of tobacco use [facility] Start: 08-20-2022 Tobacco use and exposure Forme r smokeless tobacco user [facility] End: 02-12-2018 History of tobacco use Chews Tobacco [facility] Start: 11-02-2023 Alcohol intake Ex-drinker (finding) [facility] How often do you att end hinduism or spiritism services? Patient declined [facility] Do you belong to any clubs or organizations such as hinduism groups, unions, fraternal or athletic groups, or school groups? Yes [facility] Are you now , , , , never or living with a partner? [facility] How often to you hav e a drink containing alcohol? 2-3 time sa week [facility] How many standard dr inks containing alcohol do you have on a typical day? 5 or 6 [facility] How often do you hav e 6 or more drinks on 1 occasion? Monthly [facility] Do you feel stress - tense, restless, nervous, or anxious, or unable to sleep at night because your mind is troubled all the time - these days [OSQ] Rather much [facility] Start: 03-14-2019 Education 21 [facility] Clinical Notes 01-21-2022 to 11-24-2023 Telephone Encounter [...] know his results documented in this encounter [facility] 11-24-2023 Telephone encount er Note ----- Message from SERGE Mitchell sent at 11/24/2023 4:52 AM EDT ----- Biopsy was negative for malignancy, although I do recommend follow up in 6-8 weeks for continued assessment ----- Message ----- From: Interface - Lab Results/Orders In Sent: 11/18/2023 4:33 PM EDT To: [facility] 11-24-2023 Telephone encount er Note Called patient, no answer unable to leave a message [facility]-24-2023 Telephone encount er Note Patient called back into the office I did let him know his results [facility] 11-16-2023 Miscellaneous Notes Formattin g of this note might be different from the original. Patient presenting to front window requesting refill of Clobetasol 0.05% ointment. Pharmacy is [facility] in [place], [place]. documented in this encounter [facility] 11-16-2023 Telephone encount er Note Patient presenting to front window requesting refill of Clobetasol 0.05% ointment. Pharmacy is [facility] in [place], [place]. [facility] 11-06-2023 Miscellaneous Notes Formattin g of this [...] He stated understanding. documented in this encounter [facility] 11-06-2023 Telephone encount er Note ----- Message from SERGE Mitchell sent at 11/06/2023 9:38 AM EST ----- Please let pt know that ultrasound was abnormal, radiology is recommending a biopsy. I will put in order and hospital will call him ----- Message ----- From: Interface - Rad Results/Orders In 1 Sent: 11/05/2023 12:44 PM EST To: SERGE Mitchell [facility] 11-06-2023 Telephone encount er Note Tried to call patient but no answer and could not leave a voicemail. [facility] 11-06-2023 Telephone encount er Note Patient called back and I informed him. He stated understanding. [facility] 11-02-2023 History of Presen t illness Narrative [...] nursing note reviewed. Exam conducted with a slip cover sewer present. Constitutional: Appearance: Normal appearance. HENT: Head: [...] Mitchell 11/02/23 1153 documented in this encounter [employer] 12-03-2022 Evaluation note Encounter Date Diagnosis Assessment [...] no improvement in 5 to 7 days. [employer] Other 12-19-2022 Evaluation note* Encounter Date Diagnosis [...] days. You may return to work tomorrow [employer] [facility] 11-30-2022 Evaluation note* Encounter Date Diagnosis [...] no improvement in 2 to 3 days. [employer] Other 11-14-2022 Evaluation note* Encounter Date Diagnosis [...] no improvement in 2 to 3 days [employer] [facility] 11-03-2022 Evaluation note* Encounter Date Diagnosis [...] will help you get into a specialist. [employer] Other 05-10-2022 Hospital Discharge instructions* Instructions* Yoni [...] sent through Care Everywhere. * Lacerations: Stitches (Afghan) [facility] Phone: evaluation note* Diagnosis Closed head injury, initial encounter- Primary Laceration of scalp, initial encounter documented in this encounter [facility] [employer] [place] Phone: evaluation noteNo assessment information available [facility] Work Phone: Evaluation note* Diagnosis Lymphadenopathy, inguinal- Primary Lumbar back pain Lumbago Lumbar radiculopathy Thoracic or lumbosacral neuritis or radiculitis, unspecified [facility]* Diagnosis Lymphadenopathy, inguinal- Primary [facility]* Diagnosis Infection of eczematous skin documented [facility] this encounter [facility] SystemHistory general Narrative - Reported* Type Description Date Medical History hypertension Medical History hypercholesterolemia Medical History acid reflux Surgical History shoulder surgery [employer] Other Instructions* Attachments The following attachments cannot be sent through Care Everywhere. 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 1247 (Given - Provid er: Aileen Wong LPN - Comment: top of head) Care Teams (unrecognized sec tion and content) Set Decorator Relationship Specialty Start Date End Date Matt Matos APRN - CNP PCP - General 11/03/18 Team Status: Inactive Member Role Status Dates JIMMY Chandra Attending Provider Active Team Status: Inactive Member Role Status Dates VIRGIL PakC Attending Provider Active Set Decorator Relationship Specialty Start Date End Date Johnna Barroso APRN-PIERRE [address], [place] [address] PCP - General Family Medicine 11/27/21 Set Decorator Relationship Specialty Start Date End Date Johnna Barroso APRN-CHILD WELFARE DIRECTOR [address], [place] [address] PCP - General Family Medicine 11/27/21 Set Decorator Relationship Specialty Start Date End Date DharmeshJohnna arshad KimberlySERGE [address], [place] [address] PCP - General Family Medicine 11/27/21 Set Decorator Relationship Specialty Start Date End Date DharmeshJohnna camacho APRN-CNP [address], [place] [address] PCP - General Family [facility] 11/27/21 (unrecognized sect ion and content) No Status Records FoundNo Status Records FoundNo Status Records FoundNo Status Records FoundNo Status Records Found INFORMATION SOURCE (unrecogn ized section and content) DATE CREATED AUTHOR 01/22/2022 [facility] DATE CREATED AUTHOR AUTHOR'S ORGANIZ ATION 06/20/[address] [facility] DATE CREATED AUTHOR AUTHOR'S ORGANIZ ATION 01/03/2023 [facility] DATE CREATED AUTHOR AUTHOR'S ORGANIZ ATION 11/03/2023 [facility] DATE CREATED AUTHOR AUTHOR'S ORGANIZ ATION 11/21/2023 [facility] Goals (unrecognized section and content) Goals [...] BE BASED ON THE PRIMARY CLINICAL RECORDS. [facility] [employer] [facility]. provides no warranty or guarantee of the accuracy or completeness of information in this document.
[2024-06-18 18:23] LABS: Basophils Percent Auto 0.3 % (0.2-2.0); Eosinophils Absolute Auto 0.2 10^3/uL (0.0-0.7); Eosinophils Percent Auto 2.6 % (0.9-7.0); Hemoglobin 14.6 g/dL (14.0-18.0); Immature Granulocytes Abs Auto 0.05 10^3/uL (0.00-0.03); Immature Granulocytes Pct Auto 0.5 % (0.0-0.5); Lymphocytes Absolute Auto 2.4 10^3/uL (1.2-3.8); Mean Corpuscular Hemoglobin 27.9 pg (25.9-34.0); Mean Corpuscular Volume 82.1 fL (80.0-94.0); Mean Platelet Volume 10.9 fL (9.5-13.5); Monocytes Absolute Auto 0.7 10^3/uL (0.3-0.8); Monocytes Percent Auto 7.5 % (1.7-12.0); Neutrophils Absolute Auto 5.9 10^3/uL (1.4-6.5); Neutrophils Percent Auto 63.1 % (43.0-75.0); Platelet Count 260 10^3/uL (150-450); Red Blood Count 5.24 10^6/uL (4.70-6.10); Red Cell Distribution Width 12.1 % (11.0-15.0); White Blood Count 9.3 10^3/uL (4.0-11.0)
[2024-06-18] MEDS: KETOROLAC TROMETHAMINE 30 MG/ML VIAL IVP (18:34)
--- NOTE | 2024-06-18 18:46 | ED_ITS ---
HPI - Chest Pain General Chief Complaint: Chest Pain Stated Complaint: CHEST PAIN Time Seen by Provider: 06/18/24 18:12 Mode of arrival: walk-in Limitations: no limitations History of Present Illness HPI narrative: 33-year-old male presents here with a chief complaint of chest pain. Patient states he had intermittent chest pain for the last day and a half. He states occasionally has had radiation of the pain. Denies pain at this time. States significant other made come in for evaluation. Patient denies a previous past medical history of heart issues. Denies taking a medication daily. He denies a history of IV drug use or other drug use. Patient's vital signs are stable he is not currently febrile. Pain is reproducible to palpation to the left chest wall. Related Data Home Medications ?Medication ?Instructions ?Recorded ?Confirmed No Known Home Medications 06/18/24 06/18/24 Allergies Allergy/AdvReac Type Severity Reaction Status Date / Time tree nut Allergy Intermediate Rash Verified 04/30/24 20:42 Review of Systems ROS Narrative All Systems are negative except as noted/marked.All systems reviewed and otherwise negative PFSH COUNTS INCLUDE 234 BEDS AT THE [facility] Social History Smoking status: Former smoker Little interest or pleasure in doing things: not at all Feeling down, depressed, or hopeless: not at all Exam Narrative Exam Narrative: General: The patient is comfortable, alert and oriented x3, well appearing, non toxic in no apparent distress. Head: Atraumatic and normocephalic. Eyes: Normal conjunctiva, no exudates. ENT: The oropharynx is normal. No pharyngeal erythema, uvular edema, tonsillar exudates, asymmetry or trismus. Uvula is midline. Mouth is normal to inspection With the exception of a pain on percussion of the tooth # and evidence of dental caries. There is no evidence of facial asymmetry or abscess formation. Floor of the mouth is soft. No tenderness in the submental or submandibular space. No tongue elevation or deviation. The patient has no evidence of periapical abscess, gingivitis, ANUG or other acute pathology. Airway is patent. Neck: The neck demonstrates normal range of motion. No meningeals signs are present. No stridor. No masses or lymphandenopathy noted. Respiratory: No acute distress, lungs are clear to auscultation, no wheezing, rhonchi, or rales noted. No stridor or retractions are noted. Cardiovascular: Regular rate and rhythm Skin: The skin exam shows no evidence of rashes Neuro: Alert and oriented x4, normal speech Lymphatic: No cervical lymphadenopathy Constitutional Vital Signs, click to edit/add: Last Vital Signs Temp 97.9 F 06/18/24 18:01 Pulse 65 06/18/24 19:20 Resp 21 H 06/18/24 19:20 BP 150/97 H 06/18/24 19:15 Pulse Ox 95 06/18/24 19:20 O2 Del Method Room Air 06/18/24 18:01 Course Vital Signs Vital signs: Vital Signs Temperature 97.9 F 06/18/24 18:01 Pulse Rate 75 06/18/24 18:01 Respiratory Rate 18 06/18/24 18:01 Blood Pressure 178/106 H 06/18/24 18:01 Pulse Oximetry 98 06/18/24 18:01 Oxygen Delivery Method Room Air 06/18/24 18:01 Temperature 97.9 F 06/18/24 18:01 Pulse Rate 65 06/18/24 19:20 Respiratory Rate 21 H 06/18/24 19:20 Blood Pressure 150/97 H 06/18/24 19:15 Pulse Oximetry 95 06/18/24 19:20 Oxygen Delivery Method Room Air 06/18/24 18:01 MDM - Chest Pain MDM Narrative Medical decision making narrative: 33-year-old male presents here with a chief complaint of chest pain. Patient states he had intermittent chest pain for the last day and a half. He states occasionally has had radiation of the pain. Denies pain at this time. States significant other made come in for evaluation. Patient denies a previous past medical history of heart issues. Denies taking a medication daily. He denies a history of IV drug use or other drug use. Patient's vital signs are stable he is not currently febrile. Pain is reproducible to palpation to the left chest wall. Patient presented here with chief complaint of chest wall pain. Pain was reproduced with palpation of the chest. Patient was medicated with IV Toradol which did improve the chest pain he denies any pain at this time. Upon arrival to the emergency room IV was established patient had blood drawn including CBC CMP troponin and D-dimer. Patient's blood work does show an elevated glucose. A low sodium. Patient denies a known history of hyperglycemia or diabetes. I did explain to patient 1 elevated blood sugar does not contribute to diabetes. Encouraged him to follow-up primary care physician and have increased blood work drawn including an A1c. Patient is pain-free at this time. Heart score of 0. Patient stable to be discharged to home. Patient is also made aware of low sodium. Patient told to increase fluid intake. Patient agrees with plan of care. Differential Diagnosis Differential diagnosis: Likely fracture of rib, pneumothorax, atypical chest pain, costochondritis and chest pain Medical Records Data Attestation: I reviewed the patient's medical records. Lab Data Attestation: I reviewed the patient's lab results. Labs: Lab Results 06/18/24 06/18/24 Range/Units 18:06 18:36 WBC 9.3 (4.0-11.0) 10^3/uL RBC 5.24 (4.70-6.10) 10^6/uL Hgb 14.6 (14.0-18.0) g/dL Hct 43.0 (42.0-54.0) % MCV 82.1 (80.0-94.0) fL MCH 27.9 (25.9-34.0) pg MCHC 34.0 (29.9-35.2) g/dL RDW 12.1 (11.0-15.0) % Plt Count 260 (150-450) 10^3/uL MPV 10.9 (9.5-13.5) fL Neut % (Auto) 63.1 (43.0-75.0) % Lymph % (Auto) 26.0 (20.5-60.0) % Larue % (Auto) 7.5 (1.7-12.0) % Eos % (Auto) 2.6 (0.9-7.0) % Baso % (Auto) 0.3 (0.2-2.0) % Neut # (Auto) 5.9 (1.4-6.5) 10^3/uL Lymph # (Auto) 2.4 (1.2-3.8) 10^3/uL Larue # (Auto) 0.7 (0.3-0.8) 10^3/uL Eos # (Auto) 0.2 (0.0-0.7) 10^3/uL Baso # (Auto) 0.0 (0.0-0.1) 10^3/uL Abs Immat Gran (auto) 0.05 H (0.00-0.03) 10^3/uL Imm/Tot Granulo (auto) 0.5 (0.0-0.5) % PT 10.4 (9.0-11.6) sec INR 0.98 D-Dimer 0.29 (<=0.59) mg/L FEU Sodium 132 L (136-145) mmol/L Potassium 3.7 (3.5-5.1) mmol/L Chloride 99 (98-107) mmol/L Carbon Dioxide 26.9 (21.0-32.0) mmol/L Anion Gap 9.8 BUN 10.0 (7.0-18.0) mg/dL Creatinine 1.14 (0.70-1.30) mg/dL Est GFR ( Amer) >60 (>=60 mL/min/1.73m^2) Est GFR (Non-Af Amer) >60 (>=60 mL/min/1.73m^2) BUN/Creatinine Ratio 8.8 Glucose 353 H (74-106) mg/dL Calcium 9.1 (8.5-10.1) mg/dL Total Bilirubin 0.7 (0.2-1.0) mg/dL AST 29 (15-37) U/L ALT 69 H (16-63) U/L Alkaline Phosphatase 79 (46-116) U/L Troponin I High Sens 6.3 (4.0-76.1) pg/mL NT-Pro-B Natriuret Pep 37.0 (<=450.0) pg/mL Total Protein 7.1 (6.4-8.2) g/dL Albumin 3.6 (3.4-5.0) g/dL Globulin 3.5 g/dL Albumin/Globulin Ratio 1.0 Imaging Data Chest x-ray: Attestation: I have reviewed the pertinent imaging results. Radiologist's impression: ITS Impressions Chest X-Ray 06/18/24 18:12 IMPRESSION: No acute infiltrate or evidence of cardiac decompensation. The overall appearance of the chest is essentially unchanged. Electronically authenticated by: SEAN KWOK Date: 06/18/2024 19:18 ECG Data Interpretation: 1803 with a rate of 70 bpm NC interval 152 ms QRS duration 112 ms, no STEMI Heart Score History: Slightly/Non-Suspicious ECG: Normal Age: <45 years Risk Factors: No Risk Factors Troponin: <Normal Limit Total Heart Score Recommendations & Risks:: 0 Discharge Plan Discharge Chief Complaint: Chest Pain Clinical Impression: Hyperglycemia, Hyponatremia, Chest pain Patient Disposition: Home, Self-Care Time of Disposition Decision: 19:30 Condition: Good Prescriptions / Home Meds: No Action No Known Home Medications Print Language: Dutch Instructions: Chest Pain (ED), Hyponatremia (ED), Nondiabetic Hyperglycemia (ED) Referrals: Johnna Barroso NETWORK DEVELOPER [Primary Care Provider] - 1 week
[2024-06-18 18:55] LABS: Alanine Aminotransferase 69 U/L (16-63); Albumin Level 3.6 g/dL (3.4-5.0); Alkaline Phosphatase 79 U/L (46-116); Anion Gap 9.8; Aspartate Amino Transferase 29 U/L (15-37); BUN Creatinine Ratio 8.8; Bilirubin Total 0.7 mg/dL (0.2-1.0); Calcium 9.1 mg/dL (8.5-10.1); Carbon Dioxide 26.9 mmol/L (21.0-32.0); Chloride 99 mmol/L (98-107); Estimated GFR (African America >60 (>=60 mL/min/1.73m^2); Estimated GFR (Non-African Ame >60 (>=60 mL/min/1.73m^2); Globulin 3.5 g/dL; Glucose 353 mg/dL (74-106); Potassium 3.7 mmol/L (3.5-5.1); Sodium 132 mmol/L (136-145); Total Protein 7.1 g/dL (6.4-8.2); Troponin I High Sensitivity 6.3 pg/mL (4.0-76.1)
[2024-06-18 19:06] LABS: D Dimer 0.29 mg/L FEU (<=0.59); INR 0.98; Prothrombin Time 10.4 sec (9.0-11.6)
== END 2024-06-18 19:40 | disposition home or self-care (01) ==
PROVIDERS: Physician Assistant; Emergency Provider Emergency Medicine; PCP Nurse Practitioner
DX: R07.9 Chest pain, unspecified (principal); E87.1 Hypo-osmolality and hyponatremia; R73.9 Hyperglycemia, unspecified; Z87.891 Personal history of nicotine dependence
CPT/HCPCS: 36415; 71046; 80053; 83880; 84484; 85025; 85378; 85610; 93005; 96374; 99285; J1885

== ENCOUNTER 2024-08-08 20:02 | Emergency (ER) | payer SELFPAY ==
[2024-08-08 20:04] VITALS: BP 176/98; PULSE 89; TEMP 36.7; O2SAT 98; BMI 30.1
--- OUTSIDE RECORDS SUMMARY | 2024-08-08 20:08 | XMS_ITS | CCD ---
Author Organization [facility] Care Team Providers Care Stock Checker Name Role Phone Matt Mancera APRN, CNP Primary Care Provider MATT MATOS Primary Care Unavailable NE HANNA Attending Unavailable MISC, DR STEPHENS Attending Unavailable MISC, DR STEPHENS Consulting Unavailable MISC, DR STEPHENS Admitting Unavailable JIMMY Prakash Attending Provider [phone] Viv Campos Unavailable Tamar Prakash Unavailable DURGA Campos Attending Provider [phone] Tamar Prakash Attending Unavailable Tamar Prakash Admitting Unavailable Viv Campos Admitting Unavailable Viv Campos Attending Unavailable Johnna Caraballo Primary Care Provi sang JOHNNA BARROSO Attending Unavailable JOHNNA BARROSO Referring Unavailable JOHNNA BARROSO Primary Care Unavailable JOHNNA BARROSO Referring Unavailable JOHNNA BARROSO Primary Care Unavailable JOHNNA BRAROSO Referring Unavailable JOHNNA BARROSO Primary Care Unavailable Allergies Allergy Classification Reported Allergen(s) Allergy Type Date of Onset Reaction(s) Facility (7 sources) [place]; Translations: [[place]] Propensity to adverse reactions 2 Unknown [facility] (5 sources) [place] Propensity to adverse reactions to drug 2 [facility] (7 sources) Orphenadrine; Translations: [ORPHENADRINE CITRATE] Drug Allergy [address] [facility] Medications Current Medications Medication Drug [...] Start: 07-28-2022 take 1 capsule by mo [facility] every eight hours Amoxicillin 500 MG [...] / neomycin 3.5 mg/ml / polymyxin b 32557 unt/ml otic suspension (3 sources) Aminoglycoside Antibacterial, Polymyxin-class Antibacterial, Corticosteroid Start: 08-13-2022 Neomycin-Polymyx in-HC 3.5-38792-3 3 drops left ear Three times a [...] REPORT, REVIEWED BY PATHOLOGIST Normal [facility] IR BIOPSY LYMPH NODEon 11-15 IR BIOPSY [...] on 11/16/2023 11:01 AM Normal [facility] Surgical Pathologyon 024 Surgical Pathology Normal [facility] Comment on above: Result Comment: [facility] [address] [place] [address] Surgical Pathology Consultation Patient Name:MICH RODRIGUEZ JR.:1990 (Age: 33)Gender:MTaken:4Reported:11/18/2023hysician(s):Johnna Barroso CNP ([phone])Copy To:Delano Cruz M.D. Rec. #:[id number]: #[id number] Final Pathologic Diagnosis Left groin lymph node, [...] CD5, CD7, CD10, CD19, CD20, CD23, CD45, Barry, and Lambda. Immunophenotyping Comment: Immunophenotyping has been used in this diagnostic evaluation. This test was developed and its performance characteristics determined by the [facility] Department. It has not been [...] Out Ruben Jean MD Interpretation performed at [facility], [address] [place] [address], License number: [id number]. Clinical History Lymphadenopathy, inguinal R59.0. Gross Description Received in formalin labeled LITTLE, left groin BX are parish-turk, focally erythematous, delicate soft tissue fragments, 0.6 x 0.4 x 0.1 cm in aggregate. The specimen is filtered and entirely submitted in a single cassette. (1, ns, [id number], m1) JG A separate soft tissue core is received in RPMI media and sent to flow cytometry for analysis. [facility] [place]/11/16/2023 Specimen(s) Received Left groin lymph node Fee Codes(s): 1; 78174, 56772 US EXT NON-VASC LT LIMITEDon 11-05-2023 US [...] Hi Stover MD on 11/05/2023 12:42 PM [facility] XR hand RT min 3V*on 023 XR hand RT min 3V* [facility] Main [facility] [address] [place] [address] XRay Report Signed Patient: Mich Rodriguez MR#: [id number] : 1990 Acct:[id number] Age/Sex: 32 / M ADM Date: 12/03/22 [facility] Type: [facility] Attending Dr: Viv CALIXTO Copies to: DURGA [...] 12/03/22 1223 Signed By: 12/03/22 1225 Normal [facility] XR hand RT min 3V* [facility] [employer] Other XR hand RT min 3V* [facility] [employer] Other XR hand RT min 3V* [address] [place] [address] [employer] Other XR hand RT min 3V* [place] [address] [employer] Other XR hand RT min 3V* XRay Report [employer] Other XR hand RT min 3V* Signed [employer] Other XR hand RT min 3V* Patient: Mich Rodriguez MR#: [id number] [employer] Other XR hand RT min 3V* 4283 [employer] Other XR hand RT min 3V* : 1990 Acct:[id number] [employer] Other XR hand RT min 3V* Age/Sex: 32 / M ADM Date: 12/03/22 [employer] Other XR hand RT min 3V* Loc: XDUCLY Room: Type: REG CLI [employer] Other XR hand RT min 3V* Attending Dr: Viv CALIXTO [employer] Other XR hand RT min 3V* Copies to: DURGA Arango [employer] Other XR hand RT min 3V* Ordering Provider: DURGA Arango [employer] Other XR hand RT min 3V* Date of Service: 12/03/22 [employer] Other XR hand RT min 3V* XR/XR hand RT min 3V*: RIGHT HAND SWELLING/PAIN [employer] Other XR hand RT min 3V* RIGHT HAND - 3 views [employer] Other XR hand RT min 3V* CLINICAL DATA: Right hand pain and swelling dorsally over the metacarpals for the past week. No [employer] Other XR hand RT min 3V* known injury. Nor [facility] Other XR hand RT min 3V* COMPARISON: None [employer] Other XR hand RT min 3V* AP, lateral and oblique views were obtained. There is no evidence of fracture or dislocation. No [employer] Other XR hand RT min 3V* prominent hypertrophy or joint space narrowing is seen. Mild dorsal soft tissue swelling is [employer] Other XR hand RT min 3V* present. [employer] Other XR hand RT min 3V* XR/XR hand RT min 3V* [employer] Other XR hand RT min 3V* IMPRESSION: [employer] Other XR hand RT min 3V* NO ACUTE BONY FINDINGS. [employer] Other XR hand RT min 3V* Impression dictated by: Christi Gray M.D.12/03/2022 12:25 PM [employer] Other XR hand RT min 3V* Dictation Location: [place] [address] [employer] Other XR hand RT min 3V* Transcribed By: SARWAT 12/03/22 1225 [employer] Other XR hand RT min 3V* Dictated By: Christi Gray MD 12/03/22 1223 [facility] [employer] Other XR hand RT min 3V* Signed By: [facility] [employer] Other XR hand RT min 3V* 12/03/22 1225 [facility] [employer] Other COVID + FLU Quick Testingon 09-01-2022 SARS-CoV-2 (COVID-19) RNA ABILIO+probe Ql (Unsp spec) Negative [facility] [employer] Other COVID + FLU Quick Testing Negative [facility] [employer] Other XR knee RT 4V*on 07-17-2022 XR knee RT 4V* [facility] [address] [place] [address] XRay Report Signed Patient: Mich Rodriguez MR#: [id number] : 1990 Acct:[id number] Age/Sex: 31 / M ADM Date: 07/17/22 Loc: X[facility]CLY Room: Type: [facility] Attending Dr: Tamar MARQUEZ Copies to: TAMAR [...] Brayan Mccormack M.D.07/17/2022 1:22 PM Dictation Location: [place] [address] Transcribed By: SARWAT 07/17/22 1322 Dictated By: Brayan Mccormack II, MD 07/17/22 1321 Signed By: 07/17/22 1322 Normal [facility] XR knee RT 4V* [facility] [employer] Other XR knee RT 4V* [facility] [employer] Other XR knee RT 4V* [address] [place] [address] [employer] Other XR knee RT 4V* [place] [address] No rt [facility] Other XR knee RT 4V* XRay Report [employer] Other XR knee RT 4V* Signed [employer] Other XR knee RT 4V* Patient: Mich Rodriguez MR#: [id number] [place] [facility] Other XR knee RT 4V* 83 [employer] Other XR knee RT 4V* : 1990 Acct:[id number] [employer] Other XR knee RT 4V* Age/Sex: 31 / M ADM Date: 07/17/22 [employer] Other XR knee RT 4V* Loc: XDUCLY Room: Type: [facility] [employer] Other XR knee RT 4V* Attending Dr: Tamar Prakash [facility] [employer] Other XR knee RT 4V* Copies to: TAMAR PRAKASH [facility] [employer] Other XR knee RT 4V* Ordering Provider: TAMAR PRAKASH ELECTROMEDICAL EQUIPMENT TECHNICIAN-C [employer] Other XR knee RT 4V* Date of Service: 07/17/22 [employer] Other XR knee RT 4V* XR/XR knee RT 4V*: Right anterior knee pain [employer] Other XR knee RT 4V* XR knee RT 4V* 07/17/2022 1:02 PM [employer] Other XR knee RT 4V* SIGNS AND SYMPTOMS: Right anterior knee pain [employer] Other XR knee RT 4V* PROTOCOL: Frontal, lateral, and oblique radiographs of the right knee [employer] Other XR knee RT 4V* COMPARISON: None [facility] [employer] Other XR knee RT 4V* FINDINGS: [employer] Other XR knee RT 4V* There is a linear radiopaque foreign body in the lateral soft tissues adjacent to the proximal [employer] Other XR knee RT 4V* fibula. The joint spaces are preserved. There is no fracture. No joint effusion. No soft tissue [employer] Other XR knee RT 4V* swelling. [employer] Other XR knee RT 4V* XR/XR knee RT 4V* [employer] Other XR knee RT 4V* IMPRESSION: [employer] Other XR knee RT 4V* No acute bony injury or significant degenerative change. [employer] Other XR knee RT 4V* fibula. [employer] Other XR knee RT 4V* Impression dictated by: Brayan Mccormack M.D.07/17/2022 1:22 PM [employer] Other XR knee RT 4V* Dictation Location: [place] [address] [employer] Other XR knee RT 4V* Transcribed By: SARWAT 07/17/22 1322 [employer] Other XR knee RT 4V* Dictated By: Brayan Mccormack II, MD 07/17/22 1321 [employer] Other XR knee RT 4V* Signed By: Ramírez allen [employer] Other XR knee RT 4V* 07/17/[address] [employer] [address] CERVICAL SPINE WO CONTRAS Ton [...] Clark Rhodes MD 01/21/22 Final result Normal [facility] CT HEAD WO CONTRASTon 2021 CT HEAD [...] Clark Rhodes MD 01/21/22 Final result Normal [facility] No Panel Informationon 01-21 No acute intracranial abnormality. No acute fracture or subluxation of cervical spine. Mild degenerative change C4-C5 and C5-C6. RECOMMENDATIONS: Unavailable [facility] RIS CONSOLIDATED EXAMINATION: CT OF [...] There is no prevertebral soft tissue swelling. [facility] Clark Zafar MD - 01/21/2022 EXAMINATION: [...] degenerative change C4-C5 and C5-C6. RECOMMENDATIONS: Unavailable [employer] Phone: Radiology Study observation (narrative) [employer] Phone: No Panel InformationOrdered By: Clark Rhodes on 01-21-2022 [employer] Phone: Vital Signs Date Time Vital Sign Value Performing Clinician Faci norman 11-02-2023 10:59-0500 Body height 177.8 cm Johnna Barroso APRN-MOVIE STAR Work Phone: [employer] 11-02-2023 10:59-0500 Body mass index (BMI) [Ratio] 28.93 kg/m2 Johnna Barroso APRN-MOVIE STAR Work Phone: [employer] 11-02-2023 10:59-0500 Body temperature 98.6 [degF] Johnna Barroso REGULATORY INTERNSHIP-MOVIE STAR Work Phone: [facility] [employer] [facility] 11-02-2023 10:59-0500 Body weight 91.44 kg Johnna Barroso [employer]AT[employer] INTER[employer]-MOV[employer]AR Work Phone[facility] 11-02-2023 10:59-0500 Diastolic blood pressure 88 mm[Hg] Johnna Barroso [employer]MOV[employer]AR Work Phone: [facility] 11-02-2023 10:59-0500 Heart rate 81 /min Johnna Barroso [employer] INTERNS[employer]-MOV[employer]AR Work Phone: [facility] 11-02-2023 10:59-0500 Respiratory rate 20 /min Johnna Barroso [employer] INTERNS[employer]-MOVIE [employer]AR Work Phone[facility] 11-02-2023 10:59-0500 SaO2% (BldA) [Mass fraction] 98 % Johnna Barroso [employer]-MOV[employer]AR Work Phone[facility] 11-02-2023 10:59-0500 Systolic blood pressure 146 mm[Hg] Johnna Barroso [employer]MOV[employer]AR Work Phone: [facility] 12-03-2022 12:35-0400 Body height 177.8 cm Viv Campos Other [employer] Other 12-03-2022 12:35-0400 Body mass index (BMI) [Ratio] 30.13 kg/m2 Viv Campos Other [employer] Other 12-03-2022 12:35-0400 Body temperature 100 [degF] Viv Campos Other [employer] Other 12-03-2022 12:35-0400 Body weight 95.26 kg Viv Beth Other [employer] Other 12-03-2022 12:35-0400 Diastolic blood pressure 89 mm[Hg] Viv Beth Other [employer] Other 12-03-2022 12:35-0400 Respiratory rate 18 /min Viv Beth Other [employer] Other 12-03-2022 12:35-0400 SaO2% (BldA) [Mass fraction] 96 % Viv Beth Other [employer] Other 12-03-2022 12:35-0400 Systolic blood pressure 151 mm[Hg] Viv Beth Other [employer] Other 09-01-2022 12:15-0500 Body height 177.8 cm Viv Beth Other [employer] Other 09-01-2022 12:15-0500 Body mass index (BMI) [Ratio] 30.13 kg/m2 Viv Beth Other [employer] Other 09-01-2022 12:15-0500 Body temperature 97.9 [degF] Viv Beth Other [employer] Other 09-01-2022 12:15-0500 Body weight 95.26 kg Viv Beth Other [employer] Other 09-01-2022 12:15-0500 Diastolic blood pressure 93 mm[Hg] Viv Beth Other [employer] Other 09-01-2022 12:15-0500 Respiratory rate 18 /min Viv Beth Other [employer] Other 09-01-2022 12:15-0500 SaO2% (BldA) [Mass fraction] 100 % Viv Beth Other [employer] Other 09-01-2022 12:15-0500 Systolic blood pressure 157 mm[Hg] Viv Beth Other [employer] Other 08-13-2022 11:35-0500 Body height 177.8 cm Viv Beth Other [employer] Other 08-13-2022 11:35-0500 Body mass index (BMI) [Ratio] 30.13 kg/m2 Viv Beth Other [employer] Other 08-13-2022 11:35-0500 Body temperature 98.1 [degF] Viv Ebth Other [employer] Other 08-13-2022 11:35-0500 Body weight 95.26 kg Viv Beth Other [employer] Other 08-13-2022 11:35-0500 Diastolic blood pressure 89 mm[Hg] Viv Beth Other [employer] Other 08-13-2022 11:35-0500 Respiratory rate 16 /min Viv Beth Other [employer] Other 08-13-2022 11:35-0500 SaO2% (BldA) [Mass fraction] 99 % Viv Beth Other [employer] Other 08-13-2022 11:35-0500 Systolic blood pressure 143 mm[Hg] Viv Campos Other [employer] Other 07-28-2022 11:35-0500 Body height 177.8 cm Viv Campos Other [employer] Other 07-28-2022 11:35-0500 Body mass index (BMI) [Ratio] 30.13 kg/m2 Viv Randallmond Other [employer] Other 07-28-2022 11:35-0500 Body temperature 97.9 [degF] Viv Campos Other [employer] Other 07-28-2022 11:35-0500 Body weight 95.26 kg Viv Campos Other [employer] Other 07-28-2022 11:35-0500 Diastolic blood pressure 83 mm[Hg] Viv Campos Other [employer] Other 07-28-2022 11:35-0500 Respiratory rate 18 /min Viv Campos Other [employer] Other 07-28-2022 11:35-0500 SaO2% (BldA) [Mass fraction] 96 % Viv Campos Other [employer] Other 07-28-2022 11:35-0500 Systolic blood pressure 126 mm[Hg] Viv Beth Other [employer] Other 07-17-2022 14:40-0400 Body height 177.8 cm Tamar Prakash Other [employer] Other 07-17-2022 14:40-0400 Body mass index (BMI) [Ratio] 30.13 kg/m2 Tamar Prakash Other [employer] Other 07-17-2022 14:40-0400 Body temperature 98 [degF] Tamar Prakash Other [employer] Other 07-17-2022 14:40-0400 Body weight 95.26 kg Tamar Prakash Other [employer] Other 07-17-2022 14:40-0400 Diastolic blood pressure 81 mm[Hg] Tamar Prakash Other [employer] Other 07-17-2022 14:40-0400 Respiratory rate 18 /min Tamar Prakash Other [employer] Other 07-17-2022 14:40-0400 SaO2% (BldA) [Mass fraction] 98 % Tamar Prakash Other [employer] Other 07-17-2022 14:40-0400 Systolic blood pressure 143 mm[Hg] Tamar Prakash Other [employer] Other 01-21-2022 12:29-0400 Body height 177.8 cm Ne Hanna MD [employer] 01-21-2022 12:29-0400 Body mass index (BMI) [Ratio] 30.85 kg/m2 Ne Hanna MD [employer] 01-21-2022 12:29-0400 Body temperature 98.8 [degF] Ne Hanna MD [employer] 01-21-2022 12:29-0400 Body weight 97.52 kg Ne Hanna MD [employer] 01-21-2022 12:29-0400 Diastolic blood pressure 91 mm[Hg] Ne Hanna MD [facility] 01-21-2022 12:29-0400 Heart rate 82 /min Ne Hanna MD [facility] 01-21-2022 12:29-0400 Respiratory rate 18 /min Ne Hanna MD [facility] 01-21-2022 12:29-0400 SaO2% (BldA) [Mass fraction] 98 % Ne Hanna MD [facility] 01-21-2022 12:29-0400 Systolic blood pressure 155 mm[Hg] Ne Hanna MD [facility] Encounters Encounter Date Encounter Type Care Provider Facility Start: 11-24-2023 Telephone encounter Zulma Pagan MA [facility] Start: 11-16-2023 End: 11-17-2023 Refill Johnna Barroso [employer] Work Phone: [facility] Comment on above: Infection of eczemat ous skin Start: 11-06-2023 Orders Only Johnna martin [employer] Work Phone: [facility] Comment on above: Lymphadenopathy, ing uinal (Primary Dx) Start: 11-03-2023 End: 11-04-2023 ambulatory [facility] Start: 11-02-2023 End: 11-02-2023 ambulatory [facility] Start: 11-02-2023 End: 11-02-2023 Office outpatient visit 15 minutes Johnna Barroso [employer]AR Work Phone: [facility] Comment on above: Lymphadenopathy, ing uinal (Primary Dx); Lumbar back pain; Lumbar radiculopathy Start: 12-03-2022 Office outpatient vi sit 15 minutes Viv Campos [facility] Start: 12-03-2022 End: 12-03-2022 ambulatory Viv Campos Facility:[facility] Start: 12-03-2022 End: 12-03-2022 ambulatory INTERNATIONAL RELATIONS TEACHER-C Viv Campos Work Phone: [facility] Work Phone: Start: 12-03-2022 End: 12-03-2022 Patient encounter procedure INTERNATIONAL RELATIONS TEACHER-C Viv Beth Work Phone: [facility] Work Phone: Start: 09-01-2022 End: 09-01-2022 ambulatory Viv Beth Other [employer] Other Start: 09-01-2022 Office outpatient vi sit 15 minutes Viv Beth [facility] Start: 08-13-2022 End: 08-13-2022 ambulatory Viv Beth Other [employer] Other Start: 08-13-2022 Office outpatient vi sit 15 minutes Viv Beth [facility] Start: 07-28-2022 End: 07-28-2022 ambulatory Viv Beth Other [employer] Other Start: 07-28-2022 Office outpatient vi sit 15 minutes Viv Beth [facility] Start: 07-17-2022 End: 07-17-2022 ambulatory Tamar Haylee Facility:[facility] Start: 07-17-2022 Office outpatient vi sit 15 minutes Tamar Haylee [facility] Start: 07-17-2022 End: 07-17-2022 ambulatory ELECTROMEDICAL EQUIPMENT TECHNICIAN-C Tamar Haylee Work Phone: [facility] Work Phone: Start: 07-17-2022 End: 07-17-2022 Patient encounter procedure ELECTROMEDICAL EQUIPMENT TECHNICIAN-C Tamar Haylee Work Phone: [facility] Start: 01-21-2022 End: 01-21-2022 Emergency department patient visit MATT MATOS [facility] Start: 01-21-2022 End: 01-21-2022 Emergency department patient visit Ne Hanna MD [facility] Comment on above: Closed head injury, initial encounter (Primary Dx); Laceration of scalp, initial encounter Start: 05-28-2020 End: 05-29-[address] [facility] [facility] Facility: Procedures Date Procedure Procedure Detail Performing Clinician Start: 11-02-2023 Adult depression screening assessment Jhonna Soriasler [employer] Work Phone: Start: 12-03-2022 Plain X-ray of right hand INTERNATIONAL RELATIONS TEACHER-C Viv Campos Work Phone: Start: 07-17-2022 X-ray of right knee ELECTROMEDICAL EQUIPMENT TECHNICIAN -C Tamar Zelayaault Work Phone: Start: 01-21-2022 Ct cervical spine w/ o contrast material Yoni A Romp PA-C Work Phone: Start: 01-21-2022 Ct head/brain w/o contrast material Yoni A Romp PA-C Work Phone: Plan of Treatment Date Care Activity Detail Author Start: 01-22-2032 DTaP,Tdap and Td Vaccines (3 - Td or Tdap) DTaP,Tdap and Td Vaccines (3 - Td or Tdap) [facility] Start: 01-22-2032 DTaP/Tdap/Td vaccine (2 - Td or Tdap) DTaP/Tdap/Td vaccine (2 - Td or Tdap) [facility] Start: 11-02-2024 Adult BMI Screening Adult BMI Screen ing [facility] Start: 11-02-2024 Depression Screening Depression Scre ening [facility] Start: 11-02-2024 Tobacco Screening Tobacco Screening [facility] Start: 11-06-2023 End: 11-06-2024 US Guidance for core needle biopsy of Unspecified body region Ultrasound guidance intraoperative with Bx or Asp Imaging Routine Lymphadenopathy, inguinal Expected: 11/06/2023, Expires: 11/06/2024 [facility] Work Phone: Comment on above: Expected: 11/06/2023 , Expires: 11/06/2024 Start: 11-03-2023 Subsequent hospital visit by physician 11/03/2023 2:30 PM EST Hospital Encounter [facility]ound [address] [place] [id number] [facility] Start: 11-02-2023 End: 11-02-2024 US Extremity - left limited Ultrasound extremity non vascular limited left Imaging Routine Lymphadenopathy, inguinal Expected: 11/02/2023, Expires: 11/02/2024 [facility] Work Phone: Comment on above: Expected: 11/02/2023 , Expires: 11/02/2024 Start: 05-15-2023 Influenza vaccination Influenza Vacc ine [facility] Start: 05-15-2022 Influenza vaccination Flu vacc ine (Season Ended) [facility] Start: 2006 Adult BMI Follow Up Plan Adult BMI Follow Up Plan [facility] Start: 2006 Hepatitis C screening Hepatitis C sc reen [facility] Start: 2003 HIV screening HIV screen [facility] Start: 2000 Depression Screen Depression Screen [facility] Start: 1993 COVID-19 Vaccine (1) COVID-19 Vaccin e (1) [facility] Start: 1989 Varicella vaccine (1 of 2 - 2-dose childhood series) Varicella vaccine (1 of 2 - 2-dose childhood series) [facility] Immunizations Immunization Date Immunization Notes Care Provider Avinash walsh 01-21-2022 tetanus toxoid, reduced diphtheria toxoid, and acellular pertussis vaccine, adsorbed Ne Hanna MD [facility] Work Phone: 04-04-2019 tetanus and diphtheria toxoids, adsorbed, preservative free, for adult use (2 Lf of tetanus toxoid and 2 Lf of diphtheria toxoid) Johnna Barroso [employer] INTERNSH[employer] Work Phone: [facility] 09-11-2014 influenza, seasonal, injectable, preservative free Johnna Barroso [employer]ATORY INTERNSHIP[employer]itus Work Phone: [facility] 09-11-2014 influenza virus vaccine, unspecified formulation Johnna Barroso [employer]AT[employer] INTERNSHIPubitus Work Phone: [facility] NEGATED: Highlighted row has not occurred!11-27-2021 influenza, injectable, quadrivalent, preservative free Johnna Barroso [employer]HIP-MOVIE [employer]AR Work Phone: [facility] Comment on above: Deferred: Patient de cision Payers Date Payer Category Payer Unknown BCBS [facility] HMO/PPO/TRUST [id number] 2023-Present [phone] [address] [place] [address] [id number] 2023 Unknown [id number] 2022 Medicaid [id number] 2022 Self-pay 2022 Unknown [id number] 2022 Unknown [id number] 2022 Unknown [id number] 2021 Unknown [id number] 1988 Unknown [id number] 1988 Unknown [id number] 1988 Unknown [id number] 1988 Unknown [id number] 1988 Unknown [id number] 1959 Unknown [id number] 1959 Unknown [id number] Unknown [id number] Unknown [id number] Social History Date Type Detail Facility Start: 03-31-2014 End: 08-20-2022 Tobacco smoking status NHIS Ex-smoker [employer] Start: 03-31-2014 Tobacco use and exposure Smoke less tobacco non-user [employer] 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 Phone: Start: 11-26-2021 End: 01-21-2022 Alcohol intake [facility] [employer] [facility] Start: 03-31-2014 History SDOH Alcohol Comment 1x month [facility] Phone: Start: 1990 [facility]igned At [facility]: Start: 01-11-2022 End: 01-21-2022 Exposure to SARS-CoV-2 (event) Not sure [employer] Phone: Start: 1990 Sex Assigned At Male F [facility] Start: 11-26-2021 End: 11-02-2023 Sex Assigned At [facility] History of tobacco use [facility] Start: 08-20-2022 Tobacco use and exposure Forme r smokeless tobacco user [facility] End: 02-12-2018 History of tobacco use Chews Tobacco [facility] Start: 11-02-2023 Alcohol intake Ex-drinker (finding) [facility] How often do you att end episcopalian or religion services? Patient declined [facility] Do you belong to any clubs or organizations such as episcopalian groups, unions, fraternal or athletic groups, or school groups? Yes [facility] Are you now , , , , never or living with a partner? [facility] How often to you hav e a drink containing alcohol? 2-3 time sa week [facility] How many standard dr inks containing alcohol do you have on a typical day? 5 or 6 [facility] How often do you hav e 6 or more drinks on 1 occasion? Monthly [facility] Do you feel stress - tense, restless, nervous, or anxious, or unable to sleep at night because your mind is troubled all the time - these days [OSQ] Rather much [facility] Start: 03-14-2019 Education 21 [facility] Clinical Notes 01-21-2022 to 11-24-2023 Telephone Encounter [...] know his results documented in this encounter [facility] 11-24-2023 Telephone encount er Note ----- Message from SERGE Mitchell sent at 11/24/2023 4:52 AM EDT ----- Biopsy was negative for malignancy, although I do recommend follow up in 6-8 weeks for continued assessment ----- Message ----- From: Interface - Lab Results/Orders In Sent: 11/18/2023 4:33 PM EDT To: SER[facility] 11-24-2023 Telephone encount er Note Called patient, no answer unable to leave a message [facility]23 Telephone encount er Note Patient called back into the office I did let him know his results [facility] 11-16-2023 Miscellaneous Notes Formattin g of this note might be different from the original. Patient presenting to front window requesting refill of Clobetasol 0.05% ointment. Pharmacy is [facility] in [place], [place]. documented in this encounter [facility]23 Telephone encount er Note Patient presenting to front window requesting refill of Clobetasol 0.05% ointment. Pharmacy is [facility] in [place], [place]. [facility] 11-06-2023 Miscellaneous Notes Formattin g of this [...] stated understanding. documented in this encounter [facility] [employer] 11-06-2023 Telephone encount er Note ----- Message from SERGE Mitchell sent at 11/06/2023 9:38 AM EST ----- Please let pt know that ultrasound was abnormal, radiology is recommending a biopsy. I will put in order and hospital will call him ----- Message ----- From: Interface - Rad Results/Orders In 1 Sent: 11/05/2023 12:44 PM EST To: SERGE Mitchell [facility] 11-06-2023 Telephone encount er Note Tried to call patient but no answer and could not leave a voicemail. [facility] 11-06-2023 Telephone encount er Note Patient called back and I informed him. He stated understanding. [facility] 11-02-2023 History of Presen t illness Narrative [...] nursing note reviewed. Exam conducted with a wheelabrator operator present. Constitutional: Appearance: Normal appearance. HENT: Head: [...] Mitchell 11/02/23 1153 documented in this encounter [employer] 12-03-2022 Evaluation note Encounter Date Diagnosis Assessment [...] no improvement in 5 to 7 days. [employer] Other 12-19-2022 Evaluation note* Encounter Date Diagnosis [...] days. You may return to work tomorrow [employer] Other 11-30-2022 Evaluation note* Encounter Date Diagnosis [...] no improvement in 2 to 3 days. [employer] Other 11-14-2022 Evaluation note* Encounter Date Diagnosis [...] no improvement in 2 to 3 days [employer] Other 11-03-2022 Evaluation note* Encounter Date Diagnosis [...] will help you get into a specialist. [employer] Other 05-10-2022 Hospital Discharge instructions* Instructions* Yoni [...] sent through Care Everywhere. * Lacerations: Stitches (Korean) [facility] Phone: evaluation note* Diagnosis Closed head injury, initial encounter- Primary Laceration of scalp, initial encounter documented in this encounter [facility] [employer] Phone: evaluation noteNo assessment information available [facility] Work Phone: Evaluation note* Diagnosis Lymphadenopathy, inguinal- Primary Lumbar back pain Lumbago Lumbar radiculopathy Thoracic or lumbosacral neuritis or radiculitis, unspecified documented [facility] this encounter [facility]* Diagnosis Lymphadenopathy, inguinal- Primary [facility] Diagnosis Infection of eczematous skin [facility] Narrative - Reported* Type Description Date Medical History hypertension Medical History hypercholesterolemia Medical History acid reflux Surgical History shoulder surgery [employer] Other Instructions* Attachments The following attachments cannot be sent through Care Everywhere. * Lymphadenitis (Korean) [facility]ructionsNot on file documented in this [facility]Pro[facility] SystemInstructionsNot on file documented in this encounterProZ[facility] HospitalInstructionsNot on file documented [facility] Advance Directives Documents on File Type Date Recorded Patient Roguer Expl anation ACP-Advance Directive ACP-Power of Bulk System Operator Advance Directive Response Recorded Date/ Time [...] and content) Medication Order 01/19/2022 01/20/2022 01/21/2022 [id number] (LET) topical solution 3 mL syringe (COMPLETED) 3 mL, Topical, ONCE, On Thu01/21/22 at 1245, For 1 dose, Apply to laceration For Topical Use Only. 1247 (Given - Provid er: Aileen Wong LPN - Comment: top of head) Care Teams (unrecognized sec tion and content) Stock Checker Relationship Specialty Start Date End Date Matt Matos APRN - CNP PCP - General 11/03/18 Team Status: Inactive Member Role Status Dates JIMMY Chandra Attending Provider Active Team Status: Inactive Member Role Status Dates VIRGIL PakC Attending Provider Active Stock Checker Relationship Specialty Start Date End Date Johnna Barroso APRN-PIERRE [address], [place] [address] PCP - General Family Medicine 11/27/21 Stock Checker Relationship Specialty Start Date End Date Johnna Barroso APRN-MOVIE STAR [address], [place] [address] PCP - General Family Medicine 11/27/21 Stock Checker Relationship Specialty Start Date End Date DharmeshJohnna arshad KimberlySERGE [address], [place] [address] PCP - General Family Medicine 11/27/21 Stock Checker Relationship Specialty Start Date End Date DharmeshJohnna camacho APRN-CNP [address], [place] [address] PCP - General Family [facility] 11/27/21 (unrecognized sect ion and content) No Status Records FoundNo Status Records FoundNo Status Records FoundNo Status Records FoundNo Status Records Found INFORMATION SOURCE (unrecogn ized section and content) DATE CREATED AUTHOR 01/22/2022 [facility] DATE CREATED AUTHOR AUTHOR'S ORGANIZ ATION 06/20/2022 [facility] DATE CREATED AUTHOR AUTHOR'S ORGANIZ ATION 01/03/2023 [facility] DATE CREATED AUTHOR AUTHOR'S ORGANIZ ATION 11/03/2023 [facility] DATE CREATED AUTHOR AUTHOR'S ORGANIZ ATION 11/21/2023 [facility] Goals (unrecognized section and content) Goals may [...] ON THE PRIMARY CLINICAL RECORDS. [facility]. provides no warranty or guarantee of the accuracy or completeness of information in this document.
--- NOTE | 2024-08-08 20:15 | ED_ITS ---
HPI HPI - General Adult General Chief complaint: Headache Stated complaint: HEADACHE Time Seen by Provider: 08/08/24 20:02 Source: patient Mode of arrival: walk-in Limitations: no limitations History of Present Illness HPI narrative: Patient is a 33-year-old male with a history of chronic headaches, neck pain who presents to the emergency department for atypical migraine that began yesterday. He has chronic numbness in his arms that is not worse or different today. No falls or injuries. No fevers or upper respiratory symptoms. He reports nausea without vomiting. Pain is located over the occiput with radiation to the paracervical area of the neck. No pain into the shoulders or back. No medications taken prior to arrival. Related Data Previous Rx's ?Medication ?Instructions ?Recorded dexamethasone 4 mg tablet 4 mg PO BID 5 days #10 tabs 08/08/24 methocarbamol 750 mg tablet 750 mg PO TID PRN pain #20 tabs 08/08/24 ondansetron 4 mg disintegrating 4 mg PO Q6H PRN nausea and 08/08/24 tablet vomiting #12 tabs Allergies Allergy/AdvReac Type Severity Reaction Status Date / Time tree nut Allergy Intermediate Rash Verified 04/30/24 20:42 Opioid HPI Opioid Management Most Recent Opioid Data: Last Pain Scale 6 08/08/24 20:30 08/08/24 Last ED Pain Assessment 08/08/24 20:13 Review of Systems ROS Constitutional Denies: fever or chills Eyes Denies: change in vision Ears, nose, mouth, and throat Reports: neck pain; Denies: throat pain Cardiovascular Denies: chest pain Respiratory Denies: shortness of breath Gastrointestinal Reports: nausea; Denies: vomiting Musculoskeletal Reports: neck pain; Denies: back pain or extremity pain Integumentary/Breast Denies: rash Neurological Reports: headache and numbness in extremities; Denies: weakness in extremities, dizziness or vertigo Hematologic/Lymphatic Denies: easy bruising or easy bleeding PFSH PFSH Social History Smoking status: Former smoker Little interest or pleasure in doing things: not at all Feeling down, depressed, or hopeless: not at all Exam Narrative Exam Narrative: Gen.: Awake, alert, in no distress Head: Normocephalic, atraumatic ENT: Moist mucous membranes, no nuchal rigidity or meningismus Respiratory: No respiratory distress Extremities: Moves extremities equally Psych: Normal mood and affect Neuro: No focal neuro deficit Skin: Warm, dry, intact Constitutional Vital Signs, click to edit/add: Last Vital Signs Temp 98.1 F 08/08/24 20:04 Pulse 89 08/08/24 20:04 Resp 18 08/08/24 20:04 BP 176/98 H 08/08/24 20:04 Pulse Ox 98 08/08/24 20:04 Course Vital Signs Vital signs: Vital Signs Temperature 98.1 F 08/08/24 20:04 Pulse Rate 89 08/08/24 20:04 Respiratory Rate 18 08/08/24 20:04 Blood Pressure 176/98 H 08/08/24 20:04 Pulse Oximetry 98 08/08/24 20:04 Temperature 98.1 F 08/08/24 20:04 Pulse Rate 89 08/08/24 20:04 Respiratory Rate 18 08/08/24 20:04 Blood Pressure 176/98 H 08/08/24 20:04 Pulse Oximetry 98 08/08/24 20:04 Medical Decision Making MDM Narrative Medical decision making narrative: Patient with a benign exam consistent with acute on chronic headaches, likely tension headache from history of neck problems. He requests intramuscular injections over an IV start and request a work note for home. He was started on Decadron, Zofran and Robaxin for home. He was given intramuscular Toradol, Norflex and Phenergan in the ER. Follow-up with primary care and return to the emergency department if symptoms change or worsen. Patient is hemodynamically stable with no focal neurodeficits at discharge. SUPERVISED APC VISIT, PHYSICIAN ATTESTATION: Based on the medical record the care appears appropriate. ? Medical Records Medical records reviewed: Yes I reviewed the patient's medical records Discharge Plan Discharge Chief Complaint: Headache Clinical Impression: Headache Patient Disposition: Home, Self-Care Time of Disposition Decision: 20:14 Condition: Good Prescriptions / Home Meds: New methocarbamol 750 mg tablet 750 mg PO TID PRN (Reason: pain) Qty: 20 0RF dexamethasone 4 mg tablet 4 mg PO BID 5 Days Qty: 10 0RF ondansetron 4 mg tablet,disintegrating 4 mg PO Q6H PRN (Reason: nausea and vomiting) Qty: 12 0RF Print Language: [place] Islander Instructions: Acute Headache (ED) Referrals: Johnna Barroso NP [Primary Care Provider] - 1 week Discharge Date/Time: 08/08/24 20:36
[2024-08-08] MEDS: ORPHENADRINE 60 MG/ 2 ML VIAL IM (20:30)
[2024-08-08] MEDS: KETOROLAC TROMETHAMINE 30 MG/ML VIAL IM (20:30)
[2024-08-08] MEDS: PROMETHAZINE HCL 25 MG/ML VIAL IM (20:30)
== END 2024-08-08 20:36 | disposition home or self-care (01) ==
PROVIDERS: Emergency Provider Internal Medicine; PCP Nurse Practitioner
DX: R51.9 Headache, unspecified (principal); Z87.891 Personal history of nicotine dependence
CPT/HCPCS: 96372; 99284; J1885; J2250; J2360

== ENCOUNTER 2024-08-24 07:01 | Emergency (ER) | payer SELFPAY ==
[2024-08-24 07:06] VITALS: BP 150/90; PULSE 78; TEMP 36.8; BMI 28.6
--- NOTE | 2024-08-24 07:10 | XR_ITS ---
The [address] [address] Patient Name: DILCIA RODRIGUEZ MRN: [id number] date: 1990 Sex: M Assigned Patient Location: ER Current Patient Location: ER Accession/Order Number: [id number] Exam Date: 08/24/2024 07:15 Report Date: 08/24/2024 07:36 At the request of: VINAY SMYTH Procedure: XR shoulder RT min 2V EXAM: XR shoulder RT min 2V HISTORY: Right shoulder pain; technologist notes state patient was getting out of bed last night and the shoulder popped. COMPARISON: None. TECHNIQUE: 3 view right shoulder series performed. FINDINGS: The bony alignment and mineralization are normal. There is no fracture. The acromioclavicular and glenohumeral articulations are unremarkable. There is a type II acromion. The visualized portions of the ribs are unremarkable. There is no soft tissue abnormality. XR/XR shoulder RT min 2V IMPRESSION: Unremarkable right shoulder series. Electronically authenticated by: SEAN DOYLE Date: 08/24/2024 07:36
--- OUTSIDE RECORDS SUMMARY | 2024-08-24 07:10 | XMS_ITS | CCD ---
Author Organization [facility] Care Team Providers Care Sales Consultant Residential Manager Name Role Phone Matt Mancera APRN, CNP Primary Care Provider MATT MAOTS Primary Care Unavailable NE HANNA Attending Unavailable MISC, DR STEPHENS Attending Unavailable MISC, DR STEPHENS Consulting Unavailable MISC, DR STEPHENS Admitting Unavailable JIMMY Prakash Attending Provider Viv Campos Unavailable Tamar Prakash Unavailable DURGA Campos Attending Provider [phone] Tamar Prakash Attending Unavailable Tamar Prakash Admitting [...] Propensity to adverse reactions to drug 2 [facility] (7 sources) Orphenadrine; Translations: [ORPHENADRINE CITRATE] Drug Allergy 0 [facility] Medications Current Medications Medication Drug [...] Start: 07-28-2022 take [address] [facility] every eight hours Amoxicillin 500 MG [...] / neomycin 3.5 mg/ml / polymyxin b 81593 unt/ml otic suspension (3 sources) Aminoglycoside Antibacterial, Polymyxin-class Antibacterial, Corticosteroid Start: 08-13-2022 Neomycin-Polymyx in-HC 3.5-02111-5 3 drops left ear Three times a [...] SEE SEPARATE REPORT, REVIEWED BY PATHOLOGIST Normal [facility] IR BIOPSY LYMPH NODEon 11-15 IR BIOPSY [...] Cruz MD on 11/16/2023 11:01 AM Normal [facility] Surgical Pathologyon 024 Surgical Pathology Normal [facility] Comment on above: Result Comment: [facility] [address] [place] [address] Surgical Pathology Consultation Patient Name:MICH RODRIGUEZ JR.:1990 (Age: 33)Gender:MTaken:4Reported:11/18/2023hysician(s):Johnna Barroso CNP ([phone])Copy To:Delano Cruz M.D. Rec. #:[id number]: #[id number] Final Pathologic Diagnosis Left groin lymph node, [...] CD5, CD7, CD10, CD19, CD20, CD23, CD45, Old Stine, and Lambda. Immunophenotyping Comment: Immunophenotyping has been used in this diagnostic evaluation. This test was developed and its performance characteristics determined by the [facility] Department. It has not been [...] Out Ruben Jean MD Interpretation performed at [facility], [address] [place] [address], License number: [id number]. Clinical History Lymphadenopathy, inguinal R59.0. Gross Description Received in formalin labeled LITTLE, left groin BX are parish-turk, focally erythematous, delicate soft tissue fragments, 0.6 x 0.4 x 0.1 cm in aggregate. The specimen is filtered and entirely submitted in a single cassette. (1, ns, [id number], m1) JG A separate soft tissue core is received in RPMI media and sent to flow cytometry for analysis. [facility]11/16/2023 Specimen(s) Received Left groin lymph node Fee Codes(s): 1; 92450, 57885 US EXT NON-VASC LT LIMITEDon 11-05-2023 US [...] Hi Stover MD on 11/05/2023 12:42 PM [facility] XR hand RT min 3V*on 023 XR hand RT min 3V* [facility] [place] [address] [place] [address] XRay Report Signed Patient: Mich Rodriguez MR#: [id number] : 1990 Acct:[id number] Age/Sex: 32 / M ADM Date: 12/03/22 [facility] Type: [facility] Attending Dr: Viv CALIXTO Copies to: DURGA [...] 12/03/22 1223 Signed By: 12/03/22 1225 Normal [facility] XR hand RT min 3V* [facility] [employer] Other XR hand RT min 3V* [facility] [employer] Other XR hand RT min 3V* [address] [place] [address] [employer] Other XR hand RT min 3V* [place] [address] [employer] Other XR hand RT min 3V* XRay Report [employer] Other XR hand RT min 3V* Signed [employer] Other XR hand RT min 3V* Patient: Mich Rodriguez MR#: [id number] [employer] Other XR hand RT min 3V* 4283 [employer] Other XR hand RT min 3V* : 1990 Acct:[id number] [employer] Other XR hand RT min 3V* Age/Sex: 32 / M ADM Date: 12/03/22 [employer] Other XR hand RT min 3V* Loc: X[facility] Room: Type: REG CLI [employer] Other XR hand RT min 3V* Attending Dr: Viv CALIXTO [employer] Other XR hand RT min 3V* Copies to: DURGA Arango [employer] Other XR hand RT min 3V* Ordering Provider: DURGA Arango [employer] Other XR hand RT min 3V* Date of Service: 12/03/22 [employer] Other XR hand RT min 3V* XR/XR hand RT min 3V*: RIGHT HAND SWELLING/PAIN [employer] Other XR hand RT min 3V* RIGHT HAND - 3 views [employer] Other XR hand RT min 3V* CLINICAL DATA: Right hand pain and swelling dorsally over the metacarpals for the past week. No [employer] Other XR hand RT min 3V* known injury. Nor [employer] Other XR hand RT min 3V* COMPARISON: None [employer] Other XR hand RT min 3V* AP, lateral and oblique views were obtained. There is no evidence of fracture or dislocation. No [employer] Other XR hand RT min 3V* prominent hypertrophy or joint space narrowing is seen. Mild dorsal soft tissue swelling is [employer] Other XR hand RT min 3V* present. [employer] Other XR hand RT min 3V* XR/XR hand RT min 3V* [employer] Other XR hand RT min 3V* IMPRESSION: [employer] Other XR hand RT min 3V* NO ACUTE BONY FINDINGS. [employer] Other XR hand RT min 3V* Impression dictated by: Christi Gray M.D.12/03/2022 12:25 PM [employer] Other XR hand RT min 3V* Dictation Location: [place] [address] [employer] Other XR hand RT min 3V* Transcribed By: SARWAT 12/03/22 1225 [employer] Other XR hand RT min 3V* Dictated By: Christi Gray MD 12/03/22 1223 [facility] [employer] Other XR hand RT min 3V* Signed By: [facility] [employer] Other XR hand RT min 3V* 12/03/22 1225 [facility] [employer] Other COVID + FLU Quick Testingon 09-01-2022 SARS-CoV-2 (COVID-19) RNA ABILIO+probe Ql (Unsp spec) Negative [facility] [employer] Other COVID + FLU Quick Testing Negative [facility] [employer] Other XR knee RT 4V*on 07-17-2022 XR knee RT 4V* [facility] [place] [address] [place] [address] XRay Report Signed Patient: Mich Rodriguez MR#: [id number] : 1990 Acct:[id number] Age/Sex: 31 / M ADM Date: 07/17/22 Loc: [facility] Room: Type: [facility] Attending Dr: Tamar MARQUEZ Copies to: TAMAR [...] Brayan Mccormack M.D.07/17/2022 1:22 PM Dictation Location: [place] [address] Transcribed By: SARWAT 07/17/22 1322 Dictated By: Brayan Mccormack II, MD 07/17/22 1321 Signed By: 07/17/22 1322 Normal [facility] XR knee RT 4V* [facility] [employer] Other XR knee RT 4V* [facility] [employer] Other XR knee RT 4V* [address] [place] [address] [employer] Other XR knee RT 4V* [place] [address] No rt [employer] Other XR knee RT 4V* XRay Report [employer] Other XR knee RT 4V* Signed [employer] Other XR knee RT 4V* Patient: Mich Rodriguez MR#: [id number] [employer] Other XR knee RT 4V* 83 [employer] Other XR knee RT 4V* : 1990 Acct:[id number] [employer] Other XR knee RT 4V* Age/Sex: 31 / M ADM Date: 07/17/22 [employer] Other XR knee RT 4V* Loc: [facility] Room: Type: [facility] [employer] Other XR knee RT 4V* Attending Dr: Tamar Prakash [facility] [employer] Other XR knee RT 4V* Copies to: TAMAR PRAKASH [facility] [employer] Other XR knee RT 4V* Ordering Provider: TAMAR PRAKASH RUBBER MOULDING MACHINE OPERATOR-C [employer] Other XR knee RT 4V* Date of Service: 07/17/22 [employer] Other XR knee RT 4V* XR/XR knee RT 4V*: Right anterior knee pain [employer] Other XR knee RT 4V* XR knee RT 4V* 07/17/2022 1:02 PM [employer] Other XR knee RT 4V* SIGNS AND SYMPTOMS: Right anterior knee pain [employer] Other XR knee RT 4V* PROTOCOL: Frontal, lateral, and oblique radiographs of the right knee [employer] Other XR knee RT 4V* COMPARISON: None [employer] Other XR knee RT 4V* FINDINGS: [employer] Other XR knee RT 4V* There is a linear radiopaque foreign body in the lateral soft tissues adjacent to the proximal [employer] Other XR knee RT 4V* fibula. The joint spaces are preserved. There is no fracture. No joint effusion. No soft tissue [employer] Other XR knee RT 4V* swelling. [employer] Other XR knee RT 4V* XR/XR knee RT 4V* [employer] Other XR knee RT 4V* IMPRESSION: [employer] Other XR knee RT 4V* No acute bony injury or significant degenerative change. [employer] Other XR knee RT 4V* fibula. [employer] Other XR knee RT 4V* Impression dictated by: Brayan Mccormack M.D.07/17/2022 1:22 PM [employer] Other XR knee RT 4V* Dictation Location: [place] [address] [employer] Other XR knee RT 4V* Transcribed By: SARWAT 07/17/22 1322 [employer] Other XR knee RT 4V* Dictated By: Brayan Mccormack II, MD 07/17/22 1321 [employer] Other XR knee RT 4V* Signed By: Ramírez allen [employer] Other XR knee RT 4V* 07/17/[address] CERVICAL SPINE WO CONTRAS Ton [...] Clark Rhodes MD 01/21/22 Final result Normal [facility] CT HEAD WO CONTRASTon 2021 [...] Clark Rhodes MD 01/21/22 Final result Normal [facility] No Panel Informationon 01-21 No [...] There is no prevertebral soft tissue swelling. [facility] Clark Zafar [...] degenerative change C4-C5 and C5-C6. RECOMMENDATIONS: Unavailable [employer] Phone: Radiology Study observation (narrative) [employer] Phone: No Panel InformationOrdered By: Clark Rhodes on 01-21-2022 [employer] Phone: Vital Signs Date Time Vital Sign Value Performing Clinician Faci norman 11-02-2023 10:59-0500 Body height 177.8 cm Johnna Barroso APRN-AIRCRAFT CAPTAIN Work Phone: [employer] 11-02-2023 10:59-0500 Body mass index (BMI) [Ratio] 28.93 kg/m2 Johnna Barroso APRN-AIRCRAFT CAPTAIN Work Phone: [employer] 11-02-2023 10:59-0500 Body temperature 98.6 [degF] Johnna Barroso HOOP PUNCH AND COILER OPERATOR HELPER-AIRCRAFT CAPTAIN Work Phone: [place] [employer] [facility] 11-02-2023 10:59-0500 Body weight 91.44 kg Johnna Barroso HOOP PUNCH AND COILER OPERATOR HELPER-AIRCRAFT CAPTAIN Work Phone: [facility] 11-02-2023 10:59-0500 Diastolic blood pressure 88 mm[Hg] Johnna Barroso HOOP PUNCH AND COILER OPERATOR HELPER-AIRCRAFT CAPTAIN Work Phone: [facility] 11-02-2023 10:59-0500 Heart rate 81 /min Johnna Barroso HOOP PUNCH AND COILER OPERATOR HELPER-AIRCRAFT CAPTAIN Work Phone: [facility] 11-02-2023 10:59-0500 Respiratory rate 20 /min Johnna Barroso HOOP PUNCH AND COILER OPERATOR HELPER-AIRCRAFT CAPTAIN Work Phone: [facility] 11-02-2023 10:59-0500 SaO2% (BldA) [Mass fraction] 98 % Johnna Barroso HOOP PUNCH AND COILER OPERATOR HELPER-AIRCRAFT CAPTAIN [facility] 11-02-2023 10:59-0500 Systolic blood pressure 146 mm[Hg] Johnna Barroso HOOP PUNCH AND COILER OPERATOR HELPER-AIRCRAFT CAPTAIN [facility] 12-03-2022 12:35-0400 Body height 177.8 cm Viv Campos Other [employer] Other 12-03-2022 12:35-0400 Body mass index (BMI) [Ratio] 30.13 kg/m2 Viv Campos Other [employer] Other 12-03-2022 12:35-0400 Body temperature 100 [degF] Viv Campos Other [employer] Other 12-03-2022 12:35-0400 Body weight 95.26 kg Viv Beth Other [employer] Other 12-03-2022 12:35-0400 Diastolic blood pressure 89 mm[Hg] Viv Beth Other [employer] Other 12-03-2022 12:35-0400 Respiratory rate 18 /min Viv Beth Other [employer] Other 12-03-2022 12:35-0400 SaO2% (BldA) [Mass fraction] 96 % Viv Beth Other [employer] Other 12-03-2022 12:35-0400 Systolic blood pressure 151 mm[Hg] Viv Beth Other [employer] Other 09-01-2022 12:15-0500 Body height 177.8 cm Viv Beth Other [employer] Other 09-01-2022 12:15-0500 Body mass index (BMI) [Ratio] 30.13 kg/m2 Viv Beth Other [employer] Other 09-01-2022 12:15-0500 Body temperature 97.9 [degF] Viv Beth Other [employer] Other 09-01-2022 12:15-0500 Body weight 95.26 kg Viv Beth Other [employer] Other 09-01-2022 12:15-0500 Diastolic blood pressure 93 mm[Hg] Viv Beth Other [employer] Other 09-01-2022 12:15-0500 Respiratory rate 18 /min Viv Beth Other [employer] Other 09-01-2022 12:15-0500 SaO2% (BldA) [Mass fraction] 100 % Viv Beth Other [employer] Other 09-01-2022 12:15-0500 Systolic blood pressure 157 mm[Hg] Viv Beth Other [employer] Other 08-13-2022 11:35-0500 Body height 177.8 cm Viv Beth Other [employer] Other 08-13-2022 11:35-0500 Body mass index (BMI) [Ratio] 30.13 kg/m2 Viv Beth Other [employer] Other 08-13-2022 11:35-0500 Body temperature 98.1 [degF] Viv Beth Other [employer] Other 08-13-2022 11:35-0500 Body weight 95.26 kg Viv Beth Other [employer] Other 08-13-2022 11:35-0500 Diastolic blood pressure 89 mm[Hg] Viv Beth Other [employer] Other 08-13-2022 11:35-0500 Respiratory rate 16 /min Viv Beth Other [employer] Other 08-13-2022 11:35-0500 SaO2% (BldA) [Mass fraction] 99 % Viv Beth Other [employer] Other 08-13-2022 11:35-0500 Systolic blood pressure 143 mm[Hg] Viv Campos Other [employer] Other 07-28-2022 11:35-0500 Body height 177.8 cm Viv Campos Other [employer] Other 07-28-2022 11:35-0500 Body mass index (BMI) [Ratio] 30.13 kg/m2 Viv Randallmond Other [employer] Other 07-28-2022 11:35-0500 Body temperature 97.9 [degF] Viv Campos Other [employer] Other 07-28-2022 11:35-0500 Body weight 95.26 kg Viv Campos Other [employer] Other 07-28-2022 11:35-0500 Diastolic blood pressure 83 mm[Hg] Viv Campos Other [employer] Other 07-28-2022 11:35-0500 Respiratory rate 18 /min Viv Campos Other [employer] Other 07-28-2022 11:35-0500 SaO2% (BldA) [Mass fraction] 96 % Viv Campos Other [employer] Other 07-28-2022 11:35-0500 Systolic blood pressure 126 mm[Hg] Viv Beth Other [employer] Other 07-17-2022 14:40-0400 Body height 177.8 cm Tamar Prakash Other [employer] Other 07-17-2022 14:40-0400 Body mass index (BMI) [Ratio] 30.13 kg/m2 Tamar Prakash Other [employer] Other 07-17-2022 14:40-0400 Body temperature 98 [degF] aTmar Prakash Other [employer] Other 07-17-2022 14:40-0400 Body weight 95.26 kg Tamar Prakash Other [employer] Other 07-17-2022 14:40-0400 Diastolic blood pressure 81 mm[Hg] Tamar Prakash Other [employer] Other 07-17-2022 14:40-0400 Respiratory rate 18 /min Tamar Prakash Other [employer] Other 07-17-2022 14:40-0400 SaO2% (BldA) [Mass fraction] 98 % Tamar Prakash Other [employer] Other 07-17-2022 14:40-0400 Systolic blood pressure 143 mm[Hg] Tamar Prakash Other [employer] Other 01-21-2022 12:29-0400 Body height 177.8 cm Ne Hanna MD [employer] 01-21-2022 12:29-0400 Body mass index (BMI) [Ratio] 30.85 kg/m2 Ne Hanna MD [employer] 01-21-2022 12:29-0400 Body temperature 98.8 [degF] Ne Hanna MD [employer] 01-21-2022 12:29-0400 Body weight 97.52 kg Ne Hanna MD [employer] 01-21-2022 12:29-0400 Diastolic blood pressure 91 mm[Hg] Ne Hanna MD [facility] 01-21-2022 12:29-0400 Heart rate 82 /min Ne Hanna MD [facility] 01-21-2022 12:29-0400 Respiratory rate 18 /min Ne Hanna MD [facility] 01-21-2022 12:29-0400 SaO2% (BldA) [Mass fraction] 98 % Ne Hanna MD [facility] 01-21-2022 12:29-0400 Systolic blood pressure 155 mm[Hg] Ne Hanna MD [facility] Encounters Encounter Date Encounter Type Care Provider Facility Start: 11-24-2023 Telephone encounter Zulma Pagan MA [facility] Start: 11-16-2023 End: 11-17-2023 Refill Johnna Barroso HOOP PUNCH AND COILER OPERATOR HELPER-AIRCRAFT CAPTAIN Work Phone: [facility] Comment on above: Infection of eczemat ous skin Start: 11-06-2023 Orders Only Johnna martin HOOP PUNCH AND COILER OPERATOR HELPER-AIRCRAFT CAPTAIN Work Phone: [facility] Comment on above: Lymphadenopathy, ing uinal (Primary Dx) Start: 11-03-2023 End: 11-04-2023 ambulatory [facility] Start: 11-02-2023 End: 11-02-2023 ambulatory [facility] Start: 11-02-2023 End: 11-02-2023 Office outpatient visit 15 minutes Johnna Barroso HOOP PUNCH AND COILER OPERATOR HELPER-AIRCRAFT CAPTAIN Work Phone: [facility] Comment on above: Lymphadenopathy, ing uinal (Primary Dx); Lumbar back pain; Lumbar radiculopathy Start: 12-03-2022 Office outpatient vi sit 15 minutes Viv Campos [facility] Start: 12-03-2022 End: 12-03-2022 ambulatory Viv Campos Facility:[facility] Start: 12-03-2022 End: 12-03-2022 ambulatory BUSINESS APPLICATIONS SPECIALIST-C Viv Campos Work Phone: [facility] Work Phone: Start: 12-03-2022 End: 12-03-2022 Patient encounter procedure BUSINESS APPLICATIONS SPECIALIST-C Viv Beth Work Phone: [facility] Work Phone: Start: 09-01-2022 End: 09-01-2022 ambulatory Viv Beth Other [employer] Other Start: 09-01-2022 Office outpatient vi sit 15 minutes Viv Beth [facility] Start: 08-13-2022 End: 08-13-2022 ambulatory Viv Beth Other [employer] Other Start: 08-13-2022 Office outpatient vi sit 15 minutes Viv Beth [facility] Start: 07-28-2022 End: 07-28-2022 ambulatory Viv Beth Other [employer] Other Start: 07-28-2022 Office outpatient vi sit 15 minutes Viv Beth [facility] Start: 07-17-2022 End: 07-17-2022 ambulatory Tamar Haylee Facility:[facility] Start: 07-17-2022 Office outpatient vi sit 15 minutes Tamar Haylee [facility] Start: 07-17-2022 End: 07-17-2022 ambulatory RUBBER MOULDING MACHINE OPERATOR-C Tamar Haylee Work Phone: [facility] Work Phone: Start: 07-17-2022 End: 07-17-2022 Patient encounter procedure RUBBER MOULDING MACHINE OPERATOR-C Tamar Haylee Work Phone: [facility] Start: 01-21-2022 End: 01-21-2022 Emergency department patient visit MATT MATOS [facility] Start: 01-21-2022 End: 01-21-2022 Emergency department patient visit Ne Hanna MD [facility] Comment on above: Closed head injury, initial encounter (Primary Dx); Laceration of scalp, initial encounter Start: 05-28-2020 End: 05-29-[address] STEPHENS [facility] Facility: Procedures Date Procedure Procedure Detail Performing Clinician Start: 11-02-2023 Adult depression screening assessment Johnna Soriasler HOOP PUNCH AND COILER OPERATOR HELPER-AIRCRAFT CAPTAIN Work Phone: Start: 12-03-2022 Plain X-ray of right hand BUSINESS APPLICATIONS SPECIALIST-C Viv Campos Work Phone: Start: 07-17-2022 X-ray of right knee RUBBER MOULDING MACHINE OPERATOR -C Tamar Zelayaault Work Phone: Start: 01-21-2022 Ct cervical spine w/ o contrast material Yoni A Romp PA-C Work Phone: Start: 01-21-2022 Ct head/brain w/o contrast material Yoni A Romp PA-C Work Phone: Plan of Treatment Date Care Activity Detail Author Start: 01-22-2032 DTaP,Tdap and Td Vaccines (3 - Td or Tdap) DTaP,Tdap and Td Vaccines (3 - Td or Tdap) [facility] Start: 01-22-2032 DTaP/Tdap/Td vaccine (2 - Td or Tdap) DTaP/Tdap/Td vaccine (2 - Td or Tdap) [facility] Start: 11-02-2024 Adult BMI Screening Adult BMI Screen ing [facility] Start: 11-02-2024 Depression Screening Depression Scre ening [facility] Start: 11-02-2024 Tobacco Screening Tobacco Screening [facility] Start: 11-06-2023 End: 11-06-2024 US Guidance for core needle biopsy of Unspecified body region Ultrasound guidance intraoperative with Bx or Asp Imaging Routine Lymphadenopathy, inguinal Expected: 11/06/2023, Expires: 11/06/2024 [place] Work Phone: Comment on above: Expected: 11/06/2023 , Expires: 11/06/2024 Start: 11-03-2023 Subsequent hospital visit by physician 11/03/2023 2:30 PM EST Hospital Encounter [facility] [address] [place] [id number] [facility] Start: 11-02-2023 End: 11-02-2024 US Extremity - left limited Ultrasound extremity non vascular limited left Imaging Routine Lymphadenopathy, inguinal Expected: 11/02/2023, Expires: 11/02/2024 [place] Work Phone: Comment on above: Expected: 11/02/2023 , Expires: 11/02/2024 Start: 05-15-2023 Influenza vaccination Influenza Vacc ine [facility] Start: 05-15-2022 Influenza vaccination Flu vacc ine (Season Ended) [facility] Start: 2006 Adult BMI Follow Up Plan Adult BMI Follow Up Plan [facility] Start: 2006 Hepatitis C screening Hepatitis C sc reen [facility] Start: 2003 HIV screening HIV screen [facility] Start: 2000 Depression Screen Depression Screen [facility] Start: 1993 COVID-19 Vaccine (1) COVID-19 Vaccin e (1) [facility] Start: 1989 Varicella vaccine (1 of 2 - 2-dose childhood series) Varicella vaccine (1 of 2 - 2-dose childhood series) [facility] Immunizations Immunization Date Immunization Notes Care Provider Avinash walsh 01-21-2022 tetanus toxoid, reduced diphtheria toxoid, and acellular pertussis vaccine, adsorbed Ne Hanna MD [facility] Work Phone: 04-04-2019 tetanus and diphtheria toxoids, adsorbed, preservative free, for adult use (2 Lf of tetanus toxoid and 2 Lf of diphtheria toxoid) Johnna Barroso HOOP PUNCH AND COILER OPERATOR [employer] Work Phone: [facility] 09-11-2014 influenza, seasonal, injectable, preservative free Johnna Barroso HOOP PUNCH AND COILER OPERATOR [employer] Work Phone: [facility] 09-11-2014 influenza virus vaccine, unspecified formulation Johnna Barroso HOOP PUNCH AND COILER OPERATOR [employer] Work Phone: [facility] NEGATED: Highlighted row has not occurred!11-27-2021 influenza, injectable, quadrivalent, preservative free Johnna Barroso HOOP PUNCH AND COILER OPERATOR HELPER-AIRCRAFT CAPTAIN Work Phone: [facility] Comment on above: Deferred: Patient de cision Payers Date Payer Category Payer Unknown [employer] [facility] HMO/PPO/TRUST [id number] 2023-Present [phone] [place] [address] [id number] 2023 Unknown [id number] 2022 Medicaid [id number] 2022 Self-pay 2022 Unknown [id number] 2022 Unknown [id number] 2022 Unknown [id number] 2021 Unknown [id number] 1988 Unknown [id number] 1988 Unknown [id number] [id number] 1988 Unknown [id number] 1988 Unknown [id number] [id number] 1988 Unknown [id number] 1959 Unknown [id number] 1959 Unknown [id number] Unknown [id number] Unknown [id number] Social History Date Type Detail Facility Start: 03-31-2014 End: 08-20-2022 Tobacco smoking status NHIS Ex-smoker [employer] Start: 03-31-2014 Tobacco use and exposure Smoke less tobacco non-user [employer]: Start: 01-21-2022 Alcohol intake Current non-dr 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 alcohol (finding) [employer] [facility]: Start: 11-26-2021 End: 01-21-2022 Alcohol intake [facility] [employer] [facility] Start: 03-31-2014 History SDOH Alcohol [facility] Start: 1990 [facility] Start: 01-11-2022 End: 01-21-2022 Exposure to SARS-CoV-2 (event) Not sure [employer] Phone: Start: 1990 Sex Assigned At Male [facility] Start: 11-26-2021 End: 11-02-2023 Sex Assigned At [facility] History of tobacco use Current smoker [facility] Start: 08-20-2022 Tobacco use and exposure Forme r smokeless tobacco user [facility] End: 02-12-2018 History of tobacco use Chews Tobacco [facility] Start: 11-02-2023 Alcohol intake Ex-drinker (finding) [facility] How often do you att end jehovah's witness or baptist services? Patient declined [facility] Do you belong to any clubs or organizations such as jehovah's witness groups, unions, fraternal or athletic groups, or school groups? Yes [facility] Are you now , , , , never or living with a partner? [facility] How often to you hav e a drink containing alcohol? 2-3 time sa week [facility] How many standard dr inks containing alcohol do you have on a typical day? 5 or 6 [facility] How often do you hav e 6 or more drinks on 1 occasion? Monthly [facility] Do you feel stress - tense, restless, nervous, or anxious, or unable to sleep at night because your mind is troubled all the time - these days [OSQ] Rather much [facility] Start: 03-14-2019 Education 21 [facility] Clinical Notes 01-21-2022 to 11-24-2023 Telephone [...] know his results documented in this encounter [facility] 11-24-2023 Telephone encount er Note ----- Message from SERGE Mitchell sent at 11/24/2023 4:52 AM EDT ----- Biopsy was negative for malignancy, although I do recommend follow up in 6-8 weeks for continued assessment ----- Message ----- From: Interface - Lab Results/Orders In Sent: 11/18/2023 4:33 PM EDT To: [facility] 11-24-2023 Telephone encount er Note Called patient, no answer unable to leave a message [facility] 11-24-2023 Telephone encount er Note Patient called back into the office I did let him know his results [facility] 11-16-2023 Miscellaneous Notes Formattin g of this note might be different from the original. Patient presenting to front window requesting refill of Clobetasol 0.05% ointment. Pharmacy is [facility] in [place], [place]. documented in this encounter [facility] 11-16-2023 Telephone encount er Note Patient presenting to front window requesting refill of Clobetasol 0.05% ointment. Pharmacy is [facility] in [place], [place]. [facility] 11-06-2023 Miscellaneous Notes Formattin g of this [...] He stated understanding. documented in this encounter [facility] [employer] [facility] 11-06-2023 Telephone encount er Note ----- Message from SERGE Mitchell sent at 11/06/2023 9:38 AM EST ----- Please let pt know that ultrasound was abnormal, radiology is recommending a biopsy. I will put in order and hospital will call him ----- Message ----- From: Interface - Rad Results/Orders In 1 Sent: 11/05/2023 12:44 PM EST To: SERGE Mitchell [facility] 11-06-2023 Telephone encount er Note Tried to call patient but no answer and could not leave a voicemail. [facility] [employer] [facility] 11-06-2023 Telephone encount er Note Patient called back and I informed him. He stated understanding. [facility] 11-02-2023 History of Presen t illness [...] nursing note reviewed. Exam conducted with a bottom liner present. Constitutional: Appearance: Normal appearance. HENT: Head: [...] Mitchell 11/02/23 1153 documented in this encounter [employer] 12-03-2022 Evaluation note Encounter Date Diagnosis Assessment [...] no improvement in 5 to 7 days. [employer] Other 12-19-2022 Evaluation note* Encounter Date Diagnosis [...] days. You may return to work tomorrow [employer] Other 11-30-2022 Evaluation note* Encounter Date Diagnosis [...] no improvement in 2 to 3 days. [employer] Other 11-14-2022 Evaluation note* Encounter Date Diagnosis [...] no improvement in 2 to 3 days [employer] Other 11-03-2022 Evaluation note* Encounter Date Diagnosis [...] will help you get into a specialist. [employer] Other 05-10-2022 Hospital Discharge instructions* Instructions* Yoni [...] sent through Care Everywhere. * Lacerations: Stitches (Spanish) [facility] note* Diagnosis Closed head injury, initial encounter- Primary Laceration of scalp, initial encounter documented in this encounter [facility] [employer] Phone: evaluation noteNo assessment information available [facility] Phone: Evaluation note* Diagnosis Lymphadenopathy, inguinal- Primary Lumbar back pain Lumbago Lumbar radiculopathy Thoracic or lumbosacral neuritis or radiculitis, unspecified [facility]* Diagnosis Lymphadenopathy, inguinal- Primary [facility] Diagnosis Infection of eczematous skin [facility] general Narrative - Reported* Type Description Date Medical History hypertension Medical History hypercholesterolemia Medical History acid reflux Surgical History shoulder surgery [employer] Other Instructions* Attachments The following attachments cannot be sent through Care Everywhere. * Lymphadenitis (Spanish) [facility] on [facility] documented in this [facility]Pro[facility] SystemInstructionsNot on file documented in this [facility]ProCommunity [facility] HospitalInstructionsNot on file documented in [facility] Advance Directives Documents on File Type Date Recorded Patient Panel Laminator Expl anation ACP-Advance Directive ACP-Power of Tree Chipper Advance Directive Response Recorded Date/ Time Advance [...] and content) Medication Order 01/19/2022 01/20/2022 01/21/2022 [id number] (LET) topical solution 3 mL syringe (COMPLETED) 3 mL, Topical, ONCE, On Thu01/21/22 at 1245, For 1 dose, Apply to laceration For Topical Use Only. 1247 (Given - Provid er: Aileen Wong LPN - Comment: top of head) Care Teams (unrecognized sec tion and content) Sales Consultant Residential Manager Relationship Specialty Start Date End Date Matt Matos APRN - CNP PCP - General 11/03/18 Team Status: Inactive Member Role Status Dates JIMMY Chandra Attending Provider Active Team Status: Inactive Member Role Status Dates VIRGIL PakC Attending Provider Active Sales Consultant Residential Manager Relationship Specialty Start Date End Date Johnna Barroso APRN-PIERRE [address], [place] [address] PCP - General Family Medicine 11/27/21 Sales Consultant Residential Manager Relationship Specialty Start Date End Date Johnna Barroso APRN-AIRCRAFT CAPTAIN [address], [place] [address] PCP - General Family Medicine 11/27/21 Sales Consultant Residential Manager Relationship Specialty Start Date End Date DharmeshJohnna arshad KimberlySERGE [address], [place] [address] PCP - General Family Medicine 11/27/21 Sales Consultant Residential Manager Relationship Specialty Start Date End Date DharmeshJohnna camacho APRN-CNP [address], [place] [address] PCP - General Family [facility] 11/27/21 (unrecognized sect ion and content) No Status Records FoundNo Status Records FoundNo Status Records FoundNo Status Records FoundNo Status Records Found INFORMATION SOURCE (unrecogn ized section and content) DATE CREATED AUTHOR 01/22/2022 [facility] DATE CREATED AUTHOR AUTHOR'S ORGANIZ ATION 06/20/2022 [facility] DATE CREATED AUTHOR AUTHOR'S ORGANIZ ATION 01/03/2023 [facility] DATE CREATED AUTHOR AUTHOR'S ORGANIZ ATION 11/03/2023 [facility] DATE CREATED AUTHOR AUTHOR'S ORGANIZ ATION 11/21/2023 [facility] Goals (unrecognized section and content) Goals [...] THE PRIMARY CLINICAL RECORDS. [facility] [employer] [facility]. provides no warranty or guarantee of the accuracy or completeness of information in this document.
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
== END 2024-08-24 07:52 | disposition home or self-care (01) ==
PROVIDERS: Emergency Provider Emergency Medicine; PCP Nurse Practitioner
DX: S46.911A Strain of unspecified muscle, fascia and tendon at shoulder and upper arm level, right arm, initial encounter (principal); X58.XXXA Exposure to other specified factors, initial encounter; Z87.891 Personal history of nicotine dependence
CPT/HCPCS: 73030; 99283

== ENCOUNTER 2024-08-29 20:18 | Emergency (ER) | payer SELFPAY ==
[2024-08-29 20:25] VITALS: BP 158/113; PULSE 115; TEMP 36.7; O2SAT 97; BMI 28.7
--- OUTSIDE RECORDS SUMMARY | 2024-08-29 20:32 | XMS_ITS | CCD ---
Author Organization [facility] Care Team Providers Care Peripheral Equipment Operator Name Role Phone Matt Mancera APRN, CNP Primary Care Provider MATT MATOS Primary Care Unavailable NE HANNA Attending Unavailable MISC, DR STEPHENS Attending Unavailable MISC, DR STEPHENS Consulting Unavailable MISC, DR STEPHENS Admitting Unavailable JIMMY Prakash Attending Provider [phone] Viv Campos Unavailable Tamar Prakash Unavailable DURGA Campos Attending Provider [phone] Tamar Prakash Attending Unavailable Tamar Prakash Admitting [...] Propensity to adverse reactions to drug 2 [facility] (7 sources) Orphenadrine; Translations: [ORPHENADRINE CITRATE] Drug Allergy 0 [facility] Medications Current Medications Medication Drug [...] Start: 07-28-2022 take 1 capsule by mo [facility] every eight hours Amoxicillin 500 MG [...] / neomycin 3.5 mg/ml / polymyxin b 45503 unt/ml otic suspension (3 sources) Aminoglycoside Antibacterial, Polymyxin-class Antibacterial, Corticosteroid Start: 08-13-2022 Neomycin-Polymyx in-HC 3.5-72702-7 3 drops left ear Three times a [...] SEE SEPARATE REPORT, REVIEWED BY PATHOLOGIST Normal [facility] IR BIOPSY LYMPH NODEon 11-15 IR BIOPSY [...] Cruz MD on 11/16/2023 11:01 AM Normal [facility] Surgical Pathologyon 024 Surgical Pathology Normal [facility] Comment on above: Result Comment: [facility] [address] [place] [address] Surgical Pathology Consultation Patient Name:MICH RODRIGUEZ JR.:1990 (Age: 33)Gender:MTaken:4Reported:11/18/2023hysician(s):Johnna Barroso CNP ([phone])Copy To:Delano Cruz M.D. Rec. #:[id number]: #[id number] Final Pathologic Diagnosis Left groin lymph node, [...] CD5, CD7, CD10, CD19, CD20, CD23, CD45, [place], and Lambda. Immunophenotyping Comment: Immunophenotyping has been used in this diagnostic evaluation. This test was developed and its performance characteristics determined by the [facility] Department. It has not been [...] Out Ruben Jean MD Interpretation performed at [facility], [address] [place] [address], License number: [id number]. Clinical History Lymphadenopathy, inguinal R59.0. Gross Description Received in formalin labeled LITTLE, left groin BX are parish-turk, focally erythematous, delicate soft tissue fragments, 0.6 x 0.4 x 0.1 cm in aggregate. The specimen is filtered and entirely submitted in a single cassette. (1, ns, [id number], m1) JG A separate soft tissue core is received in RPMI media and sent to flow cytometry for analysis. [facility] [place]/11/16/2023 Specimen(s) Received Left groin lymph node Fee Codes(s): 1; 03990, 36851 US EXT NON-VASC LT LIMITEDon 11-05-2023 US [...] Hi Stover MD on 11/05/2023 12:42 PM [facility] XR hand RT min 3V*on 023 XR hand RT min 3V* [facility] [place] [address] [place] [address] XRay Report Signed Patient: Mich Rodriguez MR#: [id number] : 1990 Acct:[id number] Age/Sex: 32 / M ADM Date: 12/03/22 [facility]: Type: [facility] Attending Dr: Viv CALIXTO Copies to: DURGA [...] 12/03/22 1223 Signed By: 12/03/22 1225 Normal [facility] XR hand RT min 3V* [facility] [email or web address] Other XR hand RT min 3V* [facility] [email or web address] Other XR hand RT min 3V* [address] [place] [address] [email or web address] Other XR hand RT min 3V* [place] [address] [employer] Other XR hand RT min 3V* XRay Report [employer] Other XR hand RT min 3V* Signed [facility] Other XR hand RT min 3V* Patient: Mich Rodriguez MR#: [id number] [employer] Other XR hand RT min 3V* 4283 [employer] Other XR hand RT min 3V* : 1990 Acct:[id number] [employer] Other XR hand RT min 3V* Age/Sex: 32 / M ADM Date: 12/03/22 [facility] Other XR hand RT min 3V* Loc: XDUCLY Room: Type: REG CLI [employer] Other XR hand RT min 3V* Attending Dr: Viv CALIXTO [employer] Other XR hand RT min 3V* Copies to: DURGA Arango [employer] Other XR hand RT min 3V* Ordering Provider: DURGA Arango [employer] Other XR hand RT min 3V* Date of Service: 12/03/22 [employer] Other XR hand RT min 3V* XR/XR hand RT min 3V*: RIGHT HAND SWELLING/PAIN [employer] Other XR hand RT min 3V* RIGHT HAND - 3 views [employer] Other XR hand RT min 3V* CLINICAL DATA: Right hand pain and swelling dorsally over the metacarpals for the past week. No [employer] Other XR hand RT min 3V* known injury. Nor [employer] Other XR hand RT min 3V* COMPARISON: None [employer] Other XR hand RT min 3V* AP, lateral and oblique views were obtained. There is no evidence of fracture or dislocation. No [employer] Other XR hand RT min 3V* prominent hypertrophy or joint space narrowing is seen. Mild dorsal soft tissue swelling is [employer] Other XR hand RT min 3V* present. [employer] Other XR hand RT min 3V* XR/XR hand RT min 3V* [employer] Other XR hand RT min 3V* IMPRESSION: [employer] Other XR hand RT min 3V* NO ACUTE BONY FINDINGS. [employer] Other XR hand RT min 3V* Impression dictated by: Christi Gray M.D.12/03/2022 12:25 PM [employer] Other XR hand RT min 3V* Dictation Location: [place] [address] [employer] Other XR hand RT min 3V* Transcribed By: SARWAT 12/03/22 1225 [employer] Other XR hand RT min 3V* Dictated By: Christi Gray MD 12/03/22 1223 [facility] [email or web address] Other XR hand RT min 3V* Signed By: [facility] [email or web address] Other XR hand RT min 3V* 12/03/22 1225 [facility] [email or web address] Other COVID + FLU Quick Testingon 09-01-2022 SARS-CoV-2 (COVID-19) RNA ABILIO+probe Ql (Unsp spec) Negative [facility] [email or web address] Other COVID + FLU Quick Testing Negative [facility] [email or web address] Other XR knee RT 4V*on 07-17-2022 XR knee RT 4V* [facility] [place] [address] [place] [address] XRay Report Signed Patient: Mich Rodriguez MR#: [id number] : 1990 Acct:[id number] Age/Sex: 31 / M ADM Date: 07/17/22 Loc: [facility] Room: Type: [facility] Attending Dr: Tamar MARQUEZ Copies to: TAMAR [...] Brayan Mccormack M.D.07/17/2022 1:22 PM Dictation Location: [place] [address] Transcribed By: SARWAT 07/17/22 1322 Dictated By: Brayan Mccormack II, MD 07/17/22 1321 Signed By: 07/17/22 1322 Normal [facility] XR knee RT 4V* [facility] [email or web address] Other XR knee RT 4V* [facility] [employer] Other XR knee RT 4V* [address] [place] [address] [employer] Other XR knee RT 4V* [place] [address] No rt [employer] Other XR knee RT 4V* XRay Report [facility] Other XR knee RT 4V* Signed [employer] Other XR knee RT 4V* Patient: Mich Rodriguez MR#: [id number] [place] [employer] Other XR knee RT 4V* 83 [employer] Other XR knee RT 4V* : 1990 Acct:[id number] [employer] Other XR knee RT 4V* Age/Sex: 31 / M ADM Date: 07/17/22 [employer] Other XR knee RT 4V* Loc: X[facility]CLY Room: Type: [facility] [employer] Other XR knee RT 4V* Attending Dr[facility]ash [facility] Other XR knee RT 4V* Copies to: TAMAR PRAKASH [facility] Other XR knee RT 4V* Ordering Provider: TAMAR PRAKASH HAND PLEATER-C [employer] Other XR knee RT 4V* Date of Service: 07/17/22 [employer] Other XR knee RT 4V* XR/XR knee RT 4V*: Right anterior knee pain [employer] Other XR knee RT 4V* XR knee RT 4V* 07/17/2022 1:02 PM [employer] Other XR knee RT 4V* SIGNS AND SYMPTOMS: Right anterior knee pain [employer] Other XR knee RT 4V* PROTOCOL: Frontal, lateral, and oblique radiographs of the right knee [employer] Other XR knee RT 4V* COMPARISON: None [place] [employer] Other XR knee RT 4V* FINDINGS: [employer] Other XR knee RT 4V* There is a linear radiopaque foreign body in the lateral soft tissues adjacent to the proximal [employer] Other XR knee RT 4V* fibula. The joint spaces are preserved. There is no fracture. No joint effusion. No soft tissue [employer] Other XR knee RT 4V* swelling. [employer] Other XR knee RT 4V* XR/XR knee RT 4V* [employer] Other XR knee RT 4V* IMPRESSION: [place] Other XR knee RT 4V* No acute bony injury or significant degenerative change. [employer] Other XR knee RT 4V* fibula. [employer] Other XR knee RT 4V* Impression dictated by: Brayan Mccormack M.D.07/17/2022 1:22 PM [employer] Other XR knee RT 4V* Dictation Location: [place] [address] [employer] Other XR knee RT 4V* Transcribed By: SARWAT 07/17/22 1322 [employer] Other XR knee RT 4V* Dictated By: Brayan Mccormack II, MD 07/17/22 1321 [employer] Other XR knee RT 4V* Signed By: Ramírez allen [email or web address] Other XR knee RT 4V* 07/17/[address] [employer] CERVICAL SPINE WO CONTRAS Ton [...] MD 01/21/22 Final result Normal [facility] CT HEAD WO CONTRASTon 2021 CT [...] MD 01/21/22 Final result Normal [facility] No Panel Informationon 01-21 No acute intracranial abnormality. No acute fracture or subluxation of cervical spine. Mild degenerative change C4-C5 and C5-C6. RECOMMENDATIONS: Unavailable [facility] RIS CONSOLIDATED EXAMINATION: CT OF THE [...] There is no prevertebral soft tissue swelling. [facility] Clark Zafar MD - 01/21/2022 EXAMINATION: [...] degenerative change C4-C5 and C5-C6. RECOMMENDATIONS: Unavailable [employer] Phone: Radiology Study observation (narrative) [employer] Phone: No Panel InformationOrdered By: Clark Rhodes on 01-21-2022 [employer] Phone: Vital Signs Date Time Vital Sign Value Performing Clinician Faci norman 11-02-2023 10:59-0500 Body height 177.8 cm Johnna Barroso APRN-TRANSFORMER BUILDER Work Phone: [employer] 11-02-2023 10:59-0500 Body mass index (BMI) [Ratio] 28.93 kg/m2 Johnna Barroso APRN-TRANSFORMER BUILDER Work Phone: [employer] 11-02-2023 10:59-0500 Body temperature 98.6 [degF] Johnna Barroso AUTOMOBILE OR TRUCK RENTAL DISPATCHER-TRANSFORMER BUILDER Work Phone: [facility] [employer] [facility] 11-02-2023 10:59-0500 Body weight 91.44 kg Johnna Barroso AUTOMOBILE OR TRUCK RENTAL DISPATCHER-TRANSFORMER BUILDER Work Phone: [facility] 11-02-2023 10:59-0500 Diastolic blood pressure 88 mm[Hg] Johnna Barroso AUTOMOBILE OR TRUCK RENTAL DISPATCHER-TRANSFORMER BUILDER Work Phone: [facility] 11-02-2023 10:59-0500 Heart rate 81 /min Johnna Barroso AUTOMOBILE OR TRUCK RENTAL DISPATCHER-TRANSFORMER BUILDER Work Phone: [facility] 11-02-2023 10:59-0500 Respiratory rate 20 /min Johnna Barroso AUTOMOBILE OR TRUCK RENTAL DISPATCHER-TRANSFORMER BUILDER Work Phone: [facility] 11-02-2023 10:59-0500 SaO2% (BldA) [Mass fraction] 98 % Johnna Barroso AUTOMOBILE OR TRUCK RENTAL DISPATCHER-TRANSFORMER BUILDER Work Phone: [facility] 11-02-2023 10:59-0500 Systolic blood pressure 146 mm[Hg] Johnna Barroso AUTOMOBILE OR TRUCK RENTAL DISPATCHER-TRANSFORMER BUILDER Work Phone: [facility] 12-03-2022 12:35-0400 Body height 177.8 cm Viv Campos Other [employer] Other 12-03-2022 12:35-0400 Body mass index (BMI) [Ratio] 30.13 kg/m2 Viv Campos Other [employer] Other 12-03-2022 12:35-0400 Body temperature 100 [degF] Viv Campos Other [employer] Other 12-03-2022 12:35-0400 Body weight 95.26 kg Viv Beth Other [employer] Other 12-03-2022 12:35-0400 Diastolic blood pressure 89 mm[Hg] Viv Beth Other [employer] Other 12-03-2022 12:35-0400 Respiratory rate 18 /min Viv Beth Other [employer] Other 12-03-2022 12:35-0400 SaO2% (BldA) [Mass fraction] 96 % Viv Beth Other [employer] Other 12-03-2022 12:35-0400 Systolic blood pressure 151 mm[Hg] Viv Beth Other [employer] Other 09-01-2022 12:15-0500 Body height 177.8 cm Viv Ebth Other [employer] Other 09-01-2022 12:15-0500 Body mass index (BMI) [Ratio] 30.13 kg/m2 Viv Bteh Other [employer] Other 09-01-2022 12:15-0500 Body temperature 97.9 [degF] Viv Beth Other [employer] Other 09-01-2022 12:15-0500 Body weight 95.26 kg Viv Beth Other [employer] Other 09-01-2022 12:15-0500 Diastolic blood pressure 93 mm[Hg] Viv Beth Other [employer] Other 09-01-2022 12:15-0500 Respiratory rate 18 /min Viv Beth Other [employer] Other 09-01-2022 12:15-0500 SaO2% (BldA) [Mass fraction] 100 % Viv Beth Other [employer] Other 09-01-2022 12:15-0500 Systolic blood pressure 157 mm[Hg] Viv Beth Other [employer] Other 08-13-2022 11:35-0500 Body height 177.8 cm Viv Beth Other [employer] Other 08-13-2022 11:35-0500 Body mass index (BMI) [Ratio] 30.13 kg/m2 Viv Beth Other [employer] Other 08-13-2022 11:35-0500 Body temperature 98.1 [degF] Viv Beth Other [employer] Other 08-13-2022 11:35-0500 Body weight 95.26 kg Viv Beth Other [employer] Other 08-13-2022 11:35-0500 Diastolic blood pressure 89 mm[Hg] Viv Beth Other [employer] Other 08-13-2022 11:35-0500 Respiratory rate 16 /min Viv Beth Other [employer] Other 08-13-2022 11:35-0500 SaO2% (BldA) [Mass fraction] 99 % Viv Beth Other [employer] Other 08-13-2022 11:35-0500 Systolic blood pressure 143 mm[Hg] Viv Campos Other [employer] Other 07-28-2022 11:35-0500 Body height 177.8 cm Viv Campos Other [employer] Other 07-28-2022 11:35-0500 Body mass index (BMI) [Ratio] 30.13 kg/m2 Viv Randallmond Other [employer] Other 07-28-2022 11:35-0500 Body temperature 97.9 [degF] Viv Campos Other [employer] Other 07-28-2022 11:35-0500 Body weight 95.26 kg Viv Campos Other [employer] Other 07-28-2022 11:35-0500 Diastolic blood pressure 83 mm[Hg] Viv Campos Other [employer] Other 07-28-2022 11:35-0500 Respiratory rate 18 /min Viv Campos Other [employer] Other 07-28-2022 11:35-0500 SaO2% (BldA) [Mass fraction] 96 % Viv Campos Other [employer] Other 07-28-2022 11:35-0500 Systolic blood pressure 126 mm[Hg] Viv Beth Other [employer] Other 07-17-2022 14:40-0400 Body height 177.8 cm Tamar Prakash Other [employer] Other 07-17-2022 14:40-0400 Body mass index (BMI) [Ratio] 30.13 kg/m2 Tamar Prakash Other [employer] Other 07-17-2022 14:40-0400 Body temperature 98 [degF] Tamar Prakash Other [employer] Other 07-17-2022 14:40-0400 Body weight 95.26 kg Tamar Prakash Other [employer] Other 07-17-2022 14:40-0400 Diastolic blood pressure 81 mm[Hg] Tamar Prakash Other [employer] Other 07-17-2022 14:40-0400 Respiratory rate 18 /min Tamar Prakash Other [employer] Other 07-17-2022 14:40-0400 SaO2% (BldA) [Mass fraction] 98 % Tamar Prakash Other [employer] Other 07-17-2022 14:40-0400 Systolic blood pressure 143 mm[Hg] Tamar Prakash Other [employer] Other 01-21-2022 12:29-0400 Body height 177.8 cm Ne Hanna MD [facility] 01-21-2022 12:29-0400 Body mass index (BMI) [Ratio] 30.85 kg/m2 Ne Hanna MD [facility] 01-21-2022 12:29-0400 Body temperature 98.8 [degF] Ne Hanna MD [facility] 01-21-2022 12:29-0400 Body weight 97.52 kg Ne Hanna MD [facility] 01-21-2022 12:29-0400 Diastolic blood pressure 91 mm[Hg] Ne Hanna MD [facility] 01-21-2022 12:29-0400 Heart rate 82 /min Ne Hanna MD [facility] 01-21-2022 12:29-0400 Respiratory rate 18 /min Ne Hanna MD [facility] 01-21-2022 12:29-0400 SaO2% (BldA) [Mass fraction] 98 % Ne Hanna MD [facility] 01-21-2022 12:29-0400 Systolic blood pressure 155 mm[Hg] Ne Hanna MD [facility] Encounters Encounter Date Encounter Type Care Provider Facility Start: 11-24-2023 Telephone encounter Zulma Pagan MA [facility] Start: 11-16-2023 End: 11-17-2023 Refill Johnna Barroso AUTOMOBILE OR TRUCK RENTAL DISPATCHER-TRANSFORMER BUILDER Work Phone: [facility] Comment on above: Infection of eczemat ous skin Start: 11-06-2023 Orders Only Johnna martin AUTOMOBILE OR TRUCK RENTAL DISPATCHER-TRANSFORMER BUILDER Work Phone: [facility] Comment on above: Lymphadenopathy, ing uinal (Primary Dx) Start: 11-03-2023 End: 11-04-[address] [facility] Start: 11-02-2023 End: 11-02-2023 ambulatory [facility] Start: 11-02-2023 End: 11-02-2023 Office outpatient visit 15 minutes Johnna Barroso AUTOMOBILE OR TRUCK RENTAL DISPATCHER-TRANSFORMER BUILDER Work Phone: [facility] Comment on above: Lymphadenopathy, ing uinal (Primary Dx); Lumbar back pain; Lumbar radiculopathy Start: 12-03-2022 Office outpatient vi sit 15 minutes Viv Campos [facility] Start: 12-03-2022 End: 12-03-2022 ambulatory Viv Campos Facility:[facility] Start: 12-03-2022 End: 12-03-2022 ambulatory GROUND SERVICES INSTRUCTOR-C Viv Campos Work Phone: [facility] Work Phone: Start: 12-03-2022 End: 12-03-2022 Patient encounter procedure GROUND SERVICES INSTRUCTOR-C Viv Beth Work Phone: [facility] Work Phone: Start: 09-01-2022 End: 09-01-2022 ambulatory Viv Beth Other [employer] Other Start: 09-01-2022 Office outpatient vi sit 15 minutes Viv Beth [facility] Start: 08-13-2022 End: 08-13-2022 ambulatory Viv Beth Other [employer] Other Start: 08-13-2022 Office outpatient vi sit 15 minutes Viv Beth [facility] Start: 07-28-2022 End: 07-28-2022 ambulatory Viv Beth Other [employer] Other Start: 07-28-2022 Office outpatient vi sit 15 minutes Viv Beth [facility] Start: 07-17-2022 End: 07-17-2022 ambulatory Tamar Haylee Facility:[facility] Start: 07-17-2022 Office outpatient vi sit 15 minutes Tamar Haylee [facility] Start: 07-17-2022 End: 07-17-2022 ambulatory HAND PLEATER-C Tamar Haylee Work Phone: [facility] Work Phone: Start: 07-17-2022 End: 07-17-2022 Patient encounter procedure HAND PLEATER-C Tamar Haylee Work Phone: [facility] Start: 01-21-2022 End: 01-21-2022 Emergency department patient visit MATT MATOS [facility] Start: 01-21-2022 End: 01-21-2022 Emergency department patient visit Ne [facility] Comment on above: Closed head injury, initial encounter (Primary Dx); Laceration of scalp, initial encounter Start: 05-28-2020 End: 05-29-[address] [facility] Facility: Procedures Date Procedure Procedure Detail Performing Clinician Start: 11-02-2023 Adult depression screening assessment Johnna Soriasler AUTOMOBILE OR TRUCK RENTAL DISPATCHER-TRANSFORMER BUILDER Work Phone: Start: 12-03-2022 Plain X-ray of right hand GROUND SERVICES INSTRUCTOR-C Viv Campos Work Phone: Start: 07-17-2022 X-ray of right knee HAND PLEATER -C Tamar Zelayaault Work Phone: Start: 01-21-2022 Ct cervical spine w/ o contrast material Yoni A Romp PA-C Work Phone: Start: 01-21-2022 Ct head/brain w/o contrast material Yoni A Romp PA-C Work Phone: Plan of Treatment Date Care Activity Detail Author Start: 01-22-2032 DTaP,Tdap and Td Vaccines (3 - Td or Tdap) DTaP,Tdap and Td Vaccines (3 - Td or Tdap) [facility] Start: 01-22-2032 DTaP/Tdap/Td vaccine (2 - Td or Tdap) DTaP/Tdap/Td vaccine (2 - Td or Tdap) [facility] Start: 11-02-2024 Adult BMI Screening Adult BMI Screen ing [facility] Start: 11-02-2024 Depression Screening Depression Scre ening [facility] Start: 11-02-2024 Tobacco Screening Tobacco Screening [facility] Start: 11-06-2023 End: 11-06-2024 US Guidance for core needle biopsy of Unspecified body region Ultrasound guidance intraoperative with Bx or Asp Imaging Routine Lymphadenopathy, inguinal Expected: 11/06/2023, Expires: 11/06/2024 [facility] Work Phone: Comment on above: Expected: 11/06/2023 , Expires: 11/06/2024 Start: 11-03-2023 Subsequent hospital visit by physician 11/03/2023 2:30 PM EST Hospital Encounter [facility] [address] [place] [id number] [facility] Start: 11-02-2023 End: 11-02-2024 US Extremity - left limited Ultrasound extremity non vascular limited left Imaging Routine Lymphadenopathy, inguinal Expected: 11/02/2023, Expires: 11/02/2024 [facility] Work Phone: Comment on above: Expected: 11/02/2023 , Expires: 11/02/2024 Start: 05-15-2023 Influenza vaccination Influenza Vacc ine [facility] Start: 05-15-2022 Influenza vaccination Flu vacc ine (Season Ended) [facility] Start: 2006 Adult BMI Follow Up Plan Adult BMI Follow Up Plan [facility] Start: 2006 Hepatitis C screening Hepatitis C sc reen [facility] Start: 2003 HIV screening HIV screen [facility] Start: 2000 Depression Screen Depression Screen [facility] Start: 1993 COVID-19 Vaccine (1) COVID-19 Vaccin e (1) [facility] Start: 1989 Varicella vaccine (1 of 2 - 2-dose childhood series) Varicella vaccine (1 of 2 - 2-dose childhood series) [facility] Immunizations Immunization Date Immunization Notes Care Provider Avinash walsh 01-21-2022 tetanus toxoid, reduced diphtheria toxoid, and acellular pertussis vaccine, adsorbed Ne Hanna MD [facility] Work Phone: 04-04-2019 tetanus and diphtheria toxoids, adsorbed, preservative free, for adult use (2 Lf of tetanus toxoid and 2 Lf of diphtheria toxoid) Johnna Barroso AUTOMOBILE OR TRUCK RENTAL DISPATCHERMaozhao Work Phone: [facility] 09-11-2014 influenza, seasonal, injectable, preservative free Johnna Barroso AUTOMOBILE OR TRUCK RENTAL DISPATCHERMaozhao Work Phone: [facility] 09-11-2014 influenza virus vaccine, unspecified formulation Johnna Barroso AUTOMOBILE OR TRUCK RENTAL DISPATCHERMaozhao Work Phone: [facility] NEGATED: Highlighted row has not occurred!11-27-2021 influenza, injectable, quadrivalent, preservative free Johnna Barroso AUTOMOBILE OR TRUCK RENTAL DISPATCHER-TRANSFORMER BUILDER Work Phone: [facility] Comment on above: Deferred: Patient de cision Payers Date Payer Category Payer Unknown [facility] HMO/PPO/TRUST [id number] 2023-Present [phone] [address] [place] [address] [id number] 2023 Unknown [id number] 2022 Medicaid [id number] 2022 Self-pay 2022 Unknown [id number] 2022 Unknown [id number] 2022 Unknown [id number] 2021 Unknown [id number] 1988 Unknown [id number] 1988 Unknown [id number] 1988 Unknown [id number] 1988 Unknown [id number] 1988 Unknown [id number] 1959 Unknown [id number] 1959 Unknown [id number] Unknown [id number] Unknown [id number] Social History Date Type Detail Facility Start: 03-31-2014 End: 08-20-2022 Tobacco smoking status NHIS Ex-smoker [facility] Start: 03-31-2014 Tobacco use and exposure Smoke less tobacco non-user [employer] Phone: Start: 01-21-2022 Alcohol intake 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) [employer] Phone: Start: 11-26-2021 End: 01-21-2022 Alcohol intake [facility] [employer] [facility] Start: 03-31-2014 History SDOH Alcohol Comment [facility] Start: 1990 Sex Assigned At Not on file [facility] Phone: Start: 01-11-2022 End: 01-21-2022 Exposure to SARS-CoV-2 (event) Not sure [employer] Phone: Start: 1990 Sex Assigned At Male F [facility] Start: 11-26-2021 End: 11-02-2023 Sex Assigned At [facility] History of tobacco use Current smoker [facility] Start: 08-20-2022 Tobacco use and exposure Forme r smokeless tobacco user [facility] End: 02-12-2018 History of tobacco use Chews Tobacco [facility] Start: 11-02-2023 Alcohol intake Ex-drinker (finding) [facility] How often do you att end restorationism or mosque services? Patient declined [facility] Do you belong to any clubs or organizations such as restorationism groups, unions, fraternal or athletic groups, or school groups? Yes [facility] Are you now , , , , never or living with a partner? [facility] How often to you hav e a drink containing alcohol? 2-3 time sa week [facility] How many standard dr inks containing alcohol do you have on a typical day? 5 or 6 [facility] How often do you hav e 6 or more drinks on 1 occasion? Monthly [facility] Do you feel stress - tense, restless, nervous, or anxious, or unable to sleep at night because your mind is troubled all the time - these days [OSQ] Rather much [facility] Start: 03-14-2019 Education 21 [facility] Clinical Notes 01-21-2022 to 11-24-2023 Telephone Encounter [...] know his results documented in this encounter [facility] 11-24-2023 Telephone encount er Note ----- Message from SERGE Mitchell sent at 11/24/2023 4:52 AM EDT ----- Biopsy was negative for malignancy, although I do recommend follow up in 6-8 weeks for continued assessment ----- Message ----- From: Interface - Lab Results/Orders In Sent: 11/18/2023 4:33 PM EDT To: SERGE Mitchell [facility] 11-24-2023 Telephone encount er Note Called patient, no answer unable to leave a message [facility] 11-24-2023 Telephone encount er Note Patient called back into the office I did let him know his results [facility] 11-16-2023 Miscellaneous Notes Formattin g of this note might be different from the original. Patient presenting to front window requesting refill of Clobetasol 0.05% ointment. Pharmacy is [facility] in [place], [place]. documented in this encounter [facility] 11-16-2023 Telephone encount er Note Patient presenting to front window requesting refill of Clobetasol 0.05% ointment. Pharmacy is [facility] in [place], [place]. [facility] 11-06-2023 Miscellaneous Notes Formattin g of this [...] He stated understanding. documented in this encounter [facility] 11-06-2023 Telephone encount er Note ----- Message from SERGE Mitchell sent at 11/06/2023 9:38 AM EST ----- Please let pt know that ultrasound was abnormal, radiology is recommending a biopsy. I will put in order and hospital will call him ----- Message ----- From: Interface - Rad Results/Orders In 1 Sent: 11/05/2023 12:44 PM EST To: SERGE Mitchell [facility] 11-06-2023 Telephone encount er Note Tried to call patient but no answer and could not leave a voicemail. [facility] 11-06-2023 Telephone encount er Note Patient called back and I informed him. He stated understanding. [facility] 11-02-2023 History of Presen t illness Narrative [...] nursing note reviewed. Exam conducted with a upkeep worker present. Constitutional: Appearance: Normal appearance. HENT: Head: [...] Mitchell 11/02/23 1153 documented in this encounter [employer] 12-03-2022 Evaluation note Encounter Date Diagnosis Assessment [...] no improvement in 5 to 7 days. [facility] 12-19-2022 Evaluation note* Encounter Date Diagnosis [...] days. You may return to work tomorrow [facility] 11-30-2022 Evaluation note* Encounter Date Diagnosis [...] no improvement in 2 to 3 days. [facility] 11-14-2022 Evaluation note* Encounter Date Diagnosis [...] no improvement in 2 to 3 days [facility] 11-03-2022 Evaluation note* Encounter Date Diagnosis [...] will help you get into a specialist. [facility] 05-10-2022 Hospital Discharge instructions* Instructions* Yoni [...] sent through Care Everywhere. * Lacerations: Stitches (Kazakh) [facility]: evaluation note* Diagnosis Closed head injury, initial encounter- Primary Laceration of scalp, initial encounter documented in this encounter [facility] Phone: evaluation noteNo assessment information available [facility] Work Phone: Evaluation note* Diagnosis Lymphadenopathy, inguinal- Primary Lumbar back pain Lumbago Lumbar radiculopathy Thoracic or lumbosacral neuritis or radiculitis, unspecified documented in this encounter [facility]* Diagnosis Lymphadenopathy, inguinal- Primary [facility]* Diagnosis Infection of eczematous skin documented in this encounter [facility] general Narrative - Reported* Type Description Date Medical History hypertension Medical History hypercholesterolemia Medical History acid reflux Surgical History shoulder surgery [facility] Other Instructions* Attachments The following attachments cannot be sent through Care Everywhere. * Lymphadenitis (Kazakh) documented in [facility]ructionsNot on file documented in this encounterProN[facility] SystemInstructionsNot on file documented in this encounterProSt[facility]InstructionsNot on file documented in this [facility]ProSt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 1247 (Given - Provid er: Aileen Wong LPN - Comment: top of head) Care Teams (unrecognized sec tion and content) Peripheral Equipment Operator Relationship Specialty Start Date End Date Matt Matos APRN - CNP PCP - General 11/03/18 Team Status: Inactive Member Role Status Dates JIMMY Chandra Attending Provider Active Team Status: Inactive Member Role Status Dates VIRGIL PakC Attending Provider Active Peripheral Equipment Operator Relationship Specialty Start Date End Date Johnna Barroso APRN-PIERRE [address], [place] [address] PCP - General Family Medicine 11/27/21 Peripheral Equipment Operator Relationship Specialty Start Date End Date Johnna Barroso APRN-TRANSFORMER BUILDER [address], [place] [address] PCP - General Family Medicine 11/27/21 Peripheral Equipment Operator Relationship Specialty Start Date End Date DharmeshJohnna arshad KimberlySERGE [address], [place] [address] PCP - General Family Medicine 11/27/21 Peripheral Equipment Operator Relationship Specialty Start Date End Date DharmeshJohnna camacho APRN-CNP [address], [place] [address] PCP - General Family [facility] 11/27/21 (unrecognized sect ion and content) No Status Records FoundNo Status Records FoundNo Status Records FoundNo Status Records FoundNo Status Records Found INFORMATION SOURCE (unrecogn ized section and content) DATE CREATED AUTHOR 01/22/2022 [facility] DATE CREATED AUTHOR AUTHOR'S ORGANIZ ATION 06/20/2022 [facility] DATE CREATED AUTHOR AUTHOR'S ORGANIZ ATION 01/03/2023 [facility] DATE CREATED AUTHOR AUTHOR'S ORGANIZ ATION 11/03/2023 [facility] DATE CREATED AUTHOR AUTHOR'S ORGANIZ ATION 11/21/2023 [facility] Goals (unrecognized section and content) Goals may [...] BE BASED ON THE PRIMARY CLINICAL RECORDS. [facility]. provides no warranty or guarantee of the accuracy or completeness of information in this document.
--- NOTE | 2024-08-29 20:35 | XR_ITS ---
The [address] [address] Patient Name: DILCIA RODRIGUEZ MRN: [id number] date: 1990 Sex: M Assigned Patient Location: ER Current Patient Location: Accession/Order Number: [id number] Exam Date: 08/29/2024 20:45 Report Date: 08/29/2024 22:46 At the request of: COLETTE CATES Procedure: XR ribs RT min 3V w CXR1V EXAM: XR ribs RT min 3V w CXR1V HISTORY: pain COMPARISON: None. TECHNIQUE: Frontal chest with for right rib views. FINDINGS: Osseous structures including ribs are intact without fracture. No osseous lesion. Both lungs are well aerated, expanded and clear. Well-defined pleural margins without pneumothorax or pleural effusion. Heart size and vasculature. Right shoulder structures and joints are well-maintained. XR/XR ribs RT min 3V w CXR1V IMPRESSION: Negative chest and right rib radiographs. Electronically authenticated by: ASIA SPEARS Date: 08/29/2024 22:46
--- NOTE | 2024-08-29 20:37 | ED_ITS ---
HPI HPI - Extremity Injury (Upper) General Chief Complaint: Extremity Injury, Upper Stated Complaint: shoulder pain Time Seen by Provider: 08/29/24 20:30 Source: patient Mode of arrival: walk-in Limitations: no limitations History of Present Illness HPI narrative: 33 year old male presents to the ED for pain to his right shoulder, right chest, and right lateral rib areas. Onset was 08/24/24. States he rolled over in bed and felt something pop. He was evaluated here for the shoulder pain; x-rays were negative. He has since developed increased pain to the shoulder along with developing pain to his right chest and rib areas. Denies fever, chills, weakness, N/T, SOB. The pain is worse with movement. Denies recent travel or recent surgery. Denies hx blood clots. Related Data Previous Rx's ?Medication ?Instructions ?Recorded dexamethasone 4 mg tablet 4 mg PO BID 5 days #10 tabs 08/08/24 methocarbamol 750 mg tablet 750 mg PO TID PRN pain #20 tabs 08/08/24 ondansetron 4 mg disintegrating 4 mg PO Q6H PRN nausea and 08/08/24 tablet vomiting #12 tabs naproxen 500 mg tablet (Naprosyn) 500 mg PO Q12H PRN pain #10 tabs 08/29/24 prednisone 20 mg tablet 40 mg (2 x 20 mg) PO DAILY 5 days 08/29/24 #10 tabs tizanidine 4 mg capsule (Zanaflex) 4 mg PO Q8H PRN muscle spasticity 08/29/24 #14 caps Allergies Allergy/AdvReac Type Severity Reaction Status Date / Time tree nut Allergy Intermediate Rash Verified 08/29/24 20:29 Opioid HPI Opioid Management Most Recent Pain and Opioid Data: Last Pain Scale 6 08/29/24 20:42 08/29/24 Last ED Pain Assessment 08/29/24 20:42 Review of Systems ROS Constitutional Denies: fever or chills Ears, nose, mouth, and throat Denies: throat pain or neck pain Cardiovascular Denies: chest pain Respiratory Denies: shortness of breath or cough Gastrointestinal Denies: abdominal pain, nausea or vomiting Musculoskeletal Reports: back pain, extremity pain and joint pain; Denies: neck pain Integumentary/Breast Denies: rash, skin pain or sores Neurological Denies: numbness in extremities or weakness in extremities PFSH [facility] Social History Smoking status: Former smoker Little interest or pleasure in doing things: not at all Feeling down, depressed, or hopeless: not at all Exam Constitutional Vital Signs, click to edit/add: Last Vital Signs Temp 98.1 F 08/29/24 20:25 Pulse 118 H 08/29/24 20:44 Resp 19 08/29/24 20:44 BP 168/114 H 08/29/24 20:44 Pulse Ox 98 08/29/24 20:44 O2 Del Method Room Air 08/29/24 20:25 Common normals: no apparent distress and oriented x3 General appearance: cooperative Eye Common normals: conjunctivae normal and no scleral icterus Neck & C-Spine Common normals: supple Chest Chest: symmetrical chest wall rise and tenderness rib (right lateral rib area) Respiratory Common normals: normal respiratory effort and clear to auscultation bilaterally Effort & inspection: able to speak in complete sentences and symmetric chest movement Cardio Common normals: regular rate and regular rhythm Peripheral pulses: radial pulses present Extremity Other: Tenderness to right anterior shoulder. No swelling or deformity. Full ROM to the shoulder, RUE. Pain increases with movement. Distal sensation intact. Neuro Common normals: oriented x3 and moves all extremities Sensorium/orientation: awake and alert Speech: speech normal Course Vital Signs Vital signs: Vital Signs Temperature 98.1 F 08/29/24 20:25 Pulse Rate 115 H 08/29/24 20:25 Respiratory Rate 18 08/29/24 20:25 Blood Pressure 158/113 H 08/29/24 20:25 Pulse Oximetry 97 08/29/24 20:25 Oxygen Delivery Method Room Air 08/29/24 20:25 Temperature 98.1 F 08/29/24 20:25 Pulse Rate 118 H 08/29/24 20:44 Respiratory Rate 19 08/29/24 20:44 Blood Pressure 168/114 H 08/29/24 20:44 Pulse Oximetry 98 08/29/24 20:44 Oxygen Delivery Method Room Air 08/29/24 20:25 MDM - Extremity Injury (Upper) MDM Narrative Medical decision making narrative: X-rays were reviewed by the ED attending and showed no acute findings. Findings were discussed with the patient. Prescriptions were provided for prednisone, Zanaflex, and naprosyn. Follow up with pcp and an orthopedist for a recheck, further evaluation and treatment. He reported he has an orthopedist for follow up. Differential Diagnosis Differential diagnosis: Likely other (chest wall contusion, chest wall pain, shoulder pain/strain/sprain, rib fracture) Medical Records Attestation: I reviewed the patient's medical records. Imaging Data Chest x-ray: Attestation: I have reviewed the pertinent imaging results. Discharge Plan Discharge Chief Complaint: Extremity Injury, Upper Clinical Impression: Pain in right shoulder, Chest wall pain Patient Disposition: Home, Self-Care Time of Disposition Decision: 21:54 Condition: Good Mode of Transportation: Private Vehicle Prescriptions / Home Meds: New naproxen [Naprosyn] 500 mg tablet 500 mg PO Q12H PRN (Reason: pain) Qty: 10 0RF prednisone 20 mg tablet 40 mg PO DAILY 5 Days Qty: 10 0RF tizanidine [Zanaflex] 4 mg capsule 4 mg PO Q8H PRN (Reason: muscle spasticity) Qty: 14 0RF No Action methocarbamol 750 mg tablet 750 mg PO TID PRN (Reason: pain) Qty: 20 0RF dexamethasone 4 mg tablet 4 mg PO BID 5 Days Qty: 10 0RF ondansetron 4 mg tablet,disintegrating 4 mg PO Q6H PRN (Reason: nausea and vomiting) Qty: 12 0RF Print Language: Jamaican Instructions: Shoulder Pain (ED), Chest Wall Pain (ED) Additional Instructions: Follow up with the orthopedist as scheduled. Do not take motrin if taking naprosyn. Do not take robaxin if taking zanaflex. Referrals: Johnna Barroso GLOBAL TECHNICAL WRITER [Primary Care Provider] - 1 week
[2024-08-29 20:44] VITALS: BP 168/114; PULSE 118; O2SAT 98
--- NOTE | 2024-08-29 20:49 | PC.NURSE ---
this patient does have hypertension and has been off his hypertension medication for the past year for the lack of insurance. he said in 5 more days he will get his health insurance
[2024-08-29] MEDS: NAPROXEN 250 MG TABLET 500 MG PO (20:54)
[2024-08-29] MEDS: PREDNISONE 20 MG TABLET 40 MG PO (20:54)
--- NOTE | 2024-08-29 20:58 | PC.NURSE ---
this patient is back from x-ray dept, this patient received his medication. this patient updated that now we are waiting on x-ray results to come back.
[2024-08-29 22:06] VITALS: BP 153/107; PULSE 99; O2SAT 96
--- NOTE | 2024-08-29 22:07 | PC.NURSE ---
i gave this patient verbal and paper discharge along with 3 e-scripts and 1 work note, this patient understanding these discharge papers, and e-scripts. at time of discharge this patient voices no concerns and shows no signs of distress. I told this patient family about his blood pressure and get back on his high blood pressure medication. this patient replied yes I will once my insurance kicks in.
== END 2024-08-29 22:11 | disposition home or self-care (01) ==
PROVIDERS: Emergency Provider Emergency Medicine; PCP Nurse Practitioner
DX: M25.511 Pain in right shoulder (principal); R07.89 Other chest pain; Z87.891 Personal history of nicotine dependence
CPT/HCPCS: 71101; 99283; J7512

== ENCOUNTER 2024-12-11 18:23 | Emergency (ER) | payer SELFPAY ==
[2024-12-11 18:29] VITALS: BP 159/104; PULSE 78; TEMP 36.9; O2SAT 98; BMI 28.9
--- OUTSIDE RECORDS SUMMARY | 2024-12-11 18:29 | XMS_ITS | CCD ---
Author Organization [facility] Care Team Providers Care Policy Writer Sales Name Role Phone Matt Mancera APRN, CNP [...] Campos Admitting Unavailable Viv Campos Attending Unavailable JOHNNA BARROSO Attending Unavailable JOHNNA BARROSO Referring Unavailable YAN BARROSOITH Kimberly Primary Care Unavailable JOHNNA BARROSO Referring Unavailable YAN BARROSOITH Kimberly Primary Care Unavailable YAN BARROSOITH Kimberly Referring Unavailable YAN BARROSOITH A Primary Care Unavailable Dharmesh CRUZ-PIERRE, Johnna Kimberly Primary Care Provi sang Allergies Allergy Classification Reported Allergen(s) Allergy Type Date of Onset Reaction(s) Facility (7 sources) [place]; Translations: [HAZELNUT] Propensity to adverse reactions 2 Unknown [facility] Repository (7 sources) Orphenadrine; Translations: [ORPHENADRINE CITRATE] Drug Allergy 0 [facility] Repository (5 sources) [place] Propensity to adverse reactions to drug 2 [facility] Medic[facility] Current Medications Medication Drug [...] Start: 07-28-2022 take 1 capsule by mo [facility] every eight hours Amoxicillin 500 MG [...] / neomycin 3.5 mg/ml / polymyxin b 10162 unt/ml otic suspension (3 sources) Aminoglycoside Antibacterial, Polymyxin-class Antibacterial, Corticosteroid Start: 08-13-2022 Neomycin-Polymyx in-HC [id number] 3 drops left ear Three times a [...] other viral communicable diseases] Onset: 05-28-2020 Episodic Miscellaneous mental health disorders (5 sources) [...] disorder] Onset: 05-28-2020 Resolved: 11-06-2023 05-28-2020 Episodic Lymphadenitis (8 sources) Localized enlarged lymph nodes; Translations: [Inguinal lymphadenopathy] Onset: 11-02-2023 11-02-2023 Episodic Mood disorders (5 sources) Mood disorders [...] SEE SEPARATE REPORT, REVIEWED BY PATHOLOGIST Normal [facility] IR BIOPSY LYMPH NODEon 11-15 IR [...] Cruz MD on 11/16/2023 11:01 AM Normal [facility] Surgical Pathologyon 024 Surgical Pathology Normal [facility] Comment on above: Result Comment: [facility] [address] [place] [address] Surgical Pathology Consultation Patient Name:MICH RODRIGUEZ JR.:1990 (Age: 33)Gender:MTaken:4Reported:11/18/2023hysician(s):Johnna Barroso CNP ([phone])Copy To:Delano Cruz M.D. Rec. #:[id number]: #[id number] Final Pathologic Diagnosis Left groin lymph node, [...] CD5, CD7, CD10, CD19, CD20, CD23, CD45, [place], and Lambda. Immunophenotyping Comment: Immunophenotyping has been used in this diagnostic evaluation. This test was developed and its performance characteristics determined by the [facility] Department. It has not been [...] Out Ruben Jean MD Interpretation performed at [facility], [address] [place] [address], License number: [id number]. Clinical History Lymphadenopathy, inguinal R59.0. Gross Description Received in formalin labeled LITTLE, left groin BX are [place], focally erythematous, delicate soft tissue fragments, 0.6 x 0.4 x 0.1 cm in aggregate. The specimen is filtered and entirely submitted in a single cassette. (1, ns, [id number], m1) JG A separate soft tissue core is received in RPMI media and sent to flow cytometry for analysis. [facility]/11/16/2023GR Specimen(s) Received Left groin lymph node Fee Codes(s): 1; 37264, 42224 US EXT NON-VASC LT LIMITEDon 11-05-2023 US [...] Stover MD on 11/05/2023 12:42 PM Normal [facility] XR hand RT min 3V*on 023 XR hand RT min 3V* [facility] Main [facility] [address] [place] [address] XRay Report Signed Patient: Mich Rodriguez MR#: [id number] : 1990 Acct:[id number] Age/Sex: 32 / M ADM Date: 12/03/22 Loc: XDUCLY Room: Type: [facility] Attending Dr: Viv CALIXTO Copies to: [...] 12:25 PM Dictation Location: RADIO-PC-10 Transcribed By: PWS 12/03/22 1225 Dictated By: Christi Gray MD 12/03/22 1223 Signed By: 12/03/22 1225 Normal [facility] XR hand RT min 3V* [facility] [employer] Other XR hand RT min 3V* [facility] [employer] Other XR hand RT min 3V* [address] [place] [address] [employer] Other XR hand RT min 3V* [place] [address] [employer] Other XR hand RT min 3V* XRay Report [employer] Other XR hand RT min 3V* Signed [employer] Other XR hand RT min 3V* Patient: Mich Rodriguez MR#: [id number] [employer] Other XR hand RT min 3V* 4283 [employer] Other XR hand RT min 3V* : 1990 Acct:[id number] [employer] Other XR hand RT min 3V* Age/Sex: 32 / M ADM Date: 12/03/22 [employer] Other XR hand RT min 3V* Loc: XDUCLY Room: Type: [facility] [employer] Other XR hand RT min 3V* Attending Dr: Viv CALIXTO [employer] Other XR hand RT min 3V* Copies to: DURGA Arango [employer] Other XR hand RT min 3V* Ordering Provider: DURGA Arango [employer] Other XR hand RT min 3V* Date of Service: 12/03/22 [employer] Other XR hand RT min 3V* XR/XR hand RT min 3V*: RIGHT HAND SWELLING/PAIN [employer] Other XR hand RT min 3V* RIGHT HAND - 3 views [employer] Other XR hand RT min 3V* CLINICAL DATA: Right hand pain and swelling dorsally over the metacarpals for the past week. No [employer] Other XR hand RT min 3V* known injury. Nor [employer] Other XR hand RT min 3V* COMPARISON: None [employer] Other XR hand RT min 3V* AP, lateral and oblique views were obtained. There is no evidence of fracture or dislocation. No [employer] Other XR hand RT min 3V* prominent hypertrophy or joint space narrowing is seen. Mild dorsal soft tissue swelling is [employer] Other XR hand RT min 3V* present. [employer] Other XR hand RT min 3V* XR/XR hand RT min 3V* [employer] Other XR hand RT min 3V* IMPRESSION: [employer] Other XR hand RT min 3V* NO ACUTE BONY FINDINGS. [employer] Other XR hand RT min 3V* Impression dictated by: Christi Gray M.D.12/03/2022 12:25 PM [employer] Other XR hand RT min 3V* Dictation Location: [place] [address] [employer] Other XR hand RT min 3V* Transcribed By: SARWAT 12/03/22 1225 [employer] Other XR hand RT min 3V* Dictated By: Christi Gray MD 12/03/22 1223 [facility] [employer] Other XR hand RT min 3V* Signed By: [facility] [employer] Other XR hand RT min 3V* 12/03/22 1225 [facility] [employer] Other COVID + FLU Quick Testingon 09-01-2022 SARS-CoV-2 (COVID-19) RNA ABILIO+probe Ql (Unsp spec) Negative [facility] [employer] Other COVID + FLU Quick Testing Negative [facility] [employer] Other XR knee RT 4V*on 07-17-2022 XR knee RT 4V* [facility] Main [facility] [address] [place] [address] XRay Report Signed Patient: Mich Rodriguez MR#: [id number] : 1990 Acct:[id number] Age/Sex: 31 / M ADM Date: 07/17/22 Loc: XDUCLY Room: Type: [facility] Attending Dr: Tamar MARQUEZ Copies to: [...] Brayan Mccormack M.D.07/17/2022 1:22 PM Dictation Location: [place] [address] Transcribed By: [facility] 07/17/22 1322 Dictated By: Brayan Mccormack II, MD 07/17/22 1321 Signed By: 07/17/22 1322 Normal [facility] XR knee RT 4V* [facility] [employer] Other XR knee RT 4V* [facility] Main [facility] [employer] Other XR knee RT 4V* [address] [place] [address] [employer] Other XR knee RT 4V* [place] [address] No rt [employer] Other XR knee RT 4V* XRay Report [employer] Other XR knee RT 4V* Signed [employer] Other XR knee RT 4V* Patient: Mich Rodriguez MR#: [id number] Vol[facility] [employer] Other XR knee RT 4V* 83 [employer] Other XR knee RT 4V* : 1990 Acct:[id number] [employer] Other XR knee RT 4V* Age/Sex: 31 / M ADM Date: 07/17/22 [employer] Other XR knee RT 4V* Loc: XDUCLY Room: Type: [facility] [employer] Other XR knee RT 4V* Attending Dr: Tamar Prakash [facility] Other XR knee RT 4V* Copies to: TAMAR PRAKASH [facility] [employer] Other XR knee RT 4V* Ordering Provider: [facility]AR PRAKASH [facility] [employer] Other XR knee RT 4V* Date of Service: 07/17/22 [employer] Other XR knee RT 4V* XR/XR knee RT 4V*: Right anterior knee pain [employer] Other XR knee RT 4V* XR knee RT 4V* 07/17/2022 1:02 PM [employer] Other XR knee RT 4V* SIGNS AND SYMPTOMS: Right anterior knee pain [employer] Other XR knee RT 4V* PROTOCOL: Frontal, lateral, and oblique radiographs of the right knee [employer] Other XR knee RT 4V* COMPARISON: None [employer] Other XR knee RT 4V* FINDINGS: [employer] Other XR knee RT 4V* There is a linear radiopaque foreign body in the lateral soft tissues adjacent to the proximal [employer] Other XR knee RT 4V* fibula. The joint spaces are preserved. There is no fracture. No joint effusion. No soft tissue [employer] Other XR knee RT 4V* swelling. [employer] Other XR knee RT 4V* XR/XR knee RT 4V* [employer] Other XR knee RT 4V* IMPRESSION: [employer] Other XR knee RT 4V* No acute bony injury or significant degenerative change. [employer] Other XR knee RT 4V* fibula. [employer] Other XR knee RT 4V* Impression dictated by: Brayan Mccormack M.D.07/17/2022 1:22 PM [employer] Other XR knee RT 4V* Dictation Location: [place] [address] [employer] Other XR knee RT 4V* Transcribed By: SARWAT 07/17/22 1322 [employer] Other XR knee RT 4V* Dictated By: Brayan Mccormack II, MD 07/17/22 1321 [employer] Other XR knee RT 4V* Signed By: [employer] Other XR knee RT 4V* 07/17/[address] [address] CERVICAL SPINE WO CONTRAS Ton [...] and C5-C6. RECOMMENDATIONS: Unavailable Interpreted by: Clark Rhdoes MD Signed by: Clark Rhodes MD 01/21/22 Final result Normal [facility] CT HEAD WO CONTRASTon 2021 CT [...] Clark Rhodes MD 01/21/22 Final result Normal [facility] No Panel Informationon 01-21 No acute intracranial abnormality. No acute fracture or subluxation of cervical spine. Mild degenerative change C4-C5 and C5-C6. RECOMMENDATIONS: Unavailable [facility] RIS CONSOLIDATED EXAMINATION: CT OF [...] There is no prevertebral soft tissue swelling. [facility] Clark Redding MD - 01/21/2022 EXAMINATION: [...] degenerative change C4-C5 and C5-C6. RECOMMENDATIONS: Unavailable [facility] Phone: Radiology Study observation (narrative) [facility] Phone: No Panel InformationOrdered By: Clark Rhodes on 01-21-2022 [facility] Phone: Vital Signs Date Time Vital Sign Value Performing Clinician [facility] 11-02-2023 10:59-0500 Body height 177.8 cm Johnna Barroso APRN-CALIBRATION TECHNICIAN Work Phone: [employer] 11-02-2023 10:59-0500 Body mass index (BMI) [Ratio] 28.93 kg/m2 Johnna Barroso APRN-CALIBRATION TECHNICIAN Work Phone: [employer] 11-02-2023 10:59-0500 Body temperature 98.6 [degF] Johnna Barroso SYSTEMS MANAGEMENT CONSULTANT-CALIBRATION TECHNICIAN Work Phone: [facility] [employer] 11-02-2023 10:59-0500 Body weight 91.44 kg Johnna Barroso SYSTEMS MANAGEMENT CONSULTANT-CALIBRATION TECHNICIAN [facility] Phone: [facility] 11-02-2023 10:59-0500 Diastolic blood pressure 88 mm[Hg] Johnna Barroso SYSTEMS MANAGEMENT CONSULTANT-CALIBRATION TECHNICIAN [facility] Phone: [facility] 11-02-2023 10:59-0500 Heart rate 81 /min Johnna Barroso SYSTEMS MANAGEMENT CONSULTANT-CALIBRATION TECHNICIAN Work Phone: [facility] 11-02-2023 10:59-0500 Respiratory rate 20 /min Johnna Barroso SYSTEMS MANAGEMENT CONSULTANT-CALIBRATION TECHNICIAN Work Phone: [facility] 11-02-2023 10:59-0500 SaO2% (BldA) [Mass fraction] 98 % Johnna Barroso SYSTEMS MANAGEMENT CONSULTANT-CALIBRATION TECHNICIAN Work Phone: [facility] 11-02-2023 10:59-0500 Systolic blood pressure 146 mm[Hg] Johnna Barroso SYSTEMS MANAGEMENT CONSULTANT-CALIBRATION TECHNICIAN Work Phone: [facility] 12-03-2022 12:35-0400 Body height 177.8 cm Viv Campos Other [employer] Other 12-03-2022 12:35-0400 Body mass index (BMI) [Ratio] 30.13 kg/m2 Viv Campos Other [employer] Other 12-03-2022 12:35-0400 Body temperature 100 [degF] Viv Campos Other [employer] Other 12-03-2022 12:35-0400 Body weight 95.26 kg Viv Campos Other [employer] Other 12-03-2022 12:35-0400 Diastolic blood pressure 89 mm[Hg] Viv Beth Other [employer] Other 12-03-2022 12:35-0400 Respiratory rate 18 /min Viv Beth Other [employer] Other 12-03-2022 12:35-0400 SaO2% (BldA) [Mass fraction] 96 % Viv Beth Other [employer] Other 12-03-2022 12:35-0400 Systolic blood pressure 151 mm[Hg] Viv Beth Other [employer] Other 09-01-2022 12:15-0500 Body height 177.8 cm Viv Beth Other [employer] Other 09-01-2022 12:15-0500 Body mass index (BMI) [Ratio] 30.13 kg/m2 Viv Beth Other [employer] Other 09-01-2022 12:15-0500 Body temperature 97.9 [degF] Viv Beth Other [employer] Other 09-01-2022 12:15-0500 Body weight 95.26 kg Viv Beth Other [employer] Other 09-01-2022 12:15-0500 Diastolic blood pressure 93 mm[Hg] Viv Beth Other [employer] Other 09-01-2022 12:15-0500 Respiratory rate 18 /min Viv Beth Other [employer] Other 09-01-2022 12:15-0500 SaO2% (BldA) [Mass fraction] 100 % Viv Beth Other [employer] Other 09-01-2022 12:15-0500 Systolic blood pressure 157 mm[Hg] Viv Beth Other [employer] Other 08-13-2022 11:35-0500 Body height 177.8 cm Viv Beth Other [employer] Other 08-13-2022 11:35-0500 Body mass index (BMI) [Ratio] 30.13 kg/m2 Viv Beth Other [employer] Other 08-13-2022 11:35-0500 Body temperature 98.1 [degF] Viv Beth Other [employer] Other 08-13-2022 11:35-0500 Body weight 95.26 kg Viv Beth Other [employer] Other 08-13-2022 11:35-0500 Diastolic blood pressure 89 mm[Hg] Viv Beth Other [employer] Other 08-13-2022 11:35-0500 Respiratory rate 16 /min Viv Beth Other [employer] Other 08-13-2022 11:35-0500 SaO2% (BldA) [Mass fraction] 99 % Viv Beth Other [employer] Other 08-13-2022 11:35-0500 Systolic blood pressure 143 mm[Hg] Viv Randallmond Other [employer] Other 07-28-2022 11:35-0500 Body height 177.8 cm Viv Randallmond Other [employer] Other 07-28-2022 11:35-0500 Body mass index (BMI) [Ratio] 30.13 kg/m2 Viv Randallmond Other [employer] Other 07-28-2022 11:35-0500 Body temperature 97.9 [degF] Viv Campos Other [employer] Other 07-28-2022 11:35-0500 Body weight 95.26 kg Viv Campos Other [employer] Other 07-28-2022 11:35-0500 Diastolic blood pressure 83 mm[Hg] Viv Campos Other [employer] Other 07-28-2022 11:35-0500 Respiratory rate 18 /min Viv Campos Other [employer] Other 07-28-2022 11:35-0500 SaO2% (BldA) [Mass fraction] 96 % Viv Campos Other [employer] Other 07-28-2022 11:35-0500 Systolic blood pressure 126 mm[Hg] Viv Beth Other [employer] Other 07-17-2022 14:40-0400 Body height 177.8 cm Tamar Prakash Other [employer] Other 07-17-2022 14:40-0400 Body mass index (BMI) [Ratio] 30.13 kg/m2 Tamar Prakash Other [employer] Other 07-17-2022 14:40-0400 Body temperature 98 [degF] Tamar Prakash Other [employer] Other 07-17-2022 14:40-0400 Body weight 95.26 kg Tamar Prakash Other [employer] Other 07-17-2022 14:40-0400 Diastolic blood pressure 81 mm[Hg] Tamar Prakash Other [employer] Other 07-17-2022 14:40-0400 Respiratory rate 18 /min Tamar Prakash Other [employer] Other 07-17-2022 14:40-0400 SaO2% (BldA) [Mass fraction] 98 % Tamar Prakash Other [employer] Other 07-17-2022 14:40-0400 Systolic blood pressure 143 mm[Hg] Tamar Prakash Other [employer] Other 01-21-2022 12:29-0400 Body height 177.8 cm Ne Hanna MD [facility] 01-21-2022 12:29-0400 Body mass index (BMI) [Ratio] 30.85 kg/m2 Ne Hanna MD [facility] 01-21-2022 12:29-0400 Body temperature 98.8 [degF] Ne Hanna MD [facility] 01-21-2022 12:29-0400 Body weight 97.52 kg Ne Hanna MD [facility] 01-21-2022 12:29-0400 Diastolic blood pressure 91 mm[Hg] Ne Hanna MD 01-21-2022 12:29-0400 Heart rate 82 /min Ne Hanna MD 01-21-2022 12:29-0400 Respiratory rate 18 /min Ne Hanna MD 01-21-2022 12:29-0400 SaO2% (BldA) [Mass fraction] 98 % Ne Hanna MD 01-21-2022 12:29-0400 Systolic blood pressure 155 mm[Hg] Ne Hanna MD Encounters Encounter Date Encounter Type Care Provider Facility Start: 11-24-2023 Telephone encounter Zulma Pagan MA [facility] Start: 11-16-2023 End: 11-17-2023 ambulatory [facility] Comment on above: Infection of eczemat ous skin Start: 11-06-2023 Telephone encounter [facility]ylee [facility] Comment on above: Lymphadenopathy, ing uinal (Primary Dx) Start: 11-03-2023 End: 11-04-2023 ambulatory [facility] Start: 11-02-2023 End: 11-02-2023 ambulatory [facility] Start: 11-02-2023 End: 11-02-2023 Office outpatient visit 15 minutes [facility] SYSTEMS MANAGEMENT CONSULTANT-CALIBRATION TECHNICIAN Work Phone: [facility] Comment on above: Lymphadenopathy, ing uinal (Primary Dx); Lumbar back pain; Lumbar radiculopathy Start: 12-03-2022 Office outpatient vi sit 15 minutes Viv Campos [facility] Start: 12-03-2022 End: 12-03-2022 ambulatory Viv Campos Facility:[facility] Start: 12-03-2022 End: 12-03-2022 ambulatory SOLUTION ENGINEER-C Viv Campos Work Phone: [facility] Work Phone: Start: 12-03-2022 End: 12-03-2022 Patient encounter procedure SOLUTION ENGINEER-C Viv Campos Work Phone: [facility] Work Phone: Start: 09-01-2022 End: 09-01-2022 ambulatory Viv Beth Other [employer] Other Start: 09-01-2022 Office outpatient vi sit 15 minutes Viv Beth [facility] Start: 08-13-2022 End: 08-13-2022 ambulatory Viv Beth Other [employer] Other Start: 08-13-2022 Office outpatient vi sit 15 minutes Viv Beth [facility] Start: 07-28-2022 End: 07-28-2022 ambulatory Viv Beth Other [employer] Other Start: 07-28-2022 Office outpatient vi sit 15 minutes Viv Beth [facility] Start: 07-17-2022 End: 07-17-2022 ambulatory Tamar Haylee Facility:[facility] Start: 07-17-2022 Office outpatient vi sit 15 minutes Tamar Haylee [facility] Start: 07-17-2022 End: 07-17-2022 ambulatory [employer]STATE BRANCH MANAGER-C Tamar Haylee Work Phone: [facility] Work Phone: Start: 07-17-2022 End: 07-17-2022 Patient encounter procedure REAL ESTATE BRANCH MANAGER-C Tamar Haylee Work Phone: [facility] Start: 01-21-2022 End: 01-21-2022 Emergency department patient visit MATT MATOS [facility] Start: 01-21-2022 End: 01-21-2022 Emergency department patient visit Ne Hanna MD [facility] ED Comment on above: Closed head injury, initial encounter (Primary Dx); Laceration of scalp, initial encounter Start: 05-28-2020 End: 05-29-[address] [facility] Facility:H1 Procedures Date Procedure Procedure Detail Performing Clinician Start: 11-02-2023 Adult depression screening assessment Johnna Dharmesh SYSTEMS MANAGEMENT CONSULTANT-CALIBRATION TECHNICIAN Work Phone: Start: 12-03-2022 Plain X-ray of right hand SOLUTION ENGINEER-C Viv Campos Work Phone: Start: 07-17-2022 X-ray of right knee REAL ESTATE BRANCH MANAGER -C Tamar Zelayaault Work Phone: Start: 01-21-2022 Ct cervical spine w/ o contrast material Yoni A Romp PA-C Work Phone: Start: 01-21-2022 Ct head/brain w/o contrast material Yoni A Romp PA-C Work Phone: Plan of Treatment Date Care Activity Detail Author Start: 01-22-2032 DTaP,Tdap and Td Vaccines (3 - Td or Tdap) DTaP,Tdap and Td Vaccines (3 - Td or Tdap) [facility] Start: 01-22-2032 DTaP/Tdap/Td vaccine (2 - Td or Tdap) DTaP/Tdap/Td vaccine (2 - Td or Tdap) Start: 11-02-2024 Adult BMI Screening Adult BMI Screen ing [facility] Start: 11-02-2024 Depression Screening Depression Scre ening [facility] Start: 11-02-2024 Tobacco Screening Tobacco Screening [facility] Start: 11-06-2023 End: 11-06-2024 US Guidance for core needle biopsy of Unspecified body region Ultrasound guidance intraoperative with Bx or Asp Imaging Routine Lymphadenopathy, inguinal Expected: 11/06/2023, Expires: 11/06/2024 [facility] Work Phone: Comment on above: Expected: 11/06/2023 , Expires: 11/06/2024 Start: 11-03-2023 Subsequent hospital visit by physician 11/03/2023 2:30 PM EST Hospital Encounter [facility] - Ultrasound [address] [place] [address] [facility] Start: 11-02-2023 End: 11-02-2024 US Extremity - left limited Ultrasound extremity non vascular limited left Imaging Routine Lymphadenopathy, inguinal Expected: 11/02/2023, Expires: 11/02/2024 [facility] Work Phone: Comment on above: Expected: 11/02/2023 , Expires: 11/02/2024 Start: 05-15-2023 Influenza vaccination Influenza Vacc ine [facility] Start: 05-15-2022 Influenza vaccination Flu vacc ine (Season Ended) Start: 2006 Adult BMI Follow Up Plan Adult BMI Follow Up Plan [facility] Start: 2006 Hepatitis C screening Hepatitis C sc reen Start: 2003 HIV screening HIV screen [facility] Start: 2000 Depression Screen Depression Screen Start: 1993 COVID-19 Vaccine (1) COVID-19 Vaccin e (1) Start: 1989 Varicella vaccine (1 of 2 - 2-dose childhood series) Varicella vaccine (1 of 2 - 2-dose childhood series) Immunizations Immunization Date Immunization Notes Care Provider Avinash walsh 01-21-2022 tetanus toxoid, reduced diphtheria toxoid, and acellular pertussis vaccine, adsorbed Ne Hanna MD Work Phone: 04-04-2019 tetanus and diphtheria toxoids, adsorbed, preservative free, for adult use (2 Lf of tetanus toxoid and 2 Lf of diphtheria toxoid) Johnna Barroso SYSTEMS MANAGEMENT CONSULT[employer] Work Phone: [facility] 09-11-2014 influenza, seasonal, injectable, preservative free Johnna Barroso SYSTEMS MANAGEMENT CONSULT[employer] Work Phone: [facility] 09-11-2014 influenza virus vaccine, unspecified formulation Johnna Barroso SYSTEMS MANAGEMENT CONSULT[employer] Work Phone: [facility] [employer] NEGATED: Highlighted row has not occurred!11-27-2021 influenza, injectable, quadrivalent, preservative free Johnna Barroso SYSTEMS MANAGEMENT CONSULTANT[employer] Work Phone: [facility] Comment on above: Deferred: Patient de cision Payers Date Payer Category Payer Unknown [id number] 2023 Unknown [place] [facility] HMO/PPO/TRUST [id number] 2023-Present [phone] [place] [address] [id number] 2022 Medicaid [id number] 2022 Self-pay 2022 Unknown [id number] 2022 Unknown [id number] 2022 Unknown [id number] 2021 Unknown [id number] 1988 Unknown [id number] 1988 Unknown [id number] 1988 Unknown [id number] 1988 Unknown [id number] 1988 Unknown [id number] 1959 Unknown [id number] 1959 Unknown [id number] Unknown [id number] Unknown [id number] Social History Date Type Detail Facility Start: 03-31-2014 End: 08-20-2022 Tobacco smoking status NHIS Ex-smoker [facility] Start: 03-31-2014 Tobacco use and exposure Smoke less tobacco non-user [facility] Phone: Start: 01-21-2022 Alcohol intake Current non-dr tie buyer of alcohol (finding) [facility] Phone: Start: 11-26-2021 End: 01-21-2022 [facility] Start: 03-31-2014 History SDOH Alcohol Comment 1x month [employer] Phone: Start: 1990 [facility] Start: 01-11-2022 End: 01-21-2022 Exposure to SARS-CoV-2 (event) Not sure [employer] Phone: Start: 1990 Sex Assigned At Male F [facility] Start: 11-26-2021 End: 11-02-2023 Sex Assigned At [facility] History of tobacco use Current smoker [facility] [employer] [facility] Start: 08-20-2022 Tobacco use and exposure Forme r smokeless tobacco user [facility] [employer] [facility] End: 02-12-2018 History of tobacco use Chews Tobacco [facility] Start: 11-02-2023 Alcohol intake Ex-drinker (finding) [facility] How often do you att end episcopal or zoroastrianism services? Patient declined [facility] Do you belong to any clubs or organizations such as episcopal groups, unions, fraternal or athletic groups, or school groups? Yes [facility] Are you now , , , , never or living with a partner? [facility] How often to you hav e a drink containing alcohol? 2-3 time sa week [facility] How many standard dr inks containing alcohol do you have on a typical day? 5 or 6 [facility] How often do you hav e 6 or more drinks on 1 occasion? Monthly [facility] Do you feel stress - tense, restless, nervous, or anxious, or unable to sleep at night because your mind is troubled all the time - these days [OSQ] Rather much [facility] Start: 03-14-2019 Education 21 [facility] Clinical Notes 01-21-2022 to 11-24-2023 Telephone [...] results documented in this encounter [facility] 11-24-2023 Telephone encount er Note ----- Message from SERGE Mitchell sent at 11/24/2023 4:52 AM EDT ----- Biopsy was negative for malignancy, although I do recommend follow up in 6-8 weeks for continued assessment ----- Message ----- From: Interface - Lab Results/Orders In Sent: 11/18/2023 4:33 PM EDT To: SERGE Mitchell [facility] [employer] [facility] 11-24-2023 Telephone encount er Note Called patient, no answer unable to leave a message [facility] [employer] [facility] 11-24-2023 Telephone encount er Note Patient called back into the office I did let him know his results [facility] 11-16-2023 Miscellaneous Notes Formattin g of this note might be different from the original. Patient presenting to front window requesting refill of Clobetasol 0.05% ointment. Pharmacy is [email or web address] in [place], [place]. [facility] Telephone encount er Note Patient presenting to front window requesting refill of Clobetasol 0.05% ointment. Pharmacy is [email or web address] in [place], [place]. [facility] 11-06-2023 Miscellaneous Notes Formattin g of this [...] He stated understanding. documented in this encounter [facility] [employer] [facility] 11-06-2023 Telephone encount er Note ----- Message from SERGE Mitchell sent at 11/06/2023 9:38 AM EST ----- Please let pt know that ultrasound was abnormal, radiology is recommending a biopsy. I will put in order and hospital will call him ----- Message ----- From: Interface - Rad Results/Orders In 1 Sent: 11/05/2023 12:44 PM EST To: SERGE Mitchell [facility] [employer] [facility] 11-06-2023 Telephone encount er Note Tried to call patient but no answer and could not leave a voicemail. [facility] [employer] [facility] 11-06-2023 Telephone encount er Note Patient called back and I informed him. He stated understanding. [facility] [employer] [facility] 11-02-2023 History of Presen t illness Narrative Images from the original note were not included. Subjective CC: Mass between hips and groin Patient ID: Mich Rodriugez Jr. is a 33 y.o. male. HPI [...] nursing note reviewed. Exam conducted with a bpm architect present. Constitutional: Appearance: Normal appearance. HENT: Head: [...] Mitchell 11/02/23 1153 [facility] Evaluation note Encounter Date Diagnosis Assessment [...] no improvement in 5 to 7 days. [facility] Other 12-19-2022 Evaluation note* Encounter Date Diagnosis [...] days. You may return to work tomorrow [facility] Other 11-30-2022 Evaluation note* Encounter Date Diagnosis [...] no improvement in 2 to 3 days. [facility] Other 11-14-2022 Evaluation note* Encounter Date Diagnosis [...] no improvement in 2 to 3 days [facility] Other 11-03-2022 Evaluation note* Encounter Date Diagnosis [...] will help you get into a specialist. [facility] Other 05-10-2022 Hospital Discharge instructions* Instructions* Yoni [...] sent through Care Everywhere. * Lacerations: Stitches (Kinyarwanda) [facility] [employer] [facility] Phone: evaluation note* Diagnosis Closed head injury, initial encounter- Primary Laceration of scalp, initial encounter documented in this encounter Work Phone: evaluation noteNo assessment information available [facility] Work Phone: Evaluation note* Diagnosis Lymphadenopathy, inguinal- Primary Lumbar back pain Lumbago Lumbar radiculopathy Thoracic or lumbosacral neuritis or radiculitis, unspecified documented in this encounter [facility] [employer] [facility]* Diagnosis Lymphadenopathy, inguinal- Primary documented in this encounter [facility] [employer] [facility]* Diagnosis Infection of eczematous skin [facility] [employer] [facility] general Narrative - Reported* Type Description Date Medical History hypertension Medical History hypercholesterolemia Medical History acid reflux Surgical History shoulder surgery [facility] Other Instructions* Attachments The following attachments cannot be sent through Care Everywhere. 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 1247 (Given - Provid er: Aileen Wong LPN - Comment: top of head) Care Teams (unrecognized sec tion and content) Policy Writer Sales Relationship Specialty Start Date End Date Matt Matos APRN - CNP PCP - General 11/03/18 Team Status: Inactive Member Role Status Dates DORA Chandra-C Attending Provider Active Team Status: Inactive Member Role Status Dates Viv Campos NP-C Attending Provider Active Policy Writer Sales Relationship Specialty Start Date End Date Johnna Barroso APRN-CNP [address], [place] [address] PCP - General Family Medicine 11/27/21 Policy Writer Sales Relationship Specialty Start Date End Date Johnna Barroso APRN-CNP [address], [place] [address] PCP - General Family Medicine 11/27/21 Policy Writer Sales Relationship Specialty Start Date End Date Johnna Barroso APRN-CALIBRATION TECHNICIAN [address] [place] [address] PCP - General Family Medicine 11/27/21 Policy Writer Sales Relationship Specialty Start Date End Date Johnna BarrosoSERGE [address] [place] [address] PCP - General Family Medicine 11/27/21 (unrecognized sect ion and content) No Status Records FoundNo Status Records FoundNo Status Records FoundNo Status Records FoundNo Status Records Found INFORMATION SOURCE (unrecogn ized section and content) DATE CREATED AUTHOR 01/22/2022 [facility] DATE CREATED AUTHOR AUTHOR'S ORGANIZ ATION 06/20/2022 [facility] DATE CREATED AUTHOR AUTHOR'S ORGANIZ ATION 01/03/2023 [facility] DATE CREATED AUTHOR AUTHOR'S ORGANIZ ATION 11/03/2023 [facility] DATE CREATED AUTHOR AUTHOR'S ORGANIZ ATION 11/21/2023 [facility] Goals (unrecognized section and content) Goals [...] BE BASED ON THE PRIMARY CLINICAL RECORDS. [employer] [facility]. provides no warranty or guarantee of the accuracy or completeness of information in this document.
[2024-12-11] MEDS: PREDNISONE 20 MG TABLET 40 MG PO (18:48)
[2024-12-11] MEDS: CYCLOBENZAPRINE HCL 10 MG TABLET PO (18:48)
[2024-12-11] MEDS: ACETAMINOPHEN 500 MG TABLET PO (18:48)
--- NOTE | 2024-12-11 19:00 | ED.FALL1 ---
HPI HPI - Fall General Chief Complaint: Fall Stated Complaint: Neck Pain Time Seen by Provider: 12/11/24 18:26 Source: patient Mode of arrival: walk-in History of Present Illness HPI Narrative: 34-year-old male presents to the ER for evaluation of right shoulder and neck pain. Patient notes pain moderate worse with movement and has some numbness and tingling diffuse glovelike in the right arm down to his hand. Patient states he was coming down steps at his house and slipped striking his right shoulder and notes that his head and neck went down several steps approximately 8. He denies loss of consciousness. He denies any pain to his chest or abdomen. He has a small abrasion on his right elbow that is nontender. He reports a longstanding history of neck problems with EMG done remotely showing some nerve damage. Patient appears in no distress at bedside but notes pain with movement of the right shoulder near the AC joint and distal clavicle with no obvious deformity appreciated. MD complaint: Reports fall Onset (ago): hour(s) Fall from: Reports standing (down approximately 8 steps. ) Fall witnessed: Reports no Place fall occurred: Reports home Loss of consciousness: none Prolonged down time: Reports no Symptoms prior to fall: Reports none (slipped) Context: Reports tripped/slipped Location of injury - extremities: Right: shoulder Severity: moderate Quality: Reports aching Associated symptoms (after fall): Denies lightheaded or vertigo Related Data Previous Rx's ?Medication ?Instructions ?Recorded cyclobenzaprine 10 mg tablet 10 mg PO .qhs PRN muscle spasm 7 12/11/24 days #7 tabs prednisone 20 mg tablet 20 mg PO BID 5 days #10 tabs 12/11/24 Allergies Allergy/AdvReac Type Severity Reaction Status Date / Time tree nut Allergy Intermediate Rash Verified 08/29/24 20:29 Opioid HPI Opioid Management Most Recent Pain and Opioid Data: Last Pain Scale 6 08/29/24 20:42 08/29/24 Last MAR Pain Assessment 12/11/24 18:48 Review of Systems ROS Constitutional Denies: fever or chills Eyes Denies: change in vision, blurry vision or seeing flashes Ears, nose, mouth, and throat Denies: throat pain, neck pain or throat swelling Cardiovascular Denies: chest pain, palpitations, edema, swelling of feet/ankles or shortness of breath when lying down Respiratory Denies: shortness of breath or cough Gastrointestinal Denies: abdominal pain, nausea or vomiting Musculoskeletal Denies: back pain, neck pain or extremity pain Integumentary/Breast Denies: rash, itching, changes in skin color or jaundice Neurological Reports: numbness in extremities (right arm paresthesias. ); Denies: headache Psychiatric Denies: anxiety Endocrine Denies: excessive urination Hematologic/Lymphatic Denies: easy bruising PFSH PFSH Social History Smoking status: Former smoker Little interest or pleasure in doing things: not at all Feeling down, depressed, or hopeless: not at all Exam Narrative Exam Narrative: Nurses notes and vital signs reviewed and patient is not hypoxic. General: The patient appears well and in no apparent distress. Patient is resting comfortably on cart. Skin: Warm, dry, no pallor noted. no rash, Head: Normocephalic, atraumatic, minimal soreness left occipital. Neck: Supple, trachea mid-line, + paracervical neck tenderness more on right with right trap spasm. full Rom without pain.. reports feeling sore, no lymphadenopathy Eye: Pupils are equal, round and reactive to light, EOMI Ears, Nose, Mouth, and Throat: TM are clear, normal light reflex, oral mucosa is moist, no posterior oropharynx erythema or hypertrophy, uvula is mid-line Cardiovascular: Regular Rate and Rhythm Respiratory: Patient is in no distress, no accessory muscle use, lungs are clear to auscultation, no wheezing, rales or rhonchi. Chest Wall: no tenderness, no evidence of trauma Back: non-tender, no CVA tenderness Musculoskeletal: normal ROM, patient has tenderness to the right shoulder at the distal clavicle and AC joint no visible deformity small nontender dime size abrasion lateral elbow that is nontender. Patient has pain in the shoulder with abduction past 90 degrees he demonstrates full passive range of motion and has symmetric strength with refuge manager. + neer and mao. GI: Normal bowel sounds, no tenderness to palpation, no masses appreciated. No rebound, guarding, or rigidity noted. Neurological: A&O x4,. 2+ biceps triceps and brachial radialis negative clonus. Psychiatric: Cooperative Constitutional Vital Signs, click to edit/add: Last Vital Signs Temp 98.5 F 12/11/24 18:29 Pulse 78 12/11/24 18:29 Resp 18 12/11/24 18:29 BP 158/98 H 12/11/24 19:42 Pulse Ox 98 12/11/24 18:29 O2 Del Method Room Air 12/11/24 18:29 Course Vital Signs Vital signs: Vital Signs Temperature 98.5 F 12/11/24 18:29 Pulse Rate 78 12/11/24 18:29 Respiratory Rate 18 12/11/24 18:29 Blood Pressure 159/104 H 12/11/24 18:29 Pulse Oximetry 98 12/11/24 18:29 Oxygen Delivery Method Room Air 12/11/24 18:29 Temperature 98.5 F 12/11/24 18:29 Pulse Rate 78 12/11/24 18:29 Respiratory Rate 18 12/11/24 18:29 Blood Pressure 158/98 H 12/11/24 19:42 Pulse Oximetry 98 12/11/24 18:29 Oxygen Delivery Method Room Air 12/11/24 18:29 MDM - Fall MDM Narrative Medical decision making narrative: Three-view x-ray of the right shoulder radiology interpretation no acute osseous abnormality, CT cervical spine noting multilevel disc space narrowing, no acute fracture. Traumatic subluxation.. CT of the head shows no acute intracranial process. Discussed patient's fall, shoulder injury pain on motion and paresthesias into the right upper extremity. Recommend he follow-up with PCP and orthopedic provider will be given recommend gentle stretching ice do not recommend arm sling with possible frozen shoulder discussed. Recommend continuing with Tylenol and a prednisone burst pack muscle relaxant may be used at bedtime. The patient is to followup with primary care physician in next 2-3 days or to return to the emergency department should any of the signs or symptoms worsen or new symptoms develop. Patient had questions answered. The patient agrees with the following Diagnosis and Treatment plan and the patient will be discharged home. Discharge Plan Discharge Chief Complaint: Fall Clinical Impression: Acute pain of right shoulder, Strain of neck muscle, Arm paresthesia, right Patient Disposition: Home, Self-Care Time of Disposition Decision: 21:11 Condition: Good Prescriptions / Home Meds: New cyclobenzaprine 10 mg tablet 10 mg PO .qhs PRN (Reason: muscle spasm) 7 Days Qty: 7 0RF prednisone 20 mg tablet 20 mg PO BID 5 Days Qty: 10 0RF Discontinued methocarbamol 750 mg tablet 750 mg PO TID PRN (Reason: pain) Qty: 20 0RF dexamethasone 4 mg tablet 4 mg PO BID 5 Days Qty: 10 0RF ondansetron 4 mg tablet,disintegrating 4 mg PO Q6H PRN (Reason: nausea and vomiting) Qty: 12 0RF naproxen [Naprosyn] 500 mg tablet 500 mg PO Q12H PRN (Reason: pain) Qty: 10 0RF prednisone 20 mg tablet 40 mg PO DAILY 5 Days Qty: 10 0RF tizanidine [Zanaflex] 4 mg capsule 4 mg PO Q8H PRN (Reason: muscle spasticity) Qty: 14 0RF Print Language: [place] Instructions: Cervical Strain (ED), Paresthesia (ED), Shoulder Pain (ED) Referrals: Johnna Barroso NP [Primary Care Provider] - As soon as possible Octaviano Mckeon MD [Physician] - As needed
[2024-12-11 19:42] VITALS: BP 158/98
[2024-12-11 21:24] VITALS: BP 150/95; PULSE 72; O2SAT 97
== END 2024-12-11 21:27 | disposition home or self-care (01) ==
PROVIDERS: Emergency Provider Emergency Medicine; PCP Nurse Practitioner
DX: S16.1XXA Strain of muscle, fascia and tendon at neck level, initial encounter (principal); M25.511 Pain in right shoulder; R20.2 Paresthesia of skin; S50.311A Abrasion of right elbow, initial encounter; W10.8XXA Fall (on) (from) other stairs and steps, initial encounter; Z87.891 Personal history of nicotine dependence
CPT/HCPCS: 70450; 72125; 73030; 99284; J7512

== ENCOUNTER 2025-01-13 02:08 | Emergency (ER) | payer SELFPAY ==
[2025-01-13] VITALS (14 sets, daily range): BP systolic 142–162; BP diastolic 82–99; PULSE 63–90; TEMP 36.9; O2SAT 96–99; BMI 28.0
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
--- NOTE | 2025-01-13 02:48 | ECG_ITS ---
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 Measurements Intervals [place] Rate: 68 P: 63 MI: 152 QRS: 84 QRSD: 106 T: 24 QT: 392 QTc: 410 Interpretive Statements 1100 Sinus rhythm 2440 Incomplete right bundle branch block 9130 borderline ECG Compared to ECG 06/18/2024 18:03:42 Myocardial infarct finding no longer present Electronically Signed On 01-13-2025 17:49:03 EDT by SHIRA HESS M.D.
[2025-01-13 02:57] LABS: Basophils Percent Auto 0.2 % (0.2-2.0); Eosinophils Absolute Auto 0.2 10^3/uL (0.0-0.7); Eosinophils Percent Auto 1.7 % (0.9-7.0); Hemoglobin 14.1 g/dL (14.0-18.0); Immature Granulocytes Abs Auto 0.04 10^3/uL (0.00-0.03); Immature Granulocytes Pct Auto 0.4 % (0.0-0.5); Lymphocytes Absolute Auto 2.8 10^3/uL (1.2-3.8); Lymphocytes Percent Auto 29.6 % (20.5-60.0); Mean Corpuscular HGB Conc 33.6 g/dL (29.9-35.2); Mean Corpuscular Hemoglobin 27.7 pg (25.9-34.0); Mean Corpuscular Volume 82.5 fL (80.0-94.0); Mean Platelet Volume 10.6 fL (9.5-13.5); Monocytes Absolute Auto 0.6 10^3/uL (0.3-0.8); Monocytes Percent Auto 5.7 % (1.7-12.0); Neutrophils Percent Auto 62.4 % (43.0-75.0); Platelet Count 259 10^3/uL (150-450); Red Blood Count 5.09 10^6/uL (4.70-6.10); Red Cell Distribution Width 12.3 % (11.0-15.0); White Blood Count 9.6 10^3/uL (4.0-11.0)
[2025-01-13] MEDS: KETOROLAC TROMETHAMINE 30 MG/ML VIAL 15 MG IVP (02:59)
[2025-01-13] MEDS: METHYLPREDNISOLONE SOD SUCC PF 125 MG/2 ML VIAL IVP (03:00)
[2025-01-13 03:07] LABS: Anion Gap 11.3
[2025-01-13 03:10] LABS: Alanine Aminotransferase 50 U/L (16-63); Albumin Level 3.5 g/dL (3.4-5.0); Alkaline Phosphatase 86 U/L (46-116); Aspartate Amino Transferase 19 U/L (15-37); BUN Creatinine Ratio 10.8; Bilirubin Total 0.4 mg/dL (0.2-1.0); Calcium 8.5 mg/dL (8.5-10.1); Carbon Dioxide 30.2 mmol/L (21.0-32.0); Chloride 101 mmol/L (98-107); Estimated GFR (African America >60 (>=60 mL/min/1.73m^2); Estimated GFR (Non-African Ame >60 (>=60 mL/min/1.73m^2); Globulin 3.5 g/dL; Glucose 295 mg/dL (74-106); Magnesium 2.1 mg/dL (1.8-2.4); Potassium 3.5 mmol/L (3.5-5.1); Sodium 139 mmol/L (136-145); Troponin I High Sensitivity 9.5 pg/mL (4.0-76.1)
--- NOTE | 2025-01-13 04:06 | PC.NURSE ---
this patient awake and alert sitting upright on the bed looking at his cell phone. this patient informed still waiting on ct results to come back. this patient voices no concerns and shows no sins of distress
--- NOTE | 2025-01-13 04:53 | PC.NURSE ---
i gave this patient verbal and written discharge orders along with 3 e-scribes and this patient voices yes to understanding these. at time of discharge this patient voices no concerns and shows no signs of distress
== END 2025-01-13 04:36 | disposition home or self-care (01) ==
PROVIDERS: Emergency Provider Emergency Medicine; PCP Nurse Practitioner
DX: R07.9 Chest pain, unspecified (principal); R04.2 Hemoptysis; I10 Essential (primary) hypertension; Z87.891 Personal history of nicotine dependence
CPT/HCPCS: 36415; 71275; 80053; 83735; 84484; 85025; 93005; 96374; 96375; 99285; J1885; J2919; Q9967

== ENCOUNTER 2025-08-14 13:11 | Emergency (ER) | payer OTHER, SELFPAY ==
--- OUTSIDE RECORDS SUMMARY | 2020-07-19 06:20 | XMS_ITS | Continuity of Care Document ---
Author Organization [facility] Address [address] [place] [address] Phone Care Team Providers Care Typing Checker Name Role Phone Unavailable Unavailable Unavailable Allergies, Adverse Reactions, Alerts Substance Reaction Status Criticality No Known Allergies Active No Inform ation Procedures Procedure Date NRV CNDJ TST 5-6 STUDIES MUSC TEST DONE W/N TEST COMP Advance Directives Directive Yes / No Effective Date File Name No Information Encounters Encounter Description Practice Location Reason(s) For Visit Diagnoses Date Provider Providers Copied on Encounter [facility], [address] [facility] [facility] [address], [place], [place], [id number], [place] tel:[phone] [facility] EMG-LUE (chief complaint) Pain in left arm No Information Family History Family Member Type Diagnosis Age At Onset No Information Payers Payer name Insurance type Covered republican ID Authoredgarda rosa(s) [place] CI [id number] [employer] CI [id number] Social History Type Description Quantity Date Captured Comments Alcohol Use Details Unknown Caffeine Use Details Unknown Tobacco Use Status No Information Smoking Status No Information Sex Male Chief Complaint And Reason For Visit From encounter dated '07/19/2020 11:20'. EMG-LUE (chief complaint) Reason For Referral Reason For Referral No Information History Of Present Illness Encounter Date Complaint History Of Prese nt Illness EMG-LUE Functional Status Date Functional Assessmen t No Information Instructions Date Instruction Additional Infor mation No Information Assessments Type Assessment Date assessment Pain in left arm Patient Care Teams Name Effective Dates (start - stop) Status Members No Information
[2025-08-14 13:16] VITALS: BP 161/108; PULSE 84; TEMP 36.7; O2SAT 97; BMI 27.8
--- NOTE | 2025-08-14 13:31 | XR_ITS ---
The [address] [address] Patient Name: DILCIA RODRIGUEZ MRN: [id number] date: 1990 Sex: M Assigned Patient Location: ED.MAIN Current Patient Location: ED.MAIN Accession/Order Number: [id number] Exam Date: 08/14/2025 13:38 Report Date: 08/14/2025 14:11 At the request of: GANESH GILLIAM Procedure: XR foot RT min 3V RIGHT ANKLE - 3 views, right foot 3 views CLINICAL HISTORY: Fall, pain, previous ORIF COMPARISON: None FINDINGS: Right ankle: Mild soft tissue swelling. Hardware involving the distal tibia and fibula without acute hardware complication. Residual syndesmotic screw present. Ankle mortise appears intact with degenerative change. No acute bony process is seen. Right foot: No focal soft tissue abnormality. No acute bony process is seen. Joint spaces appear maintained. Plantar spurring. XR/XR ankle RT min 3V IMPRESSION: SOFT TISSUE SWELLING WITHOUT ACUTE BONY PROCESS. Impression dictated by: Girma Maldonado Jr., D.O. 08/14/2025 2:11 PM Dictation Location: [email or web address] Electronically authenticated by: [id number] Y Date: 08/14/2025 14:11
--- NOTE | 2025-08-14 13:31 | XR_ITS ---
The [address] [address] Patient Name: DILCIA RODRIGUEZ MRN: [id number] date: 1990 Sex: M Assigned Patient Location: ED.MAIN Current Patient Location: ED.MAIN Accession/Order Number: [id number] Exam Date: 08/14/2025 13:38 Report Date: 08/14/2025 14:11 At the request of: GANESH GILLIAM Procedure: XR foot RT min 3V RIGHT ANKLE - 3 views, right foot 3 views CLINICAL HISTORY: Fall, pain, previous ORIF COMPARISON: None FINDINGS: Right ankle: Mild soft tissue swelling. Hardware involving the distal tibia and fibula without acute hardware complication. Residual syndesmotic screw present. Ankle mortise appears intact with degenerative change. No acute bony process is seen. Right foot: No focal soft tissue abnormality. No acute bony process is seen. Joint spaces appear maintained. Plantar spurring. XR/XR foot RT min 3V IMPRESSION: SOFT TISSUE SWELLING WITHOUT ACUTE BONY PROCESS. Impression dictated by: Girma Maldonado Jr., D.O. 08/14/2025 2:11 PM Dictation Location: [id number] Electronically authenticated by: [id number] Y Date: 08/14/2025 14:11
--- NOTE | 2025-08-14 13:31 | ED.GENADUL1 ---
HPI HPI - General Adult General Chief complaint: Extremity Injury, Lower Stated complaint: R FOOT INJURY Time Seen by Provider: 08/14/25 13:24 Source: patient Mode of arrival: walk-in Limitations: no limitations History of Present Illness HPI narrative: Patient is a 34-year-old male that presents with complaints of right foot and ankle pain after he was shoveling snow off his porch Thursday night and slipped and fell. He has had pain and bruising to the medial foot and increasing swelling since this time. 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 He has been walking with a limp. He had a previous ankle ORIF. Related Data Allergies Allergy/AdvReac Type Severity Reaction Status Date / Time tree nut Allergy Intermediate Rash Verified 08/14/25 13:19 Opioid HPI Opioid Management Most Recent Opioid Data: Last Pain Scale 7 Today, 13:16 Review of Systems ROS Status of ROS 10 or more systems reviewed and unremarkable except as noted in history and below PFSH [facility] Medical History Hypertension ?I10 - Essential (primary) hypertension (ICD-10) Social History Smoking status: Former smoker Little interest or pleasure in doing things: not at all Feeling down, depressed, or hopeless: not at all Exam Narrative Exam Narrative: General: No distress, age-appropriate Skin: Warm, dry, no pallor. No rash. Head: Normocephalic, atraumatic. Neck: Supple, non-tender. Eye: Pupils are equal, round and EOMI. No scleral icterus. Ears, Nose, Mouth, and Throat: No nasal mucosal hypertrophy. Oral mucosa is moist, no posterior oropharynx erythema, uvula is mid-line Cardiovascular: Regular Rate and Rhythm without murmur, gallop or rub. Respiratory: No accessory muscle use or respiratory distress. Musculoskeletal: Full ROM of all extremities, no calf or popliteal tenderness. Right medial foot swelling and ecchymosis appreciated. Tenderness with palpation of the proximal first metatarsal and medial cuneiform. Full ankle ROM. Medial and lateral well-healed surgical scars. Negative anterior drawer or lateral tilt. 2+ DP pulse palpated. Less than 2-second capillary refill to all toes. Sensation intact distally with light touch. Neurological: A&O x4. No cranial nerve dysfunction observed. No truncal ataxia. Moves all extremities. Sensation intact. Psychiatric: Cooperative and interactive. Normal mood and affect. Constitutional Vital Signs, click to edit/add: Last Vital Signs Temp 98.1 F 08/14/25 13:16 Pulse 84 08/14/25 13:16 Resp 14 08/14/25 13:16 BP 161/108 H 08/14/25 13:16 Pulse Ox 97 08/14/25 13:16 Documenting provider has reviewed patient's vital signs: yes Course Vital Signs Vital signs: Vital Signs Temperature 98.1 F 08/14/25 13:16 Pulse Rate 84 08/14/25 13:16 Respiratory Rate 14 08/14/25 13:16 Blood Pressure 161/108 H 08/14/25 13:16 Pulse Oximetry 97 08/14/25 13:16 Temperature 98.1 F 08/14/25 13:16 Pulse Rate 84 08/14/25 13:16 Respiratory Rate 14 08/14/25 13:16 Blood Pressure 161/108 H 08/14/25 13:16 Pulse Oximetry 97 08/14/25 13:16 Medical Decision Making [facility] Narrative Medical decision making narrative: 34-year-old male with a past surgical history of right ankle ORIF presents with 2 days of right medial foot pain after shoveling snow off his porch and slipping and twisting his foot. He is having pain with ambulation. He is worried about his hardware from his past surgery. X-ray right ankle and foot reviewed by myself as well as radiological read negative for acute fracture. No dislocation. No hardware malfunction. Soft tissue swelling noted. Results discussed with patient and brace and crutches recommended. Patient declines crutches and states he will not use them. I did give him a note for work to be off for the next 3 days for the rest as he does have to wear steel toed boots that he thinks has been making this worse. Ortho/podiatry follow-up recommended, I did provide him with a few names to call for follow-up appointment for x-ray as needed for persistent pain in 7 to 14 days. Patient agreeable with plan. Pain controlled, patient stable for discharge, appropriate follow-up with Ortho given. Patient discharged. Differential Diagnosis Differential Diagnosis: Foot fracture, hardware malfunction, ankle sprain, foot sprain Imaging Data X-ray right foot/ankle: Attestation: I have reviewed the pertinent imaging results. Radiologist's impression: ITS Impressions Ankle X-Ray 08/14/25 13:31 IMPRESSION: SOFT TISSUE SWELLING WITHOUT ACUTE BONY PROCESS. Impression dictated by: Girma Maldonado Jr., D.O. 08/14/2025 2:11 PM Dictation Location: [employer] Electronically authenticated by: [id number] Y Date: 08/14/2025 14:11 Foot X-Ray 08/14/25 13:31 IMPRESSION: SOFT TISSUE SWELLING WITHOUT ACUTE BONY PROCESS. Impression dictated by: Girma Maldonado Jr., D.O. 08/14/2025 2:11 PM Dictation Location: [employer] Electronically authenticated by: [id number] Y Date: 08/14/2025 14:11 Discharge Plan Discharge Chief Complaint: Extremity Injury, Lower Clinical Impression: Contusion of foot Patient Disposition: Home, Self-Care Time of Disposition Decision: 14:45 Condition: Good Mode of Transportation: Private Vehicle Print Language: Yi Instructions: Foot Contusion (ED) Referrals: Frank Padilla DPM [Physician, Podiatry] - 1-2 weeks Johnna Barroso NP [Primary Care Provider] - 1 week Arsh Martinez MD [Physician, Orthopedics] - 1-2 weeks Discharge Date/Time: 08/14/25 14:59
--- OUTSIDE RECORDS SUMMARY | 2025-08-14 13:43 | XMS_ITS | CCD ---
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 ----- From: Interface - Rad Results/Orders In 1 Sent: 11/05/2023 12:44 PM EST To: SERGE Mitchell [facility]02-23-[facility]24 Telephone encounter Note* Telephone Encounter - Rylee Mejia CMA - 11/06/2023 10:46 AM EST Tried to call patient but no answer and could not leave a voicemail. [facility] Telephone encounter Note* Telephone Encounter - Rylee Mejia CMA - 11/06/2023 10:46 AM EST Patient called back and I informed him. He stated understanding. [facility]02-19[facility] History of Present illness Narrative* SERGE Mitchell - 11/02/2023 11:00 AM EST Images from the original note were not [...] and rates it a 6/10 on the painscale. He has not tried anything for treatment. He reports the area is not hot, red, or seemingly inflamed. He desires a refill of his Flexeril. He denies any other concerns at this time. The following portions of the patient's history were reviewed and updated as appropriate: allergies, current medications, past family history, past medical history, past social history, past surgicalhistory, problem list, and medication reconciliation was completed including current medication andpost discharge medication. Review of Systems Constitutional: Negative. [...] nursing note reviewed. Exam conducted with a rn clinical present. Constitutional: Appearance: Normal appearance. HENT: Head: [...] for a mass between his hips and groin.He reports it showed up 2 weeks ago. Describes the pain as pressure at rest, rating it a 2/10; Describes the pain when it is touched as a shooting sharp pain and rates it a 6/10 on the pain scale. Hehas not tried anything for treatment. Desires a [...] SERGE Mitchell 11/02/23 1153 [facility] Evaluation note* Encounter Date Diagnosis Assessment Notes Treatment Notes Treatment Clinical Notes Nov, Right hand pain (ICD-10 - M79.64 1) Hand pain home care material was printed, Hand pain home care material was printed Wear the Maynor wrap for comfort and compression. Take 2 Aleve every morning and every night for the next 5 to 7 days. Follow-up with your family physician if no improvement in 5 to 7 days. [facility] 12-19-2022 Evaluation note* Encounter Date Diagnosis Assessment Notes Treatment Notes Treatment Clinical Notes Aug, Contact with and (caro spected) exposure to other viral communicable diseases (ICD-10 - Z20.828) Aug,Viral upper respiratory infection (ICD-10 - J06.9)Viral upper respiratory infection: adult home care material was printed Drink plenty fluids, get plenty of rest. Take Tylenol or Motrin as needed for aches pains or fevers. Follow-up with your family physician if no improvement in 2 to 3 days. You may return to work tomorrow [employer] Other 11-30-2022 Evaluation note* Encounter Date Diagnosis [...] no improvement in 2 to 3 days. [facility] Other 11-14-2022 Evaluation note* Encounter Date Diagnosis Assessment Notes Treatment Notes Treatment Clinical Notes Jul, Bilateral otitis med ia, unspecified otitis media type (ICD-10 - H66.93) Middle ear infection: adult home care material was printed Drink plenty fluids, get plenty of rest. Take the amoxicillin as prescribed until gone. Take Tylenol or Motrin as needed for aches pains or fevers. Follow- up with your family physician if no improvement in 2 to 3 days [facility] Other 11-03-2022 Evaluation note* Encounter Date Diagnosis Assessment Notes Treatment Notes Treatment Clinical Notes Jul, Right anterior knee pain (ICD-10 - M25.561) Use RICE therapy as discussed: Rest, Ice Compression, Elevate. Apply ice to affected area 3-4 timesdaily (Do not place ice source directly on skin, must cover with towel-like material). Take medication as directed. Rest and elevate sore extremity as much as possible. Do not take OTC medication pain relievers if prescription of medication given in office today. Contact office if no improvement ofsymptoms and we will help you get into a specialist. [facility] Other 05-10-2022 Hospital Discharge instructions* Instructions* Yoni [...] sent through Care Everywhere. * Lacerations: Stitches (Japanese) [facility]* Diagnosis Closed head injury, initial encounter- Primary Laceration of scalp, initial encounter [facility] Work Phone: evaluation noteNo assessment information available [facility] Work Phone: Evaluation note* Diagnosis Lymphadenopathy, inguinal- Primary Lumbar back pain Lumbago Lumbar radiculopathy Thoracic or lumbosacral neuritis or radiculitis, unspecified [facility] Diagnosis Lymphadenopathy, inguinal- Primary [facility]* Diagnosis Infection of eczematous skin [facility] Diagnosis Shortness of breath- Primary Inhalation of smoke Lumbar back pain Lumbago Lumbar radiculopathy Thoracic or lumbosacral neuritis or radiculitis, unspecified Chronic bilateral thoracic back pain Essential hypertension Unspecified essential hypertension Psychophysiological insomnia Persistent disorder of initiating or maintaining sleep [facility] general Narrative - Reported* Type Description Date Medical History hypertension Medical HistoryhypercholesterolemiaMedical Historyacid refluxSurgical History shoulder surgery [facility] Other Instructions* Attachments The following attachments cannot be sent through Care Everywhere. * Lymphadenitis (Japanese) [facility] SystemInstructionsNot on file documented in this encounterProCh[facility] SystemInstructionsNot on file documented in this encounterProChillic[facility] SystemInstructionsNot on file documented in this encounterProChillic[facility] SystemInstructions* Attachments The following attachments cannot be sent through Care Everywhere. * High blood pressure in adults (Japanese) documented in this encounterProCh[facility] SystemInstructionsNot on file [facility] Advance Directives TypeDate RecordedPatient RepresentativeExplanationACP-Advance DirectiveACP-Power of Engineering Production Worker Advance Directive Response Recorded Date/ Time Advance Directives No July 23, 2022 6:22pm Summary Purpose Family History No Family History Records FoundNo Family History Records FoundNo Family History Records FoundNo Family History Records FoundNo Family History Records Found Additional Source Comments Reason for Visit (unrecogniz ed section and content) ReasonCommentsHead InjuryPatient states being at work when he was hit in the head with 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 * 1247 (Given - Provider: Aileen Wong LPN - Comment: top of head) Care Teams (unrecognized sec tion and content) Team MemberRelationshipSpecialtyStart DateEnd Date Matt Matos, SWEATBAND CUTTING MACHINE OPERATOR - SENIOR PROJECT MANAGER ENGINEERING PCP - General11/03/18 Team Status: Inactive Member Role Status Dates DORA Chandra-Latasha Attending Provider Active Team Status: Inactive Member Role Status Dates Viv Campos NP-C Attending Provider Active Team MemberRelationshipSpecialtyStart DateEnd Date Johnna Barroso, SWEATBAND CUTTING MACHINE OPERATOR-SENIOR PROJECT MANAGER ENGINEERING [address], [place] [address] PCP - GeneralFamily Medicine3/16/22Team MemberRelationshipSpecialtyStart DateEnd Date Johnna Barroso APRNNEW [facility] [address], [place] [address] PCP - [facility]11/27/21Team MemberRelationshipSpecialtyStart DateEnd Date Johnna Barroso APRNNEW [facility] [address], [place] [address] [facility] - [facility]11/27/21Te MemberRelationshipSpecialtyStart DateEnd Date Johnna Barroso APRNNEW [facility] [address], [place] [address] [facility] - [facility]11/27/21Team MemberRelationshipSpecialtyStart DateEnd Date Johnna Barroso APRNNEW [facility] [address], [place] [address] PCP - [facility]11/27/21Team MemberRelationshipSpecialtyStart DateEnd Date Johnna Barroso APRNNEW [facility] [address], [place] [address] PCP - [facility] Medicine11/27/21 (unrecognized sect ion and content) No Status Records FoundNo Status Records FoundNo Status Records FoundNo Status Records FoundNo Status Records Found INFORMATION SOURCE (unrecogn ized section and content) DATE CREATED AUTHOR 01/22/2022 [facility] DATE CREATED AUTHOR AUTHOR'S ORGANIZ ATION 06/20/2022 [facility] DATE CREATED AUTHOR AUTHOR'S ORGANIZ ATION 01/03/2023 [facility] DATE CREATED AUTHOR AUTHOR'S ORGANIZ ATION 11/21/2023 [facility] DATE CREATED AUTHOR AUTHOR'S ORGANIZ ATION 06/29/2025 [facility] Goals (unrecognized section and content) Goals may [...] BE BASED ON THE PRIMARY CLINICAL RECORDS. [facility]. provides no warranty or guarantee of the accuracy or completeness of information in this document.
== END 2025-08-14 14:59 | disposition home or self-care (01) ==
PROVIDERS: Emergency Provider Emergency Medicine; PCP Nurse Practitioner
DX: S90.31XA Contusion of right foot, initial encounter (principal); W00.0XXA Fall on same level due to ice and snow, initial encounter; Z87.891 Personal history of nicotine dependence
CPT/HCPCS: 73610; 73630; 99284